=== PATIENT | male | born 1955 | race Caucasian/White ===

== ENCOUNTER → 2024-05-05 | Outpatient (CLI) | payer MEDICARE, OTHER, SELFPAY ==
[2024-05-05 17:22] LABS: Absolute Lymphocyte Count 1.82 X10^3/uL (0.83-4.51); Absolute Neutrophil Count 4.2 X10^3/uL (2.0-7.7); Basophil# 0.07 X10^3/uL; Eosinophil# 0.16 X10^3/uL; Eosinophils% 2.3 % (0-5); Hematocrit 27.3 % (40-54); Hemoglobin 7.4 g/dL (13.0-16.5); Lymphocyte # 1.82 X10^3/ul (0.83-4.51); Lymphocyte % 25.6 % (19-41); Mean Corp Hgb Conc 27.1 g/dL (32-36); Mean Corpuscular Hgb 18.3 pg (27.0-32.0); Mean Corpuscular Volume 67.4 fL (80-94); Mean Platelet Vol. 9.4 fl (6.2-12.0); Monocyte# 0.82 X10^3/uL; Monocyte% 11.5 % (0-10); NRBC Flagged by Analyzer 0 % (0-5); Neutrophil # 4.21 X10^3/uL (2.7-7.7); Neutrophil % 59.3 % (47-70); Platelet Count 251 K/mm3 (150-450); RBC Distribution Width CV 19.9 % (11.6-14.6); RBC Distribution Width SD 47.4 fl (35.1-43.9); Red Blood Count 4.05 M/mm3 (4.6-6.2); White Blood Count 7.1 K/mm3 (4.4-11.0)
[2024-05-05 17:36] LABS: ALB/GLOB Ratio 0.9 RATIO (0.9-2.4); AST(SGOT) 10 U/L (15-37); Alanine Aminotransfer ALT/SGPT 15 U/L (16-61); Albumin, Serum 3.3 g/dL (3.2-5.0); Alkaline Phosphatase 55 U/L (45-117); Anion Gap 5 (5-15); BUN 24 mg/dL (7-18); BUN/Creat Ratio 19.2 RATIO (10-20); Calcium,Total 9.1 mg/dL (8.5-10.1); Chloride 108 mmol/L (98-107); Cholesterol 97 mg/dL (200); Creatinine, Serum 1.25 mg/dL (0.70-1.30); EST Glomerular Filtration Rate 61 mL/min (>60); Est Glom Filt Rate - Afr Amer 74 mL/min (>60); Globulin 3.6 g/dL (2.2-4.2); Glucose 148 mg/dL (74-106); High Density Lipoprotein 41 mg/dL; Potassium 4.1 mmol/L (3.5-5.1); Protein, Total 6.9 g/dL (6.4-8.2); Sodium Level 138 mmol/L (136-145); Triglycerides 85 mg/dL; Very Low Density Lipoprotein 17 mg/dL (5-40)
[2024-05-05 19:45] LABS: Hemoglobin A1c 5.9 % (3.8-5.6)
== END | disposition home or self-care (01) ==
LOC: MTLAB 13:58
PROVIDERS: PCP Internal Medicine; Referring Provider Nurse Practitioner; Visit Provider Nurse Practitioner
DX: I10 Essential (primary) hypertension (principal); E78.5 Hyperlipidemia, unspecified
CPT/HCPCS: 36415; 80053; 80061; 83036; 85025

== ENCOUNTER → 2024-05-10 | Outpatient (CLI) | payer MEDICARE, OTHER, SELFPAY | END | disposition home or self-care (01) | LOC: LABSPEC 11:01 | PROVIDERS: PCP Internal Medicine; Referring Provider Nurse Practitioner; Visit Provider Nurse Practitioner | DX: D64.9 Anemia, unspecified (principal) | CPT/HCPCS: 82274 ==

== ENCOUNTER → 2024-05-13 | Outpatient (CLI) | payer MEDICARE, OTHER, SELFPAY ==
--- NOTE | 2024-05-13 09:52 | STRESSREP_ITS ---
Stress Test Report Date: 05/13/2024 Procedure: Exercise tolerance test/imaging study Indications: Dyspnea on exertion Consent: Per the patient Procedure: The patient exercised on a Fredrick protocol for 6 minutes achieving a peak heart rate of 127 bpm (83% predicted maximal heart rate) with a peak blood pressure 160/70 mmHg and a peak MET capacity of 7.0 METs. The baseline ECG demonstrated sinus rhythm. The peak exercise ECG demonstrated no diagnostic ischemic changes. Frequent isolated PVCs noted with exercise. The functional capacity was considered average. There was no complaint of chest discomfort during exercise or recovery. The examination was discontinued secondary to complaints of dyspnea. The patient was injected with 14.9 mCi of technetium 99m Cardiolite and subsequently rest SPECT Cardiolite nuclear imaging was obtained in the horizontal long, vertical long, and short axis views. Post-exercise, the patient was injected with 44.8 mCi of technetium 99m Cardiolite and subsequently stress SPECT Cardiolite nuclear imaging was obtained in the horizontal long, vertical long, and short axis views. A gated Cardiolite study at peak stress was obtained. Rest and stress SPECT Cardiolite nuclear imaging status post realignment, normalization, and attenuation correction, demonstrates the appearance of relative uniform tracer uptake and myocardial perfusion appearing within normal limits. There is end systolic thickening and brightening. The gated Cardiolite study demonstrates myocardial thickening and inward wall motion. The reported LVEF is 68%. Impression: 1. Technically adequate exercise tolerance test at 83% of predicted maximal heart rate 2. Peak exercise ECG with no diagnostic ischemic changes 3. Frequent PVCs noted with exercise 4. Rest and stress SPECT Cardiolite nuclear imaging demonstrate relative uniform tracer uptake and myocardial perfusion appearing within normal limits. 5. The gated Cardiolite study reports an LVEF of 68%. This note was generated with [employer] software. It may contain incorrect words, spelling, and punctuation that were not noted in checking the note before signing.
== END | disposition home or self-care (01) ==
LOC: CVS 06:24
PROVIDERS: PCP Internal Medicine; Referring Provider Physician Assistant; Visit Provider Physician Assistant
DX: R06.09 Other forms of dyspnea (principal)
CPT/HCPCS: 78452; 93017; A9500

== ENCOUNTER → 2024-05-19 | Outpatient (CLI) | payer MEDICARE, OTHER, SELFPAY ==
[2024-05-19 12:15] LABS: Absolute Lymphocyte Count 1.91 X10^3/uL (0.83-4.51); Absolute Neutrophil Count 4.3 X10^3/uL (2.0-7.7); Basophil# 0.07 X10^3/uL; Basophil% 0.9 % (0-1); Eosinophil# 0.19 X10^3/uL; Eosinophils% 2.5 % (0-5); Hematocrit 28.9 % (40-54); Hemoglobin 7.6 g/dL (13.0-16.5); Lymphocyte # 1.91 X10^3/ul (0.83-4.51); Lymphocyte % 25.3 % (19-41); Mean Corp Hgb Conc 26.3 g/dL (32-36); Mean Corpuscular Hgb 18.6 pg (27.0-32.0); Mean Corpuscular Volume 70.7 fL (80-94); Mean Platelet Vol. 9.2 fl (6.2-12.0); Monocyte% 14.6 % (0-10); NRBC Flagged by Analyzer 0 % (0-5); Neutrophil # 4.26 X10^3/uL (2.7-7.7); Neutrophil % 56.3 % (47-70); POSITIVE MORPHOLOGY YES; Platelet Count 311 K/mm3 (150-450); RBC Distribution Width CV 24.1 % (11.6-14.6); RBC Distribution Width SD 59.2 fl (35.1-43.9); Red Blood Count 4.09 M/mm3 (4.6-6.2); White Blood Count 7.6 K/mm3 (4.4-11.0)
[2024-05-19 12:21] LABS: Differential Indicated SCAN CRITERIA MET
[2024-05-19 12:52] LABS: Anisocytosis 1+; Differential Comment SCANNED; Hypochromasia 1+
[2024-05-19 12:53] LABS: Cholesterol 151 mg/dL (200); High Density Lipoprotein 39 mg/dL; Triglycerides 132 mg/dL; Very Low Density Lipoprotein 26 mg/dL (5-40)
[2024-05-19 19:49] LABS: ALB/GLOB Ratio 0.9 RATIO (0.9-2.4); AST(SGOT) 8 U/L (15-37); Alanine Aminotransfer ALT/SGPT 11 U/L (16-61); Albumin, Serum 3.3 g/dL (3.2-5.0); Alkaline Phosphatase 53 U/L (45-117); Anion Gap 7 (5-15); BUN 20 mg/dL (7-18); BUN/Creat Ratio 17.7 RATIO (10-20); Calcium,Total 9.1 mg/dL (8.5-10.1); Chloride 107 mmol/L (98-107); Creatinine, Serum 1.13 mg/dL (0.70-1.30); EST Glomerular Filtration Rate 69 mL/min (>60); Est Glom Filt Rate - Afr Amer 83 mL/min (>60); Globulin 3.5 g/dL (2.2-4.2); Glucose 140 mg/dL (74-106); Potassium 4.5 mmol/L (3.5-5.1); Protein, Total 6.8 g/dL (6.4-8.2); Sodium Level 137 mmol/L (136-145)
== END | disposition home or self-care (01) ==
PROVIDERS: Physician Assistant; PCP Internal Medicine; Referring Provider Nurse Practitioner; Visit Provider Nurse Practitioner
DX: Z01.818 Encounter for other preprocedural examination (principal); D64.9 Anemia, unspecified; E78.5 Hyperlipidemia, unspecified
CPT/HCPCS: 36415; 80053; 80061; 85025

== ENCOUNTER → 2024-05-21 | Outpatient (CLI) | payer MEDICARE, OTHER, SELFPAY ==
[2024-05-21 12:09] LABS: Glucose 113 mg/dL (74-106); Magnesium 2.2 mg/dL (1.6-2.6)
[2024-05-21 12:20] LABS: Hemoglobin A1c 5.3 % (3.8-5.6)
== END | disposition home or self-care (01) ==
LOC: PSN 11:17
PROVIDERS: PCP Internal Medicine; Referring Provider Nurse Practitioner Family; Visit Provider Nurse Practitioner Family
DX: I49.3 Ventricular premature depolarization (principal); R53.83 Other fatigue; Z13.1 Encounter for screening for diabetes mellitus; E78.5 Hyperlipidemia, unspecified
CPT/HCPCS: 36415; 82947; 83036; 83735; 84443; 93225; 93226

== ENCOUNTER → 2024-05-27 | Outpatient (CLI) | payer MEDICARE, OTHER, SELFPAY ==
[2024-05-27 16:03] LABS: Ferritin 10 ng/mL (26-388); Iron 18 ug/dL (65-175); Iron Binding Capacity,Total 359 ug/dL (250-450)
== END | disposition home or self-care (01) ==
PROVIDERS: PCP Internal Medicine; Referring Provider Physician Assistant; Visit Provider Physician Assistant
DX: D64.9 Anemia, unspecified (principal)
CPT/HCPCS: 36415; 82728; 83540; 83550

== ENCOUNTER → 2024-06-03 | Outpatient (CLI) | payer MEDICARE, OTHER, SELFPAY ==
--- NOTE | 2024-06-03 14:02 | ECHOD_ITS ---
Reason For Study: Arrhythmia Procedure This was a 2D Doppler, Color Flow transthoracic echocardiogram. Exam performed in department. Left Ventricle Normal LV size. Mild concentric left ventricular hypertrophy. Mid cavitary false tendon noted. The left ventricular ejection fraction is 65 %. Diastolic function is indeterminate. Right Ventricle Normal right ventricle. Atria The left and right atria are normal. Mitral Valve Trivial mitral valve insufficiency. Tricuspid Valve Trivial tricuspid valve insufficiency. Normal pulmonary artery pressure. Aortic Valve Trisinus/trileaflet aortic valve. Trivial aortic valve insufficiency. Pulmonic Valve The pulmonic valve is not well visualized. Great Vessels Mildly dilated aortic root. Pericardium/Pleural Trivial pericardial effusion. MMode/2D Measurements & Calculations LVIDd: 5.3 cm IVSd: 1.0 cm Ao root diam: 3.9 cm LVIDs: 3.1 cm LVPWd: 1.2 cm RVDd: 4.6 cm FS: 40.5 % LAV(MOD-bp): 98.3 ml LVAd ap4: 44.6 cm2 SV(MOD-sp4): 106.3 ml LAV(MOD-bp) Indexed: 41.0 ml/m2 LVLd ap4: 9.8 cm LAV(MOD-sp2): 88.5 ml EDV(MOD-sp4): 167.5 ml LAV(MOD-sp4): 91.2 ml EDV(sp4-el): 172.2 ml LVAs ap4: 24.2 cm2 LVLs ap4: 8.0 cm ESV(MOD-sp4): 61.2 ml ESV(sp4-el): 62.4 ml EF(MOD-sp4): 63.5 % EF(sp4-el): 63.8 % SV(sp4-el): 109.8 ml Ao sinus diam: 4.[address] Junction: 3.4 cm LA dimension(2D): 4.0 cm LA A4 area: 27.5 cm2 RA A4 area: 22.1 cm2 TAPSE: 2.5 cm Time Measurements MV dec time: 0.21 sec Doppler Measurements & Calculations MV E max : 63.5 cm/sec Lat Peak E' : 10.2 cm/sec Med Peak E' : 8.6 cm/sec MV A max : 82.6 cm/sec E/E' lat: 6.2 E/E' med: 7.4 MV E/A: 0.77 MV V2 max: 92.8 cm/sec MV P1/2t max : 86.7 cm/sec Ao V2 max: 129.6 cm/sec MV max P.4 mmHg MV P1/2t: 80.4 msec Ao max P.7 mmHg MV V2 mean: 48.4 cm/sec MV dec slope: 315.7 cm/sec2 Ao V2 mean: 94.7 cm/sec MV mean P.1 mmHg Ao mean P.9 mmHg MV V2 VTI: 30.2 cm MVA(P1/2t): 2.7 cm2 Ao V2 VTI: 27.5 cm AV (velocity ratio): 0.91 LV V1 max: 127.0 cm/sec PA V2 max: 111.7 cm/sec TR max : 274.3 cm/sec LV V1 max P.5 mmHg TR max P.1 mmHg LV V1 mean P.5 mmHg LV V1 mean: 88.8 cm/sec LV V1 VTI: 25.0 cm ECHO/Echo Complete Interpretation Summary Mild concentric left ventricular hypertrophy. Mid cavitary false tendon noted. The left ventricular ejection fraction is 65 %. Mildly dilated aortic root. Trivial pericardial effusion. Ordering Physician: Bandar Ley Referring Physician: Bandar Ley Performed By: Mike Breaux RCS
== END | disposition home or self-care (01) ==
LOC: CVS 14:00
PROVIDERS: PCP Internal Medicine; Referring Provider Nurse Practitioner Family; Visit Provider Nurse Practitioner Family
DX: I49.3 Ventricular premature depolarization (principal)
CPT/HCPCS: 93306

== ENCOUNTER 2024-06-29 10:53 | Day surgery (SDC) | payer MEDICARE, OTHER, SELFPAY ==
[2024-06-29] VITALS (8 sets, daily range): BP systolic 91–158; BP diastolic 69–99; PULSE 67–81; RESP 16; TEMP 36.2–36.6; O2SAT 93–97; BMI 30.7
--- NOTE | 2024-06-29 | IMM_PTH ---
PATIENT: JACEY DODD LOC: EN U#:[id number] AGE/SX: 68/M ROOM: RE06/29/[address]: Dr. Jeremy Serrano DO : 1955 BED: DIS: 06/29/2024 SPEC #: [id number] RECD: 07/01/24 10:49 STATUS: CHELITA REQ #: [id number] DEBBIE: 06/29/24 00:[address]: Jeremy Serrano DEPT: IMMUNOHISTOCHEMISTRY RECD BY: Suraj Pyle ENTERED: 07/01/24 10:49 SP TYPE: IMMUNO OTHR DR: Dr. Evelin Rogers MD Tissues: B - Esophagus, NOS Procedures: P53 (initial) KI-67 (add) [facility]YSIC[facility] INSTIT[facility] [address] [address] SPECIMEN INFORMATION: Tissue Source: B- Distal esophagus biopsy Clinical Info: Iron deficiency anemia due to chronic blood loss Specimen Number: [id number] CPT code: 18162,63899 METHODOLOGY: Deparaffinized sections of prefer/formalin-fixed tissue or PAP/DQ stained slides are incubated with monoclonal/polyclonal antibodies/oligonucleotide probes. Localization is made via biotin free immunoperoxidase method. Appropriate controls are performed and reacted as expected. Results on target cell population are indicated in the following table: RESULTS: ANTIBODY / CLONE RESULT Block B P53 (DO-7) positive, wild type Ki-67 (30-9) positive, low to moderate These tests were developed and their performance characteristics determined by [facility]. They may not have been cleared or approved by the U.S. Food and Drug Administration. The FDA has determined that such clearance or approval is not necessary. The above immunohistochemical/dualISH markers are ordered and reviewed by the Pathologist. INTERPRETATION: B. Distal esophagus, biopsy: No evidence of dysplasia. AM. 07/02/2024
--- NOTE | 2024-06-29 11:24 | PCM.PRE.AN2 ---
ASA Classification* ASA Classification ASA Classification: 2 Assessment & Plan Anesthesia* Anesthesia Assessment Anesthesia Assessment: Discussed sedation and/or anesthesia options, risks, benefits, and alternatives with patient/parents/legal guardian/POA. Questions invited. The patient/parents/legal guardian/POA seems to understand and agrees to proceed with anesthesia plan. Reviewed the physical assessment, medical history, allergy history and patient home medications list prior to surgery/procedure/anesthetic and documented any changes. Performed airway and anesthesia risk assessments. Anesthesia Type Anesthesia Type: MAC History Source History Obtained from:: Patient and Chart Anesthesia Focused Assessment* Temperature: 97.9 F Pulse Rate: 67 Blood Pressure: 158/99 Respiratory Rate: 16 Pulse Ox: 97 Oxygen Delivery Method: Room Air Airway Assessment Mouth opens: >3 cm Mallampati Score: III Teeth Condition: Caps/Crowns (Patient but has multiple crowns all tight.) Neck Range of motion (ROM): Limited ROM (Slight limited in extension) Focused Labs Anesthesia Preop lab: CBC WBC 6.8 K/mm3 (4.4-11.0) 06/24/24 08:23 RBC 4.85 M/mm3 (4.6-6.2) 06/24/24 08:23 Hgb 10.4 g/dL (13.0-16.5) L 06/24/24 08:23 Hct 37.4 % (40-54) L 06/24/24 08:23 Plt Count 268 K/mm3 (150-450) 06/24/24 08:23 CHEMISTRY Potassium 4.5 mmol/L (3.5-5.1) 05/19/24 10:31 Sodium 137 mmol/L (136-145) 05/19/24 10:31 Magnesium 2.2 mg/dL (1.6-2.6) 05/21/24 11:23 BUN 20 mg/dL (7-18) H 05/19/24 10:31 Creatinine 1.13 mg/dL (0.70-1.30) 05/19/24 10:31 Glucose 113 mg/dL (74-106) H 05/21/24 11:23 TSH 2.610 uIU/mL (0.358-3.740) 05/21/24 11:23 COAG Pre-Assessment Diagnosis/Proposed Procedure Planned Operative Procedure(s): EGD/CSCOPE Anesthesia History Anesthesia History - patient transition specialist: Anesthesia History - patient transition specialist Hx Hospitalization No 06/25/24 08:26 Any Problems With Anesthesia No 06/25/24 08:26 Cholinesterase deficiency No 06/25/24 08:26 You/Your Family Experience No 06/25/24 08:26 fever (hyperthermia) with Relationship Recent Exposure to Contagious No 06/29/24 11:11 Disease Does patient have nerve No 06/25/24 08:26 stimulator Patient instructed to have device shut off --Does patient have Pacemaker No 06/29/24 11:11 or ICD? When Was Last Pacemaker Check QUESTION #4 FULL TEXT: You/Your Family Experience fever (hyperthermia) with Anesthesia Last Oral Intake Last Oral intake: Last Oral Intake NPO since 08:00 06/29/24 11:11 Meds taken in AM with sips of water? Meds patient instructed to take am of surgery Any additional information?: Yes NPO since: 08:00 (Patient finished prep at 8 AM.) PONV PONV - patient transition specialist: PONV - patient transition specialist Female No 06/25/24 08:26 HX of Motion Sickness No 06/25/24 08:26 HX of N/V After Surgery No 06/25/24 08:26 Non-Smoker Yes 06/25/24 08:26 Duration of Surgery greater No 06/25/24 08:26 than 60 minutes Number of Risk Factors 1 06/25/24 08:26 PONV Score Low Risk 06/25/24 08:26 Height & Weight Height & Weight: Anesthesia: Height & Weight Height 6 ft 3 in 06/29/24 11:11 Weight: 111.584 kg 06/29/24 11:11 Body Mass Index (BMI) 30.7 06/29/24 11:11 Respiratory Assessment Respiratory Assessment - patient transition specialist: Respiratory Tract Infection Hx - patient transition specialist Hx Respiratory Tract Infection No 06/25/24 08:26 STOP Sleep Apnea STOP Sleep Apnea - patient transition specialist: STOP Sleep Apnea - patient transition specialist Hx Hypertension Yes: NO MED FOR 1 MONTH 06/25/24 08:26 Hx Sleep Apnea No 06/25/24 08:26 CPAP BIPAP Do you snore loudly (louder No 06/25/24 08:26 than talking or can be heard Do you often feel tired/ No 06/25/24 08:26 fatigued/ sleepy during daytime? Has anyone observed you stop No 06/25/24 08:26 breathing during sleep? STOP Results Negative 06/25/24 08:26 QUESTION #5 FULL TEXT : Do you snore loudly (louder than talking or can be heard through closed doors)? 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 Specify any problems Hx of Preganancy in last 3 N/A 06/25/24 08:26 Months Nurse Filling Out Transfusion DSCHRIBER 06/25/24 08:26 & Questions: Date: 06/25/24 06/25/24 08:26 Time: 06/25/24 08:26 Patient unable to answer at this time (ie. confused, unrespo /Reproduction History /Reproductive History - patient transition specialist: /Reproductive Hx- patient transition specialist Hx Now No 06/25/24 08:26 Gestational Age (in weeks): EDC: Hx Hx Para Hx Section SAB No 06/25/24 08:26 PFSH Medical History Low iron Heartburn Non-smoker Shortness of breath on exertion History of Holter monitoring History of echocardiogram History of stress test Iron deficiency anemia due to chronic blood loss Nocturia Prostate cancer Hypertension Home Medications ?Medication ?Instructions ?Recorded ?Last Taken ?Type sildenafil 100 mg tablet 100 mg PO DAILY PRN sexual 03/02/24 Unknown Rx activity #90 tabs ferrous sulfate 325 mg (65 mg 325 mg PO Q OTHER DAY #90 tabs 05/06/24 06/23/24 Rx iron) tablet Allergy/AdvReac Type Severity Reaction Status Date / Time No Known Allergies Allergy Verified 06/29/24 11:10 Family History (Reviewed 06/29/24 @ by Dr. Jerry Mauro MD) Father Cancer, Onset Age: 65 prostate Hypertension Surgical History (Reviewed 06/29/24 @ 11: by Dr. Jerry Mauro MD) Hx of colonoscopy Hx of prostate biopsy H/O hernia repair Social History (Reviewed 06/29/24 @ : by Dr. 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
--- NOTE | 2024-06-29 12:00 | EGD_PTH ---
PATIENT: JACEY DODD LOC: EN U#:[id number] AGE/SX: 68/M ROOM: RE06/29/[address]: Dr. Jeremy Serrano DO : 1955 BED: DIS: 06/29/2024 SPEC #: [id number] RECD: 06/29/24 17:51 STATUS: CHELITA KARINE #: [id number] DEBBIE: 06/29/24 12:[address]: Jeremy Serrano DEPT: SURGICAL PATHOLOGY RECD BY: Kaylyn Valdivia ENTERED: 06/30/24 08:05 SP TYPE: EGD BIOPSY OT DR: Dr. Evelin Rogers MD Tissues: A - Duodenum, NOS B - Esophagus, NOS C - Cecum, NOS Procedures: Special Stain Group I Surgery Specimen Level IV Alcian Blue/PAS (control) HEADER OPERATION: Colonoscopy, EGD with biopsies PRE-OP DIAGNOSIS: Iron deficiency anemia due to chronic blood loss TISSUE SUBMITTED: A- Duodenum biopsy, B- Distal esophagus biopsy, C- Cecal polyp biopsy MICROSCOPIC DIAGNOSIS A. Duodenum, biopsy: Mild non-specific chronic inflammation. B. 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 No evidence of dysplasia. See comment. C. Cecal polyp, biopsy: Hyperplastic polyp. 07/01/2024 COMMENT B. Alcian blue/PAS stain with matched control is used in the evaluation of the specimen. Immunohistochemistry ([id number]) for P53 and Ki-67 will be performed and results will be reported separately. MICROSCOPIC DESCRIPTION Slides are reviewed. GROSS DESCRIPTION A. Received in fixative is one container labeled with the patient's name and designated Duodenum biopsy. The specimen consists of two irregular fragments of light umana soft tissue that in aggregate measure 1.0 x 0.3 x 0.1 cm. The specimen is totally submitted in one cassette. B. Received in fixative is one container labeled with the patient's name and designated Distal esophagus biopsy. The specimen consists of multiple irregular fragments of light umana soft tissue that in aggregate measure 1.5 x 0.4 x 0.1 cm. The specimen is totally submitted in one cassette. C. Received in fixative is one container labeled with the patient's name and designated Cecal polyp biopsy. The specimen consists of two irregular fragments of light umana soft tissue that in aggregate measure 0.6 x 0.3 x 0.1 cm. The specimen is totally submitted in one cassette. SJ.mr 06/30/2024 TC:3 CPT:[id number]
--- NOTE | 2024-06-29 12:40 | PCM.HP.BLA ---
History and Physical Date of Admission: 06/29/24 History of Present Illness 68-year-old gentleman with progressively increasing fatigue over the past 2 to 3 months and workup revealed iron deficiency anemia. He is unaware of any external blood loss. He just started an oral iron supplement 1 tablet every other day. He was diagnosed with prostate cancer on surveillance with a follow-up elective prostate biopsy in June 2024 but unaware of any hematuria. 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 Smoking Status: Never smoker Electronic Cigarette Use: not used alcohol intake: never substance use type: does not use what type of physical activity do you participate in: walking, bicycling and other details: pickleball cassandra/religious: Mormon seatbelt use: always do you feel safe at home: Yes ROS Constitutional Constitutional: Reports fatigue Intake Vital Signs 06/03/2415:45 06/24/2409:17 06/24/2409:19 Height 6 ft 3 in 6 ft 3 in 6 ft 3 in Weight: 112.491 kg 113.171 kg BMI 30.9 31.1 BP 127/73 H 131/81 H Blood Pressure Location Lt brachial Lt brachial Position Sitting Sitting Respiration 16 18 Pulse 76 73 Pulse Source Monitor Monitor Temp 98.5 F 98.1 F Temperature Source Temporal Artery Temporal Artery Pulse Oximetry (%) 93 95 Oxygen Delivery Method room air room air Intake Is patient in pain?: No Allergies No Known Allergies Allergy (Verified 06/24/24 09:19) Medications ?Medication ?Instructions ?Recorded ?Confirmed ?Type sildenafil 100 mg tablet 100 mg PO DAILY PRN sexual 03/02/24 06/24/24 Rx activity #90 tabs ferrous sulfate 325 mg (65 mg 325 mg PO Q OTHER DAY #90 tabs 05/06/24 06/24/24 Rx iron) tablet Have you fallen in the past year?: No Central Venous Access Central Venous Access: No Laboratory Results 06/24/24 06/03/24 05/27/24 08:23 16:30 13:22 Hgb 10.4 L 8.9 L Ferritin 14 L 10 L 05/19/24 05/05/24 10:31 14:07 Hgb 7.6 L 7.4 L Ferritin Exam Physical Exam Const alert, oriented x3 and no apparent distress Coding Level of Care Code Off vis,est,level 3 Exam Problem Focused Diagnoses Iron deficiency anemia due to chronic blood loss D50.0 Assessment and Plan Assessment and Plan (1) Iron deficiency anemia due to chronic blood loss: Status: Chronic Orders: Orders CBC W/Diff, Automated 08/05/24 D50.0 - Iron deficiency anemia secondary to blood loss (chronic), D64.9 - Anemia, unspecified Retic Panel Count 08/05/24 D50.0 - Iron deficiency anemia secondary to blood loss (chronic), D50.9 - Iron deficiency anemia, unspecified Ferritin 08/05/24 D50.0 - Iron deficiency anemia secondary to blood loss (chronic), D64.9 - Anemia, unspecified Iron+Iron Binding Capacity 08/05/24 D50.0 - Iron deficiency anemia secondary to blood loss (chronic), D50.9 - Iron deficiency anemia, unspecified Plan 68-year-old gentleman with iron deficiency anemia due to chronic external blood loss most likely GI. Patient recently started on oral iron supplement 1 tablet every day. There has been some improvement in his iron deficiency anemia. Chronic comorbid conditions: Dyslipidemia, hypertension. Plan: He will undergo EGD and colonoscopy to evaluate his upper lower GI tract for signs and symptoms of GI blood loss. He was explained alternatives, risk, benefits include not withstanding bleeding, infection, sepsis, perforation, need for emergent surgery . He will have an ASA of 3. I have examined the patient and the H&P has been reviewed. There are no clinical changes since date of exam.
--- NOTE | 2024-06-29 13:21 | PCM.POST.ANE ---
Anesthesia: Postop Eval I Current Vital Signs Temperature: 97.2 F Pulse Rate: 72 Blood Pressure: 91/79 Respiratory Rate: 16 Pulse Ox: 97 Oxygen Delivery Method: Room Air Assessment Airway patent: Yes Spontaneous unlabored respirations: Yes Mental status: Awake and Calm nausea: No Vomiting: No Anesthesia Complication: No Fluid Hydration Crystalloid volume administer (ml): 50 Total IV fluid infused: 50 Progress Note Anesthesia document: Postop Eval 1 completed: Yes
--- NOTE | 2024-06-29 13:28 | OP.CCLET_ITS ---
06/29/2024 Evelin Rogers Md Re : Upper GI endoscopy procedure for Eugenio Aguilera Dear Sue This procedure was performed on Saturday, June 29, 2024. 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 Biopsied. - Large hiatal hernia. - Gastric erosions with no stigmata of recent bleeding. - Duodenitis. Biopsied. Recommendations : - Discharge patient to home. - Resume previous diet. - Continue present medications. - Await pathology results. - Repeat upper endoscopy. My findings are described in the full procedure note, which is enclosed. If I can be of further assistance, please feel free to contact me at . Sincerely, Jeremy Serrano, 06/29/2024 1:27:26 PM This report has been signed electronically.
--- NOTE | 2024-06-29 13:28 | OP.EGD_ITS ---
Patient Name: Eugenio Aguilera Procedure Date: 06/29/2024 12:14 PM Date of : 1955 Age: 68 Procedure: Upper GI endoscopy Indications: Iron deficiency anemia Providers: Jeremy Serrano DO Medicines: Monitored Anesthesia Care Patient Profile: This is a 68 year old male. Refer to note in patient chart for documentation of history and physical. Patient has symptoms. Complications: No immediate complications. Procedure: Pre-Anesthesia Assessment: - Prior to the procedure, a History and Physical was performed, and patient medications and allergies were reviewed. The patient is competent. The risks and benefits of the procedure and the sedation options and risks were discussed with the patient. All questions were answered and informed consent was obtained. Patient identification and proposed procedure were verified by the physician in the pre-procedure area. Mental Status Examination: alert and oriented. Airway Examination: normal oropharyngeal airway and neck mobility. Respiratory Examination: clear to auscultation. CV Examination: normal. Prophylactic Antibiotics: The patient does not require prophylactic antibiotics. Prior Anticoagulants: The patient has taken no anticoagulant or antiplatelet agents. ASA Grade Assessment: III - A patient with severe systemic disease. After reviewing the risks and benefits, the patient was deemed in satisfactory condition to undergo the procedure. The anesthesia plan was to use monitored anesthesia care (MAC). Immediately prior to administration of medications, the patient was re-assessed for adequacy to receive sedatives. The heart rate, respiratory rate, oxygen saturations, blood pressure, adequacy of pulmonary ventilation, and response to care were monitored throughout the procedure. The physical status of the patient was re-assessed after the procedure. After obtaining informed consent, the endoscope was passed under direct vision. Throughout the procedure, the patient's blood pressure, pulse, and oxygen saturations were monitored continuously. The Colonoscope was introduced through the mouth, and advanced to the second part of duodenum. The upper GI endoscopy was accomplished without difficulty. The patient tolerated the procedure well. Scope In: 12:49:17 PM Scope Out: 12:58:44 PM Total Procedure Duration Time 0 hours 9 minutes 27 seconds Findings: There were esophageal mucosal changes consistent with long-segment Cadena's esophagus present in the middle third of the esophagus and in the lower third of the esophagus. The maximum longitudinal extent of these mucosal changes was 10 cm in length. Mucosa was biopsied with a cold forceps for histology in a targeted manner at intervals of 1 cm in the middle third of the esophagus and in the lower third of the esophagus. A total of 10 specimen bottles were sent to pathology. A large hiatal hernia was present. Multiple localized erosions with no stigmata of recent bleeding were found in the cardia. Patchy moderate inflammation characterized by erosions, erythema, friability and granularity was found in the duodenal bulb. Biopsies were taken with a cold forceps for histology. Verification of patient identification for the specimen was done. Estimated blood loss was minimal. Impression: - Esophageal mucosal changes consistent with long-segment Cadena's esophagus. Biopsied. - Large hiatal hernia. - Gastric erosions with no stigmata of recent bleeding. - Duodenitis. Biopsied. Recommendation: - Discharge patient to home. - Resume previous diet. - Continue present medications. - Await pathology results. - Repeat upper endoscopy. Procedure Code(s): --- Professional --- 68382, Esophagogastroduodenoscopy, flexible, transoral; with biopsy, single or multiple CPT copyright 2021 [employer]. All rights reserved. The codes documented in this report are preliminary and upon hse manager review may be revised to meet current compliance requirements. Jeremy Serrano DO 06/29/2024 1:27:26 PM This report has been signed electronically. Number of Addenda: 0 Note Initiated On: 06/29/2024 12:14 PM
--- NOTE | 2024-06-29 13:31 | OP.COLON_ITS ---
Patient Name: Eugenio Aguilera Procedure Date: 06/29/2024 12:58 PM Date of : 1955 Age: 68 Procedure: Colonoscopy Indications: Iron deficiency anemia Providers: Jeremy Serrano DO Medicines: Monitored Anesthesia Care Patient Profile: This is a 68 year old male. Refer to note in patient chart for documentation of history and physical. Patient has symptoms. Last Colonoscopy: date unknown. Unable to locate last colonoscopy report. Complications: No immediate complications. Procedure: Pre-Anesthesia Assessment: - Prior to the procedure, a History and Physical was performed, and patient medications and allergies were reviewed. The patient is competent. The risks and benefits of the procedure and the sedation options and risks were discussed with the patient. All questions were answered and informed consent was obtained. Patient identification and proposed procedure were verified by the physician in the pre-procedure area. Mental Status Examination: alert and oriented. Airway Examination: normal oropharyngeal airway and neck mobility. Respiratory Examination: clear to auscultation. CV Examination: normal. Prophylactic Antibiotics: The patient does not require prophylactic antibiotics. Prior Anticoagulants: The patient has taken no anticoagulant or antiplatelet agents. ASA Grade Assessment: III - A patient with severe systemic disease. After reviewing the risks and benefits, the patient was deemed in satisfactory condition to undergo the procedure. The anesthesia plan was to use monitored anesthesia care (MAC). Immediately prior to administration of medications, the patient was re-assessed for adequacy to receive sedatives. The heart rate, respiratory rate, oxygen saturations, blood pressure, adequacy of pulmonary ventilation, and response to care were monitored throughout the procedure. The physical status of the patient was re-assessed after the procedure. After I obtained informed consent, the scope was passed under direct vision. Throughout the procedure, the patient's blood pressure, pulse, and oxygen saturations were monitored continuously. The Colonoscope was introduced through the anus and advanced to the terminal ileum. The colonoscopy was performed without difficulty. The patient tolerated the procedure well. The quality of the bowel preparation was adequate. The terminal ileum, ileocecal valve, appendiceal orifice, and rectum were photographed. Scope In: 1:00:49 PM Scope Withdrawal Time 0 hours 9 minutes 12 seconds Scope Out: 1:13:51 PM Total Procedure Duration Time 0 hours 13 minutes 2 seconds Findings: The perianal and digital rectal examinations were normal. An 8 mm polyp was found in the cecum. The polyp was sessile. The polyp was removed with a jumbo cold forceps. Resection and retrieval were complete. Verification of patient identification for the specimen was done. Estimated blood loss was minimal. Multiple small and large-mouthed diverticula were found in the recto-sigmoid colon, sigmoid colon and descending colon. Impression: - One 8 mm polyp in the cecum, removed with a jumbo cold forceps. Resected and retrieved. - Diverticulosis in the recto-sigmoid colon, in the sigmoid colon and in the descending colon. Recommendation: - Discharge patient to home. - Resume previous diet. - Continue present medications. - Await pathology results. - Repeat colonoscopy in 5 years for surveillance. Procedure Code(s): --- Professional --- 94581, Colonoscopy, flexible; with biopsy, single or multiple CPT copyright 2021 [employer]. All rights reserved. The codes documented in this report are preliminary and upon kitchen designer review may be revised to meet current compliance requirements. Jeremy Serrano DO 06/29/2024 1:30:36 PM This report has been signed electronically. Number of Addenda: 0 Note Initiated On: 06/29/2024 12:58 PM
--- NOTE | 2024-06-29 13:31 | OP.CCLET_ITS ---
06/29/2024 Evelin Rogers Md Re : Colonoscopy procedure for Eugenio Aguilera Dear Sue This procedure was performed on Saturday, June 29, 2024. My impressions and recommendations are as follows: Impressions : - One 8 mm polyp in the cecum, removed with a jumbo cold forceps. Resected and retrieved. - Diverticulosis in the recto-sigmoid colon, in the sigmoid colon and in the descending colon. Recommendations : - Discharge patient to home. - Resume previous diet. - Continue present medications. - Await pathology results. - Repeat colonoscopy in 5 years for surveillance. My findings are described in the full procedure note, which is enclosed. If I can be of further assistance, please feel free to contact me at . Sincerely, Jeremy Serrano, 06/29/2024 1:30:36 PM This report has been signed electronically.
--- NOTE | 2024-06-29 16:57 | PCM.POSTANE2 ---
Anesthesia Postop Eval I Sum Postop Eval Completion status Anesthesia document: Postop Eval 1 completed: Yes Anesthesia Postop Eval I Summary Anesthesia Postop Eval I Summary: Anesthesia Postop Eval I: Assessment Summary Airway patent Yes 06/29/24 13:22 [email or web address] Spontaneous unlabored Yes 06/29/24 13:22 [email or web address] respirations Mental status Awake,Calm 06/29/24 13:22 [email or web address] nausea No 06/29/24 13:22 [email or web address] Vomiting No 06/29/24 13:22 [email or web address] Anesthesia Postop Eval I: Fluid Summary Crystalloid volume administer 50 06/29/24 13:22 [email or web address] (ml) Colloids volume administered ( ml) Blood Product volume administered (ml) Total IV fluid infused 50 06/29/24 13:22 [email or web address] Anesthesia Postop Eval I: Summary Notes Anesthesia Complication No 06/29/24 13:22 [email or web address] Anesthesia Complication Comment: Post-operative progress note Anesthesia: Postop Eval II Evaluation Mental status: Awake and Calm Pain Level: 0 nausea: No Vomiting: No Complications Anesthesia Complication: No
== END 2024-06-29 13:55 | disposition home or self-care (01) ==
LOC: EN 10:53 → AC 10:57
PROVIDERS: PCP Internal Medicine; Referring Provider Internal Medicine; Visit Provider Internal Medicine Gastroenterology
PROC: 0DJD8ZZ Inspection of Lower Intestinal Tract, Via Natural or Artificial Opening Endoscopic (ICD-10-PCS; CPT 45378; principal; 2024-06-29 11:55)
DX: D50.0 Iron deficiency anemia secondary to blood loss (chronic) (principal); C61 Malignant neoplasm of prostate; K44.9 Diaphragmatic hernia without obstruction or gangrene; K63.5 Polyp of colon; K57.30 Diverticulosis of large intestine without perforation or abscess without bleeding; K29.80 Duodenitis without bleeding; I10 Essential (primary) hypertension; K22.70 Barrett's esophagus without dysplasia
CPT/HCPCS: 43239; 45380; 88305; 88312; 88341; 88342; A4216; J2405

== ENCOUNTER → 2024-07-29 | Outpatient (CLI) | payer MEDICARE, SELFPAY ==
[2024-07-29 15:39] LABS: Absolute Lymphocyte Count 1.78 X10^3/uL (0.83-4.51); Absolute Neutrophil Count 3.6 X10^3/uL (2.0-7.7); Basophil# 0.08 X10^3/uL; Basophil% 1.3 % (0-1); Eosinophil# 0.17 X10^3/uL; Eosinophils% 2.7 % (0-5); Hematocrit 44.4 % (40-54); Hemoglobin 13.6 g/dL (13.0-16.5); Lymphocyte # 1.78 X10^3/ul (0.83-4.51); Lymphocyte % 28.7 % (19-41); Mean Corp Hgb Conc 30.6 g/dL (32-36); Mean Corpuscular Hgb 26.1 pg (27.0-32.0); Mean Corpuscular Volume 85.2 fL (80-94); Monocyte# 0.58 X10^3/uL; Monocyte% 9.4 % (0-10); NRBC Flagged by Analyzer 0 % (0-5); Neutrophil # 3.57 X10^3/uL (2.7-7.7); Neutrophil % 57.6 % (47-70); POSITIVE MORPHOLOGY YES; Platelet Count 242 K/mm3 (150-450); RBC Distribution Width CV 22.5 % (11.6-14.6); RBC Distribution Width SD 69.7 fl (35.1-43.9); RET-HE 34.2 pg (30-35); Red Blood Count 5.21 M/mm3 (4.6-6.2); Reticulocyte Count 1.76 % (0.5-1.5); White Blood Count 6.2 K/mm3 (4.4-11.0)
[2024-07-29 15:44] LABS: Differential Indicated SCAN CRITERIA MET
[2024-07-29 15:51] LABS: Ferritin 26 ng/mL (26-388); Iron 78 ug/dL (65-175); Iron Binding Capacity,Total 367 ug/dL (250-450); PERCENT IRON SATURATION 21.3 % (15.0-55.0)
[2024-07-29 16:35] LABS: Anisocytosis 2+; Differential Comment SCANNED
[2024-07-29 21:27] LABS: Xtra Tube EP Lab EXTRA TUBE
== END | disposition home or self-care (01) ==
PROVIDERS: PCP Internal Medicine; Referring Provider Internal Medicine Hematology & Oncology; Visit Provider Internal Medicine Hematology & Oncology
DX: D50.0 Iron deficiency anemia secondary to blood loss (chronic) (principal)
CPT/HCPCS: 36415; 82728; 83540; 83550; 85025; 85045

== ENCOUNTER → 2024-08-26 | Outpatient (CLI) | payer MEDICARE, OTHER, SELFPAY ==
--- NOTE | 2024-08-26 13:45 | VDLE_ITS ---
Reason For Study: Left leg swelling RIGHT LEFT CFV is compressible, spontaneous, phasic, GSV is normal. competent and demonstrates normal Acute deep vein thrombosis is noted in the augmentation. left CFV, ProfundaV, FV prox/mid to distal, Procedure PopV, T/P Trunk, and GastrocV. It is dilated This is a venous duplex using B-mode, color and NONCOMPRESSIBLE. flow and spectral Doppler. Thrombus in ProfundaV is extending into CFV, Exam performed in department. thombus in FV prox/mid does not appear to A preliminary report was called and/or faxed connect to CFV. FV prox is compressible. to Yesica ESCAMILLA, patient released home, office PTV is compressible. will call. LT PerV is compressible. VL/Venous Duplex US, Unilateral Interpretation Summary Acute deep vein thrombosis is noted in the left common femoral vein, profunda f emoral vein, femoral vein, popliteal vein, tibioperoneal trunk vein, and gastrocnemius vein. Ordering Physician: Tra Rosas Referring Physician: Evelin Rogers Performed By: Carole Joyner RVT
== END | disposition home or self-care (01) ==
PROVIDERS: PCP Internal Medicine; Referring Provider Physician Assistant; Visit Provider Physician Assistant
DX: M79.89 Other specified soft tissue disorders (principal); R06.09 Other forms of dyspnea
CPT/HCPCS: 93971

== ENCOUNTER → 2024-08-27 | Outpatient (CLI) | payer MEDICARE, OTHER, SELFPAY ==
[2024-08-27 18:51] LABS: International Normalized Ratio 1.2; Prothrombin Time (Protime)PT. 14.8 SECONDS (11.7-14.9)
== END | disposition home or self-care (01) ==
PROVIDERS: PCP Internal Medicine; Referring Provider Internal Medicine; Visit Provider Internal Medicine
DX: I82.90 Acute embolism and thrombosis of unspecified vein (principal)
CPT/HCPCS: 36415; 85610

== ENCOUNTER 2024-09-13 10:07 | Outpatient (RCR) | payer MEDICARE, OTHER, SELFPAY ==
[2024-09-01 18:47] LABS: International Normalized Ratio 1.2; Prothrombin Time (Protime)PT. 14.7 SECONDS (11.7-14.9)
[2024-09-06 15:34] LABS: International Normalized Ratio 1.4; Prothrombin Time (Protime)PT. 17.2 SECONDS (11.7-14.9)
[2024-09-13 14:27] LABS: International Normalized Ratio 1.5; Prothrombin Time (Protime)PT. 18.2 SECONDS (11.7-14.9)
== END 2024-09-13 18:00 | disposition home or self-care (01) ==
LOC: MTLAB 10:07
PROVIDERS: PCP Internal Medicine; Referring Provider Internal Medicine; Visit Provider Internal Medicine
DX: Z79.01 Long term (current) use of anticoagulants (principal)
CPT/HCPCS: 36415; 85610

== ENCOUNTER 2024-10-05 09:50 | Outpatient (RCR) | payer MEDICARE, OTHER, SELFPAY ==
[2024-10-05 12:32] LABS: International Normalized Ratio 1.5; Prothrombin Time (Protime)PT. 18.1 SECONDS (11.7-14.9)
[2024-10-05 12:57] LABS: Ferritin 30 ng/mL (26-388); Iron 105 ug/dL (65-175); Iron Binding Capacity,Total 268 ug/dL (250-450); PERCENT IRON SATURATION 39.2 % (15.0-55.0)
== END 2024-10-05 18:00 | disposition home or self-care (01) ==
LOC: MTLAB 09:50
PROVIDERS: Internal Medicine Hematology & Oncology; PCP Internal Medicine; Referring Provider Internal Medicine; Visit Provider Internal Medicine
DX: D64.9 Anemia, unspecified (principal); Z79.01 Long term (current) use of anticoagulants

== ENCOUNTER 2024-10-22 10:44 | Outpatient (RCR) | payer MEDICARE, OTHER, SELFPAY ==
[2024-10-22 12:31] LABS: International Normalized Ratio 1.8; Prothrombin Time (Protime)PT. 21.5 SECONDS (11.7-14.9)
[2024-10-22 12:32] LABS: Absolute Lymphocyte Count 2.96 X10^3/uL (0.83-4.51); Absolute Neutrophil Count 4.3 X10^3/uL (2.0-7.7); Basophil# 0.07 X10^3/uL; Basophil% 0.8 % (0-1); Eosinophils% 2.4 % (0-5); Hematocrit 45.5 % (40-54); Hemoglobin 15.6 g/dL (13.0-16.5); Lymphocyte # 2.96 X10^3/ul (0.83-4.51); Lymphocyte % 34.8 % (19-41); Mean Corp Hgb Conc 34.3 g/dL (32-36); Mean Corpuscular Hgb 29.1 pg (27.0-32.0); Mean Corpuscular Volume 84.9 fL (80-94); Mean Platelet Vol. 9.6 fl (6.2-12.0); Monocyte# 0.99 X10^3/uL; Monocyte% 11.6 % (0-10); NRBC Flagged by Analyzer 0 % (0-5); Neutrophil # 4.26 X10^3/uL (2.7-7.7); Neutrophil % 50.2 % (47-70); Platelet Count 209 K/mm3 (150-450); RBC Distribution Width CV 14.5 % (11.6-14.6); RBC Distribution Width SD 44.6 fl (35.1-43.9); Red Blood Count 5.36 M/mm3 (4.6-6.2); White Blood Count 8.5 K/mm3 (4.4-11.0)
[2024-10-22 17:30] LABS: ALB/GLOB Ratio 0.8 RATIO (0.9-2.4); AST(SGOT) 15 U/L (15-37); Alanine Aminotransfer ALT/SGPT 26 U/L (16-61); Albumin, Serum 3.5 g/dL (3.2-5.0); Alkaline Phosphatase 57 U/L (45-117); Anion Gap 10 (5-15); BUN 27 mg/dL (7-18); BUN/Creat Ratio 21.3 RATIO (10-20); Calcium,Total 9.5 mg/dL (8.5-10.1); Chloride 101 mmol/L (98-107); Creatinine, Serum 1.27 mg/dL (0.70-1.30); EST Glomerular Filtration Rate 60 mL/min (>60); Est Glom Filt Rate - Afr Amer 72 mL/min (>60); Globulin 4.4 g/dL (2.2-4.2); Glucose 108 mg/dL (74-106); Potassium 3.6 mmol/L (3.5-5.1); Protein, Total 7.9 g/dL (6.4-8.2); Sodium Level 136 mmol/L (136-145)
== END 2024-11-12 18:00 | disposition home or self-care (01) ==
LOC: MTLAB 10:44
PROVIDERS: Physician Assistant; PCP Internal Medicine; Referring Provider Internal Medicine; Visit Provider Internal Medicine
DX: D64.9 Anemia, unspecified (principal); I10 Essential (primary) hypertension; Z79.01 Long term (current) use of anticoagulants
CPT/HCPCS: 36415; 80053; 85025; 85610

== ENCOUNTER → 2024-11-23 | Outpatient (CLI) | payer MEDICARE, OTHER, SELFPAY ==
--- NOTE | 2024-11-23 10:43 | VDLE_ITS ---
Reason For Study Reason For Study: DVT RIGHT LEFT CFV is compressible, spontaneous, phasic, competent GSV is normal. and demonstrates normal augmentation. CFV is compressible, spontaneous, phasic, competent, Procedure and demonstrates normal augmentation. This is a venous duplex using B-mode, color flow and Femoral V mid to distal is partially compressible with spectral Doppler. minimal blood flow noted. Exam performed in department. Profunda V partially compressible with minimal blood Compared to 08/26/2024. flow noted. Acute deep vein thrombosis is noted in the Pop V, T/P Trunk, and Gastroc V. It is dilated and NONCOMPRESSIBLE. PTV is compressible. LT PerV is compressible. VL/Venous Duplex US, Unilateral Interpretation Summary Acute deep vein thrombosis noted in the left popliteal vein, tibioperoneal trun k vein, gastrocnemius vein. Ordering Physician: Evelin Rogers Referring Physician: Evelin Rogers Performed By: Carole Joyner RVT and Student
== END | disposition home or self-care (01) ==
PROVIDERS: PCP Internal Medicine; Referring Provider Internal Medicine; Visit Provider Internal Medicine
DX: I74.3 Embolism and thrombosis of arteries of the lower extremities (principal); I82.432 Acute embolism and thrombosis of left popliteal vein; Z51.81 Encounter for therapeutic drug level monitoring; Z79.01 Long term (current) use of anticoagulants
CPT/HCPCS: 93971

== ENCOUNTER 2024-12-02 12:31 | Outpatient (RCR) | payer MEDICARE, OTHER, SELFPAY ==
[2024-11-15 10:35] LABS: International Normalized Ratio 1.5; Prothrombin Time (Protime)PT. 18.1 SECONDS (11.7-14.9)
[2024-11-23 12:08] LABS: International Normalized Ratio 1.7; Prothrombin Time (Protime)PT. 20.2 SECONDS (11.7-14.9)
[2024-12-02 15:47] LABS: International Normalized Ratio 2.2
== END 2024-12-02 18:00 | disposition home or self-care (01) ==
LOC: MTLAB 12:31
PROVIDERS: PCP Internal Medicine; Referring Provider Internal Medicine; Visit Provider Internal Medicine
DX: Z79.01 Long term (current) use of anticoagulants (principal)
CPT/HCPCS: 36415; 85610

== ENCOUNTER 2025-03-10 11:06 | Outpatient (RCR) | payer MEDICARE, OTHER, SELFPAY ==
[2025-03-10 11:56] LABS: Hematocrit 42.7 % (40-54); Hemoglobin 15.3 g/dL (13.0-16.5); Mean Corp Hgb Conc 35.8 g/dL (32-36); Mean Corpuscular Hgb 31.7 pg (27.0-32.0); Mean Corpuscular Volume 88.4 fL (80-94); Mean Platelet Vol. 9.6 fl (6.2-12.0); Platelet Count 203 K/mm3 (150-450); RBC Distribution Width CV 12.6 % (11.6-14.6); RBC Distribution Width SD 41.1 fl (35.1-43.9); Red Blood Count 4.83 M/mm3 (4.6-6.2)
[2025-03-10 13:18] LABS: ALB/GLOB Ratio 1.3 RATIO (0.9-2.4); AST(SGOT) 23 U/L (<=37); Alanine Aminotransfer ALT/SGPT 16 U/L (<=46); Alkaline Phosphatase 53 U/L (40-129); Anion Gap 13 (5-15); BUN 23 mg/dL (4-19); BUN/Creat Ratio 15.7 RATIO (10-20); Calcium,Total 9.5 mg/dL (7.6-11.0); Carbon Dioxide 24.5 mmol/L (21.0-32.0); Chloride 102 mmol/L (98-108); Creatinine, Serum 1.46 mg/dL (0.70-1.20); EST Glomerular Filtration Rate 52 (>60); Ferritin 125 ng/mL (37-417); Glucose 123 mg/dL (70-99); Iron 109 ug/dL (65-175); Iron Binding Capacity,Total 247 ug/dL (250-450); Iron Binding Capacity,Unsat 138 ug/dL (228-428); Potassium 3.4 mmol/L (3.3-5.1); Sodium Level 140 mmol/L (133-145); Total Bilirubin 0.67 mg/dL (0.00-1.30)
[2025-03-10 21:41] LABS: International Normalized Ratio 2.7; Prothrombin Time (Protime)PT. 28.9 SECONDS (11.7-14.9)
== END 2025-03-10 18:00 | disposition home or self-care (01) ==
LOC: MTLAB 11:06
PROVIDERS: Physician Assistant; PCP Internal Medicine; Referring Provider Internal Medicine; Visit Provider Internal Medicine
DX: Z79.01 Long term (current) use of anticoagulants (principal); I82.409 Acute embolism and thrombosis of unspecified deep veins of unspecified lower extremity; D50.9 Iron deficiency anemia, unspecified
CPT/HCPCS: 36415; 80053; 82728; 83540; 83550; 85027; 85610

== ENCOUNTER → 2025-03-17 | Outpatient (CLI) | payer MEDICARE, OTHER, SELFPAY | END | disposition home or self-care (01) | LOC: CVS 09:01 | PROVIDERS: PCP Internal Medicine; Referring Provider Physician Assistant; Visit Provider Physician Assistant | DX: I82.512 Chronic embolism and thrombosis of left femoral vein (principal); I82.552 Chronic embolism and thrombosis of left peroneal vein; I82.542 Chronic embolism and thrombosis of left tibial vein; I70.92 Chronic total occlusion of artery of the extremities | CPT/HCPCS: 93971 ==

== ENCOUNTER 2025-03-31 10:31 | Outpatient (RCR) | payer MEDICARE, OTHER, SELFPAY ==
[2025-03-31 12:28] LABS: Prothrombin Time (Protime)PT. 28.4 SECONDS (11.7-14.9)
== END 2025-04-14 18:00 | disposition home or self-care (01) ==
LOC: MTLAB 10:31
PROVIDERS: PCP Internal Medicine; Referring Provider Internal Medicine; Visit Provider Internal Medicine
DX: Z79.01 Long term (current) use of anticoagulants (principal)
CPT/HCPCS: 36415; 85610

== ENCOUNTER 2025-05-04 08:39 | Day surgery (SDC) | payer MEDICARE, OTHER, SELFPAY ==
--- NOTE | 2025-05-03 12:52 | PAT.ANESEVAL ---
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 When Was Last Pacemaker Check QUESTION #4 FULL TEXT: You/Your Family Experience fever (hyperthermia) with Anesthesia Last Oral Intake Last Oral intake: Last Oral Intake NPO since Meds taken in AM with sips of water? Meds patient instructed to take am of surgery PONV PONV - stamp machine servicer: PONV - stamp machine servicer Female No 05/03/25 12:39 HX of Motion Sickness No 05/03/25 12:39 HX of N/V After Surgery No 05/03/25 12:39 Non-Smoker Yes 05/03/25 12:39 Duration of Surgery greater No 05/03/25 12:39 than 60 minutes Number of Risk Factors 1 05/03/25 12:39 PONV Score Low Risk 05/03/25 12:39 Height & Weight Height & Weight: Anesthesia: Height & Weight Height 6 ft 3 in 03/04/25 15:19 Respiratory Assessment Respiratory Assessment - stamp machine servicer: Respiratory Tract Infection Hx - stamp machine servicer Hx Respiratory Tract Infection No 05/03/25 12:39 STOP Sleep Apnea STOP Sleep Apnea - stamp machine servicer: STOP Sleep Apnea - stamp machine servicer Hx Hypertension Yes: CONTROLLED WITH MEDS 05/03/25 12:39 Hx Sleep Apnea No 05/03/25 12:39 CPAP BIPAP Do you snore loudly (louder No 05/03/25 12:39 than talking or can be heard Do you often feel tired/ No 05/03/25 12:39 fatigued/ sleepy during daytime? Has anyone observed you stop No 05/03/25 12:39 breathing during sleep? STOP Results Negative 05/03/25 12:39 QUESTION #5 FULL TEXT : Do you snore loudly (louder than talking or can be heard through closed doors)? 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 Specify any problems Hx of Preganancy in last 3 N/A 05/03/25 12:39 Months Nurse Filling Out Transfusion [email or web address] 05/03/25 12:39 & Questions: Date: 05/03/25 05/03/25 12:39 Time: 12:41 05/03/25 12:39 Patient unable to answer at this time (ie. confused, unrespo /Reproduction History /Reproductive History - stamp machine servicer: /Reproductive Hx- stamp machine servicer Hx Now Gestational Age (in weeks): EDC: Hx Hx Para Hx Section SAB No 05/03/25 12:39 PFSH Medical History (Updated 05/03/25 @ 12:45 by Angel Adames) Gastric reflux Low iron Non-smoker Shortness of breath on exertion History of Holter monitoring History of echocardiogram History of stress test Iron deficiency anemia due to chronic blood loss Nocturia Prostate cancer Hypertension Home Medications ?Medication ?Instructions ?Recorded ?Last Taken ?Type sildenafil 100 mg tablet 100 mg PO DAILY PRN sexual 01/13/25 Unknown Rx activity #90 tabs chlorthalidone 25 mg tablet 25 mg PO QDAY #90 tabs 03/22/25 Unknown Rx ferrous sulfate 325 mg (65 mg 325 mg PO DAILY 03/22/25 Unknown History iron) tablet pantoprazole 40 mg tablet,delayed 40 mg PO DAILY #180 tabs 03/22/25 Unknown Rx release warfarin 10 mg tablet 10 mg PO QDAY #90 tabs 03/28/25 04/30/25 Rx Allergy/AdvReac Type Severity Reaction Status Date / Time No Known Allergies Allergy Verified 05/03/25 12:38 Family History Father Cancer, Onset Age: 65 prostate Hypertension Surgical History Hx of colonoscopy Hx of prostate biopsy H/O hernia repair Social History household members: spouse housing: house current occupational status: retired and 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 Stress test pertinent findings: Stress test performed 05/13/2024 Impression: 1. Technically adequate exercise tolerance test at 83% of predicted maximal heart rate 2. Peak exercise ECG with no diagnostic ischemic changes 3. Frequent PVCs noted with exercise 4. Rest and stress SPECT Cardiolite nuclear imaging demonstrate relative uniform tracer uptake and myocardial perfusion appearing within normal limits. 5. The gated Cardiolite study reports an LVEF of 68%. Echo (EF%) pertinent findings: Echocardiogram performed 06/03/2024 Mild concentric left ventricular hypertrophy. Mid cavitary false tendon noted. The left ventricular ejection fraction is 65 %. Mildly dilated aortic root. Trivial pericardial effusion. Recommendation Anesthesia Recommendation Anesthesia recommendation: OPTIMIZED for anesthesia
[2025-05-04] VITALS (11 sets, daily range): BP systolic 96–133; BP diastolic 64–83; PULSE 51–62; RESP 14–18; TEMP 36–36.1; O2SAT 91–97; BMI 31.4
[2025-05-04 08:59] LABS: INR Fingerstick 1.5
[2025-05-04] MEDS: Lactated Ringers 1,000 ML 15 ML IV (09:42)
--- NOTE | 2025-05-04 09:45 | PCM.HP.STD ---
HPI - General General Chief Complaint: Cadena's esophagus HPI Narrative JACEY DODD, is a 69 M who presents Chief Complaint: Barrets esophagus Pt underwent EGD and colonoscopy in Jul 2024 for issues with anemia. EGD 06.29.24 ; Esophageal mucosal changes consistent with long-segment Cadena's esophagus. Biopsied. - Large hiatal hernia. - Gastric erosions with no stigmata of recent bleeding. - Duodenitis. Biopsied. Colonoscopy 06.29.24 - One 8 mm polyp in the cecum, removed with a jumbo cold forceps. Resected and retrieved. - Diverticulosis in the recto-sigmoid colon, in the sigmoid colon and in the descending colon. Pt has been doing well since being on Pantoprazole 40 mg BID. He denies all GI symptoms. He is interested in decreasing/discontinuing this medication. He is no longer strugglign with anemia. [facility] Medical History Gastric reflux Low iron Non-smoker Shortness of breath on exertion History of Holter monitoring History of echocardiogram History of stress test Iron deficiency anemia due to chronic blood loss Nocturia Prostate cancer Hypertension Home Medications ?Medication ?Instructions ?Recorded ?Last Taken ?Type sildenafil 100 mg tablet 100 mg PO DAILY PRN sexual 01/13/25 05/04/25 Rx activity #90 tabs chlorthalidone 25 mg tablet 25 mg PO QDAY #90 tabs 03/22/25 05/03/25 Rx ferrous sulfate 325 mg (65 mg 325 mg PO DAILY 03/22/25 05/03/25 History iron) tablet pantoprazole 40 mg tablet,delayed 40 mg PO DAILY #180 tabs 03/22/25 05/04/25 Rx release warfarin 10 mg tablet 10 mg PO QDAY #90 tabs 03/28/25 04/30/25 Rx Allergy/AdvReac Type Severity Reaction Status Date / Time No Known Allergies Allergy Verified 05/04/25 09:27 Family History Father Cancer, Onset Age: 65 prostate Hypertension Surgical History Hx of colonoscopy Hx of prostate biopsy H/O hernia repair Social History household members: spouse housing: house current occupational status: retired and 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, 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 Smoking Status: Never smoker Electronic Cigarette Use: not used alcohol intake: never substance use type: does not use what type of physical activity do you participate in: walking, bicycling and other details: pickleball cassandra/cheondoism: Baptism seatbelt use: always do you feel safe at home: Yes ROS Constitutional Constitutional: Denies fatigue, fever(s), poor appetite, weight gain or weight loss Gastrointestinal Gastrointestinal: Denies belching, bloating, change in bowel habits, change in stool character, chewing difficulty, coffee ground emesis, constipation, cramping, diarrhea, dyspepsia, dysphagia, early satiety, excessive flatus, fecal incontinence, heartburn, hematemesis, hematochezia, hemorrhoids, loose stools, melena, nausea, odynophagia, rectal bleeding, tenesmus, vomiting or weight changes Vital Signs Vital Signs Vital Signs: 05/04/25 09:29 05/04/25 09:29 Temperature 96.8 F L Temperature Source Temporal Pulse Rate 60 Respiratory Rate 17 Respiratory Pattern Normal Blood Pressure 122/81 H Blood Pressure Mean 94 Blood Pressure Source Monitor Blood Pressure Position Semi-Fowlers Blood Pressure Location Left Arm Pulse Ox 92 Oxygen Delivery Method Room Air Weight Weight: 251 lb 5.231 oz Body Mass Index (BMI) 31.4 Physical Exam Const alert, oriented x3, no apparent distress and healthy appearing General Appearance: cooperative GI normal to inspection, nondistended, normoactive bowel sounds, soft to palpation, non-tender and non-distended Percussion: normal to percussion Rectal Exam: deferred Results Lab / Micro Data Labs: Laboratory Results - last 24 hr 05/04/25 08:56: POC PT 17.3 H, INR 1.5 Assessment & Plan Assessment/Plan (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 Qualified Code(s): 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 PLAN: Assessment and Plan Assessment and Plan (1) Cadena esophagus: Status: Acute Qualifiers: 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 Qualified Code(s): 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 Plan: Hardy is a 69 yo male pt here today for Barretts esophagus. Pt was diagnosed with Barretts after EGD and colonoscopy back in July 2024 for iron deficiency anemia. He has been on pantoprazole 40 mg twice a day since. He is not having any upper GI symptoms at this time and is interested in discontinuing the PPI. I discussed the need to continue PPI to prevent esophageal cancer. I did give him the option for RFA of the barretts esophagus which he was interested. He will be scheduled for this. In the interim, he will decrease frequency of PPI to once per day. He is agreeable to this plan. -EGD with RFA -Continue pantoprazole 40 mg daily -f/u after procedure (2) GERD (gastroesophageal reflux disease): Status: Acute Qualifiers: Esophagitis presence: with esophagitis Esophagitis bleeding: without hemorrhage Qualified Code(s): K21.00 - Gastro-esophageal reflux disease with esophagitis, without bleeding
--- NOTE | 2025-05-04 09:49 | PRE.ANES_ITS ---
ASA Classification* ASA Classification ASA Classification: 3 Assessment & Plan Anesthesia* Anesthesia Assessment Anesthesia Assessment: Discussed sedation and/or anesthesia options, risks, benefits, and alternatives with patient/parents/legal guardian/POA. Questions invited. The patient/parents/legal guardian/POA seems to understand and agrees to proceed with anesthesia plan. Reviewed the physical assessment, medical history, allergy history and patient home medications list prior to surgery/procedure/anesthetic and documented any changes. Performed airway and anesthesia risk assessments. Anesthesia Type Anesthesia Type: MAC History Source History Obtained from:: Patient and Chart Anesthesia Focused Assessment* Temperature: 96.8 F Pulse Rate: 60 Blood Pressure: 122/81 Respiratory Rate: 17 Pulse Ox: 92 Oxygen Delivery Method: Room Air Airway Assessment Mouth opens: >3 cm Mallampati Score: IV Teeth Condition: Caps/Crowns (Patient has several crowns. They are tight.) Neck Range of motion (ROM): Limited ROM (Slight Decrease) Labs Anesthesia Preop lab: CBC WBC 6.4 K/mm3 (4.4-11.0) 05/04/25 08:52 05/04/25 RBC 5.10 M/mm3 (4.6-6.2) 05/04/25 08:52 05/04/25 Hgb 16.1 g/dL (13.0-16.5) 05/04/25 08:52 05/04/25 Hct 44.8 % (40-54) 05/04/25 08:52 05/04/25 Plt Count 210 K/mm3 (150-450) 05/04/25 08:52 05/04/25 CHEMISTRY Potassium 3.4 mmol/L (3.3-5.1) 03/10/25 11:17 03/10/25 Sodium 140 mmol/L (133-145) 03/10/25 11:17 03/10/25 Magnesium 2.2 mg/dL (1.6-2.6) 05/21/24 11:23 05/21/24 BUN 23 mg/dL (4-19) H 03/10/25 11:17 03/10/25 Creatinine 1.46 mg/dL (0.70-1.20) H 03/10/25 11:17 Glucose 123 mg/dL (70-99) H 03/10/25 11:17 03/10/25 TSH 2.610 uIU/mL (0.358-3.740) 05/21/24 11:23 09/03/08 COAG PT 28.4 SECONDS (11.7-14.9) H 03/31/25 10:38 03/15 04/08 Pre-Assessment Diagnosis/Proposed Procedure Planned Operative Procedure(s): EGD Anesthesia History Anesthesia History - 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 When Was Last Pacemaker Check QUESTION #4 FULL TEXT: You/Your Family Experience fever (hyperthermia) with Anesthesia Last Oral Intake Last Oral intake: Last Oral Intake NPO since 06:15 05/04/25 09:29 Meds taken in AM with sips of Yes 05/04/25 09:29 water? Meds patient instructed to take am of surgery Any additional information?: Yes Meds taken in AM with sips of water?: Yes PONV PONV - national park tour guide: PONV - national park tour guide Female No 05/03/25 12:39 HX of Motion Sickness No 05/03/25 12:39 HX of N/V After Surgery No 05/03/25 12:39 Non-Smoker Yes 05/03/25 12:39 Duration of Surgery greater No 05/03/25 12:39 than 60 minutes Number of Risk Factors 1 05/03/25 12:39 PONV Score Low Risk 05/03/25 12:39 Height & Weight Height & Weight: Anesthesia: Height & Weight Height 6 ft 3 in 05/04/25 09:29 Weight: 114 kg 05/04/25 09:29 Body Mass Index (BMI) 31.4 05/04/25 09:29 Respiratory Assessment Respiratory Assessment - national park tour guide: Respiratory Tract Infection Hx - national park tour guide Hx Respiratory Tract Infection No 05/03/25 12:39 STOP Sleep Apnea STOP Sleep Apnea - national park tour guide: STOP Sleep Apnea - national park tour guide Hx Hypertension Yes: CONTROLLED WITH MEDS 05/03/25 12:39 Hx Sleep Apnea No 05/03/25 12:39 CPAP BIPAP Do you snore loudly (louder No 05/03/25 12:39 than talking or can be heard Do you often feel tired/ No 05/03/25 12:39 fatigued/ sleepy during daytime? Has anyone observed you stop No 05/03/25 12:39 breathing during sleep? STOP Results Negative 05/03/25 12:39 QUESTION #5 FULL TEXT : Do you snore loudly (louder than talking or can be heard through closed doors)? 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 Specify any problems Hx of Preganancy in last 3 N/A 05/03/25 12:39 Months Nurse Filling Out Transfusion [email or web address] 05/03/25 12:39 & Questions: Date: 05/03/25 05/03/25 12:39 Time: 12:41 05/03/25 12:39 Patient unable to answer at this time (ie. confused, unrespo /Reproduction History /Reproductive History - national park tour guide: /Reproductive Hx- national park tour guide Hx Now Gestational Age (in weeks): EDC: Hx Hx Para Hx Section SAB No 05/03/25 12:39 Active Medications Active Medications: Current Medications Generic Name Dose Route Start Last Admin Trade Name Freq PRN Reason Stop Dose Admin Lactated Ringer's 1,000 mls @ 15 mls/hr 05/04/25 09:15 05/04/25 09:42 IV 15 mls/hr .Q48H SONIA Administration PFSH Medical History Gastric reflux Low iron Non-smoker Shortness of breath on exertion History of Holter monitoring History of echocardiogram History of stress test Iron deficiency anemia due to chronic blood loss Nocturia Prostate cancer Hypertension Home Medications ?Medication ?Instructions ?Recorded ?Last Taken ?Type sildenafil 100 mg tablet 100 mg PO DAILY PRN sexual 0 01/13/25 05/04/25 Rx activity #90 tabs chlorthalidone 25 mg tablet 25 mg PO QDAY #90 tabs 05/0905/03/25 Rx ferrous sulfate 325 mg (65 mg 325 mg PO DAILY 03/22/25 05/03/25 History iron) tablet pantoprazole 40 mg tablet,delayed 40 mg PO DAILY #180 tabs 03/22/25 05/04/25 Rx release warfarin 10 mg tablet 10 mg PO QDAY #90 tabs 03/2804/30/25 Rx Allergy/AdvReac Type Severity Reaction Status Date / Time No Known Allergies Allergy Verified 05/04/25 09:27 Family History Father Cancer, Onset Age: 65 prostate Hypertension Surgical History Hx of colonoscopy Hx of prostate biopsy H/O hernia repair Social History household members: spouse housing: house current occupational status: retired and 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
--- NOTE | 2025-05-04 10:15 | EGD_PTH ---
PATIENT: JACEY DODD LOC: EN U#:[id number] AGE/SX: 69/M ROOM: RE05/04/[address]: Dr. Jeremy Serrano DO : 1955 BED: DIS: 05/04/2025 SPEC #: [id number] RECD: 05/04/25 12:35 STATUS: CHELITA REBib #: [id number] DEBBIE: 05/04/25 10:[address]: Jeremy Serrano DEPT: SURGICAL PATHOLOGY RECD BY: Suraj Pyle ENTERED: 05/04/25 14:15 SP TYPE: EGD BIOPSY SHANTEL DR: Dr. Evelin Rogers MD Tissues: A - Esophagus, NOS Procedures: Surgery Specimen Level IV HEADER OPERATION: EGD and radio frequency ablation and biopsy PRE-OP DIAGNOSIS: Cadena's esophagus TISSUE SUBMITTED: A- Distal esophagus biopsy MICROSCOPIC DIAGNOSIS A. Distal esophagus, biopsy: Cadena mucosa, negative for dysplasia. MICROSCOPIC DESCRIPTION Slides are reviewed. GROSS DESCRIPTION A. Received in fixative is one container labeled with the patient's name and designated Distal esophagus biopsy. The specimen consists of multiple irregular fragments of light umana soft tissue that in aggregate measure 1 x 0.5 x 0.1 cm. The specimen is totally submitted in one cassette. CO 05/04/2025 CPT:44504
--- NOTE | 2025-05-04 11:09 | PCM.POST.ANE ---
Anesthesia: Postop Eval I Current Vital Signs Temperature: 97 F Pulse Rate: 62 Blood Pressure: 96/72 Respiratory Rate: 16 Pulse Ox: 92 Oxygen Delivery Method: Nasal Cannula Oxygen Flow Rate (L/min): 2 Assessment Airway patent: Yes Spontaneous unlabored respirations: Yes Mental status: Asleep nausea: No Vomiting: No Anesthesia Complication: Yes Anesthesia Complication Comment:: O2 sat <90% d/t mouth breathing Fluid Hydration Crystalloid volume administer (ml): 400 Total IV fluid infused: 400 Progress Note Anesthesia document: Postop Eval 1 completed: Yes
[2025-05-04] MEDS: Pantoprazole Sodium 40 MG in 0.9% Normal Saline (100mL MB+) 100 ML 300 MG IV (11:13)
--- NOTE | 2025-05-04 11:34 | SUR.PHASEI ---
clear phelgm brought up by patient in pacu x 2
--- NOTE | 2025-05-04 11:40 | OP.PROVAT_ITS ---
05/04/2025 Evelin Rogers Md Re : Upper GI endoscopy procedure for Eugenio Aguilera Clemencia Rogers This procedure was performed on Sunday, May 04, 2025. My impressions and recommendations are as follows: Impressions : - Esophageal mucosal changes secondary to established long-segment Cadena's disease. Biopsied. 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 Treated with radiofrequency ablation. - Large hiatal hernia. - No gross lesions in the second portion of the duodenum. Recommendations : - Discharge patient to home. - Full liquid diet. - Continue present medications. Special Instructions for after Ablation of Cadena?s Esophagus Diet to follow after procedure Day 1 (day of procedure, after procedure) ? Clear Liquid Diet Fruit juice (no pulp) Gelatin (no red) Fruit ice (no pulp) Popsicle (no pulp) Clear hard candy Black coffee Etc., a more detailed list will be provided after procedure Day 2 and 3 ? Full Liquid Diet Milkshake Cream of wheat Coffee with cream Creamed soups Etc., a more detailed list will be provided after procedure Day 4 through 10 (7 days) ? Soft Diet No tough meats No chips No raw fruits or vegetables Etc., a more detailed list will be provided after procedure No warm fluids for 24 hours starting after procedure Medications (prescriptions) you will be given after procedure Proton Pump Inhibitor (Prilosec, Nexium, Protonix, etc.) These medication are used for acid reflux. You should already be taking one of these medications at home or your doctor may prescribe one of these drugs for you the day of the procedure. If you are already on one of these drugs your doctor may increase the dose after your procedure. Carafate This medication is used to coat your esophagus and prevent ulceration. IMPORTANT: Take this medication until gone. GI Cocktail This medication is used to coat the esophagus. It will help with any pain or discomfort that you may experience when eating after the procedure. Take this medication as needed for discomfort or pain. Zofran ODT This medication is used for nausea. Take this medication as needed for nausea. Liquid Tylenol with Codeine This medication is used for pain. Take this medication as needed for pain. My findings are described in the full procedure note, which is enclosed. If I can be of further assistance, please feel free to contact me at . Sincerely, Jeremy Serrano, DO 05/04/2025 11:40:20 AM This report has been signed electronically.
--- NOTE | 2025-05-04 11:40 | OP.EGD_ITS ---
Patient Name: Eugenio Aguilera Procedure Date: 05/04/2025 10:14 AM Date of : 1955 Age: 69 Procedure: Upper GI endoscopy Indications: Iron deficiency anemia, For therapy of Cadena's esophagus Providers: Jeremy Serrano DO Referring MD: Evelin Rogers Md Medicines: Monitored Anesthesia Care Patient Profile: This is a 69 year old male. Refer to note in patient chart for documentation of history and physical. Patient has symptoms of acute heartburn and chronic heartburn. His most recent EGD for Cadena's biopsy was within the past six months. Complications: No immediate complications. Procedure: Pre-Anesthesia Assessment: - Prior to the procedure, a History and Physical was performed, and patient medications and allergies were reviewed. The patient is competent. The risks and benefits of the procedure and the sedation options and risks were discussed with the patient. All questions were answered and informed consent was obtained. Patient identification and proposed procedure were verified by the physician in the pre-procedure area. Mental Status Examination: alert and oriented. Airway Examination: normal oropharyngeal airway and neck mobility. Respiratory Examination: clear to auscultation. CV Examination: normal. Prophylactic Antibiotics: The patient does not require prophylactic antibiotics. Prior Anticoagulants: The patient has taken no anticoagulant or antiplatelet agents. ASA Grade Assessment: II - A patient with mild systemic disease. After reviewing the risks and benefits, the patient was deemed in satisfactory condition to undergo the procedure. The anesthesia plan was to use monitored anesthesia care (MAC). Immediately prior to administration of medications, the patient was re-assessed for adequacy to receive sedatives. The heart rate, respiratory rate, oxygen saturations, blood pressure, adequacy of pulmonary ventilation, and response to care were monitored throughout the procedure. The physical status of the patient was re-assessed after the procedure. After obtaining informed consent, the endoscope was passed under direct vision. Throughout the procedure, the patient's blood pressure, pulse, and oxygen saturations were monitored continuously. The Endoscope was introduced through the mouth, and advanced to the second part of duodenum. The upper GI endoscopy was accomplished without difficulty. The patient tolerated the procedure well. Scope In: 10:31:41 AM Scope Out: 10:53:37 AM Total Procedure Duration Time 0 hours 21 minutes 56 seconds Findings: The esophagus and gastroesophageal junction were examined with white light and narrow band imaging (NBI) from a forward view and retroflexed position. There were esophageal mucosal changes secondary to established long-segment Cadena's disease. These changes involved the mucosa at the upper extent of the gastric folds (41 cm from the incisors) extending to the Z-line (34 cm from the incisors). Circumferential salmon-colored mucosa was present at 36 cm and circumferential salmon-colored mucosa was present at 41 cm. The maximum longitudinal extent of these esophageal mucosal changes was 7 cm in length. Mucosa was biopsied with a cold forceps for histology in a targeted manner at intervals of 1 cm in the lower third of the esophagus. One specimen bottle was sent to pathology. Verification of patient identification for the specimen was done. Estimated blood loss was minimal. The esophagus and gastroesophageal junction were examined with white light and narrow band imaging (NBI) from a forward view and retroflexed position. There were esophageal mucosal changes secondary to established long-segment Cadena's disease. These changes involved the mucosa at the upper extent of the gastric folds (41 cm from the incisors) extending to the Z-line (34 cm from the incisors). Bowdon-colored mucosa was present. The maximum longitudinal extent of these esophageal mucosal changes was 7 cm in length. Circumferential radiofrequency ablation of Cadena's esophagus was performed using the [employer] 360 Express catheter and balloon-based endoscopic ablation system. With the endoscope in place, the position and extent of the Cadena's mucosa and the anatomic landmarks including top of gastric folds were noted. Endoscopic visualization identified an ablation site including the entire visible Cadena's segment. The Cadena's mucosa was irrigated with water. Gastric contents were suctioned. A guidewire was passed down the biopsy channel of the endoscope. As the endoscope was withdrawn from the mouth, the guidewire was left in place. An auto-sizing radiofrequency ablation balloon catheter was passed transorally over the guidewire into the esophagus. The endoscope was introduced in a [id number] manner with the ablation catheter. Under direct endoscopic visualization, the balloon ablation catheter was positioned so that the proximal edge of the electrode was slightly above the proximal edge of the Cadena's mucosa. The balloon was automatically inflated, and energy was applied at 10 J/cm2. The balloon electrode was moved 4 cm distally, so that the proximal edge of the electrode was aligned with the distal edge of the ablation zone. The process of balloon inflation and ablation was repeated until the top of the gastric folds was reached. The ablation catheter and guidewire were removed, and the balloon was cleaned. The ablation zone was then cleaned of overlying coagulative debris using irrigation and suction via the endoscope and a cleaning cap. The guidewire was reinserted, and then the ablation catheter was reintroduced into the esophagus over the wire. The ablation catheter was positioned under direct endoscopic visualization so that the proximal edge of the electrode was at the proximal edge of the ablation zone. Reinflation and a second round of ablation were performed with the application of 10 J/cm2 to re-treat the Cadena's epithelium already treated with the first round of ablation. The ablation catheter and guidewire were then removed. The areas of the esophagus where Cadena's mucosa had been ablated were then examined with the endoscope. Areas of visible Cadena's esophagus were completely ablated. A large hiatal hernia was present. No gross lesions were noted in the second portion of the duodenum. Impression: - Esophageal mucosal changes secondary to established long-segment Cadena's disease. Biopsied. 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 Treated with radiofrequency ablation. - Large hiatal hernia. - No gross lesions in the second portion of the duodenum. Recommendation: - Discharge patient to home. - Full liquid diet. - Continue present medications. Special Instructions for after Ablation of Cadena???s Esophagus Diet to follow after procedure Day 1 (day of procedure, after procedure) ??? Clear Liquid Diet Fruit juice (no pulp) Gelatin (no red) Fruit ice (no pulp) Popsicle (no pulp) Clear hard candy Black coffee Etc., a more detailed list will be provided after procedure Day 2 and 3 ??? Full Liquid Diet Milkshake Cream of wheat Coffee with cream Creamed soups Etc., a more detailed list will be provided after procedure Day 4 through 10 (7 days) ??? Soft Diet No tough meats No chips No raw fruits or vegetables Etc., a more detailed list will be provided after procedure No warm fluids for 24 hours starting after procedure Medications (prescriptions) you will be given after procedure Proton Pump Inhibitor (Prilosec, Nexium, Protonix, etc.) These medication are used for acid reflux. You should already be taking one of these medications at home or your doctor may prescribe one of these drugs for you the day of the procedure. If you are already on one of these drugs your doctor may increase the dose after your procedure. Carafate This medication is used to coat your esophagus and prevent ulceration. IMPORTANT: Take this medication until gone. GI Cocktail This medication is used to coat the esophagus. It will help with any pain or discomfort that you may experience when eating after the procedure. Take this medication as needed for discomfort or pain. Zofran ODT This medication is used for nausea. Take this medication as needed for nausea. Liquid Tylenol with Codeine This medication is used for pain. Take this medication as needed for pain. Procedure Code(s): --- Professional --- 74800, Esophagogastroduodenoscopy, flexible, transoral; with ablation of tumor(s), polyp(s), or other lesion(s) (includes pre- and post-dilation and guide wire passage, when performed) 53139, 59,51, Esophagogastroduodenoscopy, flexible, transoral; with biopsy, single or multiple CPT copyright 2021 [employer]. All rights reserved. The codes documented in this report are preliminary and upon application project leader review may be revised to meet current compliance requirements. Jeremy Serrano DO 05/04/2025 11:40:20 AM This report has been signed electronically. Number of Addenda: 0 Note Initiated On: 05/04/2025 10:14 AM
--- NOTE | 2025-05-04 12:17 | SUR.PHASEII ---
[facility] CALLED, CARAFATE ORDER TRANSFERRED. [facility] CONTACTED TO DISCONTINUE PRESCRIPTION.
== END 2025-05-04 12:20 | disposition home or self-care (01) ==
LOC: EN 08:41 → AC 08:52
PROVIDERS: PCP Internal Medicine; Referring Provider Internal Medicine; Visit Provider Internal Medicine Gastroenterology
PROC: 0DJ08ZZ Inspection of Upper Intestinal Tract, Via Natural or Artificial Opening Endoscopic (ICD-10-PCS; CPT 43235; principal; 2025-05-04 10:10)
DX: K22.70 Barrett's esophagus without dysplasia (principal); I10 Essential (primary) hypertension; D50.0 Iron deficiency anemia secondary to blood loss (chronic); Z85.46 Personal history of malignant neoplasm of prostate; K21.00 Gastro-esophageal reflux disease with esophagitis, without bleeding
CPT/HCPCS: 43270; 43239; 36416; 85610; 88305; C1769; J2405

== ENCOUNTER → 2025-05-19 | Outpatient (CLI) | payer MEDICARE, OTHER, SELFPAY ==
[2025-05-19 12:49] LABS: Prothrombin Time (Protime)PT. 24.4 SECONDS (11.7-14.9)
== END | disposition home or self-care (01) ==
LOC: BIMLAB 09:38
PROVIDERS: PCP Internal Medicine; Referring Provider Internal Medicine; Visit Provider Internal Medicine
DX: Z79.01 Long term (current) use of anticoagulants (principal)
CPT/HCPCS: 36415; 85610

== ENCOUNTER 2025-06-16 12:39 | Outpatient (RCR) | payer MEDICARE, OTHER, SELFPAY ==
[2025-06-16 12:50] LABS: INR Fingerstick 2.5
== END 2025-06-16 18:00 | disposition home or self-care (01) ==
LOC: MTLAB 12:39
PROVIDERS: PCP Internal Medicine; Referring Provider Internal Medicine; Visit Provider Internal Medicine
DX: Z79.01 Long term (current) use of anticoagulants (principal)
CPT/HCPCS: 36416; 85610

== ENCOUNTER 2025-07-14 06:58 | Day surgery (SDC) | payer MEDICARE, OTHER, SELFPAY ==
--- NOTE | 2025-07-12 16:48 | PAT.ANE_ITS ---
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 When Was Last Pacemaker Check QUESTION #4 FULL TEXT: You/Your Family Experience fever (hyperthermia) with Anesthesia Last Oral Intake Last Oral intake: Last Oral Intake NPO since Meds taken in AM with sips of water? 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 Female No 07/12/25 12:08 HX of Motion Sickness No 07/12/25 12:08 HX of N/V After Surgery No 07/12/25 12:08 Non-Smoker Yes 07/12/25 12:08 Duration of Surgery greater No 07/12/25 12:08 than 60 minutes Number of Risk Factors 1 07/12/25 12:08 PONV Score Low Risk 07/12/25 12:08 Height & Weight Height & Weight: Anesthesia: Height & Weight Height 6 ft 3 in 05/05/25 11:03 Respiratory Assessment Respiratory Assessment - gas engine performance engineer: Respiratory Tract Infection Hx - gas engine performance engineer Hx Respiratory Tract Infection No 07/12/25 12:08 STOP Sleep Apnea STOP Sleep Apnea - gas engine performance engineer: STOP Sleep Apnea - gas engine performance engineer Hx Hypertension No 07/12/25 12:08 Hx Sleep Apnea No 07/12/25 12:08 CPAP BIPAP Do you snore loudly (louder No 07/12/25 12:08 than talking or can be heard Do you often feel tired/ No 07/12/25 12:08 fatigued/ sleepy during daytime? Has anyone observed you stop No 07/12/25 12:08 breathing during sleep? STOP Results Negative 07/12/25 12:08 QUESTION #5 FULL TEXT : Do you snore loudly (louder than talking or can be heard through closed doors)? 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 Specify any problems Hx of Preganancy in last 3 N/A 07/12/25 12:08 Months Nurse Filling Out Transfusion DSCHRIBER 07/12/25 12:08 & Questions: Date: 07/12/25 07/12/25 12:08 Time: 12:11 07/12/25 12:08 Patient unable to answer at this time (ie. 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 engine performance engineer: /Reproductive Hx- gas engine performance engineer Hx Now No 07/12/25 12:08 Gestational Age (in weeks): EDC: Hx Hx Para Hx Section SAB No 07/12/25 12:08 [facility] Medical History (Updated 07/12/25 @ 12:17 by Lisa Nguyen) DVT (deep venous thrombosis) Esophagitis History of [place] esophagus Gastric reflux Low iron Non-smoker Shortness of breath on exertion History of Holter monitoring History of echocardiogram History of stress test Iron deficiency anemia due to chronic blood loss Nocturia Prostate cancer Hypertension Home Medications ?Medication ?Instructions ?Recorded ?Last Taken ?Type sildenafil 100 mg tablet 100 mg PO DAILY PRN sexual 0 01/13/25 05/04/25 Rx activity #90 tabs ferrous sulfate 325 mg (65 mg 325 mg PO DAILY 03/22/25 05/03/25 History iron) tablet pantoprazole 40 mg tablet,delayed 40 mg PO DAILY #180 tabs 03/22/25 05/04/25 Rx release chlorthalidone 25 mg tablet 25 mg PO QDAY #90 tabs 07/09 Unknown Rx warfarin 10 mg tablet 10 mg PO QDAY #90 tabs 06/2407/11/25 Rx Allergy/AdvReac Type Severity Reaction Status Date / Time No Known Allergies Allergy Verified 07/12/25 12:07 Family History Father Cancer, Onset Age: 65 prostate Hypertension Surgical History (Updated 07/12/25 @ 12:13 by Lisa Nguyen) History of esophagogastroduodenoscopy (EGD) Hx of colonoscopy Hx of prostate biopsy H/O hernia repair Social History household members: spouse housing: house current occupational status: retired and 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 The patient exercised according to the Fredrick for 6 minutes, achieving a work level of max METS 7.0. The resting heart rate of 61 bpm jigna to a maximal heart rate of 127 bpm. This value represents 83% of the maximal, age-predicted heart rate. Echo (EF%) pertinent findings: Echo 06/03/2024 mild concentric left ventricular hypertrophy. Mild cavity false tendon noted. The left ventricle ejection fraction is 65%. Mildly dilated aortic root. Trivial pericardial effusion Recommendation Anesthesia Recommendation Anesthesia recommendation: OPTIMIZED for anesthesia
[2025-07-14] VITALS (9 sets, daily range): BP systolic 105–137; BP diastolic 75–92; PULSE 16–75; RESP 14–16; TEMP 36.3–36.6; O2SAT 89–97; BMI 30.3
--- OUTSIDE RECORDS SUMMARY | 2025-07-14 07:01 | XMS RPT_ITS | CCD ---
Author Organization [facility] Care Team Providers Care Social Media Developer Name Role Phone Jenny Atkinson MD Primary Care Provider WILLI ROQUE Referring Unavailable JENNY ATKINSON Primary Care Unavailable AURY LARRY Referring Unavailable JENNY ATKINSON Primary Care Unavailable SYSTEM, PROVIDER NOT IN Referring Unavaila JENNY River Primary Care Unavailable BLAS MADRID Attending Unavailable JENNY ATKINSON Primary Care Unavailable BLAS MADRID Attending Unavailable BLAS MADRID Referring Unavailable Jenny Atkinson MD Primary Care Provider Jenny Atkinson MD Primary Care Provider [phone] JENNY ATKINSON Primary Care Unavailable WILLI ROQUE Referring Unavailable No, Physician Primary Care Provider UnavailWILLI Coon Attending Unavailable WILLI ROQUE Admitting Unavailable Unavailable Primary Care Provider UnavailEDU Cortes Referring Unava ilEDU Ferreira Attending Unava ilable Dr. Evelin Rogers MD Primary Care Provider [phone] Dr. Evelin Rogers MD Referring Provider Willi Goldberg Attending Provider [phone] Sharda Beavers Attending Provider [phone] Dr. Evelin Rogers MD Attending Provider Willi Goldberg Referring Provider [phone] Tutu Dailey MD Attending Provider Cristina Robb MA Attending Provider Unavailable Alison KANG, Willi Other Provider Sue TANNER, Dr. Waters Primary Care Provider 1(3 30) Sue TANNER, Dr. Waters Referring Provider Willi Goldberg Attending Provider [phone] Seu TANNER, Dr. Waters Primary Care Provider 1(3 30) Sue TANNER, Dr. Waters Attending Provider Sue TANNER, Dr. Waters Referring Provider Asim TANNER, Dr. Cam Attending Provider [phone] Alison KANG, Willi Other Provider Alison KANG, Willi Attending Provider [phone] Aiyana Osman Attending Provider Sue TANNER, Dr. Waters Primary Care Provider 1(3 30) Sue TANNER, Dr. Waters Attending Provider Sue TANNER, Dr. Waters Referring Provider Willi Goldberg Referring Provider [phone] Asim TANNER, Dr. Cam Attending Provider [phone] Sue TANNER, Dr. Waters Primary Care Provider 1(3 30) Sue TANNER, Dr. Waters Referring Provider Sue TANNER, Dr. Waters Attending Provider Alison KANG, Willi Other Provider Dr. Jeremy Serrano DO Attending Provider Dr. Michelle Matthew MD Attending Provider Dr. Michelle Matthew MD Referring Provider Dr. Jeremy Serrano DO Other Provider [phone] Sue TANNER, Dr. Waters Primary Care Physician Willi Goldberg Attending Physician Aiyana Osman Attending Physician [phone] Sue TANNER, Dr. Waters Attending Physician [phone] Willi Goldberg Nurse Practitioner [phone] Asim TANNER, Dr. Cam Attending Physician Friend , Dr. Luna Attending Physician Vipul TANNER, Dr. Martinez Attending Physician Friend , Dr. Luna Nurse Practitioner Teachey, Evelin Referring Unavailable Michelle Matthew Attending Unavailable Teachey, Evelin Primary Care Unavailable Cristina Robb Attending Unavailable Sue, Evelin Primary Care Unavailable Friend, Jeremy Consulting Unavailable FriendJeremy Attending Unavailable Sue, Evelin Referring Unavailable Sue, Evelin Primary Care Unavailable Tutu Dailey Attending Unavailable Wayt, Willi Referring Unavailable Sue, Evelin Primary Care Unavailable Wayt, Willi Referring Unavailable Wayt, Willi Attending Unavailable Teachey, Evelin Primary Care Unavailable Sue, Evelin Referring Unavailable Sue, Evelin Attending Unavailable Sue, Evelin Primary Care Unavailable Teachey, Evelin Attending Unavailable Teachey, Evelin Referring Unavailable Sue, Evelin Primary Care Unavailable Wayt, Willi Consulting Unavailable Teachey, Evelin Attending Unavailable Teachey, Evelin Referring Unavailable Sue, Evelin Primary Care Unavailable Sue, Evelin Referring Unavailable Teachey, Evelin Attending Unavailable Wayt, Willi Consulting Unavailable Teachey, Evelin Primary Care Unavailable Tutu Dailey Attending Unavailable Wayt, Willi Referring Unavailable Sue, Evelin Primary Care Unavailable Aiyana Earl Attending Unavailable Sue, Evelin Referring Unavailable Sue, Evelin Primary Care Unavailable Sue, Evelin Referring Unavailable Wayt, Willi Attending Unavailable Teachey, Evelin Primary Care Unavailable Sue, Evelin Attending Unavailable Teachey, Evelin Referring Unavailable Teachey, Evelin Primary Care Unavailable Sue, Evelin Referring Unavailable Sue, Evelin Primary Care Unavailable WaytWilli Consulting Unavailable Sue, Evelin Attending Unavailable Teachey, Evelin Referring Unavailable Teachey, Evelin Attending Unavailable WaytWilli Consulting Unavailable Sue, Evelin Primary Care Unavailable Friend, Jeremy Attending Unavailable Teachey, Evelin Referring Unavailable Teachey, Evelin Primary Care Unavailable Friend, Jeremy Attending Unavailable Sue, Evelin Referring Unavailable Teachey, Evelin Primary Care Unavailable Sue, Evelin Attending Unavailable Teachey, Evelin Referring Unavailable Teachey, Evelin Primary Care Unavailable Teachey, Evelin Attending Unavailable Teachey, Evelin Referring Unavailable Sue, Evelin Primary Care Unavailable Wayt, Willi Consulting Unavailable Teachey, Evelin Attending Unavailable Teachey, Evelin Referring Unavailable Sue, Evelin Primary Care Unavailable Wayt, Willi Consulting Unavailable WaytWilli Attending Unavailable Wayt, Willi Referring Unavailable Sue, Evelin Primary Care Unavailable Teachey, Evelin Attending Unavailable Teachey, Evelin Referring Unavailable Sue, Evelin Primary Care Unavailable Isckarus, Mansour Referring Unavailable Isckarus, Mansour Attending Unavailable Teachey, Evelin Primary Care Unavailable Isckarus, Mansour Attending Unavailable Isckarus, Mansour Referring Unavailable Sue, Evelin Primary Care Unavailable Jammie FORESTRY ADVISER, Sharda Attending Unavailable Teachey, Evelin Referring Unavailable Sue, Evelin Primary Care Unavailable WaytWilli Attending Unavailable Sue, Evelin Referring Unavailable Teachey, Evelin Primary Care Unavailable Tutu Dailey Attending Unavailable Teachey, Evelin Referring Unavailable Teachey, Evelin Primary Care Unavailable Medications Current Medications Medication Drug Class(es) Dates Sig (Normalized) Sig (Original) acetaminophen 325 mg oral tablet (1 source) Start: 09-14-2019 acetaminophen (TYLENOL) 325 mg tablet Take 325 mg by mouth. 09/14/2019 Active acetaminophen 24 mg/ml / codeine phosphate 2.4 mg/ml oral solution (3 sources) Opioid Agonist Start: 05-04-2025 take 1 mL by mouth every four to six hours as needed for pain ascorbic acid 250 mg / folic acid 1 mg / iron carbonyl 100 mg / vitamin b12 0.025 mg oral tablet (1 source) Vitamin B12, Vitamin C Start: 04-15-2024 Iron-Vit C-Vit [id number] Acid (IRON 100 PLUS) [id number] jo-ht-keu-mg tab 04/15/2024 Active esomeprazole 20 mg delayed release oral capsule (2 sources) Proton Pump Inhibitor esomeprazole (NEXIUM) 20 MG capsule Indications: heartburn 1 (one) capsule (20 mg total) daily as needed Reasons: heartburn. Active ferrous sulfate 325 mg oral tablet (20 sources) Start: 03-22-2025 take 1 tablet by mouth once daily Start: 08-05-2024 End: 03-22-2025 take 1 tablet by mouth twice daily Ferrous Sulfate 325 mg (65 mg iron) tablet Discontinued 325 mg PO TWICE A DAY August 05, 2024 3:09pm March 22, 2025 8:37am Take with vitamin C drink, avoid taking with dairy Start: 05-06-2024 End: 08-05-2024 take 1 tablet by mouth every other day Ferrous Sulfate 325 mg (65 mg iron) tablet Discontinued 325 mg PO every other day 90 May 06, 2024 12:00am August 05, 2024 3:09pm Take with vitamin C drink, avoid taking with dairy ferrous sulfate (IRON ORAL) Indications: anemia Take by mouth every morning Reasons: anemia. Active ferrous sulfate (IRON ORAL) Indications: anemia Take by mouth every morning Reasons: anemia. omeprazole 40 mg delayed release oral capsule (3 sources) Proton Pump Inhibitor take 1 capsule by mouth once daily omeprazole [address] capsule Take 40 mg by mouth daily. 0 Active pantoprazole 40 mg delayed release oral tablet (20 sources) Proton Pump Inhibitor Start: take 1 tablet by mouth once daily Start: 07-07-2024 End: 03-22-2025 take 1 tablet by mouth twice daily Pantoprazole 40 mg tablet,delayed release (DR/EC) Discontinued 40 mg PO TWICE A DAY 180 July 07, 2024 7:36am March 22, 2025 9:11am Start: 07-05-2024 End: 07-07-2024 take 1 tablet by mouth once daily Pantoprazole 40 mg tablet,delayed release (DR/EC) Discontinued 40 mg PO daily 90 July 05, 2024 12:00am July 07, 2024 7:37am pantoprazole in 0.9% sod chlor 40 mg/50 mL (0.8 mg/mL) pgbk (1 source) Start: 06-15-2024 pantoprazole i n 0.9% sod chlor 40 mg/50 mL (0.8 mg/mL) pgbk 06/15/2024 Active sucralfate 1000 mg oral tablet (3 sources) Aluminum Complex Start: 05-04-2025 take 1 tablet by mouth twice daily warfarin sodium 10 mg oral tablet (20 sources) Vitamin K Antagonist Start: 11-23-2024 End: 03-28-2025 take 1 tablet by mouth once daily Start: 10-04-2024 End: 11-23-2024 take 5 tablets by mouth once daily, then take 7 mg by mouth once daily Warfarin 1 mg tablet Discontinued 2 mg PO daily 90 0 October 25, 2024 5:18pm November 23, 2024 4:09pm pt to take in addition to 5mg tablets for a total of 7mg daily Start: 09-09-2024 End: 10-04-2024 Warfarin 1 mg tablet Discont inued 2 mg PO daily 30 September 09, 2024 3:16pm October 04, 2024 1:53pm pt to take total of 7mg daily, recheck INR on Friday09/10/24 one 5mg coumadin tablet in addition to 2 of the 1mg tablets to equal a total of 7mg daily. spoke to sunil Morrison at [facility] regarding this. Start: 09-07-2024 End: 11-23-2024 Warfarin 5 mg tablet Discont inued 5 mg PO daily 90 0 November 16, 2024 5:18pm November 23, 2024 4:09pm 7mg po qd. pt to take coumadin 5mg tablet along with 2 of the coumadin 1mg tablets to equal a total of 7mg daily. recheck INR on 09/10/24 Start: 09-02-2024 End: 09-09-2024 take 1 tablet by mouth once daily Warfarin 1 mg tablet Discontinued 1 mg PO daily 30 0 September 09, 2024 10:55am September 09, 2024 3:19pm Start: 08-26-2024 End: 09-07-2024 take 1 tablet by mouth once daily Warfarin 5 mg tablet Discontinued 5 mg PO daily 30 0 August 26, 2024 4:52pm September 07, 2024 12:32pm Completed/Discontinued Medications Medication Drug Class(es) Dates Sig (Normalized) Sig (Original) acetaminophen 325 mg / HYDROcodone bitartrate 5 mg oral tablet (1 source) Opioid Agonist Start: 06-15-2024 End: 06-15-2024 take 1 tablet by mouth every twenty-four hours as needed [id number] 200 actuat albuterol 0.09 mg/actuat metered dose inhaler (10 sources) beta2-Adrenergic Agonist Start: 04-22-2024 End: 06-03-2024 Albuterol Sulfate 90 mcg/actuation HFA aerosol inhaler Discontinued 2 NMA INHALATION EVERY 4-6 HOURS as needed for shortness of breath or wheezing 6.7 0 April 22, 2024 12:00am June 03, 2024 12:34pm apixaban 5 mg oral tablet (10 sources) Factor Xa Inhibitor Start: 08-26-2024 End: 08-26-2024 take 1 tablet by mouth once Apixaban (Eliquis Dvt-Pe Treat 30d Start) 5 mg (74 tabs) tablets,dose pack Discontinued 0 PO per package directions 74 0 August 26, 2024 1:00am August 26, 2024 4:13pm PO PER PKG DIR atorvastatin 40 mg oral tablet (20 sources) HMG-CoA Reductase Inhibitor Start: 03-02-2024 End: 06-03-2024 take 1 tablet by mouth once daily Atorvastatin 40 mg tablet Discontinued 40 mg PO DAILY 90 1 March 02, 2024 2:47pm June 03, 2024 12:34pm take 1 tablet by mouth once marvin y atorvastatin 40 MG tablet Take 40 mg by mouth daily. 0 Active benzonatate 200 mg oral capsule (10 sources) Non-narcotic Antitussive Start: 05-21-2024 End: 06-03-2024 take 1 capsule by mouth three times daily as needed for cough Benzonatate 200 mg capsule Discontinued 200 mg PO THREE TIMES A DAY as needed for cough 30 0 May 21, 2024 12:00am June 03, 2024 12:34pm calcium chloride 0.0014 meq/ml / potassium chloride 0.004 meq/ml / sodium chloride 0.103 meq/ml / sodium lactate 0.028 meq/ml injectable solution (1 source) Start: 06-15-2024 End: 06-15-2024 take 25 mL intravenously every hour 25 mL/hr, Intravenous, Continuous, Starting on Fri06/15/24 at 0830, Pre-Procedure chlorthalidone 25 mg oral tablet (20 sources) Thiazide-like Diuretic Start: 08-25-2024 End: 03-22-2025 take 1 tablet by mouth once daily Chlorthalidone 25 mg tablet Discontinued 25 mg PO daily 90 0 2024 9:37am March 22, 2025 9:26am 1 ml fentaNYL 0.05 mg/ml injection (1 source) Opioid Agonist Start: 06-15-2024 End: 06-15-2024 gadoterate meglumine (CLARISCAN, DOTAREM) injection 22 mL (1 source) Start: 10-29-2023 End: 10-29-2023 gadoterate meglumine (CLARISCAN, DOTAREM) injection 22 mL gadoterate meglumine (DOTAREM) injection 25 mL (1 source) Start: 02-06-2022 End: 02-06-2022 gadoterate meglumine (DOTAREM) injection 25 mL 1 ml hydrALAZINE hydrochloride 20 mg/ml injection (1 source) Arteriolar Vasodilator Start: 06-15-2024 End: 06-15-2024 labetalol hydrochloride 5 mg/ml injectable solution (1 source) beta-Adrenergic Carlitos Start: 06-15-2024 End: 06-15-2024 lisinopril 20 mg oral tablet (10 sources) Angiotensin Converting Enzyme Inhibitor Start: 03-02-2024 End: 04-01-2024 take 1 tablet by mouth once daily Lisinopril 20 mg tablet Discontinued 20 mg PO DAILY 30 0 March 02, 2024 12:00am April 01, 2024 10:31am losartan potassium 25 mg oral tablet (10 sources) Angiotensin 2 Receptor Carlitos Start: 04-01-2024 End: 06-03-2024 Losartan 25 mg tablet Discontinued 12.5 mg PO DAILY 90 0 April 01, 2024 12:00am June 03, 2024 12:34pm Meperidine (1 source) Opioid Agonist Start: 06-15-2024 End: 06-15-2024 24 hr metoprolol succinate 50 mg extended release oral tablet (13 sources) beta-Adrenergic Carlitos Start: 03-02-2024 End: 03-02-2024 take 1 tablet by mouth once daily Metoprolol Succinate 50 mg tablet extended release 24 hr Discontinued 50 mg PO DAILY March 02, 2024 12:00am March 02, 2024 2:47pm take 1 tablet by mouth once marvin y metoprolol 50 MG tab regular release Take 50 mg by mouth daily. 0 Active 1 ml morphine sulfate 4 mg/ml cartridge (1 source) Opioid Agonist Start: 06-15-2024 End: 06-15-2024 naloxone (NARCAN) injection 0.1 mg (1 source) Start: 06-15-2024 End: 06-15-2024 naloxone (NARCAN) injection 0.1 mg 2 ml ondansetron 2 mg/ml injection (1 source) Serotonin-3 Receptor Antagonist Start: 06-15-2024 End: 06-15-2024 oxyCODONE hydrochloride 20 mg/ml oral solution (1 source) Opioid Agonist Start: 06-15-2024 End: 06-15-2024 take 5 mg under the tongue every twenty-four hours as needed predniSONE 5 mg oral tablet (10 sources) Start: 04-22-2024 End: 05-05-2024 Prednisone 5 mg tablets,dose pack Discontinued 0 PO per package directions 21 0 April 22, 2024 12:00am May 05, 2024 9:26am PO PER PKG DIR sildenafil 100 mg oral tablet (20 sources) Phosphodiesterase 5 Inhibitor Start: 03-02-2024 End: 01-13-2025 Sildenafil 100 mg tablet Discontinued 100 mg PO DAILY as needed for sexual activity 30 0 January 13, 2025 12:26pm January 13, 2025 4:19pm administer 30 minutes to 4 hours before activity take 1 tablet by diana th once daily as needed sildenafiL (VIAGRA) 25 MG tablet Indications: erectile dysfunction Take 1 (one) tablet (25 mg total) by mouth daily as needed for erectile dysfunction Reasons: the inability to have an erection. Active take 1 tablet by diana th once daily as needed sildenafil citrate 50 MG tablet Take 50 mg by mouth daily as needed. 0 Active 125 ml sodium chloride 9 mg/ml prefilled syringe (1 source) Start: 02-06-2022 End: 02-06-2022 sodium chloride 0.9 % flush 10 mL tadalafil 5 mg oral tablet (10 sources) Phosphodiesterase 5 Inhibitor Start: 03-02-2024 End: 06-03-2024 take 1 tablet by mouth once daily Tadalafil 5 mg tablet Discontinued 5 mg PO DAILY March 02, 2024 12:00am June 03, 2024 12:34pm Problems Active Problems Problem Classification Problem Date Documented Date Episodic/Chronic Abdominal hernia (2 sources) Paraesophageal hernia; Translations: [Diaphragmatic hernia without obstruction or gangrene] Onset: 08-16-2024 08-16-2024 Episodic Aortic and peripheral arterial embolism or thrombosis (1 source) Embolism and thrombosis of arteries of the lower extremities; Translations: [Embolism and thrombosis of arteries of the lower extremities] Onset: 12-03-2024 Chronic Cancer of prostate (5 sources) Malignant tumor of prostate; Translations: [Malignant neoplasm of prostate] Onset: 10-29-2023 Chronic Cardiac dysrhythmias (11 sources) Multiple premature ventricular complexes; Translations: [Ventricular premature depolarization] 05-20-2024 Chronic Deficiency and other anemia (20 sources) Iron deficiency anemia due to blood loss; Translations: [Iron deficiency anemia secondary to blood loss (chronic)] 06-03-2024 Chronic Deficiency and other anemia (2 sources) Iron deficiency anemia secondary to blood loss (chronic); Translations: [Iron deficiency anemia secondary to blood loss (chronic)] Onset: 10-16-2024 Chronic Deficiency and other anemia (10 sources) Anemia; Translations: [Anemia, unspecified] 06-03-2024 Episodic Deficiency and other anemia (2 sources) Anemia, unspecified; Translations: [Anemia, unspecified] Onset: 03-14-2025 Episodic Deficiency and other anemia (2 sources) Iron deficiency anemia, unspecified; Translations: [Iron deficiency anemia, unspecified] Onset: 03-14-2025 Episodic Disorders of lipid metabolism (10 sources) Hyperlipidemia; Translations: [Hyperlipidemia, unspecified] 04-01-2024 Chronic Esophageal disorders (20 sources) Gastroesophageal reflux disease; Translations: [Gastro-esophageal reflux disease without esophagitis] Onset: 05-27-2025 08-26-2024 Chronic Essential hypertension (14 sources) Hypertensive disorder; Translations: [Essential (primary) hypertension] Onset: 11-13-2024 08-05-2024 Chronic Malaise and fatigue (10 sources) Fatigue; Translations: [Other fatigue] 05-05-2024 Episodic Other aftercare (2 sources) 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; Translations: [FDC (current) use of anticoagulants] Onset: 09-06-2024 Episodic Other connective tissue disease (11 sources) Swelling of lower limb; Translations: [Other specified soft tissue disorders] 08-05-2024 Episodic Other connective tissue disease (9 sources) Foot pain; Translations: [Pain in right foot] 04-01-2024 Episodic Other connective tissue disease (1 source) Pain in right foot; Translations: [Pain in right foot] 04-01-2024 Episodic Other lower respiratory disease (10 sources) Dyspnea on exertion; Translations: [Other forms of dyspnea] 05-05-2024 Episodic Other lower respiratory disease (10 sources) Dry cough; Translations: [Persistent dry cough] 08-26-2024 Episodic Other male genital disorders (12 sources) Male erectile dysfunction, unspecified; Translations: [Erectile dysfunction] 03-02-2024 Chronic Other screening for suspected conditions (not mental disorders or infectious disease) (11 sources) Raised prostate specific antigen; Translations: [Elevated prostate specific antigen [PSA]] Episodic Peripheral and visceral atherosclerosis (1 source) Chronic total occlusion of artery of the extremities; Translations: [Chronic total occlusion of artery of the extremities] Onset: 03-04-2025 Chronic Past or Other Problems Problem Classification Problem Date Documented Da te Episodic/Chronic Other aftercare (1 source) Encounter for therapeutic drug level monitoring; Translations: [Encounter for therapeutic drug level monitoring] Onset: 11-13-2024 Episodic Other connective tissue disease (1 source) Other specified soft tissue disorders; Translations: [Other specified soft tissue disorders] Onset: 09-29-2024 Episodic Other lower respiratory disease (1 source) Other forms of dyspnea; Translations: [Other forms of dyspnea] Onset: 08-05-2024 Episodic Phlebitis; thrombophlebitis and thromboembolism (19 sources) Deep venous thrombosis; Translations: [Acute embolism and thrombosis of unspecified deep veins of unspecified lower extremity] Onset: 09-30-2024 03-04-2025 Episodic Comment on above: Right lower extremit y remote following a flight to [place]. Left lower extremity 2023 unprovoked Unclassified (1 source) R97.20 Onset: 06-15-2024 Unclassified (10 sources) Influenza vaccination requested 08-26-2024 Results Test Name Value Interpretation Reference Range Facility MR/PATDavid 07-12-2025 MR/SARAHI [facility] Medical Records Department [address] [place] [address] PAT - Anesthesia 07/12/25 1648 MR#: [id number] Acct: [id number] Name: JACEY AGUILERA Rep #: [id number] : 1955 69 From: Simeon Beauchamp MD PCP: Dr. Evelin Rogers MD Status:PRE SDC Y Race: C Location: EN Pre-Assessment Diagnosis/Proposed Procedure Planned Operative Procedure(s): EGD RFA Anesthesia History Anesthesia History - vocational counselor: Anesthesia History - vocational counselor Hx Hospitalization No 07/12/25 12:08 Any Problems With Anesthesia No 07/12/25 12:08 Cholinesterase deficiency No 07/12/25 12:08 You/Your Family Experience No 07/12/25 12:08 fever (hyperthermia) with Relationship Recent Exposure to Contagious No 05/04/25 09:29 Disease Does patient have nerve No 07/12/25 12:08 stimulator Patient instructed to have device shut off --Does patient have Pacemaker or ICD? When Was Last Pacemaker Check QUESTION #4 FULL TEXT: You/Your Family Experience fever (hyperthermia) with Anesthesia Last Oral Intake Last Oral intake: Last Oral Intake NPO since Meds taken in AM with sips of water? Meds patient instructed to take am of surgery PONV PONV - vocational counselor: PONV - vocational counselor Female No 07/12/25 12:08 HX of Motion Sickness No 07/12/25 12:08 HX of N/V After Surgery No 07/12/25 12:08 Non-Smoker Yes 07/12/25 12:08 Duration of Surgery greater No 07/12/25 12:08 than 60 minutes Number of Risk Factors 1 07/12/25 12:08 PONV Score Low Risk 07/12/25 12:08 Height Weight Height Weight: Anesthesia: Height Weight Height 6 ft 3 in 05/05/25 11:03 Respiratory Assessment Respiratory Assessment - vocational counselor: Respiratory Tract Infection Hx - vocational counselor Hx Respiratory Tract Infection No 07/12/25 12:08 STOP Sleep Apnea STOP Sleep Apnea - vocational counselor: STOP Sleep Apnea - vocational counselor Hx Hypertension No 07/12/25 12:08 Hx Sleep Apnea No 07/12/25 12:08 CPAP BIPAP Do you snore loudly (louder No 07/12/25 12:08 than talking or can be heard Do you often feel tired/ No 07/12/25 12:08 fatigued/ sleepy during daytime? Has anyone observed you stop No 07/12/25 12:08 breathing during sleep? STOP Results Negative 07/12/25 12:08 QUESTION #5 FULL TEXT : Do you snore loudly (louder than talking or can be heard through closed doors)? 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 Specify any problems Hx of Preganancy in last 3 N/A 07/12/25 12:08 Months Nurse Filling Out Transfusion DSCHRIBER 07/12/25 12:08 Questions: Date: 07/12/25 07/12/25 12:08 Time: 12:11 07/12/25 12:08 Patient unable to answer at this time (ie. confused, unrespo /Reproduct ion History /Reproduct tristan History - vocational counselor: /Reproduct tristan Hx- vocational counselor Hx Now No 07/12/25 12:08 Gestational Age (in weeks): EDC: Hx Hx Para Hx Section SAB No 07/12/25 12:08 [facility] History (Updated 07/12/25 @ 12:17 by Lisa Nguyen) DVT (deep venous thrombosis) Esophagitis History of Cadena esophagus Gastric reflux Low iron Non-smoker Shortness of breath on exertion History of Holter monitoring History of echocardiogram History of stress test Iron deficiency anemia due to chronic blood loss Nocturia Prostate cancer Hypertension Home Medications ???Medication ???Instructions ???Recorded ???Last Taken ???Type sildenafil 100 mg tablet 100 mg PO DAILY PRN sexual 5 05/04/25 Rx activity #90 tabs ferrous sulfate 325 mg (65 mg 325 mg PO DAILY 03/22/25 05/03/25 History iron) tablet pantoprazole 40 mg tablet,delayed 40 mg PO DAILY #180 tabs 03/22/25 05/04/25 Rx release chlorthalidone 25 mg tablet 25 mg PO QDAY #90 tabs 06/24/25 Un known Rx warfarin 10 mg tablet 10 mg PO QDAY #90 tabs 06/24/25 Rx Allergy/AdvReac Type Severity Reaction Status Date / Time No Known Aller (more content not included)... Normal [facility] Prothrombin Time w/INRon INR Normal [facility] Comment on above: Result Comment: PT R EFUSED TO LET ME DO A DRAW, ONLY WOULD LET ME DO A FINGER STICK I EXPLAINED WE NEED AN ORDER THAT SAYS A FIMGERSTICK IS OKAY. PT GOT UPSET SAYING HE HAS HAD IT DONE DEFORE. I PREFORMED A FINGERSTICVK TO AVOID ANY FURTHER ESCALATION. Performed By: #### L 300.3900, L503.6030, L503.6550, L500.4050, L100.0500 #### [facility] [address] [place], [place], [id number] PROTIME Normal 11.7-14.9 [facility] Comment on above: Result Comment: PT R EFUSED TO LET ME DO A DRAW, ONLY WOULD LET ME DO A FINGER STICK I EXPLAINED WE NEED AN ORDER THAT SAYS A FIMGERSTICK IS OKAY. PT GOT UPSET SAYING HE HAS HAD IT DONE DEFORE. I PREFORMED A FINGERSTICVK TO AVOID ANY FURTHER ESCALATION. Performed By: #### L 300.3900, L503.6030, L503.6550, L500.4050, L100.0500 #### [facility] [address] [place], [address] Protime w/INR Fingerstickon 06-16-2025 INR Coag (PPP) [Relative time] 2.5 {INR} Normal [facility] Comment on above: Result Comment: Crit ical Value > 4.0 Performed By: #### L 300.3900, L503.6030, L503.6550, L500.4050, L100.0500 #### [facility] [address] [place], [address] Protime Coagsen 26.8 SEC High 11.7-14.9 [facility] Comment on above: Performed By: #### L 300.3900, L503.6030, L503.6550, L500.4050, L100.0500 #### [facility] [address] [place], [place], [phone] ([phone] International normalized rat io (INR) calculationOrdered By: Evelin Rogers on 05-19-2025 INR Coag (Bld) [Relative time] 2.1 {INR} [facility] Prothrombin Time w/INRon INR Coag (PPP) [Relative time] 2.1 {INR} Normal [facility] Comment on above: Performed By: #### L 300.3900, L503.6030, L503.6550, L500.4050, L100.0500 #### [facility] [address] [place], [address] PT Coag (PPP) [Time] 24.4 s High 11.7-14.9 [facility] Comment on above: Performed By: #### L 300.3900, L503.6030, L503.6550, L500.4050, L100.0500 #### [facility] [address] [place], [address] Prothrombin timeOrdered By: Evelin Rogers on 05-19-2025 PT Coag (PPP) [Time] 24.4 s High 11.7-14.9 [facility] Oncology Visit Reporton 08-2 Oncology Visit Report [facility] [place] [address] OFFICE VISIT Date of Service: 05/05/25 1058 MR#: [id number] Acct: [id number] Name: JACEY AGUILERA Rep #: [id number] : 1955 From: Michelle Matthew MD Age/Sex: 69/M [place] [facility] [place]: Signed HPI Subjective Date of Service 05/05/25 Chief Complaint Anemia History of Present Illness 69-year-old gentleman with progressively increasing fatigue April 2024 and workup revealed iron deficiency anemia. He just started an oral iron supplement. He was diagnosed with prostate cancer on surveillance with a follow-up elective prostate biopsy in June 2024, per patient self report Eugene 6 on active surveillance. Follows with [facility] in [place]. June 29, 2024 OPERATION: Colonoscopy, EGD with biopsies Spec# :[id number] PRE-OP DIAGNOSIS: Iron deficiency anemia due to chronic blood loss TISSUE SUBMITTED: A- Duodenum biopsy, B- Distal esophagus biopsy, C- Cecal polyp biopsy MICROSCOPIC DIAGNOSIS A. Duodenum, biopsy: Mild non-specific chronic inflammation. B. 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 No evidence of dysplasia. See comment. C. 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 Biopsied. 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 Treated with radiofrequency ablation. - Large hiatal hernia. - No gross lesions in the second portion of the duodenum. 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 Smoking Status: Never smoker Electronic Cigarette Use: not used alcohol intake: never substance use type: does not use what type of physical activity do you participate in: walking, bicycling and other details: pickleball cassandra/episcopal: Pentecostal seatbelt use: always do you feel safe at home: Yes ROS Constitutional Constitutional: Denies fatigue ENT HEENT: Denies bleeding gums or epistaxis Gastrointestinal Gastrointestinal: Denies heartburn, hematochezia or melena Genitourinary Genitourinary: Denies hematuria Intake Vital Signs 03/04/25 15:19 05/04/25 09:29 05/05/25 11:00 05/05/25 11:03 Height 6 ft 3 in 6 ft 3 in 6 ft 3 in 6 ft 3 in Weight: 113.852 kg BMI 31.4 BP 113/68 Blood Pressure Location Lt brachial Position Sitting Respiration 18 Pulse 62 Pulse Source Monitor Temp 98.6 F Temperature Source Temporal Artery Pulse Oximetry (%) 93 Oxygen Delivery Method room air Intake Is patient in pain?: No Allergies No Known Allergies Allergy (Verified 05/05/25 11:01) Medications ???Medication ???Instructions ???Recorded ???Confirmed ???Type sildenafil 100 mg tablet 100 mg PO DAILY PRN sexual 5 05/05/25 Rx activity #90 tabs chlorthalidone 25 mg tablet 25 mg PO QDAY #90 tabs 03/22/25 Rx ferrous sulfate 325 mg (65 mg 325 mg PO DAILY 03/22/25 05/05/25 History iron) tablet pantoprazole 40 mg tablet,delayed 40 mg PO DAILY #180 tabs 03/22/25 05/05/25 Rx release warfarin 10 mg tablet 10 mg PO QDAY #90 tabs 03/28/25 Rx acetaminophen 300 mg-codeine 30 15 ml PO Q4-6H PRN pain #500 mL 05/05/25 Rx mg/12.5 mL (12.5 mL) oral solution sucralfate 1 gram tablet (Carafate) 1 g PO BID #60 tabs 05/04/25 Rx Have you fallen in the past year?: No Central Venous Access Central Venous Access: No Laboratory Tests 05/05/24 05/19/24 05/27/24 14:07 10:31 13:22 Hgb 7.4 L 7.6 L Iron Saturation Ferritin 10 L 06/03/24 06/24/24 07/29/24 16:30 08:23 13:26 Hgb 8.9 L 10.4 L 13.6 Iron Saturation 6.4 L 21.3 Ferritin 14 L 26 10/05/24 10/22/24 03/10/25 09:57 11:03 11:17 Hgb 15.6 15.3 Iron Saturation 39.2 44.0 Ferritin 30 125 05/04/25 08:52 Hgb 16.1 Iron Saturation 68.0 H Ferritin 181 Exam Physica (more content not included)... Normal [facility] Absolute lymphocyte countOrd ered By: Sharda Agudelo on 05-04-2025 Lymphocytes Auto (Unsp spec) [#/Vol] 2.24 10*3/uL 0.83-4.51 [facility] Absolute neutrophil countOrd ered By: Sharda Agudelo on 05-04-2025 Neutrophils (Bld) [#/Vol] 3.2 10*3/uL 2.0-7.7 [facility] Automated lymphocyte count a s percentage of total leukocytesOrdered By: Sharda Agudelo on 05-04-2025 Lymphocytes/100 WBC Auto (Unsp spec) 34.8 % 19-41 [facility] Basophil percentageOrdered B y: Sharda Agudelo on 05-04-2025 Basophils/100 WBC (Bld) 0.8 % 0-1 [facility] CBC W/Diff, Automatedon 04-16 Absolute Lymph 2.24 X10 3/uL Normal 0.83-4.51 [facility] Comment on above: Performed By: #### L 300.3900, L503.6030, L503.6550, L500.4050, L100.0500 #### [facility] [place], [address] Absolute Neut 3.2 X10 3/uL Normal 2.0-7.7 [facility] Comment on above: Performed By: #### L 300.3900, L503.6030, L503.6550, L500.4050, L100.0500 #### [facility] [address] [place], [address] Basophils/100 WBC (Bld) 0.8 % Normal 0-1 [facility] Comment on above: Performed By: #### L 300.3900, L503.6030, L503.6550, L500.4050, L100.0500 #### [facility] [address] [place], [address] Eosinophils/100 WBC (Bld) 1.9 % Normal 0-5 [facility] Comment on above: Performed By: #### L 300.3900, L503.6030, L503.6550, L500.4050, L100.0500 #### [facility] [address] [place], [address] Erythrocyte distribution width (RBC) [Ratio] 12.9 % Normal 11.6-14.6 [facility] Comment on above: Performed By: #### L 300.3900, L503.6030, L503.6550, L500.4050, L100.0500 #### [facility] [address] [place], [address] Hematocrit (Bld) [Volume fraction] 44.8 % Normal 40-54 [facility] Comment on above: Performed By: #### L 300.3900, L503.6030, L503.6550, L500.4050, L100.0500 #### [facility] [address] [place], [address] Hemoglobin (Bld) [Mass/Vol] 16.1 g/dL Normal 13.0-16.5 [facility] Comment on above: Performed By: #### L 300.3900, L503.6030, L503.6550, L500.4050, L100.0500 #### [facility] [address] [place], [address] IG% 0.300 Normal 0.0-0.9 [facility] Comment on above: Result Comment: IG% - Immature Granulocytes (promyelocytes, myelocytes and metamyelocytes) > 1% indicates that a LEFT SHIFT is Present. Performed By: #### L 300.3900, L503.6030, L503.6550, L500.4050, L100.0500 #### [facility] [address] [place], [address] Lymphocytes/100 WBC (Bld) 34.8 % Normal 19-41 [facility] Comment on above: Performed By: #### L 300.3900, L503.6030, L503.6550, L500.4050, L100.0500 #### [facility] [address] [place], [address] MCH (RBC) [Entitic mass] 31.6 pg Normal 27.0-32.0 [facility] Comment on above: Performed By: #### L 300.3900, L503.6030, L503.6550, L500.4050, L100.0500 #### [facility] [address] [place], [address] MCHC (RBC) [Mass/Vol] 35.9 g/dL Normal 32-36 [facility] Comment on above: Performed By: #### L 300.3900, L503.6030, L503.6550, L500.4050, L100.0500 #### [facility] [address] [place], [address] MCV (RBC) [Entitic vol] 87.8 fL Normal 80-94 [facility] Comment on above: Performed By: #### L 300.3900, L503.6030, L503.6550, L500.4050, L100.0500 #### [facility] [address] [place], [address] Monocytes/100 WBC (Bld) 12.1 % High 0-10 [facility] Comment on above: Performed By: #### L 300.3900, L503.6030, L503.6550, L500.4050, L100.0500 #### [facility] [address] [place], [address] Neutrophils/100 WBC (Bld) 50.1 % Normal 47-70 [facility] Comment on above: Performed By: #### L 300.3900, L503.6030, L503.6550, L500.4050, L100.0500 #### [facility] [address] [place], [address] Nucleated RBC (Bld) [#/Vol] 0 10*3/uL Normal 0-5 [facility] Comment on above: Performed By: #### L 300.3900, L503.6030, L503.6550, L500.4050, L100.0500 #### [facility] [address] [place], [address] Platelet mean volume (Bld) [Entitic vol] 9.9 fL Normal 6.2-12.0 [facility] Comment on above: Performed By: #### L 300.3900, L503.6030, L503.6550, L500.4050, L100.0500 #### [facility] [address] [place], [address] Platelets (Bld) [#/Vol] 210 10*3/uL Normal 150-450 [facility] Comment on above: Performed By: #### L 300.3900, L503.6030, L503.6550, L500.4050, L100.0500 #### [facility] [address] [place], [address] RBC (Bld) [#/Vol] 5.10 10*6/uL Normal 4.6-6.2 [facility] Comment on above: Performed By: #### L 300.3900, L503.6030, L503.6550, L500.4050, L100.0500 #### [facility] [address] [place], [address] RDW SD 41.5 fl Normal 35.1-43.9 [facility] Comment on above: Performed By: #### L 300.3900, L503.6030, L503.6550, L500.4050, L100.0500 #### [facility] [address] [place], [address] WBC (Bld) [#/Vol] 6.4 10*3/uL Normal 4.4-11.0 [facility] Comment on above: Performed By: #### L 300.3900, L503.6030, L503.6550, L500.4050, L100.0500 #### [facility] [address] [place], [address] EGD Reporton 05-04-2025 EGD Report [facility] Medical Records Department [address] [place] [address] EGD Report MR#: [id number] Acct: [id number] Name: JACEY AGUILERA Rep #: [id number] : 1955 69 From: Jeremy Serrano DO PCP: Dr. Evelin Rogers MD Status:[facility] Patient Name: Jacey Aguilera Procedure Date: 05/04/2025 10:14 AM Date of : 1955 Age: 69 Procedure: Upper GI endoscopy Indications: Iron deficiency anemia, For therapy of Cadena's esophagus Providers: Jeremy Serrano DO Referring MD: Evelin Rogers Md Medicines: Monitored Anesthesia Care Patient Profile: This is a 69 year old male. Refer to note in patient chart for documentation of history and physical. Patient has symptoms of acute heartburn and chronic heartburn. His most recent EGD for Cadena's biopsy was within the past six months. Complications: No immediate complications. Procedure: Pre-Anesthesia Assessment: - Prior to the procedure, a History and Physical was performed, and patient medications and allergies were reviewed. The patient is competent. The risks and benefits of the procedure and the sedation options and risks were discussed with the patient. All questions were answered and informed consent was obtained. Patient identification and proposed procedure were verified by the physician in the pre-procedure area. Mental Status Examination: alert and oriented. Airway Examination: normal oropharyngeal airway and neck mobility. Respiratory Examination: clear to auscultation. CV Examination: normal. Prophylactic Antibiotics: The patient does not require prophylactic antibiotics. Prior Anticoagulants: The patient has taken no anticoagulant or antiplatelet agents. ASA Grade Assessment: II - A patient with mild systemic disease. After reviewing the risks and benefits, the patient was deemed in satisfactory condition to undergo the procedure. The anesthesia plan was to use monitored anesthesia care (MAC). Immediately prior to administration of medications, the patient was re-assessed for adequacy to receive sedatives. The heart rate, respiratory rate, oxygen saturations, blood pressure, adequacy of pulmonary ventilation, and response to care were monitored throughout the procedure. The physical status of the patient was re-assessed after the procedure. After obtaining informed consent, the endoscope was passed under direct vision. Throughout the procedure, the patient's blood pressure, pulse, and oxygen saturations were monitored continuously. The Endoscope was introduced through the mouth, and advanced to the second part of duodenum. The upper GI endoscopy was accomplished without difficulty. The patient tolerated the procedure well. Scope In: 10:31:41 AM Scope Out: 10:53:37 AM Total Procedure Duration Time 0 hours 21 minutes 56 seconds Findings: The esophagus and gastroesophageal junction were examined with white light and narrow band imaging (NBI) from a forward view and retroflexed position. There were esophageal mucosal changes secondary to established long-segment Cadena's disease. These changes involved the mucosa at the upper extent of the gastric folds (41 cm from the incisors) extending to the Z-line (34 cm from the incisors). Circumferential salmon-colored mucosa was present at 36 cm and circumferential salmon-colored mucosa was present at 41 cm. The maximum longitudinal extent of these esophageal mucosal changes was 7 cm in length. Mucosa was biopsied with a cold forceps for histology in a targeted manner at intervals of 1 cm in the lower third of the esophagus. One specimen bottle was sent to pathology. Verification of patient identification for the specimen was done. Estimated blood loss was minimal. The esophagus and gastroesophageal junction were examined with white light and narrow band imaging (NBI) from a forward view and retroflexed position. There were esophageal mucosal changes secondary to established long-segment Cadena's disease. These changes involved the mucosa at the upper extent of the gastric folds (41 cm from the incisors) extending to the Z-line (34 cm from the incisors). Bradford-colored mucosa was present. The maximum longitudinal extent of these esophageal mucosal changes was 7 cm in length. Circumferential radiofrequency ablation of Cadena's esophagus was performed using the ExtraOrthox 360 Express catheter and balloon-based endoscopic ablation system. With the endoscope in place, the position and extent of the Cadena's mucosa and the anatomic landmarks including top of gastric folds were noted. Endoscopic visualization identified an ablation site including the entire visible Cadena's segment. The Cadena's mucosa was irrigated with water. Gastric contents were suctioned. A guidewire was passed down the biopsy channel of the endoscope. As the endosc (more content not included)... Normal [facility] Eosinophil percentageOrdered By: Sharda Agudelo on 05-04-2025 Eosinophils/100 WBC (Bld) 1.9 % 0-5 [facility] Erythrocyte distribution wid th ratioOrdered By: Sharda Agudelo on 05-04-2025 Erythrocyte distribution width (RBC) [Ratio] 12.9 % 11.6-14.6 [facility] Erythrocyte distribution wid th standard deviationOrdered By: Sharda Agudelo on 05-04-2025 Erythrocyte distribution width (RBC) [Ratio] 41.5 fl 35.1-43.9 [facility] Ferritinon 05-04-2025 Ferritin [Mass/Vol] 181 ng/mL Normal 37-417 [facility] Comment on above: Performed By: #### L 300.3900, L503.6030, L503.6550, L500.4050, L100.0500 #### [facility] [address] [place], [address] Hematocrit Auto (Bld) [Volum e fraction]Ordered By: Sharda Agudelo on 05-04-2025 Hematocrit (Bld) [Volume fraction] 44.8 % 40-54 [facility] Hemoglobin measurementOrdere d By: Sharda Agudelo on 05-04-2025 Hemoglobin (Bld) [Mass/Vol] 16.1 g/dL 13.0-16.5 [facility] Immature granulocytes/100 WB C Auto (Bld)Ordered By: Sharda Agudelo on 05-04-2025 Immature granulocytes/100 WBC (Bld) 0.300 % 0.0-0.9 [facility] Comment on above: IG% - Immature Granu locytes (promyelocytes, myelocytes and metamyelocytes) > 1% indicates that a LEFT SHIFT is Present. International normalized rat io (INR) measurement by fingerstickOrdered By: Jeremy Serrano on 05-04-2025 INR Coag (BldC) [Relative time] 1.5 [facility] Comment on above: Critical Value > 4.0 Iron measurement (mass/mass) Ordered By: Sharda Agudelo on 05-04-2025 Iron (Unsp spec) [Mass/Mass] 175 ug/dL 65-175 [facility] Iron+Iron Binding Capacityon 05-04-2025 Iron [Mass/Vol] 175 ug/dL Normal 65-175 [facility] Comment on above: Performed By: #### L 300.3900, L503.6030, L503.6550, L500.4050, L100.0500 #### [facility] [address] [place], [address] IRON SATURATION 68.0 High 9-55 [facility] Comment on above: Performed By: #### L 300.3900, L503.6030, L503.6550, L500.4050, L100.0500 #### [facility] [address] [place], [address] TIBC 256 ug/dL Normal 250-450 [facility] Comment on above: Performed By: #### L 300.3900, L503.6030, L503.6550, L500.4050, L100.0500 #### [facility] [address] [place], [address] UIBC 81 ug/dL Low 228-428 [facility] Comment on above: Performed By: #### L 300.3900, L503.6030, L503.6550, L500.4050, L100.0500 #### [facility] [address] [place], [address] MCV (mean corpuscular volume ) determinationOrdered By: Sharda Agudelo on 05-04-2025 MCV (RBC) [Entitic vol] 87.8 fL 80-94 [facility] MR/OP.PROVATon 05-04-2025 [facility] Medical Records Department [address] [place] [address] Provation Physician Letter MR#: [id number] Acct: [id number] Name: JACEY AGUILERA Rep #: [id number] : 1955 69 From: Jeremy Serrano DO PCP: Dr. Evelin Rogers MD Status:REG [facility] [place] [place] 05/04/2025 Evelin Rogers Md Re : Upper GI endoscopy procedure for Jacey Aguilera Clemencia Rogers This procedure was performed on Sunday, May 04, 2025. My impressions and recommendations are as follows: Impressions : - Esophageal mucosal changes secondary to established long-segment Cadena's disease. Biopsied. 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 Treated with radiofrequency ablation. - Large hiatal hernia. - No gross lesions in the second portion of the duodenum. Recommendations : - Discharge patient to home. - Full liquid diet. - Continue present medications. Special Instructions for after Ablation of Cadena?s Esophagus Diet to follow after procedure Day 1 (day of procedure, after procedure) ? Clear Liquid Diet Fruit juice (no pulp) Gelatin (no red) Fruit ice (no pulp) Popsicle (no pulp) Clear hard candy Black coffee Etc., a more detailed list will be provided after procedure Day 2 and 3 ? Full Liquid Diet Milkshake Cream of wheat Coffee with cream Creamed soups Etc., a more detailed list will be provided after procedure Day 4 through 10 (7 days) ? Soft Diet No tough meats No chips No raw fruits or vegetables Etc., a more detailed list will be provided after procedure No warm fluids for 24 hours starting after procedure Medications (prescriptions) you will be given after procedure Proton Pump Inhibitor (Prilosec, Nexium, Protonix, etc.) These medication are used for acid reflux. You should already be taking one of these medications at home or your doctor may prescribe one of these drugs for you the day of the procedure. If you are already on one of these drugs your doctor may increase the dose after your procedure. Carafate This medication is used to coat your esophagus and prevent ulceration. IMPORTANT: Take this medication until gone. GI Cocktail This medication is used to coat the esophagus. It will help with any pain or discomfort that you may experience when eating after the procedure. Take this medication as needed for discomfort or pain. Zofran ODT This medication is used for nausea. Take this medication as needed for nausea. Liquid Tylenol with Codeine This medication is used for pain. Take this medication as needed for pain. My findings are described in the full procedure note, which is enclosed. If I can be of further assistance, please feel free to contact me at . Sincerely, Jreemy Serrano DO 05/04/2025 11:40:20 AM This report has been signed electronically. 05/04/25 1140 Date Jeremy Alberto Signature: Date (if indicated) CC: Dr. Evelin Rogers MD; Jeremy Serrano DO Date Dictated: 05/04/25 1014 Date Transcribed: See Wheeler: NAOMIE Signed Normal [facility] MR/POSTOP.ANEon 05-04-2025 MR/POSTOP.[facility] Medical Records Department [address] [place] [address] Anesthesia Postop Eval I 05/04/25 1109 MR#: [id number] Acct: [id number] Name: JACEY AGUILERA Rep #: [id number] : 1955 69 From: Matthew Sy PCP: Dr. Evelin Rogers MD Status:REG [facility] Y Race: C Location: [place] [address] Anesthesia: Postop Eval I Current Vital Signs Temperature: 97 F Pulse Rate: 62 Blood Pressure: 96/72 Respiratory Rate: 16 Pulse Ox: 92 Oxygen Delivery Method: Nasal Cannula Oxygen Flow Rate (L/min): 2 Assessment Airway patent: Yes Spontaneous unlabored respirations: Yes Mental status: Asleep nausea: No Vomiting: No Anesthesia Complication: Yes Anesthesia Complication Comment:: O2 sat <90% d/t mouth breathing Fluid Hydration Crystalloid volume administer (ml): 400 Total IV fluid infused: 400 Progress Note Anesthesia document: Postop Eval 1 completed: Yes 05/04/25 1111 Date Matthew Diaz Signature: Date CC: Signed Normal [facility] Mean corpuscular hemoglobin (MCH) determinationOrdered By: Sharda Agudelo on 05-04-2025 MCH (RBC) [Entitic mass] 31.6 pg 27.0-32.0 [facility] Mean corpuscular hemoglobin concentration (MCHC) determinationOrdered By: Sharda Agudelo on 05-04-2025 MCHC (RBC) [Mass/Vol] 35.9 g/dL 32-36 [facility] Mean platelet volume determi nationOrdered By: Sharda Agudelo on 05-04-2025 Platelet mean volume (Bld) [Entitic vol] 9.9 fL 6.2-12.0 [facility] Monocyte percentageOrdered B y: Shardamargarita MorochoJammie on 05-04-2025 Monocytes/100 WBC (Bld) 12.1 % High 0-10 [facility] Neutrophil percentageOrdered By: Sharda Jammie on 05-04-2025 Neutrophils/100 WBC (Bld) 50.1 % 47-70 [facility] No Panel InformationOrdered By: Sharda Jammie on 05-04-2025 Unsaturated Iron Binding Capacity 81 ug/dL Low 228-428 [facility] Nucleated red blood cell per centageOrdered By: Sharda Jammie on 05-04-2025 Nucleated RBC/100 WBC (Bld) [Ratio] 0 % 0-5 [facility] Platelet countOrdered By: Ty ra Jammie on 05-04-2025 Platelets (Bld) [#/Vol] 210 10*3/uL 150-450 [facility] Protime w/INR Fingerstickon 05-04-2025 INR Coag (PPP) [Relative time] 1.5 {INR} Normal [facility] Comment on above: Result Comment: Crit ical Value > 4.0 Performed By: #### L 300.3900, L503.6030, L503.6550, L500.4050, L100.0500 #### [facility] [address] [place], [address] Protime Coagsen 17.3 SEC High 11.7-14.9 [facility] Comment on above: Performed By: #### L 300.3900, L503.6030, L503.6550, L500.4050, L100.0500 #### [facility] [address] [place], [address] RBC Auto (Bld) [#/Vol]Ordere d By: Sharda MorochoJammie on 05-04-2025 RBC (Bld) [#/Vol] 5.10 10*6/uL 4.6-6.2 [facility] Retic Panelon 08-20-2025 IM RET FRACTION 8.00 Normal 3.00-15.90 [facility] Comment on above: Performed By: #### L 300.3900, L503.6030, L503.6550, L500.4050, L100.0500 #### [facility] [address] [place], [address] RET-HE 35.2 pg High 30-35 [facility] Comment on above: Performed By: #### L 300.3900, L503.6030, L503.6550, L500.4050, L100.0500 #### [facility] [address] [place], [place], [phone] Retic Count 1.46 Normal 0.5-1.5 [facility] Comment on above: Performed By: #### L 300.3900, L503.6030, L503.6550, L500.4050, L100.0500 #### [facility] [address] [place], [place], [address] [phone] Reticulocyte hemoglobin equi valent (RET-He) measurementOrdered By: Sharda Agudelo on 05-04-2025 Hemoglobin (Reticulocytes) [Entitic mass] 35.2 pg High 30-35 [facility] Reticulocytes Auto (Bld) [#/ Vol]Ordered By: Sharda Agudelo on 05-04-2025 Reticulocytes/100 RBC (Bld) 1.46 % 0.5-1.5 [facility] Serum or plasma ferritin candice surement (mass/volume)Ordered By: Sharda Agudelo on 05-04-2025 Ferritin [Mass/Vol] 181 ng/mL 37-417 [facility] Serum or plasma iron saturat ion measurement (mass fraction)Ordered By: Sharda Agudelo on 05-04-2025 Iron saturation [Mass fraction] 68.0 % High 9-55 [facility] Surgery Specimen Level Chana 05-04-2025 Surgery Specimen Level IV Patient Age/Sex Location Account Attending Physician JACEY AGUILERA 69/M EN [id number] Jeremy Serrano DO Specimen: [id number] Received: 05/04/25 Status: CHELITA Zarco Num: [id number] Spec Type: EGD BIOPSY Subm Dr: Jeremy Serrano DO HEADER OPERATION: EGD and radio frequency ablation and biopsy PRE-OP DIAGNOSIS: Cadena's esophagus TISSUE SUBMITTED: A- Distal esophagus biopsy MICROSCOPIC DIAGNOSIS A. Distal esophagus, biopsy: Cadena mucosa, negative for dysplasia. MICROSCOPIC DESCRIPTION Slides are reviewed. GROSS DESCRIPTION A. Received in fixative is one container labeled with the patient's name and designated Distal esophagus biopsy. The specimen consists of multiple irregular fragments of light umana soft tissue that in aggregate measure 1 x 0.5 x 0.1 cm. The specimen is totally submitted in one cassette. [place] 05/04/2025 CPT:33377 Patient Age/Sex Location Account Attending Physician JACEY AGUILERA 69/M EN [id number] Jeremy Serrano, DO Signed (signatur e on file) Dr. Lakeisha Singh MD 05/23/25 1608 [facility] Comment on above: Performed By: #### L 300.3900, L503.6030, L503.6550, L500.4050, L100.0500 #### [facility] [address] [place], [address] White blood cell (WBC) count Ordered By: Sharda Agudelo on 05-04-2025 WBC (Bld) [#/Vol] 6.4 10*3/uL 4.4-11.0 [facility] Whole blood prothrombin time Ordered By: Jeremy Serrano on 05-04-2025 PT Coag (Bld) [Time] 17.3 s High 11.7-14.9 [facility] MR/PAT.ANEon 05-03-2025 MR/PAT.[facility] Medical Records Department [address] [place] [address] PAT - Anesthesia 05/03/25 1252 MR#: [id number] Acct: [id number] Name: JACEY AGUILERA Rep #: [id number] : 1955 69 From: Diego Baker MD PCP: Dr. Evelin Rogers MD Status:PRE SD Y Race: C Location: EN Pre-Assessment Diagnosis/Proposed Procedure Planned Operative Procedure(s): EGD Anesthesia History Anesthesia History - vocational counselor: Anesthesia History - vocational counselor Hx Hospitalization No 05/03/25 12:39 Any Problems With Anesthesia No 05/03/25 12:39 Cholinesterase deficiency No 05/03/25 12:39 You/Your Family Experience No 05/03/25 12:39 fever (hyperthermia) with Relationship Recent Exposure to Contagious No 06/29/24 11:11 Disease Does patient have nerve No 05/03/25 12:39 stimulator Patient instructed to have device shut off --Does patient have Pacemaker or ICD? When Was Last Pacemaker Check QUESTION #4 FULL TEXT: You/Your Family Experience fever (hyperthermia) with Anesthesia Last Oral Intake Last Oral intake: Last Oral Intake NPO since Meds taken in AM with sips of water? Meds patient instructed to take am of surgery PONV PONV - vocational counselor: PONV - vocational counselor Female No 05/03/25 12:39 HX of Motion Sickness No 05/03/25 12:39 HX of N/V After Surgery No 05/03/25 12:39 Non-Smoker Yes 05/03/25 12:39 Duration of Surgery greater No 05/03/25 12:39 than 60 minutes Number of Risk Factors 1 05/03/25 12:39 PONV Score Low Risk 05/03/25 12:39 Height Weight Height Weight: Anesthesia: Height Weight Height 6 ft 3 in 03/04/25 15:19 Respiratory Assessment Respiratory Assessment - vocational counselor: Respiratory Tract Infection Hx - vocational counselor Hx Respiratory Tract Infection No 05/03/25 12:39 STOP Sleep Apnea STOP Sleep Apnea - vocational counselor: STOP Sleep Apnea - vocational counselor Hx Hypertension Yes: CONTROLLED WITH MEDS 05/03/25 12:39 Hx Sleep Apnea No 05/03/25 12:39 CPAP BIPAP Do you snore loudly (louder No 05/03/25 12:39 than talking or can be heard Do you often feel tired/ No 05/03/25 12:39 fatigued/ sleepy during daytime? Has anyone observed you stop No 05/03/25 12:39 breathing during sleep? STOP Results Negative 05/03/25 12:39 QUESTION #5 FULL TEXT : Do you snore loudly (louder than talking or can be heard through closed doors)? 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 Specify any problems Hx of Preganancy in last 3 N/A 05/03/25 12:39 Months Nurse Filling Out Transfusion [email or web address] 05/03/25 12:39 Questions: Date: 05/03/25 05/03/25 12:39 Time: 12:41 05/03/25 12:39 Patient unable to answer at this time (ie. confused, unrespo /Reproduct ion History /Reproduct tristan History - vocational counselor: /Reproduct tristan Hx- vocational counselor Hx Now Gestational Age (in weeks): EDC: Hx Hx Para Hx Section SAB No 05/03/25 12:39 [facility] Medical History (Updated 05/03/25 @ 12:45 by Angel Adames) Gastric reflux Low iron Non-smoker Shortness of breath on exertion History of Holter monitoring History of echocardiogram History of stress test Iron deficiency anemia due to chronic blood loss Nocturia Prostate cancer Hypertension Home Medications ???Medication ???Instructions ???Recorded ???Last Taken ???Type sildenafil 100 mg tablet 100 mg PO DAILY PRN sexual 5 Unknown Rx activity #90 tabs chlorthalidone 25 mg tablet 25 mg PO QDAY #90 tabs 03/22/25 Un known Rx ferrous sulfate 325 mg (65 mg 325 mg PO DAILY 03/22/25 Unknown H istory iron) tablet pantoprazole 40 mg tablet,delayed 40 mg PO DAILY #180 tabs 03/22/25 Unknown Rx release warfarin 10 mg tablet 10 mg PO QDAY #90 tabs 03/28/25 Rx Allergy/AdvReac Type Severity Reaction Status Date / Time No Known Allergies Allergy Verified 05/03/25 12:38 Family History (Reviewed 03/04/25 @ (more content not included)... Normal [facility] normalized rat io (INR) calculationOrdered By: Evelin Rogers on 03-31-2025 INR Coag (Bld) [Relative time] 2.6 {INR} [facility] Prothrombin Time w/INRon INR Coag (PPP) [Relative time] 2.6 {INR} Normal [facility] Comment on above: Performed By: #### L 300.3900, L503.6030, L503.6550, L500.4050, L100.0500 #### [facility] [address] [place], [address] PT Coag (PPP) [Time] 28.4 s High 11.7-14.9 [facility] Comment on above: Performed By: #### L 300.3900, L503.6030, L503.6550, L500.4050, L100.0500 #### [facility] [address] [place], [address] Prothrombin timeOrdered By: Evelin Rogers on 03-31-2025 PT Coag (PPP) [Time] 28.4 s High 11.7-14.9 [facility] Venous Duplex US, Unilateral on 03-17-2025 Venous Duplex US, Unilateral [facility] [address] [place] [address] Venous Duplex US, Unilateral 03/17/25 0909 MR#: [id number] Acct: [id number] Name: JACEY AGUILERA Rep #: [id number] : 1955 69 From: Tutu Dailey MD Attending Dr: JORGE LUIS Haque Status: REG CLI Ordering Dr: Willi Rosas PA Date: 03/17/25 Location: CVS Sex: M C Admitted: Reason For Study Reason For Study: HX LLE DVT RIGHT LEFT CFV is compressible, spontaneous, phasic, competent GSV is normal. and demonstrates normal augmentation. CFV is compressible, spontaneous, phasic, competent, Procedure and demonstrates normal augmentation. This is a venous duplex using B-mode, color flow and FV is spontaneous, phasic and displays normal spectral Doppler. augmentation. FV is PARTIALLY COMPRESSIBLE at mid and Exam performed in department. dist with intraluminal echoes noted. The exam was diagnostic. POP V is compressible, spontaneous, phasic, competent Compare to study 11/23/2024. and demonstrates normal augmentation. T/P Trunk is PARTIALLY COMPRESSIBLE with intraluminal echoes noted. PTV is compressible. LT PerV is compressible. VL/Venous Duplex US, Unilateral Interpretation Summary Chronic deep vein thrombosis noted in the left femoral vein, tibioperoneal trunk vein __ Ordering Physician: Willi Rosas Referring Physician: Evelin Rogers Performed By: Patel Wadsworth, RVT 03/17/251514 Date Tutu Dailey MD CC: Dr. Evelin Rogers MD; JORGE LUIS Haque Date Dictated: 03/17/25908 Date Transcribed: 03/17/251514 See Wheeler: Signed Normal [facility] Venous duplex ultrasound rep ortOrdered By: Tutu Dailey on 03-17-2025 US Vein [facility] [address] [place] [address] Venous Duplex US, Unilateral 03/17/25908 MR#: [id number] Acct: [id number] Name: JACEY AGUILERA Rep #:[id number] : 1955 69 From: Tutu Galeas Attending Dr: JORGE LUIS Haque Stat us: REG CLI Ordering Dr: Willi Rosas Date: 03/17/25 Location: CVS Sex: M C Admitted: Reason For Study Reason For Study: HX LLE DVT RIGHT LEFT CFV is compressible, spontaneous, phasic, competent GSV is normal. and demonstrates normal augmentation. CFV is compressible, spontaneous, phasic, competent, Procedure and demonstrates normal augmentation. This is a venous duplex using B-mode, color flow and FV is spontaneous, phasic and displays normal spectral Doppler. augmentation. FV is PARTIALLY COMPRESSIBLE at mid and Exam performed in department. dist with intraluminal echoes noted. The exam was diagnostic. POP V is compressible, spontaneous, phasic, competent Compare to study 11/23/2024. and demonstrates normal augmentation. T/P Trunk is PARTIALLY COMPRESSIBLE with intraluminal echoes noted. PTV is compressible. LT PerV is compressible. VL/Venous Duplex US, Unilateral Interpretation Summary Chronic deep vein thrombosis noted in the left femoral vein, tibioperoneal trunkvein __ Ordering Physician: Willi Rosas Referring Physician: Evelin Rogers Performed By: Patel Wadsworth T 03/17/25 1515 Date _ Tutu Dailey MD CC: Dr. Evelin Rogers MD; JORGE LUIS Haque ~ Date Dictated: 03/17/25908 Date Transcribed: 03/17/251514 See Wheeler: Signed [facility] Work Phone: Anion gap in Serum or Plasma Ordered By: Willi Rosas on 03-10-2025 Anion gap [Moles/Vol] 13 mmol/L 5-15 [facility] BUN/creatinine ratioOrdered By: Willi Rosas on 03-10-2025 Urea nitrogen/Creatinine [Mass ratio] 15.7 mg/mg 10-20 [facility] Bilirubin, totalOrdered By: Willi Rosas on 03-10-2025 Bilirubin [Mass/Vol] 0.67 mg/dL 0.00-1.30 [facility] CBC-Complete Blood Cnt No Di ffon 03-10-2025 Erythrocyte distribution width (RBC) [Ratio] 12.6 % Normal 11.6-14.6 [facility] Comment on above: Order Comment: JUVENAL DIAZ ALSO ORDERED A PT INR Performed By: #### L 300.3900, L503.6030, L503.6550, L500.4050, L100.0500 #### [facility] [address] [place], [address] Hematocrit (Bld) [Volume fraction] 42.7 % Normal 40-54 [facility] Comment on above: Order Comment: JUVENAL DIAZ ALSO ORDERED A PT INR Performed By: #### L 300.3900, L503.6030, L503.6550, L500.4050, L100.0500 #### [facility] [address] [place], [address] Hemoglobin (Bld) [Mass/Vol] 15.3 g/dL Normal 13.0-16.5 [facility] Comment on above: Order Comment: JUVENAL DIAZ ALSO ORDERED A PT INR Performed By: #### L 300.3900, L503.6030, L503.6550, L500.4050, L100.0500 #### [facility] [address] [place], [address] MCH (RBC) [Entitic mass] 31.7 pg Normal 27.0-32.0 [facility] Comment on above: Order Comment: JUVENAL DIAZ ALSO ORDERED A PT INR Performed By: #### L 300.3900, L503.6030, L503.6550, L500.4050, L100.0500 #### [facility] [address] [place], [address] MCHC (RBC) [Mass/Vol] 35.8 g/dL Normal 32-36 [facility] Comment on above: Order Comment: JUVENAL DIAZ ALSO ORDERED A PT INR Performed By: #### L 300.3900, L503.6030, L503.6550, L500.4050, L100.0500 #### [facility] [address] [place], [address] MCV (RBC) [Entitic vol] 88.4 fL Normal 80-94 [facility] Comment on above: Order Comment: JUVENAL DIAZ ALSO ORDERED A PT INR Performed By: #### L 300.3900, L503.6030, L503.6550, L500.4050, L100.0500 #### [facility] [address] [place], [address] Platelet mean volume (Bld) [Entitic vol] 9.6 fL Normal 6.2-12.0 [facility] Comment on above: Order Comment: JUVENAL DIAZ ALSO ORDERED A PT INR Performed By: #### L 300.3900, L503.6030, L503.6550, L500.4050, L100.0500 #### [facility] [address] [place], [address] Platelets (Bld) [#/Vol] 203 10*3/uL Normal 150-450 [facility] Comment on above: Order Comment: JUVENAL DIAZ ALSO ORDERED A PT INR Performed By: #### L 300.3900, L503.6030, L503.6550, L500.4050, L100.0500 #### [facility] [address] [place], [address] RBC (Bld) [#/Vol] 4.83 10*6/uL Normal 4.6-6.2 [facility] Comment on above: Order Comment: JUVENAL DIAZ ALSO ORDERED A PT INR Performed By: #### L 300.3900, L503.6030, L503.6550, L500.4050, L100.0500 #### [facility] [address] [place], [address] RDW SD 41.1 fl Normal 35.1-43.9 [facility] Comment on above: Order Comment: JUVENAL DIAZ ALSO ORDERED A PT INR Performed By: #### L 300.3900, L503.6030, L503.6550, L500.4050, L100.0500 #### [facility] [address] [place], [address] WBC (Bld) [#/Vol] 7.0 10*3/uL Normal 4.4-11.0 [facility] Comment on above: Order Comment: JUVENAL DIAZ ALSO ORDERED A PT INR Performed By: #### L 300.3900, L503.6030, L503.6550, L500.4050, L100.0500 #### [facility] [address] [place], [address] Carbon dioxide, total [Moles /volume] in Central venous bloodOrdered By: Willi Rosas on 03-10-2025 CO2 [Moles/Vol] 24.5 mmol/L 21.0-32.0 [facility] Chloride assayOrdered By: Dolly Rosas on 03-10-2025 Chloride [Moles/Vol] 102 mmol/L 98-108 [facility] Comprehensive Metabolic Prof ilon 03-10-2025 Albumin [Mass/Vol] 4.0 g/dL Normal 3.4-4.8 [facility] Comment on above: Order Comment: JUVENAL JOE ALSO ORDERED A PT INR Performed By: #### L 300.3900, L503.6030, L503.6550, L500.4050, L100.0500 #### [facility] [address] [place], [address] Albumin/Globulin [Mass ratio] 1.3 {ratio} Normal 0.9-2.4 [facility] Comment on above: Order Comment: JUVENAL DIAZ ALSO ORDERED A PT INR Performed By: #### L 300.3900, L503.6030, L503.6550, L500.4050, L100.0500 #### [facility] [address] [place], [address] ALK PHOS 53 U/L Normal 40-129 [facility] Comment on above: Order Comment: JUVENAL DIAZ ALSO ORDERED A PT INR Performed By: #### L 300.3900, L503.6030, L503.6550, L500.4050, L100.0500 #### [facility] [address] [place], [address] ALT [Catalytic activity/Vol] 16 U/L Normal <=46 [facility] Comment on above: Order Comment: JUVENAL DIAZ ALSO ORDERED A PT INR Performed By: #### L 300.3900, L503.6030, L503.6550, L500.4050, L100.0500 #### [facility] [address] [place], [address] AST [Catalytic activity/Vol] 23 U/L Normal <=37 [facility] Comment on above: Order Comment: JUVENAL DIAZ ALSO ORDERED A PT INR Performed By: #### L 300.3900, L503.6030, L503.6550, L500.4050, L100.0500 #### [facility] [address] [place], [address] Bilirubin [Mass/Vol] 0.67 mg/dL Normal 0.00-1.30 [facility] Comment on above: Order Comment: JUVENAL DIAZ ALSO ORDERED A PT INR Performed By: #### L 300.3900, L503.6030, L503.6550, L500.4050, L100.0500 #### [facility] [address] [place], [address] BUN/CRE 15.7 RATIO Normal 10-20 [facility] Comment on above: Order Comment: JUVENAL DIAZ ALSO ORDERED A PT INR Performed By: #### L 300.3900, L503.6030, L503.6550, L500.4050, L100.0500 #### [facility] [address] [place], [address] Calcium [Mass/Vol] 9.5 mg/dL Normal 7.6-11.0 [facility] Comment on above: Order Comment: JUVENAL DIAZ ALSO ORDERED A PT INR Performed By: #### L 300.3900, L503.6030, L503.6550, L500.4050, L100.0500 #### [facility] [address] [place], [address] Chloride [Moles/Vol] 102 mmol/L Normal 98-108 [facility] Comment on above: Order Comment: JUVENAL DIAZ ALSO ORDERED A PT INR Performed By: #### L 300.3900, L503.6030, L503.6550, L500.4050, L100.0500 #### [facility] [address] [place], [address] CO2 [Moles/Vol] 24.5 mmol/L Normal 21.0-32.0 [facility] Comment on above: Order Comment: JUVENAL DIAZ ALSO ORDERED A PT INR Performed By: #### L 300.3900, L503.6030, L503.6550, L500.4050, L100.0500 #### [facility] [address] [place], [address] Creatinine [Mass/Vol] 1.46 mg/dL High 0.70-1.20 [facility] Comment on above: Order Comment: JUVENAL DIAZ ALSO ORDERED A PT INR Performed By: #### L 300.3900, L503.6030, L503.6550, L500.4050, L100.0500 #### [facility] [address] [place], [address] GAP 13 Normal 5-15 [facility] Comment on above: Order Comment: JUVENAL DIAZ ALSO ORDERED A PT INR Performed By: #### L 300.3900, L503.6030, L503.6550, L500.4050, L100.0500 #### [facility] [address] [place], [address] GFR/1.73 sq M.predicted among non-blacks MDRD (S/P/Bld) [Vol rate/Area] 52 mL/min/{1.73_m2} Low >60 [facility] Comment on above: Order Comment: JUVENAL DIAZ ALSO ORDERED A PT INR Result Comment: mL/m in/1.73m2 CKD-EPI Creatinine Equation (2020) Performed By: #### L 300.3900, L503.6030, L503.6550, L500.4050, L100.0500 #### [facility] [address] [place], [address] Globulin (S) [Mass/Vol] 3.0 g/dL Normal 2.2-4.2 [facility] Comment on above: Order Comment: JUVENAL DIAZ ALSO ORDERED A PT INR Performed By: #### L 300.3900, L503.6030, L503.6550, L500.4050, L100.0500 #### [facility] [address] [place], [address] Glucose [Mass/Vol] 123 mg/dL High 70-99 [facility] Comment on above: Order Comment: JUVENAL DIAZ ALSO ORDERED A PT INR Performed By: #### L 300.3900, L503.6030, L503.6550, L500.4050, L100.0500 #### [facility] [address] [place], [address] Potassium [Moles/Vol] 3.4 mmol/L Normal 3.3-5.1 [facility] Comment on above: Order Comment: JUVENAL DIAZ ALSO ORDERED A PT INR Performed By: #### L 300.3900, L503.6030, L503.6550, L500.4050, L100.0500 #### [facility] [address] [place], [address] Sodium [Moles/Vol] 140 mmol/L Normal 133-145 [facility] Comment on above: Order Comment: JUVENAL DIAZ ALSO ORDERED A PT INR Performed By: #### L 300.3900, L503.6030, L503.6550, L500.4050, L100.0500 #### [facility] [address] [place], [address] T PROT 7.0 g/dL Normal 5.9-8.4 [facility] Comment on above: Order Comment: JUVENAL DIAZ ALSO ORDERED A PT INR Performed By: #### L 300.3900, L503.6030, L503.6550, L500.4050, L100.0500 #### [facility] [address] [place], [address] Urea nitrogen [Mass/Vol] 23 mg/dL High 4-19 [facility] Comment on above: Order Comment: JUVENAL DIAZ ALSO ORDERED A PT INR Performed By: #### L 300.3900, L503.6030, L503.6550, L500.4050, L100.0500 #### [facility] [address] [place], [address] Erythrocyte distribution wid th ratioOrdered By: Willi Rosas on 03-10-2025 Erythrocyte distribution width (RBC) [Ratio] 12.6 % 11.6-14.6 [facility] Erythrocyte distribution wid th standard deviationOrdered By: Willi Wayt on 03-10-2025 Erythrocyte distribution width (RBC) [Ratio] 41.1 fl 35.1-43.9 [facility] Ferritinon 03-10-2025 Ferritin [Mass/Vol] 125 ng/mL Normal 37-417 [facility] Comment on above: Order Comment: JUVENAL DIAZ ALSO ORDERED A PT INR Performed By: #### L 300.3900, L503.6030, L503.6550, L500.4050, L100.0500 #### [facility] [address] [place], [address] Gastroenterology Visit Repor ton 03-10-2025 Gastroenterology Visit Report [facility]enterology [address] [place] [address] OFFICE VISIT Date of Service: 03/10/25 MR#: [id number] Acct: [id number] Name: JACEY AGUILERA Rep #: [id number] : 1955 Provider: JORGE LUIS Horvath Age/Sex: 69/M [place] [facility] [place] Status: Signed Intake Vital Signs 03/04/25 15:19 Height 6 ft 3 in Weight: 255 lb 6 oz BMI 31.9 BP 132/82 H Blood Pressure Location Lt brachial Position Sitting Respiration 16 Pulse 66 Pulse Source Monitor Temp 98.3 F Temp Source Temporal Pulse Oximetry (%) 95 Oxygen Delivery Method room air Intake Visit Reasons: Follow Up Meds Chief Complaint: Barrets esophagus Allergies No Known Allergies Allergy (Verified 03/04/25 15:18) Have you fallen in the past year?: No Nurse's Note: OV / Pt here to f/u. Pt reports having excess phlegm in the morning and evening. He continues pantoprazole daily but would like to discontinue. 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 Pt underwent EGD and colonoscopy in Jul 2024 for issues with anemia. EGD 06.29.24 ; Esophageal mucosal changes consistent with long-segment Cadena's esophagus. Biopsied. - Large hiatal hernia. - Gastric erosions with no stigmata of recent bleeding. - Duodenitis. Biopsied. Colonoscopy 06.29.24 - One 8 mm polyp in the cecum, removed with a jumbo cold forceps. Resected and retrieved. - Diverticulosis in the recto-sigmoid colon, in the sigmoid colon and in the descending colon. Pt has been doing well since being on Pantoprazole 40 mg BID. He denies all GI symptoms. He is interested in decreasing/disconti nuing this medication. He is no longer strugglign with anemia. ROS Const Constitutional: No anorexia, fatigue, fever(s), weight change or sleep problems Eyes Eyes: No change in vision ENT ENT: No abnormal hearing, difficulty swallowing, mouth lesions, tongue swelling or throat swelling Resp Respiratory: No cough or shortness of breath Cardio Cardiology: No chest pain at rest, chest pain with exertion, shortness of breath or dyspnea on exertion Gastro GI: No difficulty swallowing Genitourinary Male: No difficulty urinating or burning urination Musc Musculoskeletal: No joint pain, joint swelling, muscle weakness or decreased muscle mass Skin Skin: No hair loss in leg, yellowing of the eye, itchy eyes, rash, skin ulcer or skin swelling Neuro Neurology: No abnormal hearing, abnormal movements, confusion, unsteady gait/balance or memory loss Psych Psychiatric: No anxiety, No confusion and No memory loss Endo Endocrine: No fatigue or weight change Aller/Imm Allergy/Immunologic : No itchy eyes, throat swelling or tongue swelling Manjit/Lymp Hematologic/Lymphat ic: No easy bleeding, easy bruising or enlarged lymph nodes Exam Const General: cooperative, healthy appearing and comfortable Orientation: alert [facility] Head: normal to inspection Eyes General: appearance normal, both eyes and all related structures Neck Neck: normal visual inspection Chest Chest palpation inspection: normal inspection of the chest Resp Effort Inspection: normal respiratory effort Cardio Rate: regular rate Rhythm: regular rhythm GI Inspection: normal to inspection Auscultation: normal bowel sounds Palpation: soft and nontender Assessment and Plan Assessment and Plan (1) Cadena esophagus: Status: Acute Qualifiers: 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 Qualified Code(s): 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 Plan: Guerline is a 69 yo male pt here today for (more content not included)... Normal [facility] Glomerular filtration rate ( GFR) estimation/1.73 sq m using serum, plasma, or whole bOrdered By: Willi Rosas on 03-10-2025 GFR/1.73 sq M.predicted among non-blacks MDRD (S/P/Bld) [Vol rate/Area] 52 mL/min/{1.73_m2} Low >60 [facility] Comment on above: mL/min/1.73m2 CKD-EP I Creatinine Equation (2021) Hematocrit Auto (Bld) [Volum e fraction]Ordered By: Willi Rosas on 03-10-2025 Hematocrit (Bld) [Volume fraction] 42.7 % 40-54 [facility] Hemoglobin measurementOrdere d By: Willi Rosas on 03-10-2025 Hemoglobin (Bld) [Mass/Vol] 15.3 g/dL 13.0-16.5 [facility] International normalized rat io (INR) calculationOrdered By: Willi Rosas on 03-10-2025 INR Coag (Bld) [Relative time] 2.7 {INR} [facility] Iron measurement (mass/mass) Ordered By: Willi Rosas on 03-10-2025 Iron (Unsp spec) [Mass/Mass] 109 ug/dL 65-175 [facility] Iron+Iron Binding Capacityon 03-10-2025 Iron [Mass/Vol] 109 ug/dL Normal 65-175 [facility] Comment on above: Order Comment: JUVENAL DIAZ ALSO ORDERED A PT INR Performed By: #### L 300.3900, L503.6030, L503.6550, L500.4050, L100.0500 #### [facility] [address] [place], [address] IRON SATURATION 44.0 Normal 9-55 [facility] Comment on above: Order Comment: JUVENAL DIAZ ALSO ORDERED A PT INR Performed By: #### L 300.3900, L503.6030, L503.6550, L500.4050, L100.0500 #### [facility] [address] [place], [address] TIBC 247 ug/dL Low 250-450 [facility] Comment on above: Order Comment: JUVENAL DIAZ ALSO ORDERED A PT INR Performed By: #### L 300.3900, L503.6030, L503.6550, L500.4050, L100.0500 #### [facility] [address] [place], [address] UIBC 138 ug/dL Low 228-428 [facility] Comment on above: Order Comment: JUVENAL DIAZ ALSO ORDERED A PT INR Performed By: #### L 300.3900, L503.6030, L503.6550, L500.4050, L100.0500 #### [facility] [address] [place], [address] Laboratory - Chemistry and C hemistry - challengeOrdered By: Willi Rosas on 03-10-2025 AST [Catalytic activity/Vol] 23 U/L <38 [facility] MCV (mean corpuscular volume ) determinationOrdered By: Willi Rosas on 03-10-2025 MCV (RBC) [Entitic vol] 88.4 fL 80-94 [facility] Mean corpuscular hemoglobin (MCH) determinationOrdered By: Willi Rosas on 03-10-2025 MCH (RBC) [Entitic mass] 31.7 pg 27.0-32.0 [facility] Mean corpuscular hemoglobin concentration (MCHC) determinationOrdered By: Willi Rosas on 03-10-2025 MCHC (RBC) [Mass/Vol] 35.8 g/dL 32-36 [facility] Mean platelet volume determi nationOrdered By: Willi Rosas on 03-10-2025 Platelet mean volume (Bld) [Entitic vol] 9.6 fL 6.2-12.0 [facility] No Panel InformationOrdered By: Willi Rosas on 03-10-2025 Unsaturated Iron Binding Capacity 138 ug/dL Low 228-428 [facility] Platelet countOrdered By: Dolly ttjoesph Rosas on 03-10-2025 Platelets (Bld) [#/Vol] 203 10*3/uL 150-450 [facility] Potassium measurement (mass/ volume)Ordered By: Willi Rosas on 03-10-2025 Potassium (Unsp spec) [Mass/Vol] 3.4 mmol/L 3.3-5.1 [facility] Prothrombin Time w/INRon INR Coag (PPP) [Relative time] 2.7 {INR} Normal [facility] Comment on above: Order Comment: JUVENAL DIAZ ALSO ORDERED A PT INR Performed By: #### L 300.3900, L503.6030, L503.6550, L500.4050, L100.0500 #### [facility] [address] [place], [address] PT Coag (PPP) [Time] 28.9 s High 11.7-14.9 [facility] Comment on above: Order Comment: JUVENAL DIAZ ALSO ORDERED A PT INR Performed By: #### L 300.3900, L503.6030, L503.6550, L500.4050, L100.0500 #### [facility] [address] [place], [address] INR Normal [facility] Comment on above: Order Comment: Comme nts: FINGER STICK INR Result Comment: DOUP ORDER Performed By: #### L 300.3900 #### [facility] [address] [place], [address] PROTIME Normal 11.7-14.9 [facility] Comment on above: Order Comment: Comme nts: FINGER STICK INR Result Comment: DOUP ORDER Performed By: #### L 300.3900 #### [facility] [address] [place], [address] Prothrombin timeOrdered By: Willi Rosas on 03-10-2025 PT Coag (PPP) [Time] 28.9 s High 11.7-14.9 [facility] RBC Auto (Bld) [#/Vol]Ordere d By: Willi Rosas on 03-10-2025 RBC (Bld) [#/Vol] 4.83 10*6/uL 4.6-6.2 [facility] Serum creatinine measurement (mass/volume)Ordered By: Willi Rosas on 03-10-2025 Creatinine [Mass/Vol] 1.46 mg/dL High 0.70-1.20 [facility] Serum globulin measurementOr dered By: Willi Rosas on 03-10-2025 Globulin (S) [Mass/Vol] 3.0 g/dL 2.2-4.2 [facility] Serum glucose measurement (m ass/volume)Ordered By: Willi Rosas on 03-10-2025 Glucose [Mass/Vol] 123 mg/dL High 70-99 [facility] Serum or plasma alanine kaba otransferase (ALT) measurementOrdered By: Willi Rosas on 03-10-2025 ALT [Catalytic activity/Vol] 16 U/L <47 [facility] Serum or plasma albumin branden urement (mass/volume)Ordered By: Willi Rosas on 03-10-2025 Albumin [Mass/Vol] 4.0 g/dL 3.4-4.8 [facility] Serum or plasma albumin/glob ulin mass ratioOrdered By: Willi Rosas on 03-10-2025 Albumin/Globulin [Mass ratio] 1.3 {ratio} 0.9-2.4 [facility] Serum or plasma alkaline peggy sphatase measurementOrdered By: Willi Rosas on 03-10-2025 ALP [Catalytic activity/Vol] 53 U/L 40-129 [facility] Serum or plasma calcium branden urement (mass/volume)Ordered By: Willi Rosas on 03-10-2025 Calcium [Mass/Vol] 9.5 mg/dL 7.6-11.0 [facility] Serum or plasma ferritin candice surement (mass/volume)Ordered By: Willi Rosas on 03-10-2025 Ferritin [Mass/Vol] 125 ng/mL 37-417 [facility] Serum or plasma iron saturat ion measurement (mass fraction)Ordered By: Willi Rosas on 03-10-2025 Iron saturation [Mass fraction] 44.0 % 9-55 [facility] Serum or plasma urea nitroge n measurement (mass/volume)Ordered By: Willi Rosas on 03-10-2025 Urea nitrogen [Mass/Vol] 23 mg/dL High 4-19 [facility] Sodium levelOrdered By: Sylvain Rosas on 03-10-2025 Sodium [Moles/Vol] 140 mmol/L 133-145 [facility] Total proteinOrdered By: Theodore Rosas on 03-10-2025 Protein [Mass/Vol] 7.0 g/dL 5.9-8.4 [facility] White blood cell (WBC) count Ordered By: Willi Rosas on 03-10-2025 WBC (Bld) [#/Vol] 7.0 10*3/uL 4.4-11.0 [facility] Internal Medicine Office Vis iton 03-04-2025 Internal Medicine Office Visit [facility] [address] [place] [address] OFFICE VISIT Date of Service: 03/04/25 MR#: [id number] Acct: [id number] Name: JACEY AGUILERA Rep #: [id number] : 1955 Provider: JORGE LUIS Haque Age/Sex: 69/M [place] [facility] [place] Status: Signed Intake Vital Signs 08/26/24 10:02 03/04/25 15:19 Height 6 ft 3 in 6 ft 3 in Weight: 255 lb 6 oz BMI 31.9 BP 132/82 H Blood Pressure Location Lt brachial Position Sitting Respiration 16 Pulse 66 Pulse Source Monitor Temp 98.3 F Temp Source Temporal Pulse Oximetry (%) 95 Oxygen Delivery Method room air Intake Visit Reasons: DISCUSS MEDICATIONS Chief Complaint: bp check Director Operations Broadcast Required: No Accompanied by: Self Is patient in pain?: No Allergies No Known Allergies Allergy (Verified 03/04/25 15:18) Medications ???Medication ???Instructions ???Recorded ???Confirmed ???Type pantoprazole 40 mg tablet,delayed 40 mg PO BID #180 tabs 07/07/24 0 03/04/25 Rx release ferrous sulfate 325 mg (65 mg 325 mg PO BID 08/05/24 03/04/25 Hi story iron) tablet warfarin 10 mg tablet 10 mg PO QDAY #90 tabs 11/23/24 Rx chlorthalidone 25 mg tablet 25 mg PO QDAY #90 tabs 12/29/24 Rx sildenafil 100 mg tablet 100 mg PO DAILY PRN sexual 5 03/04/25 Rx activity #90 tabs Have you fallen in the past year?: No Nurse's Note: medications and bp comparison [facility] Medical History Low iron Heartburn Non-smoker Shortness of breath on exertion History of Holter monitoring History of echocardiogram History of stress test Iron deficiency anemia due to chronic blood loss Nocturia Prostate cancer Hypertension Surgical History Hx of colonoscopy Hx of prostate biopsy H/O hernia repair Family History Father Cancer, Onset Age: 65 prostate Hypertension Social History household members: spouse housing: house current occupational status: retired and 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, 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 Smoking Status: Never smoker Electronic Cigarette Use: not used alcohol intake: never substance use type: does not use what type of physical activity do you participate in: walking, bicycling and other details: pickleball cassandra/episcopal: Pentecostal seatbelt use: always do you feel safe at home: Yes HPI HPI Chief Complaint: bp check Details: JACEY AGUILERA, is a 69 M who presents to the office today to discuss his blood pressure and his medications He states that last year he was in the hospital and dealing with several things that he feels have resolved and he would like to discuss getting off of some of the medications. Patient wants to discuss getting off of the warfarin. He states that he has been on this for DVT since August of last year after this was found Patient also would like to discuss the PPI that was started by the GI doctor. 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 They placed him on the pantoprazole and he has been taking this twice daily as directed. He states that this medication has completely eliminated his reflux (belching, burping, heartburn). ROS Const Constitutional: No body ache, excessive sweating, fatigue, fever(s), frequent falls, headache(s), snoring, weakness, weight change, sleep problems or change in appetite Eyes Eyes: No blurry vision, change in vision, eye pain or Light sensitivity ENT ENT: No abnormal hearing, ear or mastoid pain, tinnitus, nasal congestion, headache(s), neck pain or sore throat Resp Respiratory: No cough, shortness of breath, snoring or wheezing Cardio Cardiology: No chest pain at rest, chest pain with exertion, excessive sweating, shortness of breath, dyspnea on exertion, lightheadedness, orthopnea or palpitations Gastro GI: No abdominal pain, change in bowel habits, constipation, cramping, diarrhea, nausea/dyspepsia or vomiting Genitourinary Male: No burning urination, painful urination, urinary incontinence, urinary frequency or blood in urine Musc Musculoskeletal: No abnormal gait, joint pain, back pain, limited range of motion, neck pain, numbness, stiffness, tingling or Arthritis Skin Skin: No dry skin, redness, lesions, itchy eyes, rash or wounds Neuro Neurology: No abnormal gait, abnormal hearing, abnormal speech, dizziness, weakness, frequent falls, headache(s), memory loss, numbness or tingling Psych Psychiatric: No anxiety, No change in appetite, No depressi (more content not included)... Normal [facility] normalized rat io (INR) calculationOrdered By: Evelin Rogers on 12-02-2024 INR Coag (Bld) [Relative time] 2.2 {INR} [facility] Prothrombin Time w/INRon INR Coag (PPP) [Relative time] 2.2 {INR} Normal [facility] Comment on above: Performed By: #### L 300.3900, L503.6030, L503.6550, L500.4050, L100.0500 #### [facility] [address] [place], [address] PT Coag (PPP) [Time] 25.0 s High 11.7-14.9 [facility] Comment on above: Performed By: #### L 300.3900, L503.6030, L503.6550, L500.4050, L100.0500 #### [facility] [address] [place], [place], [id number] [phone] Prothrombin timeOrdered By: Evelin Rogers on 12-02-2024 PT Coag (PPP) [Time] 25.0 s High 11.7-14.9 [facility] Venous duplex ultrasound rep ortOrdered By: Tutu Dailey on 11-24-2024 US Vein [facility] [address] [place] [address] Venous Duplex US, Unilateral 11/23/24 1047 MR#: [id number] Acct: [id number] Name: JACEY AGUILERA Rep #:[id number] : 1955 68 From: Tutu Galeas Attending Dr: Dr. Evelin Rogers MD Status: REG CLI Ordering Dr: Evelin Rogers MD Date: 11/23/24 Location: [facility] Sex: M C Admitted: Reason For Study Reason For Study: DVT RIGHT LEFT CFV is compressible, spontaneous, phasic, competent GSV is normal. and demonstrates normal augmentation. CFV is compressible, spontaneous, phasic, competent, Procedure and demonstrates normal augmentation. This is a venous duplex using B-mode, color flow and Femoral V mid to distal is partially compressible with spectral Doppler. minimal blood flow noted. Exam performed in department. Profunda V partially compressible with minimal blood Compared to 08/26/2024. flow noted. Acute deep vein thrombosis is noted in the Pop V, T/P Trunk, and Gastroc V. It is dilated and NONCOMPRESSIBLE. PTV is compressible. LT PerV is compressible. VL/Venous Duplex US, Unilateral Interpretation Summary Acute deep vein thrombosis noted in the left popliteal vein, tibioperoneal trunkvein, gastrocnemius vein. __ Ordering Physician: Evelin Rogers Referring Physician: Evelin Rogers Performed By: Carole Joyner RVT and Student 11/24/24 0708 Date _ Tutu Dailey MD CC: Dr. Evelin Rogers MD ~ Date Dictated: 11/23/24 1047 Date Transcribed: 11/24/24 0708 See Wheeler: Signed [facility] Work Phone: Prothrombin Time w/INRon INR Coag (PPP) [Relative time] 1.7 {INR} Normal [facility] Comment on above: Performed By: #### L 300.3900, L503.6030, L503.6550, L500.4050, L100.0500 #### [facility] [address] [place], [address] PT Coag (PPP) [Time] 20.2 s High 11.7-14.9 [facility] Comment on above: Performed By: #### L 300.3900, L503.6030, L503.6550, L500.4050, L100.0500 #### [facility] [address] [place], [address] Venous Duplex US, Unilateral on 11-23-2024 Venous Duplex US, Unilateral [facility] [address] [place] [address] Venous Duplex US, Unilateral 11/23/241046 MR#: [id number] Acct: [id number] Name: JACEY AGUILERA Rep #: [id number] : 1955 68 From: Tutu Dailey MD Attending Dr: Dr. Evelin Rogers MD Status: RE G CLI Ordering Dr: Evelin Rogers MD Date: 11/23/24 Location: [facility] Sex: M C Admitted: Reason For Study Reason For Study: DVT RIGHT LEFT CFV is compressible, spontaneous, phasic, competent GSV is normal. and demonstrates normal augmentation. CFV is compressible, spontaneous, phasic, competent, Procedure and demonstrates normal augmentation. This is a venous duplex using B-mode, color flow and Femoral V mid to distal is partially compressible with spectral Doppler. minimal blood flow noted. Exam performed in department. Profunda V partially compressible with minimal blood Compared to 08/26/2024. flow noted. Acute deep vein thrombosis is noted in the Pop V, T/P Trunk, and Gastroc V. It is dilated and NONCOMPRESSIBLE. PTV is compressible. LT PerV is compressible. VL/Venous Duplex US, Unilateral Interpretation Summary Acute deep vein thrombosis noted in the left popliteal vein, tibioperoneal trunk vein, gastrocnemius vein. __ Ordering Physician: Evelin Rogers Referring Physician: Evelin Rogers Performed By: Carole Joyner RVT and Student 11/24/24 0708 Date Tutu Dailey MD CC: Dr. Evelin Rogers MD Date Dictated: 11/23/241046 Date Transcribed: 11/24/24707 See Wheeler: Signed Normal [facility] Prothrombin Time w/INRon INR Coag (PPP) [Relative time] 1.5 {INR} Normal [facility] Comment on above: Performed By: #### L 300.3900, L503.6030, L503.6550, L500.4050, L100.0500 #### [facility] [address] [place], [address] PT Coag (PPP) [Time] 18.1 s High 11.7-14.9 [facility] Comment on above: Performed By: #### L 300.3900, L503.6030, L503.6550, L500.4050, L100.0500 #### [facility] [address] [place], [address] Absolute neutrophil countOrd ered By: Wilil Cashgudelia on 10-22-2024 Neutrophils (Bld) [#/Vol] 4.3 10*3/uL 2.0-7.7 [facility] Albumin to globulin ratioOrd ered By: Willi Cashgudelia on 10-22-2024 Albumin/Globulin [Mass ratio] 0.8 {ratio} Low 0.9-2.4 [facility] Basophil percentageOrdered B y: Willi Rosas on 10-22-2024 Basophils/100 WBC (Bld) 0.8 % 0-1 [facility] Bilirubin, totalOrdered By: Willi Rosas on 10-22-2024 Bilirubin [Mass/Vol] 0.50 mg/dL 0.20-1.00 [facility] Comment on above: For patients on eltr ombopag therapy, use of Dimension [place] TBIL is not recommended. Blood urea nitrogen (BUN)/cr eatinine ratioOrdered By: Willi Rosas on 10-22-2024 Urea nitrogen/Creatinine [Mass ratio] 21.3 mg/mg High 10-20 [facility] CBC W/Diff, Automatedon 02- Absolute Lymph 2.96 X10 3/uL Normal 0.83-4.51 [facility] Comment on above: Performed By: #### L 300.3900, L503.6030, L503.6550, L500.4050, L100.0500 #### [facility] [address] [place], [address] Absolute Neut 4.3 X10 3/uL Normal 2.0-7.7 [facility] Comment on above: Performed By: #### L 300.3900, L503.6030, L503.6550, L500.4050, L100.0500 #### [facility] [address] [place], [address] Basophils/100 WBC (Bld) 0.8 % Normal 0-1 [facility] Comment on above: Performed By: #### L 300.3900, L503.6030, L503.6550, L500.4050, L100.0500 #### [facility] [address] [place], [address] Eosinophils/100 WBC (Bld) 2.4 % Normal 0-5 [facility] Comment on above: Performed By: #### L 300.3900, L503.6030, L503.6550, L500.4050, L100.0500 #### [facility] [address] [place], [address] Erythrocyte distribution width (RBC) [Ratio] 14.5 % Normal 11.6-14.6 [facility] Comment on above: Performed By: #### L 300.3900, L503.6030, L503.6550, L500.4050, L100.0500 #### [facility] [address] [place], [address] Hematocrit (Bld) [Volume fraction] 45.5 % Normal 40-54 [facility] Comment on above: Performed By: #### L 300.3900, L503.6030, L503.6550, L500.4050, L100.0500 #### [facility] [address] [place], [address] Hemoglobin (Bld) [Mass/Vol] 15.6 g/dL Normal 13.0-16.5 [facility] Comment on above: Performed By: #### L 300.3900, L503.6030, L503.6550, L500.4050, L100.0500 #### [facility] [address] [place], [address] IG% 0.200 Normal 0.0-0.9 [facility] Comment on above: Result Comment: IG% - Immature Granulocytes (promyelocytes, myelocytes and metamyelocytes) > 1% indicates that a LEFT SHIFT is Present. Performed By: #### L 300.3900, L503.6030, L503.6550, L500.4050, L100.0500 #### [facility] [address] [place], [address] Lymphocytes/100 WBC (Bld) 34.8 % Normal 19-41 [facility] Comment on above: Performed By: #### L 300.3900, L503.6030, L503.6550, L500.4050, L100.0500 #### [facility] [address] [place], [address] MCH (RBC) [Entitic mass] 29.1 pg Normal 27.0-32.0 [facility] Comment on above: Performed By: #### L 300.3900, L503.6030, L503.6550, L500.4050, L100.0500 #### [facility] [address] [place], [address] MCHC (RBC) [Mass/Vol] 34.3 g/dL Normal 32-36 [facility] Comment on above: Performed By: #### L 300.3900, L503.6030, L503.6550, L500.4050, L100.0500 #### [facility] [address] [place], [address] MCV (RBC) [Entitic vol] 84.9 fL Normal 80-94 [facility] Comment on above: Performed By: #### L 300.3900, L503.6030, L503.6550, L500.4050, L100.0500 #### [facility] [address] [place], [address] Monocytes/100 WBC (Bld) 11.6 % High 0-10 [facility] Comment on above: Performed By: #### L 300.3900, L503.6030, L503.6550, L500.4050, L100.0500 #### [facility] [address] [place], [address] Neutrophils/100 WBC (Bld) 50.2 % Normal 47-70 [facility] Comment on above: Performed By: #### L 300.3900, L503.6030, L503.6550, L500.4050, L100.0500 #### [facility] [address] [place], [address] Nucleated RBC (Bld) [#/Vol] 0 10*3/uL Normal 0-5 [facility] Comment on above: Performed By: #### L 300.3900, L503.6030, L503.6550, L500.4050, L100.0500 #### [facility] [address] [place], [address] Platelet mean volume (Bld) [Entitic vol] 9.6 fL Normal 6.2-12.0 [facility] Comment on above: Performed By: #### L 300.3900, L503.6030, L503.6550, L500.4050, L100.0500 #### [facility] [address] [place], [address] Platelets (Bld) [#/Vol] 209 10*3/uL Normal 150-450 [facility] Comment on above: Performed By: #### L 300.3900, L503.6030, L503.6550, L500.4050, L100.0500 #### [facility] [address] [place], [address] RBC (Bld) [#/Vol] 5.36 10*6/uL Normal 4.6-6.2 [facility] Comment on above: Performed By: #### L 300.3900, L503.6030, L503.6550, L500.4050, L100.0500 #### [facility] [address] [place], [address] RDW SD 44.6 fl High 35.1-43.9 [facility] Comment on above: Performed By: #### L 300.3900, L503.6030, L503.6550, L500.4050, L100.0500 #### [facility] [address] [place], [address] WBC (Bld) [#/Vol] 8.5 10*3/uL Normal 4.4-11.0 [facility] Comment on above: Performed By: #### L 300.3900, L503.6030, L503.6550, L500.4050, L100.0500 #### [facility] [address] [place], [address] Carbon dioxide measurementOr dered By: Willi Rosas on 10-22-2024 CO2 [Moles/Vol] 25.0 mmol/L 21.0-32.0 [facility] Chloride measurementOrdered By: Willi Rosas on 10-22-2024 Chloride [Moles/Vol] 101 mmol/L 98-107 [facility] Comprehensive Metabolic Prof ilon 10-22-2024 Albumin [Mass/Vol] 3.5 g/dL Normal 3.2-5.0 [facility] Comment on above: Performed By: #### L 300.3900, L503.6030, L503.6550, L500.4050, L100.0500 #### [facility] [address] [place], [address] Albumin/Globulin [Mass ratio] 0.8 {ratio} Low 0.9-2.4 [facility] Comment on above: Performed By: #### L 300.3900, L503.6030, L503.6550, L500.4050, L100.0500 #### [facility] [address] [place], [address] ALK P 57 U/L Normal 45-117 [facility] Comment on above: Performed By: #### L 300.3900, L503.6030, L503.6550, L500.4050, L100.0500 #### [facility] [address] [place], [address] ALT [Catalytic activity/Vol] 26 U/L Normal 16-61 [facility] Comment on above: Performed By: #### L 300.3900, L503.6030, L503.6550, L500.4050, L100.0500 #### [facility] [address] [place], [address] AST [Catalytic activity/Vol] 15 U/L Normal 15-37 [facility] Comment on above: Performed By: #### L 300.3900, L503.6030, L503.6550, L500.4050, L100.0500 #### [facility] [address] [place], [address] Bilirubin [Mass/Vol] 0.50 mg/dL Normal 0.20-1.00 [facility] Comment on above: Result Comment: For patients on eltrombopag therapy, use of Dimension [place] TBIL is not recommended. Performed By: #### L 300.3900, L503.6030, L503.6550, L500.4050, L100.0500 #### [facility] [address] [place], [address] BUN/CRE 21.3 RATIO High 10-20 [facility] Comment on above: Performed By: #### L 300.3900, L503.6030, L503.6550, L500.4050, L100.0500 #### [facility] [address] [place], [address] CA,Total 9.5 mg/dL Normal 8.5-10.1 [facility] Comment on above: Performed By: #### L 300.3900, L503.6030, L503.6550, L500.4050, L100.0500 #### [facility] [address] [place], [address] Chloride [Moles/Vol] 101 mmol/L Normal 98-107 [facility] Comment on above: Performed By: #### L 300.3900, L503.6030, L503.6550, L500.4050, L100.0500 #### [facility] [address] [place], [address] CO2 [Moles/Vol] 25.0 mmol/L Normal 21.0-32.0 [facility] Comment on above: Performed By: #### L 300.3900, L503.6030, L503.6550, L500.4050, L100.0500 #### [facility] [address] [place], [address] Creatinine [Mass/Vol] 1.27 mg/dL Normal 0.70-1.30 [facility] Comment on above: Result Comment: The validity of the calculated GFR GFRAA in patients over 70 years has not been determined. Clinical correlation is essential. Performed By: #### L 300.3900, L503.6030, L503.6550, L500.4050, L100.0500 #### [facility] [address] [place], [address] EST GFR - AA 72 mL/min Normal >60 [facility] Comment on above: Result Comment: Afri can [place] GFR Calc Performed By: #### L 300.3900, L503.6030, L503.6550, L500.4050, L100.0500 #### [facility] [address] [place], [address] GAP 10 Normal 5-15 [facility] Comment on above: Performed By: #### L 300.3900, L503.6030, L503.6550, L500.4050, L100.0500 #### [facility] [address] [place], [address] GFR/1.73 sq M.predicted among non-blacks MDRD (S/P/Bld) [Vol rate/Area] 60 mL/min/{1.73_m2} Normal >60 [facility] Comment on above: Result Comment: Non- GFR Calc Performed By: #### L 300.3900, L503.6030, L503.6550, L500.4050, L100.0500 #### [facility] [address] [place], [address] Globulin (S) [Mass/Vol] 4.4 g/dL High 2.2-4.2 [facility] Comment on above: Performed By: #### L 300.3900, L503.6030, L503.6550, L500.4050, L100.0500 #### [facility] [address] [place], [address] Glucose [Mass/Vol] 108 mg/dL High 74-106 [facility] Comment on above: Result Comment: Fast ing Glucose result from 100 to 125 mg/dL suggests IMPAIRED HOMEOSTASIS per A.D.A. criteria. Performed By: #### L 300.3900, L503.6030, L503.6550, L500.4050, L100.0500 #### [facility] [address] [place], [address] Potassium [Moles/Vol] 3.6 mmol/L Normal 3.5-5.1 [facility] Comment on above: Performed By: #### L 300.3900, L503.6030, L503.6550, L500.4050, L100.0500 #### [facility] [address] [place], [address] Sodium [Moles/Vol] 136 mmol/L Normal 136-145 [facility] Comment on above: Performed By: #### L 300.3900, L503.6030, L503.6550, L500.4050, L100.0500 #### [facility] [address] [place], [address] T PROT 7.9 g/dL Normal 6.4-8.2 [facility] Comment on above: Performed By: #### L 300.3900, L503.6030, L503.6550, L500.4050, L100.0500 #### [facility] [address] [place], [address] Urea nitrogen [Mass/Vol] 27 mg/dL High 7-18 [facility] Comment on above: Performed By: #### L 300.3900, L503.6030, L503.6550, L500.4050, L100.0500 #### [facility] [address] [place], [address] Eosinophil percentageOrdered By: Willi Rosas on 10-22-2024 Eosinophils/100 WBC (Bld) 2.4 % 0-5 [facility] Erythrocyte distribution wid th ratioOrdered By: Willi Rosas on 10-22-2024 Erythrocyte distribution width (RBC) [Ratio] 14.5 % 11.6-14.6 [facility] Erythrocyte distribution wid th standard deviationOrdered By: Willi Rosas on 10-22-2024 Erythrocyte distribution width (RBC) [Entitic vol] 44.6 fL High 35.1-43.9 [facility] Estimated glomerular filtrat ion rate (GFR) AmericanOrdered By: Willi Rosas on 10-22-2024 Estimated GFR (MDRD) Amer 72 mL/min >60 [facility] Comment on above: GFR Calc Glomerular filtration rate ( GFR) estimationOrdered By: Willi Rosas on 10-22-2024 Estimated GFR (MDRD) Non-Af Amer 60 mL/min >60 [facility] Comment on above: Non- GFR Calc Glucose measurementOrdered B y: Willi Rosas on 10-22-2024 Glucose [Mass/Vol] 108 mg/dL High 74-106 [facility] Comment on above: Fasting Glucose resu lt from 100 to 125 mg/dL suggests IMPAIRED HOMEOSTASIS per A.D.A. criteria. Hematocrit Auto (Bld) [Volum e fraction]Ordered By: Willi Rosas on 10-22-2024 Hematocrit (Bld) [Volume fraction] 45.5 % 40-54 [facility] Hemoglobin measurementOrdere d By: Willi Rosas on 10-22-2024 Hemoglobin (Bld) [Mass/Vol] 15.6 g/dL 13.0-16.5 [facility] Immature granulocytes/100 WB C Auto (Bld)Ordered By: Willi Rosas on 10-22-2024 Immature granulocytes/100 WBC (Bld) 0.200 % 0.0-0.9 [facility] Comment on above: IG% - Immature Granu locytes (promyelocytes, myelocytes and metamyelocytes) > 1% indicates that a LEFT SHIFT is Present. International normalized rat io (INR) calculationOrdered By: Evelin Rogers on 10-22-2024 INR Coag (Bld) [Relative time] 1.8 {INR} [facility] - Chemistry and C hemistry - challengeOrdered By: Willi Rosas on 10-22-2024 AST [Catalytic activity/Vol] 15 U/L 15-37 [facility] Lymphocytes Auto (Unsp spec) [#/Vol]Ordered By: Willi Rosas on 10-22-2024 Lymphocytes (Bld) [#/Vol] 2.96 10*3/uL 0.83-4.51 [facility] Lymphocytes/100 WBC Auto (Un sp spec)Ordered By: Willi Rosas on 10-22-2024 Lymphocytes/100 WBC (Bld) 34.8 % 19-41 [facility] MCV (mean corpuscular volume ) determinationOrdered By: Willi Rosas on 10-22-2024 MCV (RBC) [Entitic vol] 84.9 fL 80-94 [facility] Mean corpuscular hemoglobin (MCH) determinationOrdered By: Willi Rosas on 10-22-2024 MCH (RBC) [Entitic mass] 29.1 pg 27.0-32.0 [facility] Mean corpuscular hemoglobin concentration (MCHC) determinationOrdered By: Willi Rosas on 10-22-2024 MCHC (RBC) [Mass/Vol] 34.3 g/dL 32-36 [facility] Mean platelet volume determi nationOrdered By: Willi Rosas on 10-22-2024 Platelet mean volume (Bld) [Entitic vol] 9.6 fL 6.2-12.0 [facility] Monocyte percentageOrdered B y: Willi Rosas on 10-22-2024 Monocytes/100 WBC (Bld) 11.6 % High 0-10 [facility] Neutrophil percentageOrdered By: Willi Rosas on 10-22-2024 Neutrophils/100 WBC (Bld) 50.2 % 47-70 [facility] Nucleated red blood cell per centageOrdered By: Willi Rosas on 10-22-2024 Nucleated RBC/100 WBC (Bld) [Ratio] 0 % 0-5 [facility] Platelet countOrdered By: Dolly ttjoesph Rosas on 10-22-2024 Platelets (Bld) [#/Vol] 209 10*3/uL 150-450 [facility] Potassium measurementOrdered By: Willi Rosas on 10-22-2024 Potassium [Moles/Vol] 3.6 mmol/L 3.5-5.1 [facility] Prothrombin Time w/INRon INR Coag (PPP) [Relative time] 1.8 {INR} Normal [facility] Comment on above: Order Comment: JUVENAL DIAZ ALSO ORDERED A PT INR Performed By: #### L 300.3900, L503.6030, L503.6550, L500.4050, L100.0500 #### [facility] [address] [place], [address] PT Coag (PPP) [Time] 21.5 s High 11.7-14.9 [facility] Comment on above: Order Comment: JUVENAL DIAZ ALSO ORDERED A PT INR Performed By: #### L 300.3900, L503.6030, L503.6550, L500.4050, L100.0500 #### [facility] [address] [place], [address] Prothrombin timeOrdered By: Evelin Rogers on 10-22-2024 PT Coag (PPP) [Time] 21.5 s High 11.7-14.9 [facility] RBC Auto (Bld) [#/Vol]Ordere d By: Willi Rosas on 10-22-2024 RBC (Bld) [#/Vol] 5.36 10*6/uL 4.6-6.2 [facility] Serum anion gap measurementO rdered By: Willi Rosas on 10-22-2024 Anion gap [Moles/Vol] 10 mmol/L 5-15 [facility] Serum globulin measurementOr dered By: Willi Rosas on 10-22-2024 Globulin (S) [Mass/Vol] 4.4 g/dL High 2.2-4.2 [facility] Serum or plasma alanine kaba otransferase (ALT) measurementOrdered By: Willi Rosas on 10-22-2024 ALT [Catalytic activity/Vol] 26 U/L 16-61 [facility] Serum or plasma albumin branden urement (mass/volume)Ordered By: Willi Rosas on 10-22-2024 Albumin [Mass/Vol] 3.5 g/dL 3.2-5.0 [facility] Serum or plasma alkaline peggy sphatase measurementOrdered By: Willi Rosas on 10-22-2024 ALP [Catalytic activity/Vol] 57 U/L 45-117 [facility] Serum or plasma calcium branden urement (mass/volume)Ordered By: Willi Rosas on 10-22-2024 Calcium [Mass/Vol] 9.5 mg/dL 8.5-10.1 [facility] Serum or plasma creatinine m easurement (mass/volume)Ordered By: Willi Rosas on 10-22-2024 Creatinine [Mass/Vol] 1.27 mg/dL 0.70-1.30 [facility] Comment on above: The validity of the calculated GFR & GFRAA in patients over 70 years has not been determined. Clinical correlation is essential. Serum or plasma urea nitroge n measurement (mass/volume)Ordered By: Willi Rosas on 10-22-2024 Urea nitrogen [Mass/Vol] 27 mg/dL High 7-18 [facility] Sodium levelOrdered By: Sylvain Rosas on 10-22-2024 Sodium [Moles/Vol] 136 mmol/L 136-145 [facility] Total proteinOrdered By: Theodore Rosas on 10-22-2024 Protein [Mass/Vol] 7.9 g/dL 6.4-8.2 [facility] White blood cell (WBC) count Ordered By: Willi Alison on 10-22-2024 WBC (Bld) [#/Vol] 8.5 10*3/uL 4.4-11.0 [facility] Ferritinon 10-05-2024 Ferritin [Mass/Vol] 30 ng/mL Normal 26-388 [facility] Comment on above: Order Comment: PER P T-ONLY TO DO ISCKARUS INR ORDER Performed By: #### L 503.6550, L522.5196 #### [facility] [address] [place], [address] Ferritin measurementOrdered By: Michelle Matthew on 10-05-2024 Ferritin [Mass/Vol] 30 ng/mL 26-388 [facility] International normalized rat io (INR) calculationOrdered By: Evelin Rogers on 10-05-2024 INR Coag (Bld) [Relative time] 1.5 {INR} [facility] Iron (Unsp spec) [Mass/Mass] Ordered By: Michelle Matthew on 10-05-2024 Iron [Mass/Vol] 105 ug/dL 65-175 [facility] Iron saturation [Mass fracti on]Ordered By: Michelle Matthew on 10-05-2024 Iron Saturation 39.2 % 15.0-55.0 [facility] Iron+Iron Binding Capacityon 10-05-2024 Iron [Mass/Vol] 105 ug/dL Normal 65-175 [facility] Comment on above: Order Comment: PER P T-ONLY TO DO ISCKARUS INR ORDER Performed By: #### L 503.6550, L574.2908 #### [facility] [address] [place], [address] IRON SATURATION 39.2 Normal 15.0-55.0 [facility] Comment on above: Order Comment: PER P T-ONLY TO DO ISCKARUS INR ORDER Performed By: #### L 503.6550, L503.6030 #### [facility] [address] [place], [address] TIBC 268 ug/dL Normal 250-450 [facility] Comment on above: Order Comment: PER P T-ONLY TO DO ISCKARUS INR ORDER Performed By: #### L 503.6550, L503.6030 #### [facility] [address] [place], [address] Prothrombin Time w/INRon INR Coag (PPP) [Relative time] 1.5 {INR} Normal [facility] Comment on above: Order Comment: JUVENAL DIAZ ALSO ORDERED A PT INR Performed By: #### L 300.3900, L503.6030, L503.6550, L500.4050, L100.0500 #### [facility] [address] [place], [address] PT Coag (PPP) [Time] 18.1 s High 11.7-14.9 [facility] Comment on above: Order Comment: JUVENAL DIAZ ALSO ORDERED A PT INR Performed By: #### L 300.3900, L503.6030, L503.6550, L500.4050, L100.0500 #### [facility] [address] [place], [address] Prothrombin timeOrdered By: Evelin Rogers on 10-05-2024 PT Coag (PPP) [Time] 18.1 s High 11.7-14.9 [facility] TIBCOrdered By: Michelle velazquez on 10-05-2024 Total Iron Binding Capacity 268 ug/dL 250-450 [facility] International normalized rat io (INR) calculationOrdered By: Evelin Rogers on 09-13-2024 INR Coag (Bld) [Relative time] 1.5 {INR} [facility] Prothrombin Time w/INRon INR Coag (PPP) [Relative time] 1.5 {INR} Normal [facility] Comment on above: Performed By: #### L 300.3900, L503.6030, L503.6550, L500.4050, L100.0500 #### [facility] [address] [place], [address] PT Coag (PPP) [Time] 18.2 s High 11.7-14.9 [facility] Comment on above: Performed By: #### L 300.3900, L503.6030, L503.6550, L500.4050, L100.0500 #### [facility] [address] [place], [address] Prothrombin timeOrdered By: Evelin Rogers on 09-13-2024 PT Coag (PPP) [Time] 18.2 s High 11.7-14.9 [facility] Prothrombin Time w/INRon INR Coag (PPP) [Relative time] 1.4 {INR} Normal [facility] Comment on above: Order Comment: Comme nts: Standing order. Performed By: #### L 300.3900 #### [facility] [address] [place], [address] PT Coag (PPP) [Time] 17.2 s High 11.7-14.9 [facility] Comment on above: Order Comment: Comme nts: Standing order. Performed By: #### L 300.3900 #### [facility] [address] [place], [address] Prothrombin Time w/INRon INR Coag (PPP) [Relative time] 1.2 {INR} Normal [facility] Comment on above: Order Comment: JUVENAL DIAZ ALSO ORDERED A PT INR Performed By: #### L 300.3900, L503.6030, L503.6550, L500.4050, L100.0500 #### [facility] [address] [place], [address] PT Coag (PPP) [Time] 14.7 s Normal 11.7-14.9 [facility] Comment on above: Order Comment: JUVENAL DIAZ ALSO ORDERED A PT INR Performed By: #### L 300.3900, L503.6030, L503.6550, L500.4050, L100.0500 #### [facility] [address] [place], [address] International normalized rat io (INR) calculationOrdered By: Evelin Rogers on 08-27-2024 INR Coag (Bld) [Relative time] 1.2 {INR} [facility] Prothrombin Time w/INRon INR Coag (PPP) [Relative time] 1.2 {INR} Normal [facility] Comment on above: Performed By: #### L 300.3900, L503.6030, L503.6550, L500.4050, L100.0500 #### [facility] [address] [place], [address] PT Coag (PPP) [Time] 14.8 s Normal 11.7-14.9 [facility] Comment on above: Performed By: #### L 300.3900, L503.6030, L503.6550, L500.4050, L100.0500 #### [facility] [address] [place], [address] Prothrombin timeOrdered By: Evelin Rogers on 08-27-2024 PT Coag (PPP) [Time] 14.8 s 11.7-14.9 [facility] Venous Duplex US, Unilateral on 08-26-2024 Venous Duplex US, Unilateral [facility] [address] [place] [address] Venous Duplex US, Unilateral 08/26/24 1402 MR#: [id number] Acct: [id number] Name: JACEY AGUILERA Rep #: [id number] : 1955 68 From: Tutu Dailey MD Attending Dr: JORGE LUIS Haque Status: REG CLI Ordering Dr: Willi Rosas Date: 08/26/24 Location: [facility] Sex: M C Admitted: Reason For Study: Left leg swelling RIGHT LEFT CFV is compressible, spontaneous, phasic, GSV is normal. competent and demonstrates normal Acute deep vein thrombosis is noted in the augmentation. left CFV, ProfundaV, FV prox/mid to distal, Procedure PopV, T/P Trunk, and GastrocV. It is dilated This is a venous duplex using B-mode, color and NONCOMPRESSIBLE. flow and spectral Doppler. Thrombus in ProfundaV is extending into CFV, Exam performed in department. thombus in FV prox/mid does not appear to A preliminary report was called and/or faxed connect to CFV. FV prox is compressible. to Yesica ESCAMILLA, patient released home, office PTV is compressible. will call. LT PerV is compressible. VL/Venous Duplex US, Unilateral Interpretation Summary Acute deep vein thrombosis is noted in the left common femoral vein, profunda femoral vein, femoral vein, popliteal vein, tibioperoneal trunk vein, and gastrocnemius vein. __ Ordering Physician: Willi Rosas Referring Physician: Evelin Rogers Performed By: Carole Joyner RVT 08/26/24 180 Date Tutu Dailey MD CC: Dr. Evelin Rogers MD; JORGE LUIS Haque Date Dictated: 08/26/24 1402 Date Transcribed: 08/26/241801 See Wheeler: Signed Ann [facility] Internal Medicine Office Vis tiffani 08-25-2024 Internal Medicine Office Visit [facility] [address] [place] [address] [place] [address] OFFICE VISIT Date of Service: 08/26/24 MR#: [id number] Acct: [id number] Name: JACEY AGUILERA Rep #: [id number] : 1955 Provider: Dr. Evelin rollins MD Age/Sex: 68/M Location: [facility] Status: Signed Intake Vital Signs 06/29/24 11:11 08/05/24 15:28 08/26/24 10:02 Height 6 ft 3 in 6 ft 3 in 6 ft 3 in Weight: 249 lb BMI 31.1 BP 140/76 H Blood Pressure Location Lt brachial Position Sitting Respiration 16 Pulse 51 L Pulse Source Monitor Temp 97.4 F L Temp Source Temporal Pulse Oximetry (%) 96 Oxygen Delivery Method room air Intake Visit Reasons: MEDICARE WELLNESS Chief Complaint: wellness Director Operations Broadcast Required: No Accompanied by: Self Is patient in pain?: No Allergies No Known Allergies Allergy (Verified 08/26/24 09:59) Medications ???Medication ???Instructions ???Recorded ???Confirmed ???Type sildenafil 100 mg tablet 100 mg PO DAILY PRN sexual 03/02/24 08/26/24 Rx activity #90 tabs pantoprazole 40 mg tablet,delayed 40 mg PO BID #180 tabs 07/07/24 08/26/24 Rx release ferrous sulfate 325 mg (65 mg 325 mg PO BID 08/05/24 08/26/24 History iron) tablet chlorthalidone 25 mg tablet 25 mg PO QDAY #30 tabs 08/25/24 08/26/24 Rx Have you fallen in the past year?: No PFSH Medical History Low iron Heartburn Non-smoker Shortness of breath on exertion History of Holter monitoring History of echocardiogram History of stress test Iron deficiency anemia due to chronic blood loss Nocturia Prostate cancer Hypertension Surgical History Hx of colonoscopy Hx of prostate biopsy H/O hernia repair Family History Father Cancer, Onset Age: 65 prostate Hypertension Social History household members: spouse housing: house current occupational status: retired and 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 He is up to date on his blood work and screening. He isn't due for any immunizations. He doesn't smoke and does not need refills. The patient reports he was diagnosed with prostate cancer around 6 years ago. He hasn't done any treatment for it and reports he is just doing active surveillance currently. He follows with [facility] and follows with them annually. He had a biopsy in June and no further management was recommended. He does still get nocturia and gets up 3-4 times per night. The patient also has a history of ED which is also managed by his urologist. He is no longer on the daily cialis and just takes sildenafil daily. He reports trouble with both getting and keeping an erection. The medication does seem to help. At the patient's office visit earlier this year, he was placed on lisinopril due to hypertension. He developed a cough and was changed to losartan, and then subsequently stopped it altogether. His blood pressure has been increasing steadily over the last 3 months and he was just started on chlorthalidone yesterday. He hasn't picked it up yet. He reports his readings are averaging in the 150/100 range. He only drinks coffee once per day. He reports he doesn't add salt but doesn't monitor the salt content in what he eats. The patient has been following with hematology for iron deficiency. He had an EGD which showed gastric erosions and has been taking iron supplements and protonix. He reports that he is still taking his iron and reports he hasn't had any reflux symptoms. He will see hematology again in October. He has been feeling much better. Medications reviewed: Yes Jacey likes to exercises by walking. They watch their diet for sodium, low fat, and low cholesterol some of the time. List of current specialists seen: Hematology, urology, gastroenterology End of life planning discussed including patient's advanced directive wishes: Discussed. Patient does have one in place. I am willing to follow Jacey's advanced directives PHQ-2/Depression screen They in the past two weeks denies having felt down, depressed, hopeless or with little interest or pleasure in doing things. Functional Ability/Safety Screen 1. (more content not included)... [facility] Office Visit ([place]) ---- GUERLINE AGUILERA ([id number]) 1955 M Date Time Provider Department 08/16/24 10:30 AM EDU MEDELLIN During your visit today, we recorded the following information about you: Temperature Pulse Blood pressure Weight 98 degrees 72/minute 157/96 113.4 kg Height 1.905 m Deedee Gillespie MA 08/16/2024 10:36 AM Signed What is the reason for your visit today? Consult Who is your referring physician? Dr. Medlelin Are you having poor oral intake? NO Have you had unintentional weight loss of 15 lbs/7 Kg in the last 3-6 months? NO Bowels: regular Wound: clean AND dry Temperature: No Drains: No Edu Medellin MD 08/16/2024 11:58 AM Signed Consultation requested by Dr. Willi Roque for an opinion regarding hiatal hernia. My final recommendations will be communicated back to the requesting physician by way of shared medical record or letter via US mail. Guerline Aguilera is a 68 year old male who presents with a hiatal hernia and iron deficiency anemia. He had a work up for fatigue, which showed anemia with a hgb down to 7.6. He had a colonoscopy without masses, but one sessile polyp. He also had an UGI which showed a large hiatal hernia and some gastric erosions without active bleeding and no masses. He otherwise has no GERD, dysphagia, regurgitation, early satiety, chest pain, etc. His blood counts have normalized and he no longer has any issues with bleeding after starting PPI therapy and iron. I do think its reasonable to proceed with hiatal hernia repair given the erosions but he has showed significant improvement in symptoms with medical therapy so I also could see that he doesn't want to do anything. He wants to think about it prior to proceeding. I dont think he would need fundoplication, but he does have Barretts which requires surveillance. If he wants to proceed, will need CT as well but will not order until wanting to have surgery. I have seen and evaluated the patient and discussed the case with the resident physician. I agree with the assessment and plan as documented in the resident?s note including a ROS that was reviewed and negative other than what was indicated in our notes. Patient consented for study? Not applicable Flynn Baxter 08/16/2024 11:58 AM Signed [facility] - HISTORY AND PHYSICAL SUBJECTIVE: Chief Complaint: Hiatal hernia HPI: Guerline Aguilera is a 68 year old male who with history of prostate cancer, DVT, iron deficiency anemia presents with recent diagnosis of hiatal hernia with possible Clifton ulcers. Workup for recently diagnosed iron deficiency anemia was positive for hiatal hernia. 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 He states he has very minor symptoms of GERD that were well-controlled on Tums. He was placed on a PPI a month ago at the time of diagnosis of Cadena's. His colonoscopy was positive for diverticulosis and a polyp of the cecum but no evident sources of bleeding. He has been on p.o. iron therapy since the diagnosis of the anemia. Denies any chest pain, pneumonias or other atypical symptoms of GERD. Denies dysphagia, odynophagia, early satiety, vomiting or upper GI bleed. Relevant previous abdominal operations include: Inguinal hernia repair as a child. 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 HENT: Negative. Eyes: Negative. Respiratory: Positive for shortness of breath. Cardiovascular: Negative. Gastrointestinal: Negative. Endocrine: Negative. Genitourinary: Negative. Musculoskeletal: Negative. Allergic/Immunologi c: Negative. Neurological: Negative. Hematological: Negative. Psychiatric/Behavio ral: Negative. PAST MEDICAL HISTORY Diagnosis Date Cadena esophagus Iron deficiency anemia Paraesophageal hernia Prostate cancer (HCC) PAST SURGICAL HISTORY Procedure Laterality Date INGUINAL HERNIA REPAIR HX History reviewed. No pertinent family history. Social History Tobacco Use Smoking status: Never Smokeless tobacco: Never Prior to Admission medications as of 08/16/24 1035 Medication Sig Last Dose Taking acetaminophen (TYLENOL) 325 mg tablet Take 325 mg by mouth. Yes Iron-Vit C-Vit G47-Zkbih Acid (IRON 100 PLUS) 112-001-82-1 wp-dj-muf-mg tab Yes pantoprazole in 0.9% sod chlor 40 mg/50 mL (0.8 mg/mL) pgbk Yes ALLERGIES Not on File PHYSICAL EXAM: BP 157/96 Pulse 72 Temp (Src) 98 (Temporal) Ht 6' 3 (1.91m) Wt 250 lb (113.4kg) BMI 31.25 kg/(m2). (more content not included)... Normal [facility] Raquel 08-11-2024 GARY Telephone ([place]) ---- GUERLINE AGUILERA ([id number]) 1955 M Date Time Provider Department 08/11/24 CYNDIE DOMINGUEZ During your visit today, we recorded the following information about you: Cyndie Dominguez LPN 08/11/2024 4:27 PM Signed Contacted patient, verified name and . Per patient advised of having Upper GI performed and bringing paperwork with him. Advised will contact [facility] to check status. Thanked patient for his time. Contacted [facility] and per HIM, no recent Imaging performed and will fax UGI paperwork to this editorial writer. DONI Bobo Claudine, LPN 08/13/2024 7:36 AM Signed Paperwork from [facility] HIM Dept received and scanned into patient. Cyndie Dominguez LPN Allergies As of Date: 08/11/2024 (Not on File) Date Reviewed: Never Reviewed Reason for Visit: Appointment [[id number]] Cmt: Recent Imaging and Records Problem List As Of Date: 08/11/2024 (None) Encounter Status:Closed by CYNDIE DOMINGUEZ on 08/11/24 Normal [facility] Internal Medicine Office Vis itokraig 08-05-2024 Internal Medicine Office Visit [facility] [place] [address] [place] [address] OFFICE VISIT Date of Service: 08/05/24 MR#: [id number] Acct: [id number] Name: JACEY AGUILERA Rep #: [id number] : 1955 Provider: JORGE LUIS Haque Age/Sex: 68/M Location[place] [facility] Status: Signed Intake Vital Signs 06/29/24 11:11 08/05/24 14:09 08/05/24 14:11 Height 6 ft 3 in 6 ft 3 in Weight: 252 lb 8 oz BMI 31.5 BP 152/86 H 147/97 H Blood Pressure Location Lt brachial Lt brachial Position Sitting Sitting Respiration 16 Pulse 79 78 Pulse Source Monitor Temp 98.0 F Temp Source Temporal Pulse Oximetry (%) 97 Oxygen Delivery Method room air Comment pt bp cuff. Intake Visit Reasons: FU ON TESTING Chief Complaint: f/u on testing Director Operations Broadcast Required: No Accompanied by: Self Is patient in pain?: No Allergies No Known Allergies Allergy (Verified 08/05/24 15:27) Medications ???Medication ???Instructions ???Recorded ???Confirmed ???Type sildenafil 100 mg tablet 100 mg PO DAILY PRN sexual 03/02/24 08/05/24 Rx activity #90 tabs pantoprazole 40 mg tablet,delayed 40 mg PO BID #180 tabs 07/07/24 08/05/24 Rx release ferrous sulfate 325 mg (65 mg 325 mg PO BID 08/05/24 08/05/24 History iron) tablet Have you fallen in the past year?: No PFSH Medical History Low iron Heartburn Non-smoker Shortness of breath on exertion History of Holter monitoring History of echocardiogram History of stress test Iron deficiency anemia due to chronic blood loss Nocturia Prostate cancer Hypertension Surgical History Hx of colonoscopy Hx of prostate biopsy H/O hernia repair Family History Father Cancer, Onset Age: 65 prostate Hypertension Social History household members: spouse housing: house current occupational status: retired and 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 He actually has already seen the GI vilma to go over his results and he has an appt with the assembler caterpillar spider tomorrow to go over his labs that he just had. He also has an appointment with a surgeon to discuss procedure for his hiatal hernia Patient states that over though he has been feeling a lot better. He is definitely has noticed improvement in his stamina and overall energy. Patient also has noticed improvement in reflux. He states that he really did not have much reflux to begin with but since starting the pantoprazole has seen an improvement in what symptoms he did have. Patient has noticed that he has some swelling in the left lower extremity the past month. He states that he hasn't noticed much in the foot but rather in the lower leg / ankle area. He denies having any pains in the leg / calf. He hasn't checked to se if this is present upon waking in the morning ROS Const Constitutional: No body ache, chills, excessive sweating, fatigue, fever(s), frequent falls, headache(s), snoring, weakness or change in appetite Eyes Eyes: No blurry vision, change in vision, eye pain or Light sensitivity ENT ENT: No abnormal hearing, ear or mastoid pain, tinnitus, nasal congestion, headache(s), neck pain or sore throat Resp Respiratory: No cough, shortness of breath, snoring or wheezing Cardio Cardiology: No chest pain at rest, chest pain with exertion, excessive sweating, dyspnea on exertion, lightheadedness, orthopnea or palpitations Gastro GI: No abdominal pain, change in bowel habits, constipation, cramping, diarrhea, nausea/dyspepsia or vomiting Genitourinary Male: No burning urination, painful urination, urinary incontinence or urinary frequency Musc Musculoskeletal: No abnormal gait, joint pain, back pain, limited range of motion, muscle weakness, neck pain or numbness Skin Skin: No dry skin, redness, lesions, itchy eyes, rash or wounds Neuro Neurology: No abnormal gait, abnormal hearing, weakness, frequent falls, headache(s), memory loss or numbness Psych Psychiatric: No anxiety, No change in appetite, No depression, No memory loss and No Thoughts of harming yourself/Others Endo Endocrine: No cold intolerance, excessive sweating, fatigue, flushing, (more content not included)... Normal [facility] Oncology Visit Reporton 07-17 Oncology Visit Report [facility] [address] [address] OFFICE VISIT Date of Service: 08/05/24 1524 MR#: [id number] Acct: [id number] Name: JACEY AGUILERA Rep #: [id number] : 1955 From: Sharda Agudelo NP FORESTRY ADVISER -C Age/Sex: 68/M Location[place] [facility] Status: Signed HPI Subjective Date of Service 08/05/24 Chief Complaint Anemia History of Present Illness 68-year-old gentleman with progressively increasing fatigue April 2024 and workup revealed iron deficiency anemia. He just started an oral iron supplement. He was diagnosed with prostate cancer on surveillance with a follow-up elective prostate biopsy in June 2024, per patient self report Eugene 6 on active surveillance. Follows with [facility] in [place]. June 29, 2024 OPERATION: Colonoscopy, EGD with biopsies Spec# :[id number] PRE-OP DIAGNOSIS: Iron deficiency anemia due to chronic blood loss TISSUE SUBMITTED: A- Duodenum biopsy, B- Distal esophagus biopsy, C- Cecal polyp biopsy MICROSCOPIC DIAGNOSIS A. Duodenum, biopsy: Mild non-specific chronic inflammation. B. 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 No evidence of dysplasia. See comment. C. Cecal polyp, biopsy: Hyperplastic polyp Interval History The patient is presenting to clinic for a planned 6 week follow up. Confirms good adherence and tolerance to p.o. iron twice daily. Underwent EGD and colonoscopy on 06/29/2024, EGD revealed large hiatal hernia, gastric erosions without evidence of recent bleeding and duodenitis. 1 polyp obtained in the cecum and diverticulosis within the rectosigmoid colon was identified during colonoscopy. Specifically denies acid reflux, dyspepsia, melena, hematochezia. 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, 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 Smoking Status: Never smoker Electronic Cigarette Use: not used alcohol intake: never substance use type: does not use what type of physical activity do you participate in: walking, bicycling and other details: pickleball cassandra/episcopal: Pentecostal seatbelt use: always do you feel safe at home: Yes ROS ROS Narrative Negative except as documented in the interval HPI Intake Vital Signs 06/24/24 09:19 08/05/24 14:09 08/05/24 15:25 08/05/24 15:28 Height 6 ft 3 in 6 ft 3 in 6 ft 3 in 6 ft 3 in Weight: 255 lb 3 oz BMI 31.8 BP 138/82 H Blood Pressure Location Lt brachial Position Sitting Respiration 16 Pulse 72 Pulse Source Monitor Temp 97.6 F L Temperature Source Temporal Artery Pulse Oximetry (%) 95 Oxygen Delivery Method room air Intake Is patient in pain?: No Allergies No Known Allergies Allergy (Verified 08/05/24 15:27) Medications ???Medication ???Instructions ???Recorded ???Confirmed ???Type sildenafil 100 mg tablet 100 mg PO DAILY PRN sexual 03/02/24 08/05/24 Rx activity #90 tabs pantoprazole 40 mg tablet,delayed 40 mg PO BID #180 tabs 07/07/24 08/05/24 Rx release ferrous sulfate 325 mg (65 mg 325 mg PO BID 08/05/24 08/05/24 History iron) tablet Have you fallen in the past year?: No Central Venous Access Central Venous Access: No Laboratory Results 07/29/24 13:26 WBC 6.2 Hgb 13.6 Hct 44.4 Plt Count 242 Absolute Neuts (auto) 3.6 Iron 78 TIBC 367 Iron Saturation 21.3 Ferritin 26 Exam Physical Exam Narrative ECOG 1 Const alert, oriented x3 and no apparent distress HEENT normocephalic Mouth: oral and palatal mucosa normal Eyes General Eye: normal appearance of both eyes Neck no lymphadenopathy Resp clear to auscultation bilaterally Cardio regular rate and regular rhythm GI soft to palpation, non-tender and non-distended Psych mental status grossly normal Coding Level of Care Code Off vis,est,level 4 Exam Problem Focused Diagnoses Iron deficiency anemia due to chronic blood loss D50.0 Assessment and Plan Assessment and Plan (1) Iron deficiency anemia due to (more content not included)... Normal [facility] CBC W/Diff, Automatedon 07-16 Anisocytosis Ql (Bld) 2+ Normal [facility] Comment on above: Performed By: #### L 300.3900, L503.6030, L503.6550, L500.4050, L100.0500 #### [facility] [address] [place], [address] SMEAR COMMENT SCANNED Normal [facility] Comment on above: Performed By: #### L 300.3900, L503.6030, L503.6550, L500.4050, L100.0500 #### [facility] [address] [place], [address] Ferritinon 07-29-2024 Ferritin [Mass/Vol] 26 ng/mL Normal 26-388 [facility] Comment on above: Performed By: #### L 300.3900, L503.6030, L503.6550, L500.4050, L100.0500 #### [facility] [address] [place], [address] Iron+Iron Binding Capacityon 07-29-2024 Iron [Mass/Vol] 78 ug/dL Normal 65-175 [facility] Comment on above: Performed By: #### L 300.3900, L503.6030, L503.6550, L500.4050, L100.0500 #### [facility] [address] [place], [address] IRON SATURATION 21.3 Normal 15.0-55.0 [facility] Comment on above: Performed By: #### L 300.3900, L503.6030, L503.6550, L500.4050, L100.0500 #### [facility] [address] [place], [address] TIBC 367 ug/dL Normal 250-450 [facility] Comment on above: Performed By: #### L 300.3900, L503.6030, L503.6550, L500.4050, L100.0500 #### [facility] [address] [place], [address] Retic Panelon 07-29-2024 IM RET FRACTION 16.70 High 3.00-15.90 [facility] Comment on above: Performed By: #### L 300.3900, L503.6030, L503.6550, L500.4050, L100.0500 #### [facility] [address] [place], [address] RET-HE 34.2 pg Normal 30-35 [facility] Comment on above: Performed By: #### L 300.3900, L503.6030, L503.6550, L500.4050, L100.0500 #### [facility] [address] [place], [address] Retic Count 1.76 High 0.5-1.5 [facility] Comment on above: Performed By: #### L 300.3900, L503.6030, L503.6550, L500.4050, L100.0500 #### [facility] [address] [place], [address] Hypochromatic red blood cell detectionOrdered By: Michelle Matthew on 06-24-2024 Hypochromia Ql (Bld) 1+ [facility] - Hematology and Cell countsOrdered By: Michelle [facility] on 06-24-2024 Anisocytosis Ql (Bld) 1+ [facility] H AND Loki 06-15-2024 H AND P CONSULT NOTE Patient Name: Guerline Aguilera Admit Date: [id number] MR #: [id number] : 1955 Physicians: No, Physician (Family); No ref. provider found (Referring) Assessment and Plan: Elevated psa / known low grade ow volume prostate cancer Plan for transperineal biopsy of the prostate Chief Complaint/Reason for Visit: No chief complaint on file. History of Present Illness: Guerline Aguilera is a 68 y.o. y/o male presenting from home with c/o elevated psa Review of Systems: The following system(s) were reviewed and are negative unless otherwise noted in the HPI: Physical Examination: Vital Signs: BP (!) 149/93 Ht 6' 4 Wt 112.4 kg (247 lb 12.8 oz) SpO2 93% BMI 30.16 kg/m General: Alert, cooperative, no distress, appears stated age Head: Normocephalic, without obvious abnormality, atraumatic Eyes: PERRL, conjunctiva/corneas clear, EOM's intact, fundi benign both eyes Throat: Lips, mucosa, and tongue normal; teeth and gums normal Neck: Supple, symmetrical, trachea midline, no adenopathy; thyroid: no enlargement/tendern ess/nodules; no carotid bruit or JVD Back: Symmetric, no curvature, ROM normal, no CVA tenderness Lungs: Clear to auscultation bilaterally, respirations unlabored,normal respiratory effort Chest Wall: No tenderness or deformity Cardiovascular: Regular rate and rhythm, S1 and S2 normal, no murmur, rub or gallop; Pulses 2+ and symmetric all extremities Abdomen: Soft, non-tender, bowel sounds active all four quadrants,no masses, no organomegaly Extremities: Normal, atraumatic, no cyanosis or edema Skin: Skin color, texture, turgor normal, no rashes or lesions Musculoskeletal: Full range of motion of all extremities; no joint edema Neurologic: CNII-XII intact; normal strength, sensation and reflexes throughout Psych: Mood and affect appropriate History: Past Medical History: Diagnosis Date Anemia Past Surgical History: Procedure Laterality Date APPENDECTOMY HERNIA REPAIR umbilical as an infant Family History Problem Relation Age of Onset No Known Problems Mother No Known Problems Father No Known Problems Brother Social History Socioeconomic History Marital status: Tobacco Use Smoking status: Never Smokeless tobacco: Never Vaping Use Vaping status: Never Used Substance and Sexual Activity Alcohol use: Never Allergy Information: I have reviewed the patient's allergies. Patient has no known allergies. Home Medications: Outpatient Medications as of 06/15/2024 Medication Sig esomeprazole (NEXIUM) 20 MG capsule 1 (one) capsule (20 mg total) daily as needed Reasons: heartburn. ferrous sulfate (IRON ORAL) Take by mouth every morning Reasons: anemia. sildenafiL (VIAGRA) 25 MG tablet Take 1 (one) tablet (25 mg total) by mouth daily as needed for erectile dysfunction Reasons: the inability to have an erection. Laboratory and Additional Data Reviewed: Invalid input(s): CO2 Invalid input(s): NEUTOPHILPCT No results found. AUTHENTICATED BY WILLI ROQUE, ON 06/15/2024 08:07:35 Normal [facility] OP NOTEon 06-15-2024 OP NOTE Date of Service: 06/15/2024 Clinician: Willi Roque MD OR Staff: Flight Deck Officer: Niya Conway RN Scrub Person: Susan Hinojosa ST Anesthesia Staff: Anesthesiologist: Silviano Fernandez MD NOVELTY PRINTING MACHINE OPERATOR: Dorota Navarro CRNA Surgeon(s):Surgeons and Role: * Willi Roque MD - Primary Patient Name: Guerline Aguilera MR #: [id number] OPERATIVE REPORT SURGEON WILLI ROQUE MD PREOPERATIVE DIAGNOSIS Elevated prostate-specific antigen. POSTOPERATIVE DIAGNOSIS Elevated prostate-specific antigen. PROCEDURE Transrectal ultrasound , transperineal needle biopsy of the prostate SUMMARY OF PROCEDURE After induction of monitored anesthesia, the patient was placed in the dorsal lithotomy position. The genitals were taped to the abdomen using Tegaderm. The perineum was prepped and draped in usual sterile fashion. The transrectal ultrasound probe was inserted into the rectum. The skin on the perineum was anesthetized with Marcaine with epinephrine. Under ultrasound guidance, lidocaine was passed to the periprostatic area and infiltrated bilaterally for a prostate block. [place] were passed through the perineum into the prostate in a systematic fashion. biopsies were taken and placed in labeled formalin containers in a systematic fashion. The patient was returned to the supine position and transferred to Recovery. I was present and performed for the entire case. AUTHENTICATED BY WILLI ROQUE, ON 06/15/2024 09:04:29 Normal [facility] SCAN OTHER ORDERSon 06-15-20 Ordered by an unspecified provider. [facility] TISSUE EXAMon 06-15-2024 TISSUE EXAM Surgical Pathology Report Case: [id number] Authorizing Provider: Willi Roque MD Collected: 06/15/2024 08:01 AM Ordering Location: [facility] Received: 06/15/2024 10:56 AM Periop Pathologist: Juanis Bobby MD Specimens: A) - Prostate, right anterior lateral B) - Prostate, right anterior medial C) - Prostate, right mid lateral D) - Prostate, right mid medial E) - Prostate, right posterior lateral F) - Prostate, right posterior medial G) - Prostate, left anterior medial H) - Prostate, left anterior lateral I) - Prostate, left mid medial J) - Prostate, left mid lateral K) - Prostate, left posterior medial L) - Prostate, left posterior lateral A. Prostate, right anterior lateral, biopsy: Benign prostate tissue. B. Prostate, right anterior medial, biopsy: Benign prostate tissue. C. Prostate, right mid lateral, biopsy: Benign prostate tissue. D. Prostate, right mid medial, biopsy: Benign prostate tissue. E. Prostate, right posterior lateral, biopsy: Benign prostate tissue. F. Prostate, right posterior medial, biopsy: Prostate adenocarcinoma, Eugene Score 3+3=6, WHO Grade Group 1, involving one of one core (10%). G. Prostate, left anterior medial, biopsy: Benign prostate tissue. H. Prostate, left anterior lateral, biopsy: Benign prostate tissue. I. Prostate, left mid medial, biopsy: Benign prostate tissue. J. Prostate, left mid lateral, biopsy: Benign prostate tissue. K. Prostate, left posterior medial, biopsy: Benign prostate tissue. L. Prostate, left posterior lateral, biopsy: Benign prostate tissue. LSB/ddh R97.20. Specimen A. Received in formalin labeled Ale, Guerline R and designated prostate is one core, 1.2 cm. All 09/15. Specimen B. Received in formalin labeled Ale, Guerline R and designated prostate are two cores, 2.2 and 0.2 cm. All 10/16. Specimen C. Received in formalin labeled [place], Guerline R and designated prostate is one core, 1.5 cm. All 09/15. Specimen D. Received in formalin labeled [place], Guerline R and designated prostate is one core, 1.6 cm. All 09/15. Specimen E. Received in formalin labeled [place], Guerline R and designated prostate is one core, 1.2 cm. All 09/15. Specimen F. Received in formalin labeled [place], Guerline R and designated prostate is one core, 1.5 cm. All 09/15. Specimen G. Received in formalin labeled Ale, Guerline R and designated prostate is one core, 1.1 cm. All 1/1. Specimen H. Received in formalin labeled [place], Guerline R and designated prostate is one core, 1.2 cm. All 09/15. Specimen I. Received in formalin labeled [place], Guerline R and designated prostate is one core, 2.0 cm. All 09/15. Specimen J. Received in formalin labeled [place], Guerline R and designated prostate is one core, 2.1 cm. All 09/15. Specimen K. Received in formalin labeled [place], Guerline R and designated prostate are two cores, 1.0 and 0.2 cm. All 10/16. Specimen L. Received in formalin labeled [place], Guerline R and designated prostate is one core, 1.5 cm. Cassette Summary: L1-main core from the container L2-additional possible fragment of tissue All 10/17 OS/JEK/mjg Gross examination performed at: [facility] - [address] [place] [id number] Microscopic examination is performed. Normal [facility] Comment on above: Performed By: #### [id number] #### [facility] [address] [place] [address] Alison Connor M.D. [id number] [facility] [address] [place] [address] Rod Canada M.D. [id number] Blood manual differential co mment interpretation (narrative result)Ordered By: Michelle Matthew on 06-03-2024 Manual differential comment Umair (Bld) [Interp] SCANNED [facility] Blood polychromasia detectio n by light microscopyOrdered By: Michelle Matthew on 06-03-2024 Polychromasia LM Ql (Bld) RARE [facility] Creatinine (Bld) [Moles/Vol] on 10-29-2023 Creatinine [Mass/Vol] 1.4 mg/dL High 0.6-1.3 Diana nt [facility] Comment on above: Performed By: #### 5 9826-8 #### [facility] [address] [place] [address] GFR/1.73 sq M.predicted among non-blacks MDRD (S/P/Bld) [Vol rate/Area] 52 mL/min/{1.73_m2} Normal [facility] Comment on above: Performed By: #### 5 9826-8 #### [facility] [address] [place] [address] Creatinine [Mass/Vol] 1.4 mg/dL High 0.6 - 1.3 mg/dL [facility] GFR/1.73 sq M.predicted among non-blacks MDRD (S/P/Bld) [Vol rate/Area] 52 mL/min/{1.73_m2} mL/min/1.73m 2 [facility] Interpretation and review of laboratory results Abnormal [facility] MR PROSTATE W AND WO CONTRAS Ton 10-29-2023 MR PROSTATE W AND WO CONTRAST EXAMINATION TYPE: MR PROSTATE W AND WO CONTRAST multi parametric MRI of the prostate gland. 3-D reconstructions were obtained and reviewed on an independent workstation. DATE OF EXAM ORDERED: 10/29/2023 12:32 PM HISTORY: C61, prostate cancer COMPARISON: Prostate MRI from January 2022 Technique: Multiparametric MRI of the prostate was performed. T1-weighted, T2-weighted, diffusion-weighted, and postcontrast dynamic imaging through the prostate gland were performed in different planes using a surface coil on a 3 Neema magnet. Dotarem was administered without documented adverse reaction. FINDINGS: Prostate gland volume:137 grams PERIPHERAL ZONE: The background peripheral zone is mildly heterogeneous with ill-defined areas of linear and wedge-shaped T2 hypointensity, likely representing chronic prostatitis. No focal suspicious lesions are identified. TRANSITION ZONE / CENTRAL ZONE: The transition zone is hypertrophied and replaced by closely opposed T2 hyperintense and T2 hypointense benign prostatic hypertrophy nodules. The anterior fibromuscular stroma is unremarkable. No suspicious lesions are identified. EXTRAPROSTATIC FINDINGS: The seminal vesicles are unremarkable. The neurovascular bundles and recto- prostatic angles are preserved. There are no enlarged or morphologically abnormal lymph nodes. The urinary bladder is unremarkable. No suspicious osseous abnormalities are identified. IMPRESSION: No suspicious prostate lesion. PIRADS 2 PROSTATE IMAGING REPORTING AND DATA SYSTEM (PI-RADS): PIRADS 1 = Very low (clinically significant cancer is highly unlikely to be present) PIRADS 2 = Low (clinically significant cancer is unlikely to be present) PIRADS 3 = Indeterminant (the presence of clinically significant cancer is equivocal) PIRADS 4 = High (clinically significant cancer is likely to be present). PIRADS 5 = Very high (clinically significant cancer is highly likely to be present) -------- FINAL REPORT -------- Dictated By: Roger Huynh Dictated Date: 10/29/2023 13:41 Assigned Physician: Roger Huynh Reviewed and Electronically Signed By: Roger Huynh Signed Date: 10/29/2023 13:46 Workstation ID: [id number] Transcribed By: Self Edit Transcribed Date: 10/29/2023 13:41 Normal [facility] MR Prostate w and wo Contras ton 10-29-2023 No suspicious prostate lesion. PIRADS 2 PROSTATE IMAGING REPORTING AND DATA SYSTEM (PI-RADS): PIRADS 1 = Very low (clinically significant cancer is highly unlikely to be present) PIRADS 2 = Low (clinically significant cancer is unlikely to be present) PIRADS 3 = Indeterminant (the presence of clinically significant cancer is equivocal) PIRADS 4 = High (clinically significant cancer is likely to be present). PIRADS 5 = Very high (clinically significant cancer is highly likely to be present) -------- FINAL REPORT -------- Dictated By: Roger Huynh Dictated Date: 10/29/2023 13:41 Assigned Physician: Roger Huynh Reviewed and Electronically Signed By: Roger Huynh Signed Date: 10/29/2023 13:46 Workstation ID: [id number] Transcribed By: Self Edit Transcribed Date: 10/29/2023 13:41 [facility] EXAMINATION TYPE: MR PROSTATE W AND WO CONTRAST multi parametric MRI of the prostate gland. 3-D reconstructions were obtained and reviewed on an independent workstation. DATE OF EXAM ORDERED: 10/29/2023 12:32 PM HISTORY: C61, prostate cancer COMPARISON: Prostate MRI from January 2022 Technique: Multiparametric MRI of the prostate was performed. T1-weighted, T2-weighted, diffusion-weighted, and postcontrast dynamic imaging through the prostate gland were performed in different planes using a surface coil on a 3 Neema magnet. Dotarem was administered without documented adverse reaction. FINDINGS: Prostate gland volume:137 grams PERIPHERAL ZONE: The background peripheral zone is mildly heterogeneous with ill-defined areas of linear and wedge-shaped T2 hypointensity, likely representing chronic prostatitis. No focal suspicious lesions are identified. TRANSITION ZONE / CENTRAL ZONE: The transition zone is hypertrophied and replaced by closely opposed T2 hyperintense and T2 hypointense benign prostatic hypertrophy nodules. The anterior fibromuscular stroma is unremarkable. No suspicious lesions are identified. EXTRAPROSTATIC FINDINGS: The seminal vesicles are unremarkable. The neurovascular bundles and recto- prostatic angles are preserved. There are no enlarged or morphologically abnormal lymph nodes. The urinary bladder is unremarkable. No suspicious osseous abnormalities are identified. Roger Waller MD - 10/29/2023 EXAMINATION TYPE: MR PROSTATE W AND WO CONTRAST multi parametric MRI of the prostate gland. 3-D reconstructions were obtained and reviewed on an independent workstation. DATE OF EXAM ORDERED: 10/29/2023 12:32 PM HISTORY: C61, prostate cancer COMPARISON: Prostate MRI from January 2022 Technique: Multiparametric MRI of the prostate was performed. T1-weighted, T2-weighted, diffusion-weighted, and postcontrast dynamic imaging through the prostate gland were performed in different planes using a surface coil on a 3 Neema magnet. Dotarem was administered without documented adverse reaction. FINDINGS: Prostate gland volume:137 grams PERIPHERAL ZONE: The background peripheral zone is mildly heterogeneous with ill-defined areas of linear and wedge-shaped T2 hypointensity, likely representing chronic prostatitis. No focal suspicious lesions are identified. TRANSITION ZONE / CENTRAL ZONE: The transition zone is hypertrophied and replaced by closely opposed T2 hyperintense and T2 hypointense benign prostatic hypertrophy nodules. The anterior fibromuscular stroma is unremarkable. No suspicious lesions are identified. EXTRAPROSTATIC FINDINGS: The seminal vesicles are unremarkable. The neurovascular bundles and recto- prostatic angles are preserved. There are no enlarged or morphologically abnormal lymph nodes. The urinary bladder is unremarkable. No suspicious osseous abnormalities are identified. IMPRESSION: No suspicious prostate lesion. PIRADS 2 PROSTATE IMAGING REPORTING AND DATA SYSTEM (PI-RADS): PIRADS 1 = Very low (clinically significant cancer is highly unlikely to be present) PIRADS 2 = Low (clinically significant cancer is unlikely to be present) PIRADS 3 = Indeterminant (the presence of clinically significant cancer is equivocal) PIRADS 4 = High (clinically significant cancer is likely to be present). PIRADS 5 = Very high (clinically significant cancer is highly likely to be present) -------- FINAL REPORT -------- Dictated By: Roger Huyhn Dictated Date: 10/29/2023 13:41 Assigned Physician: Roger Huynh Reviewed and Electronically Signed By: Roger Huynh Signed Date: 10/29/2023 13:46 Workstation ID: [id number] Transcribed By: Self Edit Transcribed Date: 10/29/2023 13:41 [facility] Radiology Study observation (narrative) [facility] MR Prostate w and wo Contras tOrdered By: Roger Huynh on 10-29-2023 [facility] Work Phone: Creatinine (Bld) [Moles/Vol] on 02-06-2022 Creatinine [Mass/Vol] 1.2 mg/dL Normal 0.6-1.3 [facility] Comment on above: Performed By: #### 5 9826-8 #### [facility] [address] [place] [address] EGFR If POCT 73 mL/min/1.73m*2 Normal [facility] Comment on above: Performed By: #### 5 9826-8 #### [facility] [address] [place] [address] EGFR If Non POCT 61 mL/min/1.73m*2 Normal [facility] Comment on above: Performed By: #### 5 9826-8 #### [facility] [address] [place] [address] Creatinine [Mass/Vol] 1.2 mg/dL 0.6 - 1.3 mg/dL [facility] GFR/1.73 sq M.predicted MDRD (S/P/Bld) [Vol rate/Area] 61 mL/min/{1.73_m2} mL/min/1.73m *2 [facility] GFR/1.73 sq M.predicted MDRD (S/P/Bld) [Vol rate/Area] 73 mL/min/{1.73_m2} mL/min/1.73m *2 [facility] MR PROSTATE W AND WO YANI Ton 02-06-2022 MR PROSTATE W AND WO CONTRAST EXAMINATION TYPE: MR PROSTATE W AND WO CONTRAST multi parametric MRI of the prostate gland. 3-D reconstructions obtained and reviewed on an independent workstation DATE OF EXAM ORDERED: 02/06/2022 10:59 AM HISTORY: R97.2 elevated prostate-specific antigen. COMPARISON: NONE Technique: Multiparametric MRI of the prostate was performed. T1-weighted, T2-weighted, diffusion-weighted, and postcontrast dynamic imaging through the prostate gland were performed in different planes using a surface coil on a 3 Neema magnet. Dotarem was administered without documented adverse reaction. FINDINGS: PERIPHERAL ZONE: The background peripheral zone is mildly heterogeneous with ill-defined areas of linear and wedge-shaped T2 hypointensity, likely representing chronic prostatitis. T2 hypointense nodule noted in the right apex posterior peripheral zone is mildly hypointense on ADC measures 0.7 x 1.4 cm image 16 series 16, PIRADS 3. T2 hypointensity noted in the left apex lateral peripheral zone measures 0.5 x 1.0 cm image 17 series 16 is mildly hypointense on ADC, PIRADS 3. TRANSITION ZONE / CENTRAL ZONE: The transition zone is hypertrophied and replaced by closely opposed T2 hyperintense and T2 hypointense benign prostatic hypertrophy nodules. The anterior fibromuscular stroma is unremarkable. No suspicious lesions are identified. EXTRAPROSTATIC FINDINGS: The seminal vesicles are unremarkable. The neurovascular bundles and recto- prostatic angles are preserved. There are no enlarged or morphologically abnormal lymph nodes. The urinary bladder is unremarkable. No suspicious osseous abnormalities are identified. IMPRESSION: 2 PIRADS 3 lesions in the right and left apex peripheral zone. PROSTATE IMAGING REPORTING AND DATA SYSTEM (PI-RADS): PIRADS 1 = Very low (clinically significant cancer is highly unlikely to be present) PIRADS 2 = Low (clinically significant cancer is unlikely to be present) PIRADS 3 = Indeterminant (the presence of clinically significant cancer is equivocal) PIRADS 4 = High (clinically significant cancer is likely to be present). PIRADS 5 = Very high (clinically significant cancer is highly likely to be present) -------- FINAL REPORT -------- Dictated By: Durga Cortez Dictated Date: 02/08/2022 11:19 Assigned Physician: Durga Cortez Reviewed and Electronically Signed By: Durga Cortez Signed Date: 02/08/2022 11:34 Workstation ID: [id number] Transcribed By: Self Edit Transcribed Date: 02/08/2022 11:32 Normal [facility] RECTAL SCREENING FOR CIPRO R ESISTANCEon 12-05-2021 Amikacin [Susceptibility] <=2 Invalid Interpretation Code [facility] Comment on above: Performed By: #### C IPSC #### [facility] (DEFAULT) [address] [address] Ampicillin [Susceptibility] >=[address] [facility] Comment on above: Performed By: #### C IPSC #### [facility] (DEFAULT) [address] [address] Ampicillin+Sulbactam [Susceptibility] >=[address] [facility] Comment on above: Performed By: #### C IPSC #### [facility] (DEFAULT) [address] [address] Cefepime [Susceptibility] <=1 Invalid Interpretation Code [facility] Comment on above: Performed By: #### C IPSC #### [facility] (DEFAULT) [address] [address] Ceftriaxone [Susceptibility] <=1 Invalid Interpretation Code [facility] Comment on above: Performed By: #### C IPSC #### [facility] (DEFAULT) [address] [address] Ciprofloxacin [Susceptibility] >=[address] [facility] Comment on above: Performed By: #### C IPSC #### [facility] (DEFAULT) [address] [address] Ertapenem [Susceptibility] <=0.5 Invalid Interpretation Code [facility] Comment on above: Performed By: #### C IPSC #### [facility] (DEFAULT) [address] [address] Gentamicin [Susceptibility] <=1 Invalid Interpretation Code [facility] Comment on above: Performed By: #### C IPSC #### [facility] (DEFAULT) [address] [address] Piperacillin+Tazobactam [Susceptibility] >=[address] [facility] Comment on above: Performed By: #### C IPSC #### [facility] (DEFAULT) [address] [address] Tobramycin [Susceptibility] <=1 Invalid Interpretation Code [facility] Comment on above: Performed By: #### C IPSC #### [facility] (DEFAULT) [address] [address] Trimethoprim+Sulfametho xazole [Susceptibility] <=20 Invalid Interpretation Code [facility] Comment on above: Performed By: #### C IPSC #### [facility] (DEFAULT) [address] [place] [address] URINALYSIS (POC DEVICE)on Blood Urine,Poc Device Negative Negative [facility] Glucose Urine,Poc Device Negative Negative mg/dL [facility] Interpretation and review of laboratory results Normal [facility] Ketones Urine,Poc Device Negative Negative [facility] Leukocyte Esterase, Poc Device Negative Negative [facility] Nitrite Test strip (U) [Mass/Vol] Negative Negative [facility] pH (U) 5.5 [pH] 5.0 - 7.0 [facility] Protein (U) [Mass/Vol] Negative Negat tristan mg/dL [facility] Specific gravity (U) [Rel density] 1.020 [facility] Urobilinogen Urine,Poc Device 0.2 E.U./dL 0.2-1.0 EU/dL [facility] Test performed at address of the patient encounter. [facility] Vital Signs Date Time Vital Sign Value Performing Clinician Facility 05-05-2025 11:03-0400 Body height 190.[address] Evelin Rogers MD Work Phone: [facility] 05-05-2025 11:03-0400 Body mass index (BMI) [Ratio] 31.4 kg/m2 Dr. Evelin Rogers MD Work Phone: [facility] 05-05-2025 11:03-0400 Body temperature 98.6 [degF] Dr. Evelin Rogers MD Work Phone: [facility] 05-05-2025 11:03-0400 Body weight 113.[address] Evelin Rogers MD Work Phone: [facility] 05-05-2025 11:03-0400 Diastolic blood pressure 68 mm[Hg] Dr. Evelin Rogers MD Work Phone: [facility] 05-05-2025 11:03-0400 Heart rate 62 /min Dr. Evelin Rogers MD Work Phone: [facility] 05-05-2025 11:03-0400 Respiratory rate 18 /min Dr. Evelin Rogers MD Work Phone: [facility] 05-05-2025 11:03-0400 SaO2% (BldA) [Mass fraction] 93 % Dr. Evelin Rogers MD Work Phone: [facility] 05-05-2025 11:03-0400 Systolic blood pressure 113 mm[Hg] Dr. Evelin Rogers MD Work Phone: [facility] 05-04-2025 11:40-0400 Body temperature 96.9 [degF] Dr. Evelin Rogers MD Work Phone: [facility] 05-04-2025 11:40-0400 Diastolic blood pressure 80 mm[Hg] Dr. Evelin Rogers MD Work Phone: [facility] 05-04-2025 11:40-0400 Heart rate 51 /min Dr. Evelin Rogers MD Work Phone: [facility] 05-04-2025 11:40-0400 Respiratory rate 18 /min Dr. Evelin Rogers MD Work Phone: [facility] 05-04-2025 11:40-0400 SaO2% (BldA) [Mass fraction] 97 % Dr. Evelin Rogers MD Work Phone: [facility] 05-04-2025 11:40-0400 Systolic blood pressure 133 mm[Hg] Dr. Evelin Rogers MD Work Phone: [facility] 05-04-2025 11:15-0400 Inhaled oxygen flow rate 2 L/min Dr. Evelin Rogers MD Work Phone: [facility] 05-04-2025 09:29-0400 Body height 190.[address] Evelin Rogers MD Work Phone: [facility] 05-04-2025 09:29-0400 Body mass index (BMI) [Ratio] 31.4 kg/m2 Dr. Evelin Rogers MD Work Phone: [facility] 05-04-2025 09:29-0400 Body weight [address] Evelin Rogers MD Work Phone: [facility] 03-04-2025 15:19-0400 Body height 190.[address] Evelin Rogers MD Work Phone: [facility] 03-04-2025 15:19-0400 Body mass index (BMI) [Ratio] 31.9 kg/m2 Dr. Evelin Rogers MD Work Phone: [facility] 03-04-2025 15:19-0400 Body temperature 98.3 [degF] Dr. Evelin Rogers MD Work Phone: [facility] 03-04-2025 15:19-0400 Body weight 115.[address] Evelin Rogers MD Work Phone: [facility] 03-04-2025 15:19-0400 Diastolic blood pressure 82 mm[Hg] Dr. Evelin Rogers MD Work Phone: [facility] 03-04-2025 15:19-0400 Heart rate 66 /min Dr. Evelin Rogers MD Work Phone: [facility] 03-04-2025 15:19-0400 Respiratory rate 16 /min Dr. Evelin Rogers MD Work Phone: [facility] 03-04-2025 15:19-0400 SaO2% (BldA) [Mass fraction] 95 % Dr. Evelin Rogers MD Work Phone: [facility] 03-04-2025 15:19-0400 Systolic blood pressure 132 mm[Hg] Dr. Evelin Rogers MD Work Phone: [facility] 08-26-2024 10:02-0500 Body height 190.[address] Evelin Rogers MD Work Phone: [facility] 08-26-2024 10:02-0500 Body mass index (BMI) [Ratio] 31.1 kg/m2 Dr. Evelin Rogers MD Work Phone: [facility] 08-26-2024 10:02-0500 Body temperature 97.4 [degF] Dr. Evelin Rogers MD Work Phone: [facility] 08-26-2024 10:02-0500 Body weight 112.[address] Evelin Rogers MD Work Phone: [facility] 08-26-2024 10:02-0500 Diastolic blood pressure 76 mm[Hg] Dr. Evelin Rogers MD Work Phone: [facility] 08-26-2024 10:02-0500 Heart rate 51 /min Dr. Evelin Rogers MD Work Phone: [facility] 08-26-2024 10:02-0500 Respiratory rate 16 /min Dr. Evelin Rogers MD Work Phone: [facility] 08-26-2024 10:02-0500 SaO2% (BldA) [Mass fraction] 96 % Dr. Evelin Rogers MD Work Phone: [facility] 08-26-2024 10:02-0500 Systolic blood pressure 140 mm[Hg] Dr. Evelin Rogers MD Work Phone: [facility] 08-16-2024 10:33-0500 Body height 190.5 cm Edu Medellin MD Work Phone: [facility] 08-16-2024 10:33-0500 Body mass index (BMI) [Ratio] 31.25 kg/m2 Edu Medellin MD Work Phone: [facility] 08-16-2024 10:33-0500 Body temperature 98.01 [degF] Edu Medellin MD Work Phone: [facility] 08-16-2024 10:33-0500 Body weight 113.4 kg Edu Medellin MD Work Phone: [facility] 08-16-2024 10:33-0500 Diastolic blood pressure 96 mm[Hg] Edu Medellin MD Work Phone: [facility] 08-16-2024 10:33-0500 Heart rate 72 /min Edu Medellin MD Work Phone: [facility] 08-16-2024 10:33-0500 Systolic blood pressure 157 mm[Hg] Edu Medellin MD Work Phone: [facility] 08-05-2024 15:28-0500 Body mass index (BMI) [Ratio] 31.8 kg/m2 Dr. Evelin Rogers MD Work Phone: [facility] 08-05-2024 15:28-0500 Body temperature 97.6 [degF] Dr. Evelin Rogers MD Work Phone: [facility] 08-05-2024 15:28-0500 Body weight 115.[address] Evelin Rogers MD Work Phone: [facility] 08-05-2024 15:28-0500 Diastolic blood pressure 82 mm[Hg] Dr. Evelin Rogers MD Work Phone: [facility] 08-05-2024 15:28-0500 Heart rate 72 /min Dr. Evelin Rogers MD Work Phone: [facility] 08-05-2024 15:28-0500 Respiratory rate 16 /min Dr. Evelin Rogers MD Work Phone: [facility] 08-05-2024 15:28-0500 SaO2% (BldA) [Mass fraction] 95 % Dr. Evelin Rogers MD Work Phone: [facility] 08-05-2024 15:28-0500 Systolic blood pressure 138 mm[Hg] Dr. Evelin Rogers MD Work Phone: [facility] 08-05-2024 14:11-0500 Diastolic blood pressure 97 mm[Hg] Dr. Evelin Rogers MD Work Phone: [facility] 08-05-2024 14:11-0500 Heart rate 78 /min Dr. Evelin Rogers MD Work Phone: [facility] 08-05-2024 14:11-0500 Systolic blood pressure 147 mm[Hg] Dr. Evelin Rogers MD Work Phone: [facility] 08-05-2024 14:09-0500 Body mass index (BMI) [Ratio] 31.5 kg/m2 Dr. Evelin Rogers MD Work Phone: [facility] 08-05-2024 14:09-0500 Body temperature 98 [degF] Dr. Evelin Rogers MD Work Phone: [facility] 08-05-2024 14:09-0500 Body weight 114.[address] Evelin Rogers MD Work Phone: [facility] 08-05-2024 14:09-0500 Respiratory rate 16 /min Dr. Evelin Rogers MD Work Phone: [facility] 08-05-2024 14:09-0500 SaO2% (BldA) [Mass fraction] 97 % Dr. Evelin Rogers MD Work Phone: [facility] 06-15-2024 09:30-0400 Diastolic blood pressure 91 mm[Hg] Willi Roque MD Work Phone: [facility] 06-15-2024 09:30-0400 Heart rate 56 /min Willi Roque MD Work Phone: [facility] 06-15-2024 09:30-0400 Respiratory rate 13 /min Willi Roque MD Work Phone: [facility] 06-15-2024 09:30-0400 SaO2% (BldA) [Mass fraction] 97 % Willi Roque MD Work Phone: [facility] 06-15-2024 09:30-0400 Systolic blood pressure 146 mm[Hg] Willi Roque MD Work Phone: [facility] 06-15-2024 09:05-0400 Body temperature 97.81 [degF] Willi Roque MD Work Phone: [facility] 06-15-2024 07:46-0400 Body height 193 cm Willi Roque MD Work Phone: [facility] 06-15-2024 07:46-0400 Body mass index (BMI) [Ratio] 30.16 kg/m2 Willi Roque MD Work Phone: [facility] 06-15-2024 07:46-0400 Body weight 112.4 kg Willi Roque MD Work Phone: [facility] Encounters Encounter Date Encounter Type Care Provider Facility Start: 07-14-2025 ambulatory Jeremy Friend Facility :[facility] Start: 06-16-2025 ambulatory Evelin Hellerlay Facility :[facility] Start: 05-19-2025 End: 05-19-[address] Evelin Rogers MD Work Phone: [facility] Start: 05-19-2025 End: 05-19-[address] Evelin Rogers MD -[facility] Start: 05-19-2025 End: 05-19-2025 ambulatory Evelin Rogers Facility:[facility] Start: 05-05-2025 End: 05-05-[address] Michelle Matthew MD -[facility] Work Phone: Start: 05-05-2025 End: 05-05-[address] Evelin Rogers MD Work Phone: -[facility] Start: 05-04-2025 ambulatory [facility] Facility :[facility] Start: 05-04-2025 Non-patient / Non-visit [facility] DO -[facility] Start: 05-04-[address] Carlos Matthew MD -[facility] Start: 05-04-2025 End: 05-04-2025 Admission to same day surgery center [facility] DO -Endoscopy Work Phone: Start: 05-04-2025 End: 05-04-[address] Evelin Rogers MD Work Phone: -Endoscopy Start: 03-31-2025 End: 04-14-[address] Evelin Rogers MD -[facility] [place] Work Phone: Start: 03-31-2025 End: 04-14-[address] Evelin Rogers MD Work Phone: -[facility] [place] Start: 03-17-2025 Non-patient / Non-visit Dr. Tutu woods MD -[facility] Start: 03-17-2025 End: 03-17-[address] Evelin Rogers MD Work Phone: -Cardiovascular Services Start: 03-17-2025 End: 03-17-2025 Patient encounter procedure Willi KANG -Cardiovascular Services Work Phone: Start: 03-17-2025 End: 03-17-2025 ambulatory Willi Rosas Facility:[facility] Start: 03-10-2025 End: 03-10-[address] Evelin Rogers MD -[facility] [place] Work Phone: Start: 03-10-2025 End: 03-10-2025 Patient encounter procedure Aiyana KANG -[facility] Work Phone: Start: 03-10-2025 End: 03-10-[address] Evelin Rogers MD Work Phone: [facility] Work Phone: Start: 03-04-2025 End: 03-04-2025 Patient encounter procedure Willi KANG -[facility] Work Phone: Start: 03-04-2025 End: 03-04-[address] Evelin Rogers MD Work Phone: [facility] Work Phone: Start: 12-02-2024 End: 12-02-[address] Evelin Rogers MD Work Phone: [facility] Work Phone: Start: 12-02-2024 End: 12-02-[address] Evelin Rogers MD -Laboratory, [place] Work Phone: Start: 12-02-[address] Shayy Rogers MD -Laboratory, [place] Work Phone: Start: 11-23-2024 Non-patient / Non-visit Dr. Tutu woods MD -[facility] Start: 11-23-2024 End: 11-23-[address] Evelin Rogers MD Work Phone: [facility] Work Phone: Start: 11-23-2024 End: 11-23-[address] Evelin Rogers MD -Cardiovascular Services Work Phone: Start: 11-23-2024 End: 11-23-2024 ambulatory Evelin Hellerlay Facility:[facility] Start: 10-22-2024 End: 11-12-[address] Evelin Rogers MD -Laboratory, [place] Work Phone: Start: 10-22-2024 End: 11-12-2024 ambulatory Evelin Hellerlay Facility:[facility] Start: 10-05-2024 End: 10-05-[address] Evelin Rogers MD -Laboratory, [place] Work Phone: Start: 10-05-2024 End: 10-05-2024 ambulatory Evelin Hellerlay Facility:[facility] Start: 09-13-2024 End: 09-13-[address] Evelin Rogers MD -Laboratory, [place] Work Phone: Start: 09-13-2024 End: 09-13-2024 ambulatory Evelin Rogers Facility:[facility] Start: 09-07-2024 Non-patient / Non-visit Cristina galeas [place] -[facility] Work Phone: Start: 09-07-2024 ambulatory Cristina Robb Facility: [facility] Start: 08-27-2024 End: 08-27-[address] Evelin Rogers MD -Laboratory, [place] Work Phone: Start: 08-26-2024 Non-patient / Non-visit Dr. Tutu woods MD -[facility] Start: 08-26-2024 End: 08-26-2024 Patient encounter procedure Willi KANG -Cardiovascular Services Work Phone: Start: 08-26-2024 End: 08-26-[address] Evelin Rogers MD -[facility] Work Phone: Start: 08-26-2024 End: 08-27-2024 ambulatory Evelin Rogers Facility:[facility] Start: 08-26-2024 End: 08-26-2024 ambulatory Willi oRsas Facility:[facility] Start: 08-16-2024 End: 08-16-2024 Patient encounter procedure Edu Medellin MD Work Phone: General Surgery Comment on above: Paraesophageal herni a (Primary Dx) Start: 08-16-2024 ambulatory EDU MEDELLIN Facility:[facility] Start: 08-11-2024 End: 08-11-2024 Telephone encounter Cyndie Dominguez DONI Work Phone: General Surgery Comment on above: Appointment (Recent Imaging and Records) Start: 08-05-2024 End: 08-05-2024 Patient encounter procedure Sharda Agudelo FORESTRY ADVISER- -[facility] Work Phone: Start: 08-05-2024 End: 08-05-2024 ambulatory Sharda Agudelo NP Facility:[facility] Start: 08-05-2024 End: 08-05-2024 Patient encounter procedure Willi KANG -[facility] Work Phone: Start: 08-05-2024 End: 08-05-2024 ambulatory Willi Rosas Facility:[facility] Start: 07-29-2024 End: 07-29-2024 ambulatory Michelle aMtthew Facility:[facility] Start: 06-15-2024 End: 06-15-2024 ambulatory WILLI ROQUE [facility] Start: 06-15-2024 End: 06-15-2024 Subsequent hospital visit by physician Willi Roque MD Work Phone: [facility] Start: 05-19-[address] Evelin Rogers MD Work Phone: [facility] Start: 05-19-[address] Evelin Roegrs MD Work Phone: [facility] Start: 10-29-2023 ambulatory JENNY ATKINSON Raman galeas [facility] Start: 10-29-2023 End: 10-29-2023 Evaluation and management of inpatient [facility] Start: 10-29-2023 End: 10-29-2023 Subsequent hospital visit by physician [address] Comment on above: Malignant neoplasm o f prostate (CMS/HCC) Start: 02-14-2022 ambulatory AURY Galeas TITAJennifer Nic ty:SUSAN Start: 02-14-2022 End: 02-14-2022 Patient encounter [facility] M[facility] So Outside Imaging Second Opinion Start: 02-06-2022 End: 02-07-2022 ambulatory WILLI ROQUE [facility] [place] Start: 02-06-2022 End: 02-06-2022 Evaluation and management of [facility] Start: 02-06-2022 End: 02-06-2022 Subsequent hospital visit by physician [address] Comment on above: Elevated prostate sp ecific antigen (PSA) Start: 12-26-2021 End: 12-26-2021 Subsequent hospital visit by physician Blas Madrid MD Work Phone: Imaging [facility] Comment on above: Canceled (Preferred Different Location/Provider) Start: 12-26-2021 ambulatory JENNY Lucero ty:SUSAN Start: 12-05-2021 ambulatory PROVIDER NOT I N SYSTEM Facility:SUSAN Start: 12-05-2021 End: 12-05-2021 Office outpatient new 45 minutes Blas Madrid MD Work Phone: Division [facility] Comment on above: Prostate cancer (Gypsy za Dx) Procedures Date Procedure Procedure Detail Performing Clinician Start: 05-04-[address] Evelin brewer MD Work Phone: Start: 05-04-[address] Shayy Rogers MD Work Phone: Start: 05-04-2025 Total iron binding capacity measurement Dr. Evelin Rogers MD Work Phone: Start: 03-10-2025 Total iron binding capacity measurement Dr. Evelin Rogers MD Work Phone: Start: 06-15-2024 SCAN OTHER ORDERS Provider Not In System Start: 06-15-2024 End: 06-15-2024 Prostate needle biopsy any approach Sylvain w Edenilson Roque MD Work Phone: Start: 10-29-2023 Mri pelvis w/o & w/contrast material Willi Roque MD Work Phone: Start: 10-29-2023 POCT CREATININE BLOOD Generic Provider Poct Work Phone: Start: 02-06-2022 POCT CREATININE BLOOD Generic Provider Poct Work Phone: Start: 12-05-2021 Urnls dip stick/tablet rgnt auto w/o microscopy Blas Madrid MD Work Phone: Start: 01-02-2019 Lipid 1996 panel - Serum or Plasma Flako ta Dominguez LPN Work Phone: Plan of Treatment Date Care Activity Detail Author Start: 03-12-2033 DTaP,Tdap,and Td Vaccines (5 - Td or Tdap) DTaP,Tdap,and Td Vaccines (5 - Td or Tdap) [facility] Start: 03-12-2033 Urine microalbumin profile DTaP,Tdap,Td Vaccine (4 - Td or Tdap) [facility] Start: 12-28-2030 RSV Vaccine (1 - 1-d ose 75+ series) RSV Vaccine (1 - 1-dose 75+ series) [facility] Start: 05-10-2029 DTaP,Tdap,and Td Vaccines (3 - Td or Tdap) DTaP,Tdap,and Td Vaccines (3 - Td or Tdap) [facility] Start: 05-10-2029 Tetanus vaccination TETANUS [facility] Start: 05-10-2029 Urine microalbumin profile DTaP,Tdap,Td Vaccine (3 - Td or Tdap) [facility] Start: 05-04-2025 Egd ablate tumor polyp/lesion w/dilation& wire EGD LESION ABLATION [facility] Start: 05-04-2025 Egd transoral biopsy single/multiple EGD BIOPSY SINGLE/MULTIPLE [facility] Start: 05-04-2025 Patient discharge [facility] Start: 10-29-2024 Hypertension/CHF/CAD Annual BMP Blood Test Hypertension/CHF/CAD Annual BMP Blood Test [facility] Start: 08-16-2024 End: 08-16-2024 Patient encounter procedure 08/16/2024 10:30 AM EST Office Visit General Surgery [address] [id number] Edu Medellin MD [address] [place] [address] Hiatal hernia General Surgery Comment on above: Hiatal hernia Start: 05-16-2024 Covid-19 Vaccine ( season) Covid-19 Vaccine ( season) [facility] Start: 05-16-2024 Influenza vaccination Influenza Vacc ine (#1) [facility] Start: 01-03-2024 Lipid panel Lipid Screening [facility] Start: 09-15-2023 Advance Directive Discussion Advance Directive Discussion [facility] Start: 05-16-2023 Influenza vaccination INFLUENZ A VACCINE (Season Ended) [facility] Start: 10-22-2022 Pneumococcal vaccination PNEUM OCOCCAL VACCINE SERIES (2 - PCV) [facility] Start: 10-22-2022 Pneumococcal Vaccine : 65+ Years (2 - PCV) Pneumococcal Vaccine: 65+ Years (2 - PCV) [facility] Start: 03-11-2022 End: 03-11-2022 Telemedicine consultation with patient 03/11/2022 Telemedicine Urology Blas Madrid MD [address] [place] [id number] Division [facility] at [facility] Start: 02-06-2022 Hypertension/CHF/CAD Annual BMP Blood Test Hypertension/CHF/CAD Annual BMP Blood Test [facility] Start: 01-16-2022 End: 01-16-2022 Telemedicine consultation with patient 01/16/2022 Telemedicine Urology Blas Madrid MD [address] [place] [address] Division of Urological Surgery at [facility] Start: 01-16-2022 Abdominal aortic aneurysm screening Abdominal Aortic Aneurysm (AAA) Screen [facility] Start: 01-16-2022 Adolescent depressio n screening assessment Depression Screening [facility] Start: 01-16-2022 Falls Risk Assessment Falls Risk Ass essment [facility] Start: 01-16-2022 Hepatitis C screening Hepatitis C Sc reening [facility] Start: 01-16-2022 Lipid panel Cholesterol Sc reening (Lipid Panel) [facility] Start: 01-16-2022 Medicare Annual Well ness Visit Medicare Annual Wellness Visit [facility] Start: 01-16-2022 Screening for malign ant neoplasm of colon Colorectal Cancer Screening: Colonoscopy [facility] Start: 01-16-2022 Social Influencers o f Health Screening Social Influencers of Health Screening [facility] Start: 01-02-2022 End: 01-02-2022 Patient encounter procedure 01/02/2022 Office Visit Urology Blas Madrid MD [address] [place] [id number] Division of Urological Surgery at [facility] Start: 12-26-2021 End: 12-26-2021 Patient encounter procedure 12/26/2021 Appointment Magnetic Resonance Imaging Blas Madrid MD [address] [place] [address] [facility] Start: 12-05-2021 End: 12-05-2022 MR Prostate WO and W contrast IV MRI PROSTATE WITH AND WITHOUT CONTRAST Imaging Routine Prostate cancer Expected: 12/05/2021, Expires: 12/05/2022 [facility] Comment on above: Expected: 12/05/2021 , Expires: 12/05/2022 Start: 12-05-2021 End: 12-05-2022 RECTAL SCREENING FOR CIPRO RESISTANCE [facility] Comment on above: Expected: 12/05/2021 , Expires: 12/05/2022 Start: 09-13-2021 COVID-19 Vaccine (4 - Booster for Pfizer series) COVID-19 Vaccine (4 - Booster for Pfizer series) [facility] Start: 08-18-2021 Diabetes Screening Diabetes Screenin g [facility] Start: 08-09-2021 COVID-19 VACCINE (4 - Pfizer series) COVID-19 VACCINE (4 - Pfizer series) [facility] Start: 12-28-2020 Abdominal aortic aneurysm screening ABDOMINAL AORTIC ANEURYSM HIGH RISK SCREEN [facility] Start: 12-28-2020 Pneumococcal vaccination [facility] Start: 12-28-2020 Pneumococcal Vaccine : 65+ (1 of 1 - PCV) Pneumococcal Vaccine: 65+ (1 of 1 - PCV) [facility] Start: 2015 RSV Immunization Patients 60+ Years Old (1 - 1-dose 60+ series) RSV Immunization Patients 60+ Years Old (1 - 1-dose 60+ series) [facility] Start: 12-28-2010 Prostate specific antigen measurement Prostate Cancer Screening Discussion [facility] Start: 12-28-2005 Prostate specific antigen measurement PROSTATE CANCER SCREENING DISCUSSION [facility] Start: 12-28-2005 Shingrix Vaccine (1 of 2) Shingrix Vaccine (1 of 2) [facility] Start: 12-28-2005 Zoster vaccine hzv l tristan for subcutaneous use ZOSTER (SHINGLES) VACCINE (1 of 2) [facility] Start: 12-28-2000 Colonoscopy COLORECTAL CAN CER SCREENING DISCUSSION [facility] Start: 12-28-2000 Screening for malign ant neoplasm of colon [facility] Start: 1995 Fasting lipid profile LIPID SCREENIN G [facility] Start: 1995 Lipid panel LIPID SCREENING [facility] Start: 12-28-1974 Third diphtheria, tetanus and acellular pertussis (DTaP) vaccination TDAP (ADULT) [facility] Start: 12-28-1973 Anxiety Screening Anxiety Screening [facility] Start: 12-28-1973 Depression Screening Depression Scre ening [facility] Start: 12-28-1973 Hepatitis C screening Hepatitis C Sc margot [facility] Start: 12-28-1973 Tetanus vaccination TETANUS [facility] Start: 1955 Hepatitis C antibody , confirmatory test HEPATITIS C VIRUS SCREENING [facility] Start: 1955 Hepatitis C screening HEPATITI S C VIRUS SCREENING [facility] End: 06-15-2024 12 lead ECG ECG 12 Lead ECG Routine Once for 1 Occurrences starting 06/15/2024 until 06/15/2024 [facility] Work Phone: Comment on above: Once for 1 Occurrenc es starting 06/15/2024 until 06/15/2024 Complete blood count [facility] Comprehensive metabo lic 2000 panel - Serum or Plasma [facility] Ferritin [Mass/volum e] in Serum or Plasma [facility] Iron and Iron bindin g capacity panel - Serum or Plasma [facility] End: 02-06-2022 MR Prostate w and [facility] Work Phone: Comment on above: Once for 1 Occurrenc es starting 02/06/2022 until 02/06/2022 Procedure on tissue specimen [facility] Comment on above: Release Upon Orderin g for 1 Occurrences starting 06/15/2024 Prothrombin time [facility] US.doppler Lower extremity vein [facility] Immunizations Immunization Date Immunization Notes Care Provider [facility] 06-03-2024 Seasonal trivalent influenza vaccine, adjuvanted, preservative free Dr. Evelin Rogers MD Work Phone: [facility] 06-06-2023 Pfizer Covid-19 (Comirnaty) Dr. Evelin Rogers MD Work Phone: [facility] 06-02-2023 Influenza High-Dose Quadrivalent Dr. Evelin Rogers MD Work Phone: [facility] 03-12-2023 Pneumococcal Vaccine PCV20 (Prevnar 20) Dr. Evelin Rogers MD Work Phone: [facility] 03-12-2023 tetanus toxoid, redu manuel diphtheria toxoid, and acellular pertussis vaccine, adsorbed Dr. Evelin Rogers MD Work Phone: [facility] 06-10-2022 Covid Pfizer Bivalen t Booster Dr. Evelin Rogers MD Work Phone: [facility] 06-03-2022 Influenza High-Dose Quadrivalent Dr. Evelin Rogers MD Work Phone: [facility] 10-22-2021 pneumococcal polysaccharide vaccine, [address] Evelin Rogers MD Work Phone: [facility] 06-14-2021 Covid (Pfizer) Dr. Evelin brewer MD Work Phone: [facility] 06-14-2021 Influenza High-Dose Quadrivalent Dr. Evelin Rogers MD Work Phone: [facility] 06-14-2021 influenza virus vacc ine, unspecified formulation [facility] Outside Imaging Mri So [facility] 12-14-2020 Covid (Pfizer) Dr. Evelin brewer MD Work Phone: [facility] 11-22-2020 Covid (Pfizer) Dr. Evelin brewer MD Work Phone: [facility] 07-13-2020 influenza, injectabl e, quadrivalent, preservative free Dr. Evelin Rogers MD Work Phone: [facility] 11-15-2019 hepatitis A vaccine, adult dosage Dr. Evelin Rogers MD Work Phone: [facility] 09-01-[address] Evelin Rogers MD Work Phone: [facility] 07-01-[address] Evelin Rogers MD Work Phone: [facility] 06-04-2019 influenza, injectabl e, quadrivalent, preservative free Dr. Evelin Rogers MD Work Phone: [facility] 05-10-2019 hepatitis A vaccine, adult dosage Dr. Evelin Rogers MD Work Phone: [facility] 05-10-2019 tetanus toxoid, redu manuel diphtheria toxoid, and acellular pertussis vaccine, adsorbed Dr. Evelin Rogers MD Work Phone: [facility] 05-10-[address] Evelin Rogers MD Work Phone: [facility] 05-22-2018 influenza, seasonal, injectable, preservative free Dr. Evelin Rogers MD Work Phone: [facility] 05-22-2018 Seasonal, quadrivale nt, recombinant, injectable influenza vaccine, preservative free Dr. Evelin Rogers MD Work Phone: [facility] 05-22-2018 influenza virus vacc ine, unspecified formulation Cyndie Dominguez [employer] Work Phone: [facility] 05-28-2015 influenza, seasonal, injectable, preservative free Dr. Evlein Rogers MD Work Phone: [facility] 05-28-2015 Seasonal, quadrivale nt, recombinant, injectable influenza vaccine, preservative free Dr. Evelin Rogers MD Work Phone: [facility] 05-18-2014 influenza, injectabl e, quadrivalent, preservative free Dr. Evelin Rogers MD Work Phone: [facility] 06-10-2013 influenza, injectabl e, quadrivalent, preservative free Dr. Evelin Rogers MD Work Phone: [facility] Payers Date Payer Category Payer Unknown [id number] 2024 Unknown [id number] 2024 Self-pay 2024 Unknown [id number] 2021 Medicare MEDICARE MEDICAR E PART A & B [id number] 2021-Present [address] [place] [address] Medicare [id number] 2021 Unknown [id number] 2021 Unknown [employer] [id number] 2021-Present [address] [place] [address] [id number] 2021 Unknown [id number] 2021 Unknown [id number] 2020 Medicare [id number] 2020 Medicare [id number] 1955 Unknown [id number] 1955 Unknown [id number] 1955 Unknown [id number] 2.840.1.374985.3.579.2.594 1955 Unknown [id number] [id number]4 1955 Unknown [id number] 1955 Unknown [id number] [id number]2 Unknown [id number] 2.16.840.1.909949.3.579.2.462 Unknown [id number] 2.16.840.1.508882.3.579.2.462 Unknown [id number] 2.16.840.1.587257.3.579.2.462 Unknown [id number] 2.16.840.1.172778.3.579.2.462 Unknown [id number] 2.16.840.1.472967.3.579.2.462 Unknown [id number] 2.16.840.1.542074.3.579.2.462 Unknown [id number] 2.840.1.360749.3.579.2.462 Unknown [id number] 2.840.1.057048.3.579.2.462 Unknown [id number] 2.840.1.673664.3.579.2.462 Unknown [id number] [id number] Unknown [id number] 2.840.1.758957.3.579.2.462 Unknown [id number] Unknown [id number] [id number] Unknown [id number] 2.840.1.406845.3.579.2.462 Unknown [id number] 2.840.1.080992.3.579.2.462 Unknown [id number] 2.16840.1.774154.3.579.2.462 Unknown [id number] 2.16.840.1.398078.3.579.2.462 Unknown [id number] 2.16840.1.990804.3.579.2.462 Unknown [id number] 2.840.1.414484.3.579.2.462 Unknown [id number] 2.16.840.1.549364.3.579.2.462 Unknown [id number] 2.16.840.1.981566.3.579.2.462 Unknown [id number] 2.16.840.1.063958.3.579.2.462 Unknown [id number] 2.16.840.1.230828.3.579.2.462 Unknown [id number] 2.16.840.1.870258.3.579.2.462 Unknown [id number] 2.16.840.1.782627.3.579.2.462 Unknown [id number] 2.16.840.1.258905.3.579.2.462 Unknown [id number] 2..840.1.767114.3.579.2.462 Social History Date Type Detail Facility Start: 12-05-2021 End: 05-03-2025 Tobacco smoking status NHIS Never smoked tobacco [facility] Start: 12-05-2021 End: 08-16-2024 Tobacco use and exposure Smokeless tobacco non-user [facility] Start: 12-05-2021 End: 06-15-2024 Alcohol intake Lifetime non-drinker (finding) [facility] Start: 1955 Sex Assigned At Not on file [facility] Start: 11-25-2021 End: 02-06-2022 Exposure to SARS-CoV-2 (event) Not sure [facility] Tobacco smoking stat us NMIS Tobacco smoking consumption unknown [facility] Work Phone: Start: 12-05-2021 End: 08-16-2024 History of Social function [facility] Start: 12-05-2021 End: 08-16-2024 Tobacco use panel [facility] Start: 1955 Sex assigned at Male [facility] Start: 08-10-2024 Gender identity Identifies as male gender (finding) [facility] Start: 12-13-2021 Sexual orientation Heterosexual (fin dayanna) [facility] National Score (1-10 0), lower number is lower risk 47 [facility] Start: 12-03-2024 End: 12-13-2024 Sex Male (finding) [facility] Goals Date Patient Goal Desired Activity /State Mental Status Date Assessment Result Facility 05-04-2025 Cognitive function Voice/Name [facility] Work Phone: Clinical Notes 12-05-2021 to 05-04-2025 Note Date & Type Note Facility 05-04-2025 History and physi rosa note Note Date/Time May 04, 2025 10:10am [facility] Medical Records Department [address] [place] [address] History & Physical Exam 05/04/2545 MR#: [id number] Acct: [id number] Name: JACEY AGUILERA Rep #:[id number] : 1955 69 From: Jeremy Serrano DO PCP: Dr. Evelin Rogers MD Status:[facility] Location: [place] [address] HPI - General General Chief Complaint: Cadena's esophagus HPI Narrative JACEY AGUILERA, is a 69 M who presents Chief Complaint: Barrets esophagus Pt underwent EGD and colonoscopy in Jul 2024 for issues with anemia. EGD 06.29.24 ; Esophageal mucosal changes consistent with long-segment Cadena's esophagus. Biopsied. - Large hiatal hernia. - Gastric erosions with no stigmata of recent bleeding. - Duodenitis. Biopsied. Colonoscopy 06.29.24 - One 8 mm polyp in the cecum, removed with a jumbo cold forceps. Resected and retrieved. - Diverticulosis in the recto-sigmoid colon, in the sigmoid colon and in the descending colon. Pt has been doing well since being on Pantoprazole 40 mg BID. He denies all GI symptoms. He is interested in decreasing/discontinuing this medication. He is nolonger strugglign with anemia. [facility] Medical History Gastric reflux Low iron Non-smoker Shortness of breath on exertion History of Holter monitoring History of echocardiogram History of stress test Iron deficiency anemia due to chronic blood loss Nocturia Prostate cancer Hypertension Home Medications ?Medication ?Instructions ?Recorded ?Last Taken ?Type sildenafil 100 mg tablet 100 mg PO DAILY PRN sexual 0 01/13/25 05/04/25 Rx activity #90 tabs chlorthalidone 25 mg tablet 25 mg PO QDAY #90 tabs 05/0905/03/25 Rx ferrous sulfate 325 mg (65 mg 325 mg PO DAILY 03/22/25 05/03/25 History iron) tablet pantoprazole 40 mg tablet,delayed 40 mg PO DAILY #180 tabs 03/22/25 05/04/25 Rx release warfarin 10 mg tablet 10 mg PO QDAY #90 tabs 03/2804/30/25 Rx Allergy/AdvReac Type Severity Reaction Status Date / Time No Known Allergies Allergy Verified 05/04/25 09:27 Family History Father Cancer, Onset Age: 65 prostate Hypertension Surgical History Hx of colonoscopy Hx of prostate biopsy H/O hernia repair Social History household members: spouse housing: house current occupational status: retired and 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, 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 Smoking Status: Never smoker Electronic Cigarette Use: not used alcohol intake: never substance use type: does not use what type of physical activity do you participate in: walking, bicycling and other details: pickleball cassandra/episcopal: Pentecostal seatbelt use: always do you feel safe at home: Yes ROS Constitutional Constitutional: Denies fatigue, fever(s), poor appetite, weight gain or weight loss Gastrointestinal Gastrointestinal: Denies belching, bloating, change in bowel habits, change in stool character, chewing difficulty, coffee ground emesis, constipation, cramping, diarrhea, dyspepsia, dysphagia, early satiety, excessive flatus, fecalincontinence, heartburn, hematemesis, hematochezia, hemorrhoids, loose stools, melena, nausea, odynophagia, rectal bleeding, tenesmus, vomiting or weight changes Vital Signs Vital Signs Vital Signs: 05/04/25 09:29 05/04/25 09:29 Temperature 96.8 F L Temperature Source Temporal Pulse Rate 60 Respiratory Rate 17 Respiratory Pattern Normal Blood Pressure 122/81 H Blood Pressure Mean 94 Blood Pressure Source Monitor Blood Pressure Position Semi-Fowlers Blood Pressure Location Left Arm Pulse Ox 92 Oxygen Delivery Method Room Air Weight Weight: 251 lb 5.231 oz Body Mass Index (BMI) 31.4 Physical Exam Const alert, oriented x3, no apparent distress and healthy appearing General Appearance: cooperative GI normal to inspection, nondistended, normoactive bowel sounds, soft to palpation,non-tender and non-distended Percussion: normal to percussion Rectal Exam: deferred Results Lab / Micro Data Labs: Laboratory Results - last 24 hr 05/04/25 08:56: POC PT 17.3 H, INR 1.5 Assessment & Plan Assessment/Plan (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 QualifiedCode(s): 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 PLAN: Assessment and Plan Assessment and Plan (1) Cadena esophagus: Status: Acute Qualifiers: 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 Qualified Code(s): K22.70 -Cadena's esophagus without dysplasia Plan: Guerline is a 69 yo male pt here today for Barretts esophagus. Pt was diagnosed with Barretts after EGD and colonoscopy back in July 2024 for iron deficiency anemia. He has been on pantoprazole 40 mg twice a day since. He is not having any upper GI symptoms at this time and is interested in discontinuingthe PPI. I discussed the need to continue PPI to prevent esophageal cancer. I did give him the option for RFA of the barretts esophagus which he was interested. He will be scheduled for this. In the interim, he will decrease frequency of PPI to once per day. He is agreeable to this plan. -EGD with RFA -Continue pantoprazole 40 mg daily -f/u after procedure (2) GERD (gastroesophageal reflux disease): Status: Acute Qualifiers: Esophagitis presence: with esophagitis Esophagitis bleeding: without hemorrhage Qualified Code(s): K21.00 - Gastro-esophageal reflux disease with esophagitis, without bleeding 05/04/25 1010 <Electronically signed by Jeremy Serrano DO> Cosigner Signature (if applicable): CC: Dr. Evelin Rogers MD; Jeremy Serrano DO~ Signed [facility] Work Phone: 1(959) 908-728608-20-2025 Consult note Author Jerry Mauro [facility] Note Date/Time May 04, 2025 9: 56am [facility] Medical Records Department [address] [place] [address] Pre-Anesthesia Evaluation 05/04/25 0949 MR#: [id number] Acct: [id number] Name: JACEY AGUILERA Rep #:[id number] : 1955 69 From: Jerry Mauro MD PCP: Dr. Evelin Rogers MD Status:REG SDC Y Race: C Location: [place] [address] ASA Classification* ASA Classification ASA Classification: 3 Assessment & Plan Anesthesia* Anesthesia Assessment Anesthesia Assessment: Discussed sedation and/or anesthesia options, risks, benefits, and alternatives with patient/parents/legal guardian/POA. Questions invited. The patient/parents/legal guardian/POA seems to understand and agrees to proceedwith anesthesia plan. Reviewed the physical assessment, medical history, allergy history and patient home medications list prior to surgery/procedure/anesthetic and documented any changes. Performed airway and anesthesia risk assessments. Anesthesia Type Anesthesia Type: MAC History Source History Obtained from:: Patient and Chart Anesthesia Focused Assessment* Temperature: 96.8 F Pulse Rate: 60 Blood Pressure: 122/81 Respiratory Rate: 17 Pulse Ox: 92 Oxygen Delivery Method: Room Air Airway Assessment Mouth opens: >3 cm Mallampati Score: IV Teeth Condition: Caps/Crowns (Patient has several crowns. They are tight.) Neck Range of motion (ROM): Limited ROM (Slight Decrease) Labs Anesthesia Preop lab: CBC WBC 6.4 K/mm3 (4.4-11.0) 05/04/25 08:52 05/04/25 RBC 5.10 M/mm3 (4.6-6.2) 05/04/25 08:52 05/04/25 Hgb 16.1 g/dL (13.0-16.5) 05/04/25 08:52 05/04/25 Hct 44.8 % (40-54) 05/04/25 08:52 05/04/25 Plt Count 210 K/mm3 (150-450) 05/04/25 08:52 05/04/25 CHEMISTRY Potassium 3.4 mmol/L (3.3-5.1) 03/10/25 11:17 03/10/25 Sodium 140 mmol/L (133-145) 03/10/25 11:17 03/10/25 Magnesium 2.2 mg/dL (1.6-2.6) 05/21/24 11:23 05/21/24 BUN 23 mg/dL (4-19) H 03/10/25 11:17 03/10/25 Creatinine 1.46 mg/dL (0.70-1.20) H 03/10/25 11:17 Glucose 123 mg/dL (70-99) H 03/10/25 11:17 03/10/25 TSH 2.610 uIU/mL (0.358-3.740) 05/21/24 11:23 03/08 COAG PT 28.4 SECONDS (11.7-14.9) H 03/31/25 10:38 03/15 04/08 Pre-Assessment Diagnosis/Proposed Procedure Planned Operative Procedure(s): EGD Anesthesia History Anesthesia History - vocational counselor: Anesthesia History - vocational counselor Hx Hospitalization No 05/03/25 12:39 Any Problems With Anesthesia No 05/03/25 12:39 Cholinesterase deficiency No 05/03/25 12:39 You/Your Family Experience No 05/03/25 12:39 fever (hyperthermia) with Relationship Recent Exposure to Contagious No 05/04/25 09:29 Disease Does patient have nerve No 05/03/25 12:39 stimulator Patient instructed to have device shut off --Does patient have Pacemaker No 05/04/25 09:29 or ICD? When Was Last Pacemaker Check QUESTION #4 FULL TEXT: You/Your Family Experience fever (hyperthermia) with Anesthesia Last Oral Intake Last Oral intake: Last Oral Intake NPO since 06:15 05/04/25 09:29 Meds taken in AM with sips of Yes 05/04/25 09:29 water? Meds patient instructed to take am of surgery Any additional information?: Yes Meds taken in AM with sips of water?: Yes PONV PONV - vocational counselor: PONV - vocational counselor Female No 05/03/25 12:39 HX of Motion Sickness No 05/03/25 12:39 HX of N/V After Surgery No 05/03/25 12:39 Non-Smoker Yes 05/03/25 12:39 Duration of Surgery greater No 05/03/25 12:39 than 60 minutes Number of Risk Factors 1 05/03/25 12:39 PONV Score Low Risk 05/03/25 12:39 Height & Weight Height & Weight: Anesthesia: Height & Weight Height 6 ft 3 in 05/04/25 09:29 Weight: 114 kg 05/04/25 09:29 Body Mass Index (BMI) 31.4 05/04/25 09:29 Respiratory Assessment Respiratory Assessment - vocational counselor: Respiratory Tract Infection Hx - vocational counselor Hx Respiratory Tract Infection No 05/03/25 12:39 STOP Sleep Apnea STOP Sleep Apnea - vocational counselor: STOP Sleep Apnea - vocational counselor Hx Hypertension Yes: CONTROLLED WITH MEDS 05/03/25 12:39 Hx Sleep Apnea No 05/03/25 12:39 CPAP BIPAP Do you snore loudly (louder No 05/03/25 12:39 than talking or can be heard Do you often feel tired/ No 05/03/25 12:39 fatigued/ sleepy during daytime? Has anyone observed you stop No 05/03/25 12:39 breathing during sleep? STOP Results Negative 05/03/25 12:39 QUESTION #5 FULL TEXT : Do you snore loudly (louder than talking or can be heard through closed doors)? 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 Specify any problems Hx of Preganancy in last 3 N/A 05/03/25 12:39 Months Nurse Filling Out Transfusion [id number] 05/03/25 12:39 & Questions: Date: 05/03/25 05/03/25 12:39 Time: 12:41 05/03/25 12:39 Patient unable to answer at this time (ie. confused, unrespo /Reproduction History /Reproductive History - vocational counselor: /Reproductive Hx- vocational counselor Hx Now Gestational Age (in weeks): EDC: Hx Hx Para Hx Section SAB No 05/03/25 12:39 Active Medications Active Medications: Current Medications Generic Name Dose Route Start Last Admin Trade Name Freq PRN Reason Stop Dose Admin Lactated Ringer's 1,000 mls @ 15 mls/hr 05/04/25 09:15 05/04/25 09:42 IV 15 mls/hr .Q48H SONIA Administration PFSH Medical History Gastric reflux Low iron Non-smoker Shortness of breath on exertion History of Holter monitoring History of echocardiogram History of stress test Iron deficiency anemia due to chronic blood loss Nocturia Prostate cancer Hypertension Home Medications ?Medication ?Instructions ?Recorded ?Last Taken ?Type sildenafil 100 mg tablet 100 mg PO DAILY PRN sexual 0 01/13/25 05/04/25 Rx activity #90 tabs chlorthalidone 25 mg tablet 25 mg PO QDAY #90 tabs 05/0905/03/25 Rx ferrous sulfate 325 mg (65 mg 325 mg PO DAILY 03/22/25 05/03/25 History iron) tablet pantoprazole 40 mg tablet,delayed 40 mg PO DAILY #180 tabs 03/22/25 05/04/25 Rx release warfarin 10 mg tablet 10 mg PO QDAY #90 tabs 03/2804/30/25 Rx Allergy/AdvReac Type Severity Reaction Status Date / Time No Known Allergies Allergy Verified 05/04/25 09:27 Family History Father Cancer, Onset Age: 65 prostate Hypertension Surgical History Hx of colonoscopy Hx of prostate biopsy H/O hernia repair Social History household members: spouse housing: house current occupational status: retired and 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 05/04/25 0956 <Electronically signed by Jerry medina MD> Date _ Jerry Mauro MD Cosigner Signature: Date CC: ~ Signed [facility] Work Phone: 1(225) 728-720508-20-2025 Procedure note [facility] Medical Records Department [address] [place] [address] EGD Report MR#: [id number] Acct: [id number] Name: JACEY AGUILERA Rep #:[id number] : 1955 69 From: Jeremy Serarno DO PCP: Dr. Evelin Rogers MD Status:[facility] Patient Name: Jacey Aguilera Procedure Date: 05/04/2025 10:14 AM Date of : 1955 Age: 69 Procedure: Upper GI endoscopy Indications: Iron deficiency anemia, For therapy of Cadena's esophagus Providers: Jeremy Serrano DO Referring MD: Evelin Rogers Md Medicines: Monitored Anesthesia Care Patient Profile: This is a 69 year old male. Refer to note in patient chart for documentation of history and physical. Patient has symptoms of acute heartburn and chronic heartburn. His most recent EGD for Cadena's biopsy was within the past six months. Complications: No immediate complications. Procedure: Pre-Anesthesia Assessment: - Prior to the procedure, a History and Physical was performed, and patient medications and allergies were reviewed. The patient is competent. The risks and benefits of the procedure and the sedation options and risks were discussed with the patient. All questions were answered and informed consent was obtained. Patient identification and proposed procedure were verified by the physician in the pre-procedure area. Mental Status Examination: alert and oriented. Airway Examination: normal oropharyngeal airway and neck mobility. Respiratory Examination: clear to auscultation. CV Examination: normal. Prophylactic Antibiotics: The patient does not require prophylactic antibiotics. Prior Anticoagulants: The patient has taken no anticoagulant or antiplatelet agents. ASA Grade Assessment: II - A patient with mild systemic disease. After reviewing the risks and benefits, the patient was deemed in satisfactory condition to undergo the procedure. The anesthesia plan was to use monitored anesthesia care (MAC). Immediately prior to administration of medications, the patient was re-assessed for adequacy to receive sedatives. The heart rate, respiratory rate, oxygen saturations, blood pressure, adequacy of pulmonary ventilation, and response to care were monitored throughout the procedure. The physical status of the patient was re-assessed after the procedure. After obtaining informed consent, the endoscope was passed under direct vision. Throughout the procedure, the patient's blood pressure, pulse, and oxygen saturations were monitored continuously. The Endoscope was introduced through the mouth, and advanced to the second part of duodenum. The upper GI endoscopy was accomplished without difficulty. The patient tolerated the procedure well. Scope In: 10:31:41 AM Scope Out: 10:53:37 AM Total Procedure Duration Time 0 hours 21 minutes 56 seconds Findings: The esophagus and gastroesophageal junction were examined with white light and narrow band imaging (NBI) from a forward view and retroflexed position. There were esophageal mucosal changes secondary to established long-segment Cadena's disease. These changes involved the mucosa at the upper extent of the gastric folds (41 cm from the incisors) extending to the Z-line (34 cm from the incisors). Circumferential salmon-colored mucosa was present at 36 cm and circumferential salmon-colored mucosa was present at 41 cm. The maximum longitudinal extent of these esophageal mucosal changes was 7 cm in length. Mucosa was biopsied with a cold forceps for histology in a targeted manner at intervals of 1 cm in the lower third of the esophagus. One specimen bottle was sent to pathology. Verification of patient identification for the specimen was done. Estimated blood loss was minimal. The esophagus and gastroesophageal junction were examined with white light and narrow band imaging (NBI) from a forward view and retroflexed position. There were esophageal mucosal changes secondary to established long-segment Cadena's disease. These changes involved the mucosa at the upper extent of the gastric folds (41 cm from the incisors) extending to the Z-line (34 cm from the incisors). Bradford-colored mucosa was present. The maximum longitudinal extent of these esophageal mucosal changes was 7 cm in length. Circumferential radiofrequency ablation of Cadena's esophagus was performed using the ExtraOrthox 360 Express catheter and balloon-based endoscopic ablation system. With the endoscope in place, the position and extent of the Cadena's mucosa and the anatomic landmarks including top of gastric folds were noted. Endoscopic visualization identified an ablation site including the entire visible Cadena's segment. The Cadena's mucosa was irrigated with water. Gastric contents were suctioned. A guidewire was passed down the biopsy channel of the endoscope. As the endoscope was withdrawn from the mouth, the guidewire was left in place. An auto-sizing radiofrequency ablation balloon catheter was passed transorally over the guidewire into the esophagus. The endoscope was introduced in a [id number] manner with the ablation catheter. Under direct endoscopic visualization, the balloon ablation catheter was positioned so that the proximal edge of the electrode was slightly above the proximal edge of the Cadena's mucosa. The balloon was automatically inflated, and energy was applied at 10 J/cm2. The balloon electrode was moved 4 cm distally, so that the proximal edge of the electrode was aligned with the distal edge of the ablation zone. The process of balloon inflation and ablation was repeated until the top of the gastric folds was reached. The ablation catheter and guidewire were removed, and the balloon was cleaned. The ablation zone was then cleaned of overlying coagulative debris using irrigation and suction via the endoscope and a cleaning cap. The guidewire was reinserted, and then the ablation catheter was reintroduced into the esophagus over the wire. The ablation catheter was positioned under direct endoscopic visualization so that the proximal edge of the electrode was at the proximal edge of the ablation zone. Reinflation and a second round of ablation were performed with the application of 10 J/cm2 to re-treat the Cadena's epithelium already treated with the first round of ablation. The ablation catheter and guidewire were then removed. The areas of the esophagus where Cadena's mucosa had been ablated were then examined with the endoscope. Areas of visible Cadena's esophagus were completely ablated. A large hiatal hernia was present. No gross lesions were noted in the second portion of the duodenum. Impression: - Esophageal mucosal changes secondary to established long-segment Cadena's disease. Biopsied. 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 Treated with radiofrequency ablation. - Large hiatal hernia. - No gross lesions in the second portion of the duodenum. Recommendation: - Discharge patient to home. - Full liquid diet. - Continue present medications. Special Instructions for after Ablation of Cadena???s Esophagus Diet to follow after procedure Day 1 (day of procedure, after procedure) ??? Clear Liquid Diet Fruit juice (no pulp) Gelatin (no red) Fruit ice (no pulp) Popsicle (no pulp) Clear hard candy Black coffee Etc., a more detailed list will be provided after procedure Day 2 and 3 ??? Full Liquid Diet Milkshake Cream of wheat Coffee with cream Creamed soups Etc., a more detailed list will be provided after procedure Day 4 through 10 (7 days) ??? Soft Diet No tough meats No chips No raw fruits or vegetables Etc., a more detailed list will be provided after procedure No warm fluids for 24 hours starting after procedure Medications (prescriptions) you will be given after procedure Proton Pump Inhibitor (Prilosec, Nexium, Protonix, etc.) These medication are used for acid reflux. You should already be taking one of these medications at home or your doctor may prescribe one of these drugs for you the day of the procedure. If you are already on one of these drugs your doctor may increase the dose after your procedure. Carafate This medication is used to coat your esophagus and prevent ulceration. IMPORTANT: Take this medication until gone. GI Cocktail This medication is used to coat the esophagus. It will help with any pain or discomfort that you may experience when eating after the procedure. Take this medication as needed for discomfort or pain. Zofran ODT This medication is used for nausea. Take this medication as needed for nausea. Liquid Tylenol with Codeine This medication is used for pain. Take this medication as needed for pain. Procedure Code(s): --- Professional --- 51199, Esophagogastroduodenoscopy, flexible, transoral; with ablation of tumor(s), polyp(s), or other lesion(s) (includes pre- and post-dilation and guide wire passage, when performed) 31966, 59,51, Esophagogastroduodenoscopy, flexible, transoral; with biopsy, single or multiple CPT copyright 2021 [employer]. All rights reserved. The codes documented in this report are preliminary and upon cancer center director review may be revised to meet current compliance requirements. Jeremy Serrano DO 05/04/2025 11:40:20 AM This report has been signed electronically. Number of Addenda: 0 Note Initiated On: 05/04/2025 10:14 AM 05/04/25 1140 Date _ Jeremy Serrano DO Cosigner Signature: Date (if indicated) CC: Dr. Evelin Rogers MD; Jeremy Serrano DO ~ Date Dictated: 05/04/25 1014 Date Transcribed: See Wheeler: RF Signed [facility]08-20-2025 Procedure note [facility] Medical Records Department [address] [place] [address] Provation Physician Letter MR#: [id number] Acct: [id number] Name: JACEY AGUILERA Rep #:[id number] : 1955 69 From: Jeremy Serrano DO PCP: Dr. Evelin Rogers MD Status:[facility] [place], [place] 05/04/2025 Evelin Rogers Md Re : Upper GI endoscopy procedure for Jacey Ale Rogers This procedure was performed on Sunday, May 04, 2025. My impressions and recommendations are as follows: Impressions : - Esophageal mucosal changes secondary to established long-segment Cadena's disease. Biopsied. 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 Treated with radiofrequency ablation. - Large hiatal hernia. - No gross lesions in the second portion of the duodenum. Recommendations : - Discharge patient to home. - Full liquid diet. - Continue present medications. Special Instructions for after Ablation of Cadena?s Esophagus Diet to follow after procedure Day 1 (day of procedure, after procedure) ? Clear Liquid Diet Fruit juice (no pulp) Gelatin (no red) Fruit ice (no pulp) Popsicle (no pulp) Clear hard candy Black coffee Etc., a more detailed list will be provided after procedure Day 2 and 3 ? Full Liquid Diet Milkshake Cream of wheat Coffee with cream Creamed soups Etc., a more detailed list will be provided after procedure Day 4 through 10 (7 days) ? Soft Diet No tough meats No chips No raw fruits or vegetables Etc., a more detailed list will be provided after procedure No warm fluids for 24 hours starting after procedure Medications (prescriptions) you will be given after procedure Proton Pump Inhibitor (Prilosec, Nexium, Protonix, etc.) These medication are used for acid reflux. You should already be taking one of these medications at home or your doctor may prescribe one of these drugs for you the day of the procedure. If you are already on one of these drugs your doctor may increase the dose after your procedure. Carafate This medication is used to coat your esophagus and prevent ulceration. IMPORTANT: Take this medication until gone. GI Cocktail This medication is used to coat the esophagus. It will help with any pain or discomfort that you may experience when eating after the procedure. Take this medication as needed for discomfort or pain. Zofran ODT This medication is used for nausea. Take this medication as needed for nausea. Liquid Tylenol with Codeine This medication is used for pain. Take this medication as needed for pain. My findings are described in the full procedure note, which is enclosed. If I can be of further assistance, please feel free to contact me at . Sincerely, Jeremy Serrano, 05/04/2025 11:40:20 AM This report has been signed electronically. 05/04/25 1140 Date _ Jeremy Alberto Signature: Date (if indicated) CC: Dr. Evelin Rogers MD; DO Zeeshan Schuler Date Dictated: 05/04/25 1014 Date Transcribed: See Wheeler: RF Signed [facility]08-20-2025 Consult note [facility] Medical Records Department [address] [place] [address] Anesthesia Postop Eval I 05/04/25 1109 MR#: [id number] Acct: [id number] Name: JACEY AGUILERA Rep #:[id number] : 1955 69 From: Matthew Sy PCP: Dr. Evelin Rogers MD Status:[facility] [place] [place] Y Race: C Location: [place] [address] Anesthesia: Postop Eval I Current Vital Signs Temperature: 97 F Pulse Rate: 62 Blood Pressure: 96/72 Respiratory Rate: 16 Pulse Ox: 92 Oxygen Delivery Method: Nasal Cannula Oxygen Flow Rate (L/min): 2 Assessment Airway patent: Yes Spontaneous unlabored respirations: Yes Mental status: Asleep nausea: No Vomiting: No Anesthesia Complication: Yes Anesthesia Complication Comment:: O2 sat <90% d/t mouth breathing Fluid Hydration Crystalloid volume administer (ml): 400 Total IV fluid infused: 400 Progress Note Anesthesia document: Postop Eval 1 completed: Yes 05/04/25 1111 > Date _ Matthew Diaz Signature: Date CC: ~ Signed [facility]08-20-2025 History and physical note [facility] Medical Records Department [address] [place] [address] History & Physical Exam 05/04/25 0945 MR#: [id number] Acct: [id number] Name: ALEJACEY GUERLINE Rep #:[id number] : 1955 69 From: Jeremy Serrano DO PCP: Dr. Evelin Rogers MD Status:[facility] Location: [place] [address] HPI - General General Chief Complaint: Cadena's esophagus HPI Narrative JACEY AGUILERA, is a 69 M who presents Chief Complaint: Barrets esophagus Pt underwent EGD and colonoscopy in Jul 2024 for issues with anemia. EGD 06.29.24 ; Esophageal mucosal changes consistent with long-segment Cadena's esophagus. Biopsied. - Large hiatal hernia. - Gastric erosions with no stigmata of recent bleeding. - Duodenitis. Biopsied. Colonoscopy 06.29.24 - One 8 mm polyp in the cecum, removed with a jumbo cold forceps. Resected and retrieved. - Diverticulosis in the recto-sigmoid colon, in the sigmoid colon and in the descending colon. Pt has been doing well since being on Pantoprazole 40 mg BID. He denies all GI symptoms. He is interested in decreasing/discontinuing this medication. He is nolonger strugglign with anemia. [facility] Medical History Gastric reflux Low iron Non-smoker Shortness of breath on exertion History of Holter monitoring History of echocardiogram History of stress test Iron deficiency anemia due to chronic blood loss Nocturia Prostate cancer Hypertension Home Medications ?Medication ?Instructions ?Recorded ?Last Taken ?Type sildenafil 100 mg tablet 100 mg PO DAILY PRN sexual 0 01/13/25 05/04/25 Rx activity #90 tabs chlorthalidone 25 mg tablet 25 mg PO QDAY #90 tabs 05/0905/03/25 Rx ferrous sulfate 325 mg (65 mg 325 mg PO DAILY 03/22/25 05/03/25 History iron) tablet pantoprazole 40 mg tablet,delayed 40 mg PO DAILY #180 tabs 03/22/25 05/04/25 Rx release warfarin 10 mg tablet 10 mg PO QDAY #90 tabs 03/2804/30/25 Rx Allergy/AdvReac Type Severity Reaction Status Date / Time No Known Allergies Allergy Verified 05/04/25 09:27 Family History Father Cancer, Onset Age: 65 prostate Hypertension Surgical History Hx of colonoscopy Hx of prostate biopsy H/O hernia repair Social History household members: spouse housing: house current occupational status: retired and 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[employer], 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 Smoking Status: Never smoker Electronic Cigarette Use: not used alcohol intake: never substance use type: does not use what type of physical activity do you participate in: walking, bicycling and other details: pickleball cassandra/episcopal: Pentecostal seatbelt use: always do you feel safe at home: Yes ROS Constitutional Constitutional: Denies fatigue, fever(s), poor appetite, weight gain or weight loss Gastrointestinal Gastrointestinal: Denies belching, bloating, change in bowel habits, change in stool character, chewing difficulty, coffee ground emesis, constipation, cramping, diarrhea, dyspepsia, dysphagia, earlysatiety, excessive flatus, fecalincontinence, heartburn, hematemesis, hematochezia, hemorrhoids, loose stools, melena, nausea, odynophagia, rectal bleeding, tenesmus, vomiting or weight changes Vital Signs Vital Signs Vital Signs: 05/04/25 09:29 05/04/25 09:29 Temperature 96.8 F L Temperature Source Temporal Pulse Rate 60 Respiratory Rate 17 Respiratory Pattern Normal Blood Pressure 122/81 H Blood Pressure Mean 94 Blood Pressure Source Monitor Blood Pressure Position Semi-Fowlers Blood Pressure Location Left Arm Pulse Ox 92 Oxygen Delivery Method Room Air Weight Weight: 251 lb 5.231 oz Body Mass Index (BMI) 31.4 Physical Exam Const alert, oriented x3, no apparent distress and healthy appearing General Appearance: cooperative GI normal to inspection, nondistended, normoactive bowel sounds, soft to palpation,non-tender and non-distended Percussion: normal to percussion Rectal Exam: deferred Results Lab / Micro Data Labs: Laboratory Results - last 24 hr 05/04/25 08:56: POC PT 17.3 H, INR 1.5 Assessment & Plan Assessment/Plan (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 QualifiedCode(s): 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 PLAN: Assessment and Plan Assessment and Plan (1) Cadena esophagus: Status: Acute Qualifiers: 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 Qualified Code(s): K22.70 -Cadena's esophagus without dysplasia Plan: Guerline is a 69 yo male pt here today for Barretts esophagus. Pt was diagnosed with Barretts after EGDand colonoscopy back in July 2024 for iron deficiency anemia. He has been on pantoprazole 40 mgtwice a day since. He is not having any upper GI symptoms at this time and is interested in discontinuingthe PPI. I discussed the need to continue PPI to prevent esophageal cancer. I did give him theoption for RFA of the barretts esophagus which he was interested. He will be scheduled for this. Inthe interim, he will decrease frequency of PPI to once per day. He is agreeable to this plan. -EGD with RFA -Continue pantoprazole 40 mg daily -f/u after procedure (2) GERD (gastroesophageal reflux disease): Status: Acute Qualifiers: Esophagitis presence: with esophagitis Esophagitis bleeding: without hemorrhage Qualified Code(s): K21.00 - Gastro-esophageal reflux disease with esophagitis, without bleeding 05/04/25 1010 Cosigner Signature (if applicable): CC: Dr. Evelin Rogers MD; Jeremy Friend, DO~ Signed [facility]08-20-2025 Consult note [facility] Medical Records Department [address] [place] [address] Pre-Anesthesia Evaluation 05/04/25 0949 MR#: [id number] Acct: [id number] Name: JACEY AGUILERA Rep #:[id number] : 1955 69 From: Jerry Mauro MD PCP: Dr. Evelin Rogers MD Status:[facility] Y Race: C Location: [place] [address] ASA Classification* ASA Classification ASA Classification: 3 Assessment & Plan Anesthesia* Anesthesia Assessment Anesthesia Assessment: Discussed sedation and/or anesthesia options, risks, benefits, and alternatives with patient/parents/legal guardian/POA. Questions invited. The patient/parents/legal guardian/POA seems to understand and agrees to proceedwith anesthesia plan. Reviewed the physical assessment, medical history, allergy history and patient home medications list prior to surgery/procedure/anesthetic and documented any changes. Performed airway and anesthesia risk assessments. Anesthesia Type Anesthesia Type: MAC History Source History Obtained from:: Patient and Chart Anesthesia Focused Assessment* Temperature: 96.8 F Pulse Rate: 60 Blood Pressure: 122/81 Respiratory Rate: 17 Pulse Ox: 92 Oxygen Delivery Method: Room Air Airway Assessment Mouth opens: >3 cm Mallampati Score: IV Teeth Condition: Caps/Crowns (Patient has several crowns. They are tight.) Neck Range of motion (ROM): Limited ROM (Slight Decrease) Labs Anesthesia Preop lab: CBC WBC 6.4 K/mm3 (4.4-11.0) 05/04/25 08:52 05/04/25 RBC 5.10 M/mm3 (4.6-6.2) 05/04/25 08:52 05/04/25 Hgb 16.1 g/dL (13.0-16.5) 05/04/25 08:52 05/04/25 Hct 44.8 % (40-54) 05/04/25 08:52 05/04/25 Plt Count 210 K/mm3 (150-450) 05/04/25 08:52 05/04/25 CHEMISTRY Potassium 3.4 mmol/L (3.3-5.1) 03/10/25 11:17 03/10/25 Sodium 140 mmol/L (133-145) 03/10/25 11:17 03/10/25 Magnesium 2.2 mg/dL (1.6-2.6) 05/21/24 11:23 05/21/24 BUN 23 mg/dL (4-19) H 03/10/25 11:17 03/10/25 Creatinine 1.46 mg/dL (0.70-1.20) H 03/10/25 11:17 Glucose 123 mg/dL (70-99) H 03/10/25 11:17 03/10/25 TSH 2.610 uIU/mL (0.358-3.740) 05/21/24 11:23 03/08 COAG PT 28.4 SECONDS (11.7-14.9) H 03/31/25 10:38 03/15 04/08 Pre-Assessment Diagnosis/Proposed Procedure Planned Operative Procedure(s): EGD Anesthesia History Anesthesia History - vocational counselor: Anesthesia History - vocational counselor Hx Hospitalization No 05/03/25 12:39 Any Problems With Anesthesia No 05/03/25 12:39 Cholinesterase deficiency No 05/03/25 12:39 You/Your Family Experience No 05/03/25 12:39 fever (hyperthermia) with Relationship Recent Exposure to Contagious No 05/04/25 09:29 Disease Does patient have nerve No 05/03/25 12:39 stimulator Patient instructed to have device shut off --Does patient have Pacemaker No 05/04/25 09:29 or ICD? When Was Last Pacemaker Check QUESTION #4 FULL TEXT: You/Your Family Experience fever (hyperthermia) with Anesthesia Last Oral Intake Last Oral intake: Last Oral Intake NPO since 06:15 05/04/25 09:29 Meds taken in AM with sips of Yes 05/04/25 09:29 water? Meds patient instructed to take am of surgery Any additional information?: Yes Meds taken in AM with sips of water?: Yes PONV PONV - vocational counselor: PONV - vocational counselor Female No 05/03/25 12:39 HX of Motion Sickness No 05/03/25 12:39 HX of N/V After Surgery No 05/03/25 12:39 Non-Smoker Yes 05/03/25 12:39 Duration of Surgery greater No 05/03/25 12:39 than 60 minutes Number of Risk Factors 1 05/03/25 12:39 PONV Score Low Risk 05/03/25 12:39 Height & Weight Height & Weight: Anesthesia: Height & Weight Height 6 ft 3 in 05/04/25 09:29 Weight: 114 kg 05/04/25 09:29 Body Mass Index (BMI) 31.4 05/04/25 09:29 Respiratory Assessment Respiratory Assessment - vocational counselor: Respiratory Tract Infection Hx - vocational counselor Hx Respiratory Tract Infection No 05/03/25 12:39 STOP Sleep Apnea STOP Sleep Apnea - vocational counselor: STOP Sleep Apnea - vocational counselor Hx Hypertension Yes: CONTROLLED WITH MEDS 05/03/25 12:39 Hx Sleep Apnea No 05/03/25 12:39 CPAP BIPAP Do you snore loudly (louder No 05/03/25 12:39 than talking or can be heard Do you often feel tired/ No 05/03/25 12:39 fatigued/ sleepy during daytime? Has anyone observed you stop No 05/03/25 12:39 breathing during sleep? STOP Results Negative 05/03/25 12:39 QUESTION #5 FULL TEXT : Do you snore loudly (louder than talking or can be heard through closeddoors)? 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 Specify any problems Hx of Preganancy in last 3 N/A 05/03/25 12:39 Months Nurse Filling Out Transfusion [email or web address] 05/03/25 12:39 & Questions: Date: 05/03/25 05/03/25 12:39 Time: 12:41 05/03/25 12:39 Patient unable to answer at this time (ie. confused, unrespo /Reproduction History /Reproductive History - vocational counselor: /Reproductive Hx- vocational counselor Hx Now Gestational Age (in weeks): EDC: Hx Hx Para Hx Section SAB No 05/03/25 12:39 Active Medications Active Medications: Current Medications Generic Name Dose Route Start Last Admin Trade Name Freq PRN Reason Stop Dose Admin Lactated Ringer's 1,000 mls @ 15 mls/hr 05/04/25 09:15 05/04/25 09:42 IV 15 mls/hr .Q48H SONIA Administration PFSH Medical History Gastric reflux Low iron Non-smoker Shortness of breath on exertion History of Holter monitoring History of echocardiogram History of stress test Iron deficiency anemia due to chronic blood loss Nocturia Prostate cancer Hypertension Home Medications ?Medication ?Instructions ?Recorded ?Last Taken ?Type sildenafil 100 mg tablet 100 mg PO DAILY PRN sexual 0 5/01/25 08/20/25 Rx activity #90 tabs chlorthalidone 25 mg tablet 25 mg PO QDAY #90 tabs 05/0905/03/25 Rx ferrous sulfate 325 mg (65 mg 325 mg PO DAILY 03/22/25 05/03/25 History iron) tablet pantoprazole 40 mg tablet,delayed 40 mg PO DAILY #180 tabs 03/22/25 05/04/25 Rx release warfarin 10 mg tablet 10 mg PO QDAY #90 tabs 03/2804/30/25 Rx Allergy/AdvReac Type Severity Reaction Status Date / Time No Known Allergies Allergy Verified 05/04/25 09:27 Family History Father Cancer, Onset Age: 65 prostate Hypertension Surgical History Hx of colonoscopy Hx of prostate biopsy H/O hernia repair Social History household members: spouse housing: house current occupational status: 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 05/04/25 0956 carol TANNER> Date _ Jerry Mauro MD Cosign Signature: Date CC: ~ Signed [facility]08-20-2025 [facility] Medical Records Department [address] [place] [address] History Physical Exam 05/04/25 0945 MR#: [id number] Acct: [id number] Name: JACEY AGUILERA Rep #: [id number] : 1955 69 From: Jeremy Serrano DO PCP: Dr. Evelin Rogers MD Status:[facility] Location: [place] [address] HPI - General General Chief Complaint: Cadena's esophagus HPI Narrative JACEY AGUILERA, is a 69 M who presents Chief Complaint: Barrets esophagus Pt underwent EGD and colonoscopy in Jul 2024 for issues with anemia. EGD 06.29.24 ; Esophageal mucosal changes consistent with long-segment Cadena's esophagus. Biopsied. - Large hiatal hernia. - Gastric erosions with no stigmata of recent bleeding. - Duodenitis. Biopsied. Colonoscopy 06.29.24 - One 8 mm polyp in the cecum, removed with a jumbo cold forceps. Resected and retrieved. - Diverticulosis in the recto-sigmoid colon, in the sigmoid colon and in the descending colon. Pt has been doing well since being on Pantoprazole 40 mg BID. He denies all GI symptoms. He is interested in decreasing/discontinuing this medication. He is no longer strugglign with anemia. [facility] Medical History Gastric reflux Low iron Non-smoker Shortness of breath on exertion History of Holter monitoring History of echocardiogram History of stress test Iron deficiency anemia due to chronic blood loss Nocturia Prostate cancer Hypertension Home Medications ???Medication ???Instructions ???Recorded ???Last Taken ???Type sildenafil 100 mg tablet 100 mg PO DAILY PRN sexual 5 05/04/25 Rx activity #90 tabs chlorthalidone 25 mg tablet 25 mg PO QDAY #90 tabs 03/22/25 Rx ferrous sulfate 325 mg (65 mg 325 mg PO DAILY 03/22/25 05/03/25 History iron) tablet pantoprazole 40 mg tablet,delayed 40 mg PO DAILY #180 tabs 03/22/25 05/04/25 Rx release warfarin 10 mg tablet 10 mg PO QDAY #90 tabs 03/28/25 Rx Allergy/AdvReac Type Severity Reaction Status Date / Time No Known Allergies Allergy Verified 05/04/25 09:27 Family History Father Cancer, Onset Age: 65 prostate Hypertension Surgical History Hx of colonoscopy Hx of prostate biopsy H/O hernia repair Social History household members: spouse housing: house current occupational status: retired and 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[employer], 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 Smoking Status: Never smoker Electronic Cigarette Use: not used alcohol intake: never substance use type: does not use what type of physical activity do you participate in: walking, bicycling and other details: pickleball cassandra/episcopal: Pentecostal seatbelt use: always do you feel safe at home: Yes ROS Constitutional Constitutional: Denies fatigue, fever(s), poor appetite, weight gain or weight loss Gastrointestinal Gastrointestinal: Denies belching, bloating, change in bowel habits, change in stool character, chewing difficulty, coffee ground emesis, constipation, cramping, diarrhea, dyspepsia, dysphagia, early satiety, excessive flatus, fecal incontinence, heartburn, hematemesis, hematochezia, hemorrhoids, loose stools, melena, nausea, odynophagia, rectal bleeding, tenesmus, vomiting or weight changes Vital Signs Vital Signs Vital Signs: 05/04/25 09:29 05/04/25 09:29 Temperature 96.8 F L Temperature Source Temporal Pulse Rate 60 Respiratory Rate 17 Respiratory Pattern Normal Blood Pressure 122/81 H Blood Pressure Mean 94 Blood Pressure Source Monitor Blood Pressure Position Semi-Fowlers Blood Pressure Location Left Arm Pulse Ox 92 Oxygen Delivery Method Room Air Weight Weight: 251 lb 5.231 oz Body Mass Index (BMI) 31.4 Physical Exam Const alert, oriented x3, no apparent distress and healthy appearing General Appearance: cooperative GI normal to inspection, nondistended, normoactive bowel sounds, soft to palpation, non-tender and non- distended Percussion: normal to percussion Rectal Exam: deferred Results Lab / Micro Data Labs: Laboratory Results - last 24 hr 05/04/25 08:56: POC PT 17.3 H, INR 1.5 Assessment Plan Assessment/Plan (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 Qualified Code(s): 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 PLAN: Assessment and Plan Assessment and Plan (1) Cadena esophagus: Status: Acute Qualifiers: 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 Qualified Code(s): 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 Plan: Guerline is a 69 yo male pt here (more content not included)...[facility]06-20-2025 Evaluation note* Diagnosis Onset Date Resolution Status Admit Date Cadena esophagus acute March 042024 3:08pm Deep vein thrombosis (DVT) acute March 04, 2025 3:08pm Iron deficiency anemia due t o chronic blood loss chronic March 04 3:08pm [facility] Work Phone: 1(182) 817-803006-20-2025 Evaluation note* Diagnosis Onset Date Resolution Status Admit Date Cadena esophagus acute March 042024 3:08pm Deep vein thrombosis (DVT) acute March 04, 2025 3:08pm Iron deficiency anemia due t o chronic blood loss chronic March 04 3:08pm Cadena esophagus acute March 102024 10:34am GERD (gastroesophageal reflu x disease) acute March 10, 2025 10:34am [facility] Work Phone: 1(479) 273-854706-20-2025 Evaluation note* Diagnosis Onset Date Resolution Status Admit Date Cadena esophagus acute March 042024 3:08pm Deep vein thrombosis (DVT) acute March 04, 2025 3:08pm Iron deficiency anemia due t o chronic blood loss chronic March 04 3:08pm Cadena esophagus acute March 102024 10:34am GERD (gastroesophageal reflu x disease) acute March 10, 2025 10:34am Cadena esophagus acute May 04, 2025 8:39am [facility] Work Phone: 1(110) 512-622806-20-2025 Evaluation note* Diagnosis Onset Date Resolution Status Admit Date Cadena esophagus acute March 042024 3:08pm Deep vein thrombosis (DVT) acute March 04, 2025 3:08pm Iron deficiency anemia due t o chronic blood loss chronic March 04 3:08pm Cadena esophagus acute March 102024 10:34am GERD (gastroesophageal reflu x disease) acute March 10, 2025 10:34am Cadena esophagus acute May 04, 2025 8:39am Iron deficiency anemia due t o chronic blood loss chronic May 05, 2025 10:56am [facility] Work Phone: 1(664) 495-139906-20-2025 Evaluation note* Diagnosis Onset Date Resolution Status Admit Date Cadena esophagus acute March 042024 3:08pm Deep vein thrombosis (DVT) chronic March 04, 2025 3:08pm Iron deficiency anemia due t o chronic blood loss chronic March 04 3:08pm Cadena esophagus acute March 102024 10:34am GERD (gastroesophageal reflu x disease) acute March 10, 2025 10:34am Cadena esophagus acute May 04, 2025 8:39am Deep vein thrombosis (DVT) chronic May 05, 2025 10:56am Iron deficiency anemia due t o chronic blood loss chronic May 05, 2025 10:56am [facility] Work Phone: 1(202) 739-367612-12-2024 Evaluation note* Diagnosis Onset Date Resolution Status Admit Date Erectile dysfunction acute Dece mber 2023 9:59am GERD (gastroesophageal reflux disease) acute August 26 9:59am Iron deficiency anemia due to chronic blood loss chronic August 152023 9:59am Medicare annual wellness visit, subsequent noneactive August 26, 2024 9:59am Prostate cancer noneactive August 26, 2024 9:59am Essential hypertension noneactive 2023 9:59am [facility] Work Phone: 1(129) 178-159612-02-2024 History of Present illness Narrative* Flynn Baxter - 08/16/2024 11:20 AM EST [facility] - HISTORY AND PHYSICAL SUBJECTIVE: Chief Complaint: Hiatal hernia HPI: Guerline Aguilera is a 68 year old male who with history of prostate cancer, DVT, iron deficiency anemia presents with recent diagnosis of hiatal hernia with possible Clif[place] ulcers. Workup for recently diagnosed iron deficiency anemia was positive for hiatal hernia. 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 He states he has very minor symptoms of GERD that were well-controlled on Tums. He was placed on a PPI a month ago at the time of diagnosis of Cadena's. His colonoscopy was positive for diverticulosis and a polyp of the cecum but no evident sources of bleeding. He has been on p.o. iron therapy since the diagnosis of the anemia. Denies any chest pain, pneumonias or other atypical symptoms of GERD. Denies dysphagia, odynophagia, early satiety, vomiting or upper GI bleed. Relevant previous abdominal operations include: Inguinal hernia repair as a child. 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 HENT: Negative. Eyes: Negative. Respiratory: Positive for shortness of breath. Cardiovascular: Negative. Gastrointestinal: Negative. Endocrine: Negative. Genitourinary: Negative. Musculoskeletal: Negative. Allergic/Immunologic: Negative. Neurological: Negative. Hematological: Negative. Psychiatric/Behavioral: Negative. PAST MEDICAL HISTORY Diagnosis Date Cadena esophagus Iron deficiency anemia Paraesophageal hernia Prostate cancer (HCC) PAST SURGICAL HISTORY Procedure Laterality Date INGUINAL HERNIA REPAIR HX History reviewed. No pertinent family history. Social History Tobacco Use Smoking status: Never Smokeless tobacco: Never Prior to Admission medications as of 08/16/24 1035 Medication Sig Last Dose Taking acetaminophen (TYLENOL) 325 mg tablet Take 325 mg by mouth. Yes Iron-Vit C-Vit A21-Vfbzz Acid (IRON 100 PLUS) 898-156-03-1 ki-xh-kup-mg tab Yes pantoprazole in 0.9% sod chlor 40 mg/50 mL (0.8 mg/mL) pgbk Yes ALLERGIES Not on File PHYSICAL EXAM: BP 157/96 Pulse 72 Temp (Src) 98 (Temporal) Ht 6' 3 (1.91m) Wt 250 lb (113.4kg) BMI 31.25 kg/(m^2). Physical Exam Vitals reviewed. HENT: Head: Normocephalic. Mouth/Throat: Mouth: Mucous membranes are moist. Cardiovascular: Rate and Rhythm: Normal rate and regular rhythm. Pulmonary: Effort: Pulmonary effort is normal. No respiratory distress. Abdominal: General: There is no distension. Palpations: Abdomen is soft. Tenderness: There is no abdominal tenderness. There is no guarding. Skin: General: Skin is warm. Capillary Refill: Capillary refill takes less than 2 seconds. Neurological: General: No focal deficit present. Mental Status: He is alert. Psychiatric: Mood and Affect: Mood normal. Relevant Hernia Findings - None LABS: Reviewed IMAGING: EGD report reviewed. Hiatal hernia. Long segment Cadena's (no dysplasia on biopsy). Erosive esophagitis. No gastric or duodenal ulcers Colonoscopy report reviewed: cecal polyp removed. Diverticulosis. ASSESSMENT/PLAN: Guerline Aguilera is a 68 year old male with history of prostate cancer who presents with newly diagnosedhiatal hernia that was discovered during workup for iron deficiency anemia. He was also found to have long segment Cadena's with no dysplasia. Despite having the hiatal hernia and Cadena's he has mild to none symptoms of GERD. We discussed the pros and cons of laparoscopic/robotic hiatal hernia repair and expected outcomes. He would like to think about it and will get back to us. He is aware of the need for continued surveillance of his Cadena's with repeat endoscopies over time. He has been on a PPI that was placed at the time of the diagnosis of Cadena's. We discussed that in case he decides to pursue surgery we can order a CT scan to determine the size of the hernia and for operative planning. Flynn Baxter MD General Surgery S * Edu Medellin MD - 08/16/2024 11:19 AM EST Consultation requested by Dr. Willi Roque for an opinion regarding hiatal hernia. My final recommendations will be communicated back to the requesting physician by way of shared medical record or letter via [place] mail. Guerline Aguilera is a 68 year old male who presents with a hiatal hernia and iron deficiency anemia. He had a work up for fatigue, which showed anemia with a hgb down to 7.6. He had a colonoscopy without masses, but one sessile polyp. He also had an UGI which showed a large hiatal hernia and some gastric erosions without active bleeding and no masses. He otherwise has no GERD, dysphagia, regurgitation, early satiety, chest pain, etc. His blood counts have normalized and he no longer has any issues with bleeding after starting PPI therapy and iron. I do think its reasonable to proceed with hiatal hernia repair given the erosions but he has showed significant improvement in symptoms with medical th erapy so I also could see that he doesn't want to do anything. He wants to think about it prior to proceeding. I dont think he would need fundoplication, but he does have Barretts which requires surveillance. If he wants to proceed, will need CT as well but will not order until wanting to have surgery. I have seen and evaluated the patient and discussed the case with the resident physician. I agree with the assessment and plan as documented in the resident s note including a ROS that was reviewed and negative other than what was indicated in our notes. Patient consented for study? Not applicable documented in this encounterMadison Health12-02-2024 NoteHNO ID: [id number] Author: FLYNN BAXTER, ? Service: ? Author Type: Physician Type: Progress Notes Filed: 08/16/2024 11:58 Note Text: [facility] - HISTORY AND PHYSICAL SUBJECTIVE: Chief Complaint: Hiatal hernia HPI: Guerline Aguilera is a 68 year old male who with history of prostate cancer, DVT, iron deficiency anemia presents with recent diagnosis of hiatal hernia with possible [place] ulcers. Workup for recently diagnosed iron deficiency anemia was positive for hiatal hernia. 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 He states he has very minor symptoms of GERD that were well-controlled on Tums. He was placed on a PPI a month ago at the time of diagnosis of Cadena's. His colonoscopy was positive for diverticulosis and a polyp of the cecum but no evident sources of bleeding. He has been on p.o. iron therapy since the diagnosis of the anemia. Denies any chest pain, pneumonias or other atypical symptoms of GERD. Denies dysphagia, odynophagia, early satiety, vomiting or upper GI bleed. Relevant previous abdominal operations include: Inguinal hernia repair as a child. 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 HENT: Negative. Eyes: Negative. Respiratory: Positive for shortness of breath. Cardiovascular: Negative. Gastrointestinal: Negative. Endocrine: Negative. Genitourinary: Negative. Musculoskeletal: Negative. Allergic/Immunologic: Negative. Neurological: Negative. Hematological: Negative. Psychiatric/Behavioral: Negative. PAST MEDICAL HISTORY Diagnosis Date Cadena esophagus Iron deficiency anemia Paraesophageal hernia Prostate cancer (HCC) PAST SURGICAL HISTORY Procedure Laterality Date INGUINAL HERNIA REPAIR HX History reviewed. No pertinent family history. Social History Tobacco Use Smoking status: Never Smokeless tobacco: Never Prior to Admission medications as of 08/16/24 1035 Medication Sig Last Dose Taking acetaminophen (TYLENOL) 325 mg tablet Take 325 mg by mouth. Yes Iron-Vit C-Vit X27-Yfxsn Acid (IRON 100 PLUS) 249-814-22-1 ki-ya-yuh-mg tab Yes pantoprazole in 0.9% sod chlor 40 mg/50 mL (0.8 mg/mL) pgbk Yes ALLERGIES Not on File PHYSICAL EXAM: BP 157/96 Pulse 72 Temp (Src) 98 (Temporal) Ht 6' 3 (1.91m) Wt 250 lb (113.4kg) BMI 31.25 kg/(m2). Physical Exam Vitals reviewed. HENT: Head: Normocephalic. Mouth/Throat: Mouth: Mucous membranes are moist. Cardiovascular: Rate and Rhythm: Normal rate and regular rhythm. Pulmonary: Effort: Pulmonary effort is normal. No respiratory distress. Abdominal: General: There is no distension. Palpations: Abdomen is soft. Tenderness: There is no abdominal tenderness. There is no guarding. Skin: General: Skin is warm. Capillary Refill: Capillary refill takes less than 2 seconds. Neurological: General: No focal deficit present. Mental Status: He is alert. Psychiatric: Mood and Affect: Mood normal. Relevant Hernia Findings - None LABS: Reviewed IMAGING: EGD report reviewed. Hiatal hernia. Long segment Cadena's (no dysplasia on biopsy). Erosive esophagitis. No gastric or duodenal ulcers Colonoscopy report reviewed: cecal polyp removed. Diverticulosis. ASSESSMENT/PLAN: Guerline Aguilera is a 68 year old male with history of prostate cancer who presents with newly diagnosed hiatal hernia that was discovered during workup for iron deficiency anemia. He was also found to have long segment Cadena's with no dysplasia. Despite having the hiatal hernia and Cadena's he has mild to none symptoms of GERD. We discussed the pros and cons of laparoscopic/robotic hiatal hernia repair and expected outcomes. He would like to think about it and will get back to us. He is aware of the need for continued surveillance of his Cadena's with repeat endoscopies over time. He has been on a PPI that was placed at the time of the diagnosis of Cadena's. We discussed that in case he decides to pursue surgery we can order a CT scan to determine the size of the hernia and for operative planning. Flynn Baxter MD General SurgeryUniversity [facility]als [facility]12-02-2024 NoteHNO ID: [id number] Author: EDU MEDELLIN MD Service: ? Author Type: Physician Type: Progress Notes Filed: 08/16/2024 11:58 Note Text: Consultation requested by Dr. Willi Roque for an opinion regarding hiatal hernia. My final recommendations will be communicated back to the requesting physician by way of shared medical record or letter via [place] mail. Guerline Aguilera is a 68 year old male who presents with a hiatal hernia and iron deficiency anemia. He had a work up for fatigue, which showed anemia with a hgb down to 7.6. He had a colonoscopy without masses, but one sessile polyp. He also had an UGI which showed a large hiatal hernia and some gastric erosions without active bleeding and no masses. He otherwise has no GERD, dysphagia, regurgitation, early satiety, chest pain, etc. His blood counts have normalized and he no longer has any issues with bleeding after starting PPI therapy and iron. I do think its reasonable to proceed with hiatal hernia repair given the erosions but he has showed significant improvement in symptoms with medical therapy so I also could see that he doesn't want to do anything. He wants to think about it prior to proceeding. I dont think he would need fundoplication, but he does have Barretts which requires surveillance. If he wants to proceed, will need CT as well but will not order until wanting to have surgery. I have seen and evaluated the patient and discussed the case with the resident physician. I agree with the assessment and plan as documented in the resident?s note including a ROS that was reviewed and negative other than what was indicated in our notes. Patient consented for study? Not applicableUniversity [facility]als [facility]12-02-2024 Nurse Note* Deedee Gillespie MA - 08/16/2024 10:31 AM EST What is the reason for your visit today? Consult Who is your referring physician? Dr. Medellin Are you having poor oral intake? NO Have you had unintentional weight loss of 15 lbs/7 Kg in the last 3-6 months? NO Bowels: regular Wound: clean & dry Temperature: No Drains: No [facility]12-02-2024 Nurse Note* Deedee Gillespie MA - 08/16/2024 10:31 AM EST What is the reason for your visit today? Consult Who is your referring physician? Dr. Medellin Are you having poor oral intake? NO Have you had unintentional weight loss of 15 lbs/7 Kg in the last 3-6 months? NO Bowels: regular Wound: clean & dry Temperature: No Drains: No documented in this encounterMadison Health11-27-2024 Telephone encounter Note * Telephone Encounter - Cyndie Dominguez LPN - 08/11/2024 4:21 PM EST Contacted patient, verified name and . Per patient advised of having Upper GI performed and bringing paperwork with him. Advised will contact [facility] to check status. Thanked patient for his time. Contacted [facility] and per HIM, no recent Imaging performed and will fax UGI paperwork to this editorial writer. Cyndie Dominguez LPN [facility]11-27-2024 Miscellaneous Notes* Telephone Encounter - Cyndie Dominguez LPN - 08/11/2024 4:21 PM EST Contacted patient, verified name and . Per patient advised of having Upper GI performed and bringing paperwork with him. Advised will contact [facility] to check status. Thanked patient for his time. Contacted [facility] and per HIM, no recent Imaging performed and will fax UGI paperwork to this editorial writer. Cyndie Dominguez LPN documented in this encounterMadison Health11-21-2024 Evaluation note* Diagnosis Onset Date Resolution Status Admit Date Frequent PVCs acute August 052023 2:05pm GERD (gastroesophageal reflux disease) acute August 05, 024 2:05pm Swelling of lower extremity acute August 05, 2024 2:05pm Hypertension chronic July 2:05pm Iron deficiency anemia due to chronic blood loss chronic July 172023 2:05pm Iron deficiency anemia due to chronic blood loss chronic July 172023 3:15pm Erectile dysfunction acute Dece mber 2023 9:59am GERD (gastroesophageal reflux disease) acute August 26, 024 9:59am Iron deficiency anemia due to chronic blood loss chronic August 152023 9:59am Medicare annual wellness visit, subsequent noneactive August 26, 2024 9:59am Prostate cancer noneactive August 26, 2024 9:59am Essential hypertension noneactive De cember 2023 9:59am [facility] Work Phone: 1(560) 830-757210-01-2024 Note* Quick Note - Mackenzie Jansen RN - 06/15/2024 9:36 AM EDT Discharge instructions reviewed with patient and spouse. All questions and concerns addressed at this time. [id number] Miscellaneous Notes* Quick Note - Mackenzie Jansen RN - 06/15/2024 9:36 AM EDT Discharge instructions reviewed with patient and spouse. All questions and concerns addressed at this time. * Brief Op Note - Willi Roque MD - 06/15/2024 9:03 AM EDT Brief Post Operative Note Patient Name: Guerline Aguilera : 1955 (68 y.o.) Date of Service: 06/15/2024 CSN: [id number] Procedure(s): TRANSPERINEAL MAGNETIC RESONANCE IMAGING FUSION PROSTATE BIOPSY WITH MAC SEDATION Pre-Operative Diagnoses: * elevated psa , prostate cancer Post-Operative Diagnoses: * Elevated PSA [R97.20] * Prostate cancer (HCC) [C61] Surgeons and Role: * Willi Roque MD - Primary Anesthesiologist: Silviano Fernandez MD NOVELTY PRINTING MACHINE OPERATOR: Dorota Navarro CRNA Flight Deck Officer: Niya Conway RN Scrub Person: Susan Hinojosa ST Operative findings: , prostate cancer , elevated psa Intra and immediate post-operative complications: none Type of anesthesia used: Monitor Anesthesia Care Estimated blood loss: 5 mL Estimated urine output: Refer to surgical log Specimen(s): ID Type Source Tests Collected by Time Destination A : right anterior lateral Tissue Prostate TISSUE EXAM Willi Roque MD 06/15/2024 8:01 AM B : right anterior medial Tissue Prostate TISSUE EXAM Willi Roque MD 06/15/2024 8:50 AM C : right mid lateral Tissue Prostate TISSUE EXAM Willi Roque MD 06/15/2024 8:50 AM D : right mid medial Tissue Prostate TISSUE EXAM Willi Roque MD 06/15/2024 8:51 AM E : right posterior lateral Tissue Prostate TISSUE EXAM Willi Roque MD 06/15/2024 8:51 AM F : right posterior medial Tissue Prostate TISSUE EXAM Willi Roque MD 06/15/2024 8:51 AM G : left anterior medial Tissue Prostate TISSUE EXAM Willi Roque MD 06/15/2024 8:52 AM H : left anterior lateral Tissue Prostate TISSUE EXAM Willi Roque MD 06/15/2024 8:53 AM I : left mid medial Tissue Prostate TISSUE EXAM Willi Roque MD 06/15/2024 8:53 AM J : left mid lateral Tissue Prostate TISSUE EXAM Willi Roque MD 06/15/2024 8:54 AM K : left posterior medial Tissue Prostate TISSUE EXAM Willi Roque MD 06/15/2024 8:54 AM L : left posterior lateral Tissue Prostate TISSUE EXAM Willi Roque MD 06/15/2024 8:55 AM Implant(s): * No implants in log * Drain(s): * No LDAs found * Wound(s): Wound 06/15/24 1 Acute Surgical Wound Perineum (Active) Willi Roque MD 06/15/2024 9:03 AM * Op Note - Willi Roque MD - 06/15/2024 8:46 AM EDT Date of Service: 06/15/2024 Clinician: Willi Roque MD OR Staff: Flight Deck Officer: Niya Conway RN Scrub Person: Susan Hinojosa ST Anesthesia Staff: Anesthesiologist: Silviano Fernandez MD NOVELTY PRINTING MACHINE OPERATOR: Dorota Navarro CRNA Surgeon(s):Surgeons and Role: * Willi Roque MD - Primary Patient Name: Guerline Aguilera MR #: [id number] OPERATIVE REPORT SURGEON WILLI ROQUE MD PREOPERATIVE DIAGNOSIS Elevated prostate-specific antigen. POSTOPERATIVE DIAGNOSIS Elevated prostate-specific antigen. PROCEDURE Transrectal ultrasound , transperineal needle biopsy of the prostate SUMMARY OF PROCEDURE After induction of monitored anesthesia, the patient was placed in the dorsal lithotomy position. The genitals were taped to the abdomen using Tegaderm. The perineum was prepped and draped in usual sterile fashion. The transrectal ultrasound probe was inserted into the rectum. The skin on the perineum was anesthetized with Marcaine with epinephrine. Under ultrasound guidance, lidocaine was passed to the periprostatic area and infiltrated bilaterally for a prostate block. [place] were passed through the perineum into the prostate in a systematic fashion. biopsies were taken and placed in labeled formalin containers in a systematic fashion. The patient was returned to the supine position and transferred to Recovery. I was present and performed for the entire case. * Quick Note - Kari Brock, RN - 06/10/2024 8:25 AM EDT Requested H&P and orders for 06/[address] Roque's office. documented in this [id number] NoteDISCHARGE SUMMARY Patient: Guerline Aguilera Date of : 1955 Site: [facility] Family Provider: Joanne Physician Admit Date: 06/15/2024 Discharge Date/Time: 06/15/24 Morning Disposition: Home Clinical Summary Hospital Course: Guerline Aguilera is a 68 y.o. male patient of Joanne, Physician with a history of prostate cancer , elevated psa Discharge Diagnoses: prostate cancer , elevated psa Suspected sleep apnea Recommend referral to sleep medicine Surgeries: 06/15/24 TRANSPERINEAL MAGNETIC RESONANCE IMAGING FUSION PROSTATE BIOPSY WITH MAC SEDATION Consults: No orders of the defined types were placed in this encounter. Allergies: Patient has no known allergies. Discharge Diet: Resume home diet Condition: Good Discharge Medications: Discharge Medications Medications To Continue Details esomeprazole 20 MG capsule Commonly known as: NEXIUM 1 (one) capsule (20 mg total) daily as needed Reasons: heartburn. IRON ORAL Take by mouth every morning Reasons: anemia. sildenafiL 25 MG tablet Commonly known as: VIAGRA Take 1 (one) tablet (25 mg total) by mouth daily as needed for erectile dysfunction Reasons: the inability to have an erection. Physician(s) Family Provider: Joanne Physician, Phone: None Address: [facility] Follow Up: No follow-up provider specified. Additional Information: Patient instructions, including activity, were given to the patient/family at discharge. Please see the After Visit Summary in the electronic medical record for details. Time spent on discharge: Completed by: Willi Roque MD on 06/15/24, 9:05 AM AUTHENTICATED BY WILLI ROQUE, ON 06/15/2024 09:05:39[facility]10-01-2024 Hospital course Narrative* Willi Roque MD - 06/15/2024 9:05 AM EDT DISCHARGE SUMMARY Patient: Guerline Aguilera Date of : 1955 Site: [facility] Family Provider: Joanne Physician Admit Date: 06/15/2024 Discharge Date/Time: 06/15/24 Morning Disposition: Home Clinical Summary Hospital Course: Guerline Aguilera is a 68 y.o. male patient of Joanne Physician with a history of prostate cancer , elevatedpsa Discharge Diagnoses: prostate cancer , elevated psa Suspected sleep apnea Recommend referral to sleep medicine Surgeries: 06/15/24 TRANSPERINEAL MAGNETIC RESONANCE IMAGING FUSION PROSTATE BIOPSY WITH MAC SEDATION Consults: No orders of the defined types were placed in this encounter. Allergies: Patient has no known allergies. Discharge Diet: Resume home diet Condition: Good Discharge Medications: Discharge Medications Medications To Continue Details esomeprazole 20 MG capsule Commonly known as: NEXIUM 1 (one) capsule (20 mg total) daily as needed Reasons: heartburn. IRON ORAL Take by mouth every morning Reasons: anemia. sildenafiL 25 MG tablet Commonly known as: VIAGRA Take 1 (one) tablet (25 mg total) by mouth daily as needed for erectile dysfunction Reasons: the inability to have an erection. Physician(s) Family Provider: No, Physician, Phone: None Address: [facility] Follow Up: No follow-up provider specified. Additional Information: Patient instructions, including activity, were given to the patient/family at discharge. Please seethe After Visit Summary in the electronic medical record for details. Time spent on discharge: Completed by: Willi Roque MD on 06/15/24, 9:05 AM documented in this [id number] Note* Brief Op Note - Willi Roque MD - 06/15/2024 9:03 AM EDT Brief Post Operative Note Patient Name: Guerline Aguilera : 1955 (68 y.o.) Date of Service: 06/15/2024 [facility]: [id number] Procedure(s): TRANSPERINEAL MAGNETIC RESONANCE IMAGING FUSION PROSTATE BIOPSY WITH MAC SEDATION Pre-Operative Diagnoses: * elevated psa , prostate cancer Post-Operative Diagnoses: * Elevated PSA [R97.20] * Prostate cancer (HCC) [C61] Surgeons and Role: * Willi Roque MD - Primary Anesthesiologist: Silviano Fernandez MD NOVELTY PRINTING MACHINE OPERATOR: Dorota Navarro CRNA Flight Deck Officer: Niya Conway RN Scrub Person: Susan Hinojosa ST Operative findings: , prostate cancer , elevated psa Intra and immediate post-operative complications: none Type of anesthesia used: Monitor Anesthesia Care Estimated blood loss: 5 mL Estimated urine output: Refer to surgical log Specimen(s): ID Type Source Tests Collected by Time Destination A : right anterior lateral Tissue Prostate TISSUE EXAM Willi Roque MD 06/15/2024 8:01 AM B : right anterior medial Tissue Prostate TISSUE EXAM Willi Roque MD 06/15/2024 8:50 AM C : right mid lateral Tissue Prostate TISSUE EXAM Willi Roque MD 06/15/2024 8:50 AM D : right mid medial Tissue Prostate TISSUE EXAM Willi Roque MD 06/15/2024 8:51 AM E : right posterior lateral Tissue Prostate TISSUE EXAM Willi Roque MD 06/15/2024 8:51 AM F : right posterior medial Tissue Prostate TISSUE EXAM Willi Roque MD 06/15/2024 8:51 AM G : left anterior medial Tissue Prostate TISSUE EXAM Willi Roque MD 06/15/2024 8:52 AM H : left anterior lateral Tissue Prostate TISSUE EXAM Willi Roque MD 06/15/2024 8:53 AM I : left mid medial Tissue Prostate TISSUE EXAM Willi Roque MD 06/15/2024 8:53 AM J : left mid lateral Tissue Prostate TISSUE EXAM Willi Roque MD 06/15/2024 8:54 AM K : left posterior medial Tissue Prostate TISSUE EXAM Willi Roque MD 06/15/2024 8:54 AM L : left posterior lateral Tissue Prostate TISSUE EXAM Willi Roque MD 06/15/2024 8:55 AM Implant(s): * No implants in log * Drain(s): * No LDAs found * Wound(s): Wound 06/15/24 1 Acute Surgical Wound Perineum (Active) Willi Roque MD 06/15/2024 9:03 AM [id number] Note* Op Note - Willi Roque MD - 06/15/2024 8:46 AM EDT Date of Service: 06/15/2024 Clinician: Willi Roque MD OR Staff: Flight Deck Officer: Niya Conway RN Scrub Person: Susan Hinojosa ST Anesthesia Staff: Anesthesiologist: Silviano Fernandez MD NOVELTY PRINTING MACHINE OPERATOR: Page, Dorota Sapna, NOVELTY PRINTING MACHINE OPERATOR Surgeon(s):Surgeons and Role: * Willi Roque MD - Primary Patient Name: Guerline Aguilera MR #: [id number] OPERATIVE REPORT SURGEON WILLI ROQUE MD PREOPERATIVE DIAGNOSIS Elevated prostate-specific antigen. POSTOPERATIVE DIAGNOSIS Elevated prostate-specific antigen. PROCEDURE Transrectal ultrasound , transperineal needle biopsy of the prostate SUMMARY OF PROCEDURE After induction of monitored anesthesia, the patient was placed in the dorsal lithotomy position. The genitals were taped to the abdomen using Tegaderm. The perineum was prepped and draped in usual sterile fashion. The transrectal ultrasound probe was inserted into the rectum. The skin on the perineum was anesthetized with Marcaine with epinephrine. Under ultrasound guidance, lidocaine was passed to the periprostatic area and infiltrated bilaterally for a prostate block. [place] were passed through the perineum into the prostate in a systematic fashion. biopsies were taken and placed in labeled formalin containers in a systematic fashion. The patient was returned to the supine position and transferred to Recovery. I was present and performed for the entire case. [id number] History and physical note* Willi Roque MD - 06/15/2024 8:06 AM EDT CONSULT NOTE Patient Name: Guerline Aguilera Admit Date: [id number] MR #: [id number] : 1955 Physicians: No, Physician (Family); No ref. provider found (Referring) Assessment and Plan: Elevated psa / known low grade ow volume prostate cancer Plan for transperineal biopsy of the prostate Chief Complaint/Reason for Visit: No chief complaint on file. History of Present Illness: Guerline Aguilera is a 68 y.o. y/o male presenting from home with c/o elevated psa Review of Systems: The following system(s) were reviewed and are negative unless otherwise noted in the HPI: Physical Examination: Vital Signs: BP (!) 149/93 Ht 6' 4 Wt 112.4 kg (247 lb 12.8 oz) SpO2 93% BMI 30.16 kg/m General: Alert, cooperative, no distress, appears stated age Head: Normocephalic, without obvious abnormality, atraumatic Eyes: PERRL, conjunctiva/corneas clear, EOM's intact, fundi benign both eyes Throat: Lips, mucosa, and tongue normal; teeth and gums normal Neck: Supple, symmetrical, trachea midline, no adenopathy; thyroid: no enlargement/tenderness/nodules; no carotid bruit or JVD Back: Symmetric, no curvature, ROM normal, no CVA tenderness Lungs: Clear to auscultation bilaterally, respirations unlabored,normal respiratory effort Chest Wall: No tenderness or deformity Cardiovascular: Regular rate and rhythm, S1 and S2 normal, no murmur, rub or gallop; Pulses 2+ and symmetric all extremities Abdomen: Soft, non-tender, bowel sounds active all four quadrants,no masses, no organomegaly Extremities: Normal, atraumatic, no cyanosis or edema Skin: Skin color, texture, turgor normal, no rashes or lesions Musculoskeletal: Full range of motion of all extremities; no joint edema Neurologic: CNII-XII intact; normal strength, sensation and reflexes throughout Psych: Mood and affect appropriate History: Past Medical History: Diagnosis Date Anemia Past Surgical History: Procedure Laterality Date APPENDECTOMY HERNIA REPAIR umbilical as an Family History Problem Relation Age of Onset No Known Problems Mother No Known Problems Father No Known Problems Brother Social History Socioeconomic History Marital status: Tobacco Use Smoking status: Never Smokeless tobacco: Never Vaping Use Vaping status: Never Used Substance and Sexual Activity Alcohol use: Never Allergy Information: I have reviewed the patient's allergies. Patient has no known allergies. Home Medications: Outpatient Medications as of 06/15/2024 Medication Sig esomeprazole (NEXIUM) 20 MG capsule 1 (one) capsule (20 mg total) daily as needed Reasons: heartburn. ferrous sulfate (IRON ORAL) Take by mouth every morning Reasons: anemia. sildenafiL (VIAGRA) 25 MG tablet Take 1 (one) tablet (25 mg total) by mouth daily as needed for erectile dysfunction Reasons: the inability to have an erection. Laboratory and Additional Data Reviewed: Invalid input(s): CO2 Invalid input(s): NEUTOPHILPCT No results found. [id number] History and physical note* Willi Roque MD - 06/15/2024 8:06 AM EDT CONSULT NOTE Patient Name: Guerline Aguilera Admit Date: [id number] [id number] 1955 Physicians: No, Physician (Family); No ref. provider found (Referring) Assessment and Plan: Elevated psa / known low grade ow volume prostate cancer Plan for transperineal biopsy of the prostate Chief Complaint/Reason for Visit: No chief complaint on file. History of Present Illness: Guerline Aguilera is a 68 y.o. y/o male presenting from home with c/o elevated psa Review of Systems: The following system(s) were reviewed and are negative unless otherwise noted in the HPI: Physical Examination: Vital Signs: BP (!) 149/93 Ht 6' 4 Wt 112.4 kg (247 lb 12.8 oz) SpO2 93% BMI 30.16 kg/m General: Alert, cooperative, no distress, appears stated age Head: Normocephalic, without obvious abnormality, atraumatic Eyes: PERRL, conjunctiva/corneas clear, EOM's intact, fundi benign both eyes Throat: Lips, mucosa, and tongue normal; teeth and gums normal Neck: Supple, symmetrical, trachea midline, no adenopathy; thyroid: no enlargement/tenderness/nodules; no carotid bruit or JVD Back: Symmetric, no curvature, ROM normal, no CVA tenderness Lungs: Clear to auscultation bilaterally, respirations unlabored,normal respiratory effort Chest Wall: No tenderness or deformity Cardiovascular: Regular rate and rhythm, S1 and S2 normal, no murmur, rub or gallop; Pulses 2+ and symmetric all extremities Abdomen: Soft, non-tender, bowel sounds active all four quadrants,no masses, no organomegaly Extremities: Normal, atraumatic, no cyanosis or edema Skin: Skin color, texture, turgor normal, no rashes or lesions Musculoskeletal: Full range of motion of all extremities; no joint edema Neurologic: CNII-XII intact; normal strength, sensation and reflexes throughout Psych: Mood and affect appropriate History: Past Medical History: Diagnosis Date Anemia Past Surgical History: Procedure Laterality Date APPENDECTOMY HERNIA REPAIR umbilical as an Family History Problem Relation Age of Onset No Known Problems Mother No Known Problems Father No Known Problems Brother Social History Socioeconomic History Marital status: Tobacco Use Smoking status: Never Smokeless tobacco: Never Vaping Use Vaping status: Never Used Substance and Sexual Activity Alcohol use: Never Allergy Information: I have reviewed the patient's allergies. Patient has no known allergies. Home Medications: Outpatient Medications as of 06/15/2024 Medication Sig esomeprazole (NEXIUM) 20 MG capsule 1 (one) capsule (20 mg total) daily as needed Reasons: heartburn. ferrous sulfate (IRON ORAL) Take by mouth every morning Reasons: anemia. sildenafiL (VIAGRA) 25 MG tablet Take 1 (one) tablet (25 mg total) by mouth daily as needed for erectile dysfunction Reasons: the inability to have an erection. Laboratory and Additional Data Reviewed: Invalid input(s): CO2 Invalid input(s): NEUTOPHILPCT No results found. documented in this [id number] Note* Quick Note - Kari Brock RN - 06/10/2024 8:25 AM EDT Requested H&P and orders for 06/[address] Roque's office. [id number] Nurse Surgical operation note* Marci Smith RN - 06/01/2024 2:52 PM EDT Patient Instructions for [facility] The Day Before Surgery If you develop any abnormal symptoms (for example a cold, fever, or sore throat) within a week of your surgery date, call your surgeon's office. It may be necessary to postpone your surgery. If you did not receive instructions from your physician or surgeon prior to your surgery or procedure, please follow the general instructions below for guidance on eating and drinking: Drink plenty of fluids the day prior to your surgery to maintain hydration. Do not eat or drink anything by mouth after midnight except for sips of water with medications. Do not drink any alcoholic beverages, smoke, or chew tobacco or use marijuana 24 hours prior to your surgery or procedure. Gum, cough drops, hard candy or mints should not be consumed after midnight the night before your surgery. If your care team advised you differently, follow their instructions. If you are not sure what medications to take on the day of your surgery or procedure, call your doctor. Please shower or bathe the night before surgery. Avoid using deodorant, lotions, perfumes or powders. All nail argentine must be removed from your fingernails and toenails. Remove artificial fingernails. Failure to do so may cause your surgery or procedure to be cancelled. Shaving Do not shave the area of your body where your surgery will be performed for 72 hours prior to your surgery. If needed, the staff will clip the area before your surgery. Morning of surgery Take only the morning pills that you have been instructed to take with sips of water, unless otherwise directed by your doctor. If you have any questions about how to take your medication on the day of surgery, contact your surgeon. If you are a diabetic, do not take your morning dose of insulin or oral hypoglycemic (sugar pill), unless otherwise instructed by your physician. We will check your blood glucose level prior to surgery and again after surgery. You may brush your teeth on the morning of your surgery or procedure but avoid swallowing water. You may take a sip with any recommended medications the morning of surgery. Wear loose-fitting clothing that will not interfere with your incision or dressing. Wear comfortable shoes that are easy to get on and off (tennis shoes, non-skid shoes, slippers, etc.) Do not wear high heels. Please do not use deodorant, perfume, lotion/skin creams, or powder. Do not wear makeup, except a moisturizer for your lips. All piercings must be removed. Do not wear any jewelry, including earrings, necklaces and rings. If you cannot remove your rings, we may be required to cut them off if necessary. Do not bring any valuables that can't be given to your support person before your surgery or procedure. What to Bring to Hospital Bring your health insurance information and a photo ID. You may be asked for payment of your eel-yz-dzfoxo-estimate. Bring a copy of your advanced directives (Living Will and Durable Power of Dra[employer] Patent for Healthcare)if they are available to you. Bring a complete list of medications you are taking. The list should include ejle-yzp-pxpaejm medicine, prescription medication, and herbal supplements. List the names and doses of your medications, how many times per day you take them, and the last time you took them. If you use an inhaler for breathing, continue to do so and bring it with you. If you are on oxygen, please bring a spare tank. If you have a BIPAP (bilevel positive airway pressure) or CPAP (continuous positive airway pressure) machine at home, bring them with you and ask a staff member to label them with your name. If you use a mobility device such as a walker, cane, wheelchair or crutches, please bring the device with you. The staff will label it with your name. Eyeglasses, hearing aids or dentures may be worn to the hospital. Bring your storage container for these items because you will be asked to remove them before your procedure. Do not wear any contact lenses. If you have an implanted device such as defibrillator or pacemaker, please bring the device information with you. If you have a spinal cord stimulator or similar implanted device, please bringyour remote. Arriving at the Hospital Parking at [facility] is free. Please park in the lot in front of the main lobby. Enter the Main Entrance by the blue spheres, where a Tongue And Quarter Stitcher Liaison at the information desk will greet you and accompany you to the surgery waiting area on the second floor. Your arrival time will depend on the location of your surgery. You will receive a call the day before your surgery with your exact arrival time. For planning purposes, arrival time is generally two hours prior to your scheduled surgery or procedure time. However, you will receive a call the day before with the exact time you should arrive. If you are having an outpatient surgery or procedure and will be going home the same day, a responsible licensed adult, age of 18 or older, must be available for transportation. They're expected to remain at the hospital during your surgery or procedure. You are NOT permitted to drive yourself homeafter a surgical procedure. When you arrive for surgery, check in at the location designated by your physician's office. You will be asked to complete registration forms and sign admission paperwork. You will be escortedfrom the waiting area to the pre-op (preoperative) area, where you will be asked to change into a patient gown. Your clothing will be placed in a convenient patient care bag and provided to your family or placed in limited locker space and returned to you after surgery. Leave cell phones and electronic devices with the responsible person who is with you. To preserve your privacy, the nurse in the pre-op area will bring your designated support person tojoin you when appropriate. Please limit the number of family members accompanying you to the hospital. Each care site has limits on the number of visitors permitted in the pre-op and post-op (postoperative) areas or the post anesthesia care unit (PACU), and children under the age of 18 are NOT permitted in these areas. They are welcome to wait with a responsible adult in the surgery waiting area. Women who still have a menstrual cycle will be asked to give a urine sample. Notify the front desk monitor or your nurse prior to using the restroom. You may be asked in the pre-operative area to use special wipes to prepare your skin prior to surgery. Notify the nurse if you have any implanted devices, such as a defibrillator or pacemaker. In the pre-op area, the anesthesiologist, your surgeon and your nurse will answer any questions while preparing you for surgery. You will then be escorted to the operating room, and your family will be escorted to the waiting area. *Please check with your surgeon's office if you will need a walker or other ambulatory aids after surgery. Your surgeon's office can give you a prescription for these aids, so you can get them prior to your surgery date. *Pre-Op Instructions verbally given to the patient. Patient verbalized understanding and questions answered. [id number] Nurse Note* Marci Smith RN - 06/01/2024 2:52 PM EDT Patient Instructions for [facility] The Day Before Surgery If you develop any abnormal symptoms (for example a cold, fever, or sore throat) within a week of your surgery date, call your surgeon's office. It may be necessary to postpone your surgery. If you did not receive instructions from your physician or surgeon prior to your surgery or procedure, please follow the general instructions below for guidance on eating and drinking: Drink plenty of fluids the day prior to your surgery to maintain hydration. Do not eat or drink anything by mouth after midnight except for sips of water with medications. Do not drink any alcoholic beverages, smoke, or chew tobacco or use marijuana 24 hours prior to your surgery or procedure. Gum, cough drops, hard candy or mints should not be consumed after midnight the night before your surgery. If your care team advised you differently, follow their instructions. If you are not sure what medications to take on the day of your surgery or procedure, call your doctor. Please shower or bathe the night before surgery. Avoid using deodorant, lotions, perfumes or powders. All nail argent[place] must be removed from your fingernails and toenails. Remove artificial fingernails. Failure to do so may cause your surgery or procedure to be cancelled. Shaving Do not shave the area of your body where your surgery will be performed for 72 hours prior to your surgery. If needed, the staff will clip the area before your surgery. Morning of surgery Take only the morning pills that you have been instructed to take with sips of water, unless otherwise directed by your doctor. If you have any questions about how to take your medication on the day of surgery, contact your surgeon. If you are a diabetic, do not take your morning dose of insulin or oral hypoglycemic (sugar pill), unless otherwise instructed by your physician. We will check your blood glucose level prior to surgery and again after surgery. You may brush your teeth on the morning of your surgery or procedure but avoid swallowing water. You may take a sip with any recommended medications the morning of surgery. Wear loose-fitting clothing that will not interfere with your incision or dressing. Wear comfortable shoes that are easy to get on and off (tennis shoes, non-skid shoes, slippers, etc.) Do not wear high heels. Please do not use deodorant, perfume, lotion/skin creams, or powder. Do not wear makeup, except a moisturizer for your lips. All piercings must be removed. Do not wear any jewelry, including earrings, necklaces and rings. If you cannot remove your rings, we may be required to cut them off if necessary. Do not bring any valuables that can't be given to your support person before your surgery or procedure. What to Bring to Hospital Bring your health insurance information and a photo ID. You may be asked for payment of your lei-oh-gbxplq-estimate. Bring a copy of your advanced directives (Living Will and Durable Power of [employer] Patent for Healthcare)if they are available to you. Bring a complete list of medications you are taking. The list should include vgsk-wby-qlqbtni medicine, prescription medication, and herbal supplements. List the names and doses of your medications, how many times per day you take them, and the last time you took them. If you use an inhaler for breathing, continue to do so and bring it with you. If you are on oxygen, please bring a spare tank. If you have a BIPAP (bilevel positive airway pressure) or CPAP (continuous positive airway pressure) machine at home, bring them with you and ask a staff member to label them with your name. If you use a mobility device such as a walker, cane, wheelchair or crutches, please bring the device with you. The staff will label it with your name. Eyeglasses, hearing aids or dentures may be worn to the hospital. Bring your storage container for these items because you will be asked to remove them before your procedure. Do not wear any contact lenses. If you have an implanted device such as defibrillator or pacemaker, please bring the device information with you. If you have a spinal cord stimulator or similar implanted device, please bringyour remote. Arriving at the Hospital Parking at [facility] is free. Please park in the lot in front of the main lobby. Enter the Main Entrance by the blue spheres, where a Tongue And Quarter Stitcher Liaison at the information desk will greet you and accompany you to the surgery waiting area on the second floor. Your arrival time will depend on the location of your surgery. You will receive a call the day before your surgery with your exact arrival time. For planning purposes, arrival time is generally two hours prior to your scheduled surgery or procedure time. However, you will receive a call the day before with the exact time you should arrive. If you are having an outpatient surgery or procedure and will be going home the same day, a responsible licensed adult, age of 18 or older, must be available for transportation. They're expected to remain at the hospital during your surgery or procedure. You are NOT permitted to drive yourself homeafter a surgical procedure. When you arrive for surgery, check in at the location designated by your physician's office. You will be asked to complete registration forms and sign admission paperwork. You will be escortedfrom the waiting area to the pre-op (preoperative) area, where you will be asked to change into a patient gown. Your clothing will be placed in a convenient patient care bag and provided to your family or placed in limited locker space and returned to you after surgery. Leave cell phones and electronic devices with the responsible person who is with you. To preserve your privacy, the nurse in the pre-op area will bring your designated support person tojoin you when appropriate. Please limit the number of family members accompanying you to the hospital. Each care site has limits on the number of visitors permitted in the pre-op and post-op (postoperative) areas or the post anesthesia care unit (PACU), and children under the age of 18 are NOT permitted in these areas. They are welcome to wait with a responsible adult in the surgery waiting area. Women who still have a menstrual cycle will be asked to give a urine sample. Notify the front desk monitor or your nurse prior to using the restroom. You may be asked in the pre-operative area to use special wipes to prepare your skin prior to surgery. Notify the nurse if you have any implanted devices, such as a defibrillator or pacemaker. In the pre-op area, the anesthesiologist, your surgeon and your nurse will answer any questions while preparing you for surgery. You will then be escorted to the operating room, and your family will be escorted to the waiting area. *Please check with your surgeon's office if you will need a walker or other ambulatory aids after surgery. Your surgeon's office can give you a prescription for these aids, so you can get them prior to your surgery date. *Pre-Op Instructions verbally given to the patient. Patient verbalized understanding and questions answered. documented in this [id number] Instructions* Patient Instructions* Irma Allen RN - 12/05/2021 3:58 PM EDT Images from the original note were not included. Prostate Ultrasound and Biopsy ([facility]) The prostate is a small walnut-shaped gland that sits in front of the rectum and below the bladder.The prostate also wraps around the urethra, the tube that carries urine out of the body. A prostate ultrasound is a test that uses sound waves to take a picture of your prostate. Your doctor may also do a prostate biopsy. This is when small samples of prostate tissue is removed using a needle. Important Medicine Information Talk to your doctor about any medicines you take to thin your blood or prevent clots. You may need to change these medicines or adjust the amount you take before surgery. These medicines include: Aspirin Clopidogrel, brand name Plavix Prasugrel, brand name Effient Ticagrelor, brand name Brilinta Apixaban, brand name Eliquis Ticlopidine, brand name Ticlid Warfarin, brand name Coumadin Enoxaparin, brand name Lovenox Dabigatran, brand name Pradaxa Fondaparinux, brand name Arixtra Rivaroxaban, brand name Xarelto Cilostazol, brand name Pletal Edoxaban, brand name Savaysa If you have a stent, do not stop taking your medicines to prevent clots without first talking to the doctor who put in the stent. For more information, ask a member of your health care team for the patient education handout on protecting your stent. Before Your Ultrasound and Biopsy The morning of your biopsy, it is best to eat a small meal or snack. You may need to take an antibiotic 1 day before the test and up to 2 days after the test. Your health care team will give you a prescription for the antibiotic, if needed. You may need to use a Fleets enema before the test. Your health care team will give you instructions, if this is needed. It is important to tell the nurse if you have seen blood in your urine in the past week. Most prostate biopsies are done in the clinic with numbing medicine that is injected into the biopsy area. You may want to have someone drive you home. If you are told you need general anesthesia for your biopsy, you will need a responsible adult to drive you home after the procedure. Prostate Ultrasound You will lie on your side with your knees bent for this test. The doctor will gently insert a lubricated tube-like probe into your rectum. The probe sends out sound waves, which makes a picture of your prostate on a video screen. The doctor will look at the picture to see the size and shape of yourprostate. Prostate Biopsy Small pieces of tissue are taken from your prostate during a biopsy. You will be given a numbing medicine into the rectum before the procedure starts. Your doctor will put a needle into a small hole through the probe. You will feel some discomfort when the needle goes into your prostate to remove the tissue. The prostate tissue will be sent to a lab for testing. Your doctor will call you or have you come in for an appointment to talk about your biopsy results about two weeks after the procedure. After Your Ultrasound and Biopsy Side effects after the biopsy may include: Bleeding from your penis and or rectum (this may last a few days after the procedure) Burning when you pass urine or the need to go to the bathroom more often and more urgently Discomfort in your scrotum (sac) for a few days Bloody or brown color in your semen when you ejaculate (this may last for 30 to 90 days) Some things you can do to help ease the side effects: Drink plenty of fluids, at least 8 cups each day, to help flush out your bladder. Soak in a warm bath for 20 minutes twice a day to ease scrotal discomfort. Limit your exercise and sexual activities for at least 72 hours after your biopsy. If antibiotics were prescribed for your biopsy, it is important to take all the pills as directed. When to Get Medical Help Go to the nearest Emergency Department if you: Have fever above 101 degrees or chills Bleeding from your penis or rectum with clots You cannot urinate (pass urine) October 18, 2021. The [facility] and [employer] [place]. This handout is for informational purposes only. Talk with your doctor or health care team if you have any questions about your care. * Attachments The following attachments cannot be sent through Care Everywhere. * [facility] of the Prostate ([facility]) (Kyrgyz[facility] History of Present illness Narrative* Aury Larry, LUIS-THERAPEUTIC RIDING INSTRUCTOR - 12/05/2021 2:30 PM EDT HPI 65 y.o. presents for a second opinion of his recently diagnosed prostate cancer. He initially presented with an elevated PSA to 11.17 on 05/22/2018. MRI prostate 06/03/2018 showed a PIRADS 3 lesion in the left mid gland to apex transition zone. Prostate volume 93cc. He underwent prostate biopsy with Dr. Stevenson () on 07/16/2018. Pathology revealed Eugene 3+3=6 prostate cancer in 1 of 14 cores. He's been on and following his PSA's with his PCP. Recent PSA 08/21/21 was 11.6. Reports intermittency, frequency, urgency and occasional weak stream. Nocturia x 3. Denies GH, UTI,dysuria. Erections: currently taking sildenafil. 85% fullness with erections. No issues or concerns at this time. Past history is negative for UTI, stones or other renal diseases. Family history of prostate cancer: yes, father (prostatectomy) and brother (radation therapy) - both did very well. is a breast cancer patient at [facility]. -Prior Abdominal Surgery: Appendectomy -Anticoagulation: no -History of Bleeding with Prior Surgery: no -History of Glaucoma: no IPSS: International Prostate Symptom Score (I-PSS) Incomplete emptying: Less than 1 time in 5 Frequency: About half the time Intermittency: About half the time Urgency: More than half the time Weak stream: Less than half the time Straining: Not at all Nocturia: 3 times Total AUA score: 16 Quality of life due to urinary symptoms Rate current urinary condition: Equally satisfied and dissatisfied, HERON: HERON Survey Confidence to get and keep an erection?: Moderate Sexual stimulation - how often erections hard enough for penetration?: Almost always or always How often maintain erection after penetration?: Almost always or always Difficulty to maintain erection to intercourse completion?: Slightly difficult [place] satisfactory for you?: Most times (much more than half the time) Total HERON score: 21 Past Medical History: He has a past medical history of Erectile dysfunction, Essential hypertension, benign, GERD (gastroesophageal reflux disease), Hyperlipidemia, and Prostate cancer. Past Surgical History: He has a past surgical history that includes appendectomy (1959) and vasectomy (1990). Medications: He has a current medication list which includes the following prescription(s): atorvastatin, metoprolol, omeprazole, and sildenafil citrate. Allergies: He has No Known Allergies. Social History He reports that he has never smoked. He has never used smokeless tobacco. He reports that he does not drink alcohol and does not use drugs. Family History: He family history includes No known problems in his daughter, son, and son; Prostate Cancer in his brother and father. Review of Systems Constitutional: Negative for fever, chills, weight loss, weight gain and malaise/fatigue. Cardiovascular: Negative for chest pain. Respiratory: Negative for shortness of breath. Gastrointestinal: Negative for nausea, abdominal pain, diarrhea, constipation. Genitourinary: see HPI Musculoskeletal: Negative for back pain and joint pain. Neurological: Negative for dizziness and headaches. Psychiatric- no depression or anxiety. Physical Exam Smoking Status Never Smoker There is no height or weight on file to calculate BMI. Constitutional: NAD, WDWN. HEENT: NCAT. Conjunctivae normal. MMM. Cardiovascular: Regular rate. Pulmonary/Chest: Respirations are even and non-labored bilaterally. Abdominal: Soft. No distension, tenderness, masses or guarding. No CVA tenderness. Prostate: 70 grams. Symmetric, non-tender, anodular and no induration. Neurological: A + O x 3. Cranial Nerves II-XII grossly intact. Normal gait. Extremities: YENNI x 4, Warm. No clubbing. No cyanosis. Skin: Leith, warm and dry. No rashes noted. Diagnostic Tests Lab Results Component Value Date LEUKOCESTUR Negative 12/05/2021 NITRITE Negative 12/05/2021 PROTEIN Negative 12/05/2021 UPH 5.5 12/05/2021 BLOOD Negative 12/05/2021 SPECIFICGRAV 1.020 12/05/2021 KETONES Negative 12/05/2021 GLUCOSE Negative 12/05/2021 PVR: 24 No results found for: CREATSERUM] No results found for: PSA PSA History 11.6 08/20/2021 12.2 08/03/2020 11.17 05/22/2018 14.12 04/15/2018 6.59 05/04/2013 3.1 08/15/2008 4.9 07/19/2008 2.5 03/12/2007 Radiographic Studies: MRI Prostate (06/03/18): Prostate volume = 93 cc. PSA density = 0.15 ng/mL/cc (@ PSA 14.12). -Moderate BPH changes. Partially circumscribed nodules in the anterior left mid gland to apex transition zone are nonspecific as evolving stromal BPH may have a similar appearance. -Nonspecific multifocal low T2 signal foci in the peripheral zone bilaterally with no focal peripheral zone mass identified. Prostate Biopsy Pathology: 07/16/2018 (PSA 11.17): Minor 3+3=6 in 1 of 14 cores . (A) Prostate, left lateral base, biopsy: - Benign prostatic tissue. (B) Prostate, left lateral mid, biopsy: - Benign prostatic tissue. (C) Prostate, left lateral apex, biopsy: - Small focus of atypical glands, suspicious for carcinoma. See comment. (D) Prostate, left medial base, biopsy: - Benign prostatic tissue. (E) Prostate, left medial mid, biopsy: - Benign prostatic tissue. (F) Prostate, left medial apex, biopsy: - Benign prostatic tissue. (G) Prostate, right medial base, biopsy: - Benign prostatic tissue. (H) Prostate, right medial mid, biopsy: - Benign prostatic tissue. (I) Prostate, right medial apex, biopsy: - Benign prostatic tissue. (J) Prostate, right lateral base, biopsy: - Benign prostatic tissue. (K) Prostate, right lateral mid, biopsy: - Benign prostatic tissue. (L) Prostate, right lateral apex, biopsy: - Prostatic adenocarcinoma, conventional/acinar type, involving one (1) of one (1) core. See comment. - Minor score: 3 + 3 = 6 (Grade Group 1) involving approximately 1 mm. (M) Prostate, MR left mid TZ PIRAD3, biopsy: - Benign prostatic tissue. (N) Prostate, MR left apex TZ PIRAD3, biopsy: - Benign prostatic tissue. Assessment 65 y.o. presents for a second opinion of his recently diagnosed prostate cancer. He initially presented with an elevated PSA to 11.17 on 05/22/2018. MRI prostate 06/03/2018 showed a PIRADS 3 lesion in the left mid gland to apex transition zone. Prostate volume 93cc. He underwent prostate biopsy with Dr. Stevenson () on 07/16/2018. Pathology revealed Minor 3+3=6 prostate cancer in 1 of 14 cores. He's been on and following his PSA's with his PCP. Recent PSA 08/21/21 was 11.6. He has low risk clinically localized stage prostate cancer that has been managed with active surveillance. I discussed the risks, benefits, and alternatives to prostate biopsy, including hematuria, hematochezia, and hematospermia. I also discussed the risk of diagnosing a clinically-insignificant prostatecancer. I discussed the risks of sepsis, which can be minimized by prophylactic antibiotics. The patient decided he would like to proceed with a prostate biopsy. He is due for a confirmatory biopsy. Plan -Prostate MRI -F/u for Prostate Biopsy wtih MR-Fusion -Rectal swab sent. We will call in an antibiotic based on the rectal swab results. The patient was given a handout detailing the procedure. * Blas Madrid MD - 12/05/2021 2:30 PM EDT The patient was jointly seen and evaluated by KELTON Gonzalez and myself in the [facility] today. The encounter began by procurement of new records, laboratory testing results, and other diagnostic testing results by the FORESTRY ADVISER and staff which we reviewed. I reviewed the entire past electronic [facility] record as well, particularly my notes and those of hicks consultants, while the FORESTRY ADVISER began with the interval history and RoS, which guided me during my interview and examination of the patient. We both have contributed to the physical exam findings that are documented above. I then proceed with a discussion of the assessment and plan, the natural history, and the options for therapy, with the FORESTRY ADVISER and RN providing additional education, and I answered any and all remaining questions. During this visit the note was initiated by the FORESTRY ADVISER and I edited it later in its entirety to reflect my interview, exam, and medical decision making. documented [facility] Miscellaneous Notes* Addendum Note - Irma Allen RN - 12/05/2021 2:30 PM EDTAddended by: IRMA ALLEN on: 12/05/2021 04:02 PM Modules accepted: [id number]* Addendum Note - Irma Allen RN - 12/05/2021 2:30 PM EDTAddended by: IRMA ALLEN on: 12/05/2021 04:02 PM Modules accepted: [facility] Matthew Sy [facility] Note Date/Time May 04, 2025 11 :11am [facility] Medical Records Department [address] [place] [address] Anesthesia Postop Eval I 05/04/25 1109 MR#: [id number] Acct: [id number] Name: JACEY AGUILERA Rep #:[id number] : 1955 69 From: Matthew Sy PCP: Dr. Evelin Rogers MD Status:REG SDC Y Race: C Location: [place] [address] Anesthesia: Postop Eval I Current Vital Signs Temperature: 97 F Pulse Rate: 62 Blood Pressure: 96/72 Respiratory Rate: 16 Pulse Ox: 92 Oxygen Delivery Method: Nasal Cannula Oxygen Flow Rate (L/min): 2 Assessment Airway patent: Yes Spontaneous unlabored respirations: Yes Mental status: Asleep nausea: No Vomiting: No Anesthesia Complication: Yes Anesthesia Complication Comment:: O2 sat <90% d/t mouth breathing Fluid Hydration Crystalloid volume administer (ml): 400 Total IV fluid infused: 400 Progress Note Anesthesia document: Postop Eval 1 completed: Yes 05/04/25 1111 <Electronically signed by Matthew Sy > Date _ Matthew Diaz Signature: Date CC: ~ Signed [facility] Work Phone: Evaluation note* Diagnosis Prostate cancer- Primary Malignant neoplasm of prostate [facility] Diagnosis Elevated prostate specific antigen (PSA) [facility] Diagnosis Malignant neoplasm of prostate (CMS/HCC) Malignant neoplasm of prostate [facility]* Diagnosis Paraesophageal hernia- Primary Diaphragmatic hernia without mention of obstruction or gangrene [facility] noteNo assessment information availableBlVentura County Medical Center Work Phone: Hospital Discharge instructions* Attachments The following attachments cannot be sent through Care Everywhere. * Prostate Biopsy (Kyrgyz) documented in this encounterOhioHealthReason for referral (narrative)No reason for referral information availableWCherrington Hospital Work Phone: Reason for Referral Specialty Diagnoses / Procedures Referred By Pari t Referred To Contact Diagnoses Prostate cancer Procedures MRI PROSTATE WITH AND WITHOUT CONTRAST CT MRI, PELVIS, Blas Carbajal MD [address] [place] [address] Referral ID Status Reason Start Date Expiration Date V isits Requested Visits Authorized [id number] New Request 12/05/2021 12/30/2022 1 1 Specialty Diagnoses / Procedures Referred By Ruyac t Referred To Contact Radiology Diagnoses Elevated prostate specific antigen (PSA) Procedures MR Prostate w and wo Contrast Willi Roque MD [address] [place] [address] [facility] Referral ID Status Reason Start Date Expiration Date V isits Requested Visits Authorized [id number] Authorized 01/16/2022 07/15/2022 1 1 Specialty Diagnoses / Procedures Referred By Contac t Referred To Contact Radiology Diagnoses Malignant neoplasm of prostate (CMS/HCC) Procedures MR Prostate w and wo Contrast Willi Roque MD [address] [place] [address] [facility] Referral ID Status Reason Start Date Expiration Date V isits Requested Visits Authorized [id number] Authorized 10/15/2023 10/14/2024 1 1 Advance Directives No Advanced Directives Records FoundDocuments on File Type Date Recorded Patient Chain Maker Loom Control Expl anation Power of Drafter Patent Advance Directive Response Recorded Date/ Time Do you have a Healthcare Power of Drafter Patent? Yes May 03, 2025 12:39pm Name of Medical Power of Drafter Patent CLEM May 03, 2025 12:39pm Summary Purpose Family History No Family History Records Found Relationship Condition Age at Onset Recorded Date/T mykel father Malignant neoplasm 65 Hypertension Unknown Chief Complaint and Reason for Visit Chief Complaint Admit Date FU ON TESTING August 05, 2024 2:05pm 1 MO - LABS(DONE) August 05, 2024 3:15pm MEDICARE WELLNESS August 26, 2024 9:59am LT LEG SWELLING August 26, 2024 1:40pm EORDER August 27, 2024 4:41pm Amb Documentation September 07, 2024 11:29am INR September 13, 2024 10:07am INR October 05, 2024 9 :50am INR- AND EORDERS FOR WAYT October 22, 2024 10:44am DVT November 23, 2024 10: 40am INR- AND EORDERS FOR WAYT December 02 12:31pm Reason for Visit Admit Date Frequent PVCs August 05, 2024 2:05pm GERD (gastroesophageal reflux disease) N ovember 2023 2:05pm Swelling of lower extremity July 2:05pm Hypertension August 05, 2024 2:05pm Iron deficiency anemia due to chronic bl ood loss August 05, 2024 2:05pm Iron deficiency anemia due to chronic bl ood loss August 05, 2024 3:15pm Erectile dysfunction August 26, 2024 9:59am GERD (gastroesophageal reflux disease) D ecember 2023 9:59am Iron deficiency anemia due to chronic bl ood loss August 26, 2024 9:59am Medicare annual wellness visit, subseque nt August 26, 2024 9:59am Prostate cancer August 26, 2024 9:59am Essential hypertension August 26 9:59am Chief Complaint Admit Date MEDICARE WELLNESS August 26, 2024 9:59am LT LEG SWELLING August 26, 2024 1:40pm EORDER August 27, 2024 4:41pm Amb Documentation September 07, 2024 11:29am INR September 13, 2024 10:07am INR October 05, 2024 9 :50am INR- AND EORDERS FOR WAYT October 22, 2024 10:44am DVT November 23, 2024 10: 40am INR- AND EORDERS FOR WAYT December 02 12:31pm Reason for Visit Admit Date Erectile dysfunction August 26, 2024 9:59am GERD (gastroesophageal reflux disease) D ecember 2023 9:59am Iron deficiency anemia due to chronic bl ood loss August 26, 2024 9:59am Medicare annual wellness visit, subseque nt August 26, 2024 9:59am Prostate cancer August 26, 2024 9:59am Essential hypertension August 26 9:59am Chief Complaint Admit Date DVT November 23, 2024 10: 40am INR- AND EORDERS FOR WAYT December 02 12:31pm DISCUSS MEDICATIONS March 04, 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 Chief Complaint Admit Date DVT November 23, 2024 10: 40am INR- AND EORDERS FOR WAYT December 02 12:31pm DISCUSS MEDICATIONS March 04, 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 Follow Up Meds March 10, 2025 10:3 4am Reason for Visit Admit Date 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, 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 Deep vein thrombosis (DVT) March 04 3:08pm Iron deficiency anemia due to chronic bl ood loss March 04, 2025 3:08pm Chief Complaint Admit Date DVT November 23, 2024 10: 40am INR- AND EORDERS FOR WAYT December 02 12:31pm DISCUSS MEDICATIONS March 04, 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 Follow Up Meds March 10, 2025 10:3 4am INR- AND EORDERS FOR WAYT March 10 11:06am Reason for Visit Admit Date 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, 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 Deep vein thrombosis (DVT) March 04 3:08pm Iron deficiency anemia due to chronic bl ood loss March 04, 2025 3:08pm Cadena esophagus March 10, 2025 10:3 4am GERD (gastroesophageal reflux disease) J une 2024 10:34am Chief Complaint Admit Date INR- AND EORDERS FOR WAYT December 02 12:31pm DISCUSS MEDICATIONS March 04, 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 Follow Up Meds March 10, 2025 10:3 4am INR- AND EORDERS FOR WAYT March 10 11:06am 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 March 17, 2025 8:59am Chief Complaint Admit Date DISCUSS MEDICATIONS March 04, 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 Follow Up Meds March 10, 2025 10:3 4am INR- AND EORDERS FOR WAYT March 10 11:06am 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 March 17, 2025 8:59am INR- AND EORDERS FOR WAYT March 31 10:31am Chief Complaint Admit Date DISCUSS MEDICATIONS March 04, 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 Follow Up Meds March 10, 2025 10:3 4am INR- AND EORDERS FOR WAYT March 10 11:06am 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 March 17, 2025 8:59am INR- AND EORDERS FOR WAYT March 31 10:31am 1 MO - LABS May 04, 2025 8: 50am Reason for Visit Admit Date 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, 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 Deep vein thrombosis (DVT) March 04 3:08pm Iron deficiency anemia due to chronic bl ood loss March 04, 2025 3:08pm Cadena esophagus March 10, 2025 10:3 4am GERD (gastroesophageal reflux disease) J [facility] 2024 10:34am Cadena esophagus May 04, 2025 8: 39am Chief Complaint Admit Date DISCUSS MEDICATIONS March 04, 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 Follow Up Meds March 10, 2025 10:3 4am INR- AND EORDERS FOR WAYT March 10 11:06am 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 March 17, 2025 8:59am INR- AND EORDERS FOR WAYT March 31 10:31am 1 MO - LABS May 04, 2025 8: 50am LOST TO F/U, LABS DAY PRIOR May 05, 2025 10:56am Reason for Visit Admit Date 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, 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 Deep vein thrombosis (DVT) March 04 3:08pm Iron deficiency anemia due to chronic bl ood loss March 04, 2025 3:08pm Cadena esophagus March 10, 2025 10:3 4am GERD (gastroesophageal reflux disease) J une 2024 10:34am Cadena esophagus May 04, 2025 8: 39am Iron deficiency anemia due to chronic bl ood loss May 05, 2025 10:56am Reason for Visit Admit Date 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, 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 Deep vein thrombosis (DVT) March 04 3:08pm Iron deficiency anemia due to chronic bl ood loss March 04, 2025 3:08pm Cadena esophagus March 10, 2025 10:3 4am GERD (gastroesophageal reflux disease) J une 2024 10:34am Cadena esophagus May 04, 2025 8: 39am Deep vein thrombosis (DVT) May 05, 2025 10:56am Iron deficiency anemia due to chronic bl ood loss May 05, 2025 10:56am Additional Source Comments Reason for Visit (unrecogniz ed section and content) Reason Comments Prostate Cancer Specialty Diagnoses / Procedures Referred By Contac t Referred To Contact Urology Diagnoses Elevated PSA Jenny Atkinson MD [address] [place] [address] Referral ID Status Reason Start Date Expiration Date V isits Requested Visits Authorized [id number] Pending Review 09/03/2021 09/28/2022 1 1 Specialty Diagnoses / Procedures Referred By Contac t Referred To Contact Diagnoses Prostate cancer Procedures MRI PROSTATE WITH AND WITHOUT CONTRAST CT MRI, PELVIS, COMBO Blas Madrid MD [address] [place] [address] Referral ID Status Reason Start Date Expiration Date V isits Requested Visits Authorized [id number] New Request 12/05/2021 12/30/2022 1 1 Specialty Diagnoses / Procedures Referred By Contac t Referred To Contact Radiology Diagnoses Elevated prostate specific antigen (PSA) Procedures MR Prostate w and wo Contrast Willi Roque MD [address] [place] [address] [facility] Referral ID Status Reason Start Date Expiration Date V isits Requested Visits Authorized [id number] Authorized 01/16/2022 07/15/2022 1 1 Specialty Diagnoses / Procedures Referred By Contac t Referred To Contact Radiology Diagnoses Malignant neoplasm of prostate (CMS/HCC) Procedures MR Prostate w and wo Willi Ortega MD [address] [place] [address] [facility] [place] Referral ID Status Reason Start Date Expiration Date V isits Requested Visits Authorized [id number] Authorized 10/15/2023 10/14/2024 1 1 Reason Comments Appointment Recent Imaging and R ecords Reason Comments Consult Care Teams (unrecognized sec tion and content) Social Media Developer Relationship Specialty Start Date End Date Jenny Atkinson MD [address] [place] [address] PCP - General Family Medicine 12/05/21 Social Media Developer Relationship Specialty Start Date End Date Jenny Atkinson MD [address] [place] [address] PCP - General Family Medicine 12/05/21 Social Media Developer Relationship Specialty Start Date End Date Jenny Atkinson MD [address] [place] [address] PCP - General Family Medicine 01/16/22 Social Media Developer Relationship Specialty Start Date End Date Jenny Atkinson MD [address] [place] [address] PCP - General Family Medicine 12/05/21 Social Media Developer Relationship Specialty Start Date End Date Jenny Atkinson MD [address] [place] [address] PCP - General Family Medicine 01/16/22 Social Media Developer Relationship Specialty Start Date End Date No, Physician [facility] PCP - General 06/15/24 Team Status: Active Member Role Status Dates Dr. Evelin Rogers MD Primary Care Provider Active Team Status: Inactive Member Role Status Dates Dr. Evelin Rogers MD Primary Care Provider Active Start: August 05, 2024 End: August 05, 2024 Dr. Evelin Rogers MD Referring Provider Active Start: August 05, 2024 End: August 05, 2024 JORGE LUIS Marrufo Attending Provider Active St art: August 05, 2024 End: August 05, 2024 Team Status: Inactive Member Role Status Dates Dr. Evelin Rogers MD Primary Care Provider Active Start: August 05, 2024 End: August 05, 2024 Dr. Evelin Rogres MD Referring Provider Active Start: August 05, 2024 End: August 05, 2024 Sharda Agudelo FORESTRY ADVISER, FORESTRY ADVISER-C Attending Provider Active Start: August 05, 2024 End: August 05, 2024 Team Status: Inactive Member Role Status Dates Dr. Evelin Rogers MD Primary Care Provider Active Start: August 26, 2024 End: August 26, 2024 Dr. Evelin Rogers MD Attending Provider Active Start: August 26, 2024 End: August 26, 2024 Dr. Evelin Rogers MD Referring Provider Active Start: August 26, 2024 End: August 26, 2024 Team Status: Inactive Member Role Status Dates Dr. Evelin Rogers MD Primary Care Provider Active Start: August 26, 2024 End: August 26, 2024 JORGE LUIS Marrufo Attending Provider Active St art: August 26, 2024 End: August 26, 2024 JORGE LUIS Marrufo Referring Provider Active St art: August 26, 2024 End: August 26, 2024 Team Status: Active Member Role Status Dates Dr. Evelin Rogers MD Primary Care Provider Active Start: August 26, 2024 Dr. Tutu Dailey MD Attending Provider Active S tart: August 26, 2024 Willi KANG PA Referring Provider Active St art: August 26, 2024 Team Status: Inactive Member Role Status Dates Dr. Evelin Rogers MD Primary Care Provider Active Start: August 27, 2024 End: August 27, 2024 Dr. Evelin Rogers MD Attending Provider Active Start: August 27, 2024 End: August 27, 2024 Dr. Evelin Rogers MD Referring Provider Active Start: August 27, 2024 End: August 27, 2024 Team Status: Active Member Role Status Dates Dr. Evelin Rogers MD Primary Care Provider Active Start: September 07, 2024 Cristina Robb MA Attending Provider Active Sta rt: September 07, 2024 Team Status: Inactive Member Role Status Dates Dr. Evelin Rogers MD Primary Care Provider Active Start: September 13, 2024 End: September 13, 2024 Dr. Evelin Rogers MD Attending Provider Active Start: September 13, 2024 End: September 13, 2024 Dr. Evelin Rogers MD Referring Provider Active Start: September 13, 2024 End: September 13, 2024 Team Status: Inactive Member Role Status Dates Dr. Evelin Rogers MD Primary Care Provider Active Start: October 05, 2024 End: October 05, 2024 Dr. Evelin Rogers MD Attending Provider Active Start: October 05, 2024 End: October 05, 2024 Dr. Evelin Rogers MD Referring Provider Active Start: October 05, 2024 End: October 05, 2024 JORGE LUIS Marrufo Other Provider Active Start: October 05, 2024 End: October 05, 2024 Team Status: Inactive Member Role Status Dates Dr. Evelin Rogers MD Primary Care Provider Active Start: October 22, 2024 End: November 12, 2024 Dr. Evelin Rogers MD Attending Provider Active Start: October 22, 2024 End: November 12, 2024 Dr. Eevlin Rogers MD Referring Provider Active Start: October 22, 2024 End: November 12, 2024 JORGE LUIS Marrufo Other Provider Active Start: October 22, 2024 End: November 12, 2024 Team Status: Inactive Member Role Status Dates Dr. Evelin Rogers MD Primary Care Provider Active Start: November 23, 2024 End: November 23, 2024 Dr. Evelin Rogers MD Attending Provider Active Start: November 23, 2024 End: November 23, 2024 Dr. Evelin Rogers MD Referring Provider Active Start: November 23, 2024 End: November 23, 2024 Team Status: Active Member Role Status Dates Dr. Evelin Rogers MD Primary Care Provider Active Start: November 23, 2024 Dr. Evelin Rogers MD Referring Provider Active Start: November 23, 2024 Dr. Tutu Dailey MD Attending Provider Active S tart: November 23, 2024 Team Status: Active Member Role Status Dates Dr. Evelin Rogers MD Primary Care Provider Active Start: December 02, 2024 Dr. Evelin Rogers MD Attending Provider Active Start: December 02, 2024 Dr. Evelin Rogers MD Referring Provider Active Start: December 02, 2024 JORGE LUIS Marrufo Other Provider Active Start: December 02, 2024 Team Status: Inactive Member Role Status Dates Dr. Evelin Rogers MD Primary Care Provider Active Start: December 02, 2024 End: December 02, 2024 Dr. Evelin Rogers MD Attending Provider Active Start: December 02, 2024 End: December 02, 2024 Dr. Evelin Rogers MD Referring Provider Active Start: December 02, 2024 End: December 02, 2024 JORGE LUIS Marrufo Other Provider Active Start: December 02, 2024 End: December 02, 2024 Team Status: Inactive Member Role Status Dates Dr. Evelin Rogers MD Primary Care Provider Active Start: March 04, 2025 End: March 04, 2025 Dr. Evelin Rogers MD Referring Provider Active Start: March 04, 2025 End: March 04, 2025 JORGE LUIS Marrufo Attending Provider Active St art: March 04, 2025 End: March 04, 2025 Team Status: Inactive Member Role Status Dates Dr. Evelin Rogers MD Primary Care Provider Active Start: March 10, 2025 End: March 10, 2025 Dr. Evelin Rogers MD Referring Provider Active Start: March 10, 2025 End: March 10, 2025 JORGE LUIS Horvath Attending Provider Active Start: March 10, 2025 End: March 10, 2025 Team Status: Active Member Role/Relationship Status Dates Dr. Evelin Rogers MD Primary Care Provider Active Team Status: Inactive Member Role/Relationship Status Dates Dr. Evelin Rogers MD Primary Care Provider Active Start: November 23, 2024 End: November 23, 2024 Dr. Evelin Rogers MD Attending Provider Active Start: November 23, 2024 End: November 23, 2024 Dr. Evelin Rogers MD Referring Provider Active Start: November 23, 2024 End: November 23, 2024 Team Status: Active Member Role/Relationship Status Dates Dr. Evelin Rogers MD Primary Care Provider Active Start: November 23, 2024 Dr. Evelin Rogers MD Referring Provider Active Start: November 23, 2024 Dr. Tutu Dailey MD Attending Provider Active S tart: November 23, 2024 Team Status: Inactive Member Role/Relationship Status Dates Dr. Evelin Rogers MD Primary Care Provider Active Start: December 02, 2024 End: December 02, 2024 Dr. Evelin Rogers MD Attending Provider Active Start: December 02, 2024 End: December 02, 2024 Dr. Evelin Rogers MD Referring Provider Active Start: December 02, 2024 End: December 02, 2024 JORGE LUIS Marrufo Other Provider Active Start: December 02, 2024 End: December 02, 2024 Team Status: Inactive Member Role/Relationship Status Dates Dr. Evelin Rogers MD Primary Care Provider Active Start: March 04, 2025 End: March 04, 2025 Dr. Evelin Rogers MD Referring Provider Active Start: March 04, 2025 End: March 04, 2025 JORGE LUIS Marrufo Attending Provider Active St art: March 04, 2025 End: March 04, 2025 Team Status: Inactive Member Role/Relationship Status Dates Dr. Evelin Rogers MD Primary Care Provider Active Start: March 10, 2025 End: March 10, 2025 Dr. Evelin Rogers MD Referring Provider Active Start: March 10, 2025 End: March 10, 2025 JORGE LUIS Horvath Attending Provider Active Start: March 10, 2025 End: March 10, 2025 Team Status: Inactive Member Role/Relationship Status Dates Dr. Evelin Rogers MD Primary Care Provider Active Start: March 10, 2025 End: March 10, 2025 Dr. Evelin Rogers MD Attending Provider Active Start: March 10, 2025 End: March 10, 2025 Dr. Evelin Rogers MD Referring Provider Active Start: March 10, 2025 End: March 10, 2025 JORGE LUIS Marrufo Other Provider Active Start: March 10, 2025 End: March 10, 2025 Team Status: Inactive Member Role/Relationship Status Dates Dr. Evelin Rogers MD Primary Care Provider Active Start: December 02, 2024 End: December 02, 2024 Dr. Evelin Rogers MD Attending Provider Active Start: December 02, 2024 End: December 02, 2024 Dr. Evelin Rogers MD Referring Provider Active Start: December 02, 2024 End: December 02, 2024 JORGE LUIS Marrufo Other Provider Active Start: December 02, 2024 End: December 02, 2024 Team Status: Inactive Member Role/Relationship Status Dates Dr. Evelin Rogers MD Primary Care Provider Active Start: March 04, 2025 End: March 04, 2025 Dr. Evelin Rogers MD Referring Provider Active Start: March 04, 2025 End: March 04, 2025 JORGE LUIS Marrufo Attending Provider Active St art: March 04, 2025 End: March 04, 2025 Team Status: Inactive Member Role/Relationship Status Dates Dr. Evelin Rogers MD Primary Care Provider Active Start: March 10, 2025 End: March 10, 2025 Dr. Evelin Rogers MD Referring Provider Active Start: March 10, 2025 End: March 10, 2025 JORGE LUIS Horvath Attending Provider Active Start: March 10, 2025 End: March 10, 2025 Team Status: Inactive Member Role/Relationship Status Dates Dr. Evelin Rogers MD Primary Care Provider Active Start: March 10, 2025 End: March 10, 2025 Dr. Evelin Rogers MD Attending Provider Active Start: March 10, 2025 End: March 10, 2025 Dr. Evelin Rogers MD Referring Provider Active Start: March 10, 2025 End: March 10, 2025 Willi Wayt PA, PA Other Provider Active Start: March 10, 2025 End: March 10, 2025 Team Status: Inactive Member Role/Relationship Status Dates Dr. Evelin Rogers MD Primary Care Provider Active Start: March 17, 2025 End: March 17, 2025 Willi KANG PA Attending Provider Active St art: March 17, 2025 End: March 17, 2025 Willi KANG PA Referring Provider Active St art: March 17, 2025 End: March 17, 2025 Team Status: Active Member Role/Relationship Status Dates Dr. Evelin Rogers MD Primary Care Provider Active Start: March 17, 2025 Dr. Tutu Dailey MD Attending Provider Active S tart: March 17, 2025 Team Status: Inactive Member Role/Relationship Status Dates Dr. Evelin Rogers MD Primary Care Provider Active Start: March 04, 2025 End: March 04, 2025 Dr. Evelin Rogers MD Referring Provider Active Start: March 04, 2025 End: March 04, 2025 JORGE LUIS Marrufo Attending Provider Active St art: March 04, 2025 End: March 04, 2025 Team Status: Inactive Member Role/Relationship Status Dates Dr. Evelin Rogers MD Primary Care Provider Active Start: March 10, 2025 End: March 10, 2025 Dr. Evelin Rogers MD Referring Provider Active Start: March 10, 2025 End: March 10, 2025 JORGE LUIS Horvath Attending Provider Active Start: March 10, 2025 End: March 10, 2025 Team Status: Inactive Member Role/Relationship Status Dates Dr. Evelin Rogers MD Primary Care Provider Active Start: March 10, 2025 End: March 10, 2025 Dr. Evelin Rogers MD Attending Provider Active Start: March 10, 2025 End: March 10, 2025 Dr. Evelin Rogers MD Referring Provider Active Start: March 10, 2025 End: March 10, 2025 Willi KANG PA Other Provider Active Start: March 10, 2025 End: March 10, 2025 Team Status: Inactive Member Role/Relationship Status Dates Dr. Evelin Rogers MD Primary Care Provider Active Start: March 17, 2025 End: March 17, 2025 JORGE LUIS Marrufo Attending Provider Active St art: March 17, 2025 End: March 17, 2025 JORGE LUIS Marrufo Referring Provider Active St art: March 17, 2025 End: March 17, 2025 Team Status: Active Member Role/Relationship Status Dates Dr. Evelin Rogers MD Primary Care Provider Active Start: March 17, 2025 Dr. Tutu Dailey MD Attending Provider Active S tart: March 17, 2025 JORGE LUIS Marrufo Referring Provider Active St art: March 17, 2025 Team Status: Inactive Member Role/Relationship Status Dates Dr. Evelin Rogers MD Primary Care Provider Active Start: March 31, 2025 End: April 14, 2025 Dr. Evelin Rogers MD Attending Provider Active Start: March 31, 2025 End: April 14, 2025 Dr. Evelin Rogers MD Referring Provider Active Start: March 31, 2025 End: April 14, 2025 JORGE LUIS Marrufo Other Provider Active Start: March 31, 2025 End: April 14, 2025 Team Status: Inactive Member Role/Relationship Status Dates Dr. Evelin Rogers MD Primary Care Provider Active Start: May 04, 2025 End: May 04, 2025 Dr. Evelin Rogers MD Referring Provider Active Start: May 04, 2025 End: May 04, 2025 Dr. Jeremy Serrano DO Attending Provider Active Start: May 04, 2025 End: May 04, 2025 Team Status: Active Member Role/Relationship Status Dates Dr. Evelin Rogers MD Primary Care Provider Active Start: May 04, 2025 Dr. Michelle Matthew MD Attending Provider Active Start: May 04, 2025 Dr. Michelle Matthew MD Referring Provider Active Start: May 04, 2025 Team Status: Active Member Role/Relationship Status Dates Dr. Evelin Rogers MD Primary Care Provider Active Start: May 04, 2025 Dr. Evelin Rogers MD Referring Provider Active Start: May 04, 2025 Dr. Jeremy Serrano DO Attending Provider Active Start: May 04, 2025 Dr. Jeremy Serrano DO Other Provider Active St art: May 04, 2025 Team Status: Inactive Member Role/Relationship Status Dates Dr. Evelin Rogers MD Primary Care Provider Active Start: May 05, 2025 End: May 05, 2025 Dr. Evelin Rogers MD Referring Provider Active Start: May 05, 2025 End: May 05, 2025 Dr. Michelle Matthew MD Attending Provider Active Start: May 05, 2025 End: May 05, 2025 Team Status: Active Member Role/Relationship Status Dates Dr. Evelin Rogers MD Primary care physician Active Team Status: Inactive Member Role/Relationship Status Dates Dr. Evelin Rogers MD Primary care physician Active Start: March 04, 2025 End: March 04, 2025 Dr. Evelin Rogers MD Referring Provider Active Start: March 04, 2025 End: March 04, 2025 JORGE LUIS Marrufo Attending physician Active S tart: March 04, 2025 End: March 04, 2025 Team Status: Inactive Member Role/Relationship Status Dates Dr. Evelin Rogers MD Primary care physician Active Start: March 10, 2025 End: March 10, 2025 Dr. Evelin Rogers MD Referring Provider Active Start: March 10, 2025 End: March 10, 2025 JORGE LUSI Horvath Attending physician Active Start: March 10, 2025 End: March 10, 2025 Team Status: Inactive Member Role/Relationship Status Dates Dr. Evelin Rogers MD Primary care physician Active Start: March 10, 2025 End: March 10, 2025 Dr. Evelin Rogers MD Attending physician Active Start: March 10, 2025 End: March 10, 2025 Dr. Evelin Rogers MD Referring Provider Active Start: March 10, 2025 End: March 10, 2025 JORGE LUIS Marrufo Nurse Practitioner Active St art: March 10, 2025 End: March 10, 2025 Team Status: Inactive Member Role/Relationship Status Dates Dr. Evelin Rogers MD Primary care physician Active Start: March 17, 2025 End: March 17, 2025 Willi KANG PA Attending physician Active S tart: March 17, 2025 End: March 17, 2025 JORGE LUIS Marrufo Referring Provider Active St art: March 17, 2025 End: March 17, 2025 Team Status: Active Member Role/Relationship Status Dates Dr. Evelin Rogers MD Primary care physician Active Start: March 17, 2025 Dr. Tutu Dailey MD Attending physician Active Start: March 17, 2025 JORGE LUIS Marrufo Referring Provider Active St art: March 17, 2025 Team Status: Inactive Member Role/Relationship Status Dates Dr. Evelin Rogers MD Primary care physician Active Start: March 31, 2025 End: April 14, 2025 Dr. Evelin Rogers MD Attending physician Active Start: March 31, 2025 End: April 14, 2025 Dr. Evelin Rogers MD Referring Provider Active Start: March 31, 2025 End: April 14, 2025 Willi KANG PA Nurse Practitioner Active St art: March 31, 2025 End: April 14, 2025 Team Status: Inactive Member Role/Relationship Status Dates Dr. Evelin Rogers MD Primary care physician Active Start: May 04, 2025 End: May 04, 2025 Dr. Evelin Rogers MD Referring Provider Active Start: May 04, 2025 End: May 04, 2025 Dr. Jeremy Serrano DO Attending physician Active Start: May 04, 2025 End: May 04, 2025 Team Status: Active Member Role/Relationship Status Dates Dr. Evelin Rogers MD Primary care physician Active Start: May 04, 2025 Dr. Michelle Matthew MD Attending physician Active Start: May 04, 2025 Dr. Michelle Matthew MD Referring Provider Active Start: May 04, 2025 Team Status: Active Member Role/Relationship Status Dates Dr. Evelin Rogers MD Primary care physician Active Start: May 04, 2025 Dr. Evelin Rogers MD Referring Provider Active Start: May 04, 2025 Dr. Jeremy Serrano DO Attending physician Active Start: May 04, 2025 Dr. Jeremy Serrano DO Nurse Practitioner Active Start: May 04, 2025 Team Status: Inactive Member Role/Relationship Status Dates Dr. Evelin Rogers MD Primary care physician Active Start: May 05, 2025 End: May 05, 2025 Dr. Evelin Rogers MD Referring Provider Active Start: May 05, 2025 End: May 05, 2025 Dr. Michelle Matthew MD Attending physician Active Start: May 05, 2025 End: May 05, 2025 Team Status: Inactive Member Role/Relationship Status Dates Dr. Evelin Rogers MD Primary care physician Active Start: May 19, 2025 End: May 19, 2025 Dr. Evelin Rogers MD Attending physician Active Start: May 19, 2025 End: May 19, 2025 Dr. Evelin Rogers MD Referring Provider Active Start: May 19, 2025 End: May 19, 2025 (unrecognized sect ion and content) No Status Records FoundNo Status Records FoundNo Status Records FoundNo Status Records FoundNo Status Records FoundNo Status Records Found INFORMATION SOURCE (unrecogn ized section and content) DATE CREATED AUTHOR 02/09/2022 [facility] DATE CREATED AUTHOR AUTHOR'S ORGANIZ ATION 02/20/2022 [facility] DATE CREATED AUTHOR AUTHOR'S ORGANIZ ATION 10/31/2023 [facility] DATE CREATED AUTHOR AUTHOR'S ORGANIZ ATION 06/25/2024 [facility] DATE CREATED AUTHOR AUTHOR'S ORGANIZ ATION 08/17/2024 [facility] DATE CREATED AUTHOR AUTHOR'S ORGANIZ ATION 07/13/2025 [facility] Scheduled Active and Recently Administ ered Medications (unrecognized section and content) Medication Order 06/13/2024 06/14/2024 06/15/2024 ceFAZolin (ANCEF) IVPB 2 g (premix) (COMPLETED) 2,000 mg, Intravenous, at 100 mL/hr, Once, On Fri06/15/24 at 0830, For 1 dose, Pre-Procedure, Administer within 60 minutes prior to incision., Indication (PRE PROCEDURE): Urology (clean) 0832 (Given - Provid er: Dorota Navarro CRNA) Continuous Medication Order 06/13/2024 06/14/2024 06/15/2024 lactated Ringers infusion 25 mL/hr, Intravenous, Continuous, Starting on Fri06/15/24 at 0830, Pre-Procedure 0832 (New Bag - Prov ider: Dorota Navarro CRNA)0855 (Anesthesia Volume Adjustment - Provider: Dorota Navarro CRNA)0940 (Stopped - Provider: Mackenzie Jansen RN) PRN Medication Order 06/13/2024 06/14/2024 06/15/2024 Bupivacaine-EPINEPHrine PF (MARCAINE-PF w/EPI) 0.5 %-1:200,000 injection (CANCELED) As needed, Starting on Fri06/15/24 at 0847, Intra-Procedure 0847 (Given - Provid er: Willi Roque MD) fentaNYL (SUBLIMAZE) injection 25 mcg 25 mcg, Intravenous, Every 5 min PRN, Pain, Starting on Fri06/15/24 at 0857, For 4 doses, PACU (only), [] Do not give more than 100 mcg while in PACU. hydrALAZINE (APRESOLINE) injection 5 mg 5 mg, Intravenous, Every 15 min PRN, SBP greater than 160 or DBP greater than 90, Starting on Fri06/15/24 at 0857, For 4 doses, PACU (only), [] Do not give more than 20 mg total. [] Hold for HR greater than 100. [] Administer if labetalol or metoprolol ineffective at maximum dose or not ordered. HYDROcodone-acetaminophen (NORCO) 5-325 mg per tablet 1 tablet 1 tablet, Oral, Once as needed, Pain, Starting on Fri06/15/24 at 0857, For 1 dose, PACU (only), While in PACU when tolerating orals. Use oral route first, if tolerated.d. labetaloL (NORMODYNE,TRANDATE) injection 5 mg 5 mg, Intravenous, Every 5 min PRN, SBP greater than 160 or DBP greater than 90, Starting on Fri06/15/24 at 0857, PACU (only), Do not give more than 20 mg total. Hold for HR less than 50. lidocaine 1% (XYLOCAINE) 10 mg/mL (1 %) injection (CANCELED) As needed, Starting on Fri06/15/24 at 0855, Intra-Procedure 0855 (Given - Provid er: Willi Roque MD) meperidine (DEMEROL) injection 12.5 mg 12.5 mg, Intravenous, Every 5 min PRN, shivering, Starting on Fri06/15/24 at 0857, For 2 doses, PACU (only), Do not give more than 25 mg total., RESTRICTED to use in rigors OR pain management in patients with a documented opioid allergy. Please select this medication s indication. Rigors morphine syringe 2 mg 2 mg, Intravenous, Every 5 min PRN, Pain, Starting on Fri06/15/24 at 0857, For 5 doses, PACU (only), Give if fentanyl not effective or not ordered. Do not give more than 10 mg total. naloxone (NARCAN) injection 0.1 mg(Linked Group 1) 0.1 mg, Intravenous, As needed, opioid reversal, Starting on Fri06/15/24 at 0857, PACU (only), [] Mix nalOXone (NARCAN) 0.4 mg (1ml) with 9 mL of Normal Saline to total 10 mL. [] Administer 0.1 mg (2.5ml) IV Push every 2 minutes until respiratory rate is 10 or greater. naloxone (NARCAN) injection 0.4 mg(Linked Group 1) 0.4 mg, Intravenous, As needed, opioid reversal, patient is pulseless, breathless, and unresponsive, Starting on Fri06/15/24 at 0857, PACU (only), Call a code first, then administer naloxone dose undiluted IV Push over 30 seconds. ondansetron (ZOFRAN) injection 4 mg 4 mg, Intravenous, Every 15 min PRN, nausea, vomiting, Starting on Fri06/15/24 at 0857, For 2 doses, PACU (only), Do not give more than 2 doses. Administer first as needed for nausea/vomiting, or as directed by anesthesia oxyCODONE (ROXICODONE) 10 mg/0.5 mL concentrated solution 5 mg 5 mg, Sublingual, Once as needed, moderate to severe pain, Pain, Starting on Fri06/15/24 at 0857, For 1 dose, PACU (only), Use first if unable to tolerate oral route. Linked Groups Order Group 1: Notify Anesthesiologist (CANCELED) STAT, Until discontinued, Starting on Fri06/15/24 at 0858, Until Specified, Notify anesthesiologist immediately if respiratory rate less than or equal to 8 breaths per minute., PACU (only) And naloxone (NARCAN) injection 0.1 mgJump to med 0.1 mg, Intravenous, As needed, opioid reversal, Starting on Fri06/15/24 at 0857, PACU (only), [] Mix nalOXone (NARCAN) 0.4 mg (1ml) with 9 mL of Normal Saline to total 10 mL. [] Administer 0.1 mg (2.5ml) IV Push every 2 minutes until respiratory rate is 10 or greater. And naloxone (NARCAN) injection 0.4 mgJump to med 0.4 mg, Intravenous, As needed, opioid reversal, patient is pulseless, breathless, and unresponsive, Starting on Fri06/15/24 at 0857, PACU (only), Call a code first, then administer naloxone dose undiluted IV Push over 30 seconds. Source Comments (unrecognize d section and content) In the event this informatio n is protected by the Federal Confidentiality of Alcohol and Drug Abuse Patient Records regulations: The Federal rules restrict any use of the information to criminally investigate or prosecute any alcohol or drug abuse patient.[facility] HealthIn the event this information is protected by the Federal Confidentiality of Alcohol and Drug Abuse Patient Records regulations: The Federal rules restrict any use of the information to criminally investigate or prosecute any alcohol or drug abuse patient.[facility] Goals (unrecognized section and content) Goals may be documented in a n alternate sectionGoals may be documented in an alternate sectionGoals may be documented in an alternate sectionGoals may be documented in an alternate sectionGoals may be documented in an alternate sectionGoals may be documented in an alternate sectionGoals may be documented in an alternate section FOR RECORDS PERTAINING TO PATIENTS WHO ARE OR HAVE BEEN ENROLLED IN A CHEMICAL DEPENDENCY/SUBSTANCEABUSE PROGRAM, SOME INFORMATION MAY BE OMITTED. This clinical summary was aggregated from multiple sources. Caution should be exercised in using it in the provision of clinical care. This summary normalizes information from multiple sources, and as a consequence, information in this document may materially change the coding, format and clinical context of patient data. In addition, data may be omitted in some cases. CLINICAL DECISIONS SHOULD BE BASED ON THE PRIMARY CLINICAL RECORDS. [facility] [employer] [facility]. provides no warranty or guarantee of the accuracy or completeness of information in this document.
[2025-07-14 07:11] LABS: INR Fingerstick 1.3
[2025-07-14] MEDS: Lactated Ringers 1,000 ML 15 ML IV (07:28)
--- NOTE | 2025-07-14 08:05 | PCM.PRE.AN2 ---
ASA Classification* ASA Classification ASA Classification: 2 Assessment & Plan Anesthesia* Anesthesia Assessment Anesthesia Assessment: Discussed sedation and/or anesthesia options, risks, benefits, and alternatives with patient/parents/legal guardian/POA. Questions invited. The patient/parents/legal guardian/POA seems to understand and agrees to proceed with anesthesia plan. Reviewed the physical assessment, medical history, allergy history and patient home medications list prior to surgery/procedure/anesthetic and documented any changes. Performed airway and anesthesia risk assessments. Anesthesia Type Anesthesia Type: MAC History Source History Obtained from:: Patient and Chart Anesthesia Focused Assessment* Temperature: 97.8 F Pulse Rate: 68 Blood Pressure: 137/92 Respiratory Rate: 16 Pulse Ox: 97 Oxygen Delivery Method: Room Air Airway Assessment Mouth opens: >3 cm Mallampati Score: IV Teeth Condition: Caps/Crowns (Patient has several crowns. They are all tight.) Neck Range of motion (ROM): Limited ROM (Somewhat Decreased) Labs Anesthesia Preop lab: CBC WBC, (4.4-11.0) 6.4 K/mm3 05/04/25, 08:52 RBC, (4.6-6.2) 5.10 M/mm3 05/04/25, 08:52 Hgb, (13.0-16.5) 16.1 g/dL 05/04/25, 08:52 Hct, (40-54) 44.8 % 05/04/25, 08:52 Plt Count, (150-450) 210 K/mm3 05/04/25, 08:52 CHEMISTRY Potassium, (3.3-5.1) 3.4 mmol/L 03/10/25, 11:17 Sodium, (133-145) 140 mmol/L 03/10/25, 11:17 Magnesium, (1.6-2.6) 2.2 mg/dL 05/21/24, 11:23 BUN, (4-19) 23 mg/dL H 03/10/25, 11:17 Creatinine, (0.70-1.20) 1.46 mg/dL H 03/10/25, 11:17 Glucose, (70-99) 123 mg/dL H 03/10/25, 11:17 TSH, (0.358-3.740) 2.610 uIU/mL 05/21/24, 11:23 COAG PT, (11.7-14.9) 24.4 SECONDS H 05/19/25, 09:38 Pre-Assessment Diagnosis/Proposed Procedure Planned Operative Procedure(s): EGD RFA Anesthesia History Anesthesia History - command post craftsman: Anesthesia History - command post craftsman Hx Hospitalization No 07/12/25 12:08 Any Problems With Anesthesia No 07/12/25 12:08 Cholinesterase deficiency No 07/12/25 12:08 You/Your Family Experience No 07/12/25 12:08 fever (hyperthermia) with Relationship Recent Exposure to Contagious No 07/14/25 07:20 Disease Does patient have nerve No 07/12/25 12:08 stimulator Patient instructed to have device shut off --Does patient have Pacemaker No 07/14/25 07:20 or ICD? When Was Last Pacemaker Check QUESTION #4 FULL TEXT: You/Your Family Experience fever (hyperthermia) with Anesthesia Last Oral Intake Last Oral intake: Last Oral Intake NPO since 00:00 07/14/25 07:20 Meds taken in AM with sips of Yes 07/14/25 07:20 water? Meds patient instructed to PROTONIX 07/14/25 07:20 take am of surgery Any additional information?: Yes Meds taken in AM with sips of water?: Yes PONV PONV - command post craftsman: PONV - command post craftsman Female No 07/12/25 12:08 HX of Motion Sickness No 07/12/25 12:08 HX of N/V After Surgery No 07/12/25 12:08 Non-Smoker Yes 07/12/25 12:08 Duration of Surgery greater No 07/12/25 12:08 than 60 minutes Number of Risk Factors 1 07/12/25 12:08 PONV Score Low Risk 07/12/25 12:08 Height & Weight Height & Weight: Anesthesia: Height & Weight Height 6 ft 4 in 07/14/25 07:20 Weight: 113 kg 07/14/25 07:20 Body Mass Index (BMI) 30.3 07/14/25 07:20 Respiratory Assessment Respiratory Assessment - command post craftsman: Respiratory Tract Infection Hx - command post craftsman Hx Respiratory Tract Infection No 07/12/25 12:08 STOP Sleep Apnea STOP Sleep Apnea - command post craftsman: STOP Sleep Apnea - command post craftsman Hx Hypertension No 07/12/25 12:08 Hx Sleep Apnea No 07/12/25 12:08 CPAP BIPAP Do you snore loudly (louder No 07/12/25 12:08 than talking or can be heard Do you often feel tired/ No 07/12/25 12:08 fatigued/ sleepy during daytime? Has anyone observed you stop No 07/12/25 12:08 breathing during sleep? STOP Results Negative 07/12/25 12:08 QUESTION #5 FULL TEXT : Do you snore loudly (louder than talking or can be heard through closed doors)? Tobacco Use History Tobacco Use History - command post craftsman: Tobacco Use History - command post craftsman Tobacco Use Smoking Status Never smoker 07/12/25 12:08 Hx Tobacco Use No 07/12/25 12:08 Years Smoking Packs Smoked per Day Smoking Cessation Date was within the last 15 years Hx Smoking Cessation Date Hx Smoking Cessation Counseling Hematologic Medial History Hematologic Hx - command post craftsman: Hematologic Medical Hx - destination coordinator Hx of Blood Transfusion No 07/12/25 12:08 Hx of Transfusion in last 3 No 07/12/25 12:08 Months Date of Last Transfusion (if within last 3 months) Ever experience any problems No 07/12/25 12:08 with transfusion(s)? Specify any problems Hx of Preganancy in last 3 N/A 07/12/25 12:08 Months Nurse Filling Out Transfusion DSCHRIBER 07/12/25 12:08 & Questions: Date: 07/12/25 07/12/25 12:08 Time: 12:11 07/12/25 12:08 Patient unable to answer at this time (ie. confused, unrespo /Reproduction History /Reproductive History - command post craftsman: /Reproductive Hx- command post craftsman Hx Now No 07/12/25 12:08 Gestational Age (in weeks): EDC: Hx Hx Para Hx Section SAB No 07/12/25 12:08 Active Medications Active Medications: Current Medications Generic Name Dose Route Start Last Admin Trade Name Freq PRN Reason Stop Dose Admin Lactated Ringer's 1,000 mls @ 15 mls/hr 07/14/25 07:15 07/14/25 07:28 IV 15 mls/hr .Q48H SONIA Administration PFSH Medical History DVT (deep venous thrombosis) Esophagitis History of Cadena esophagus Gastric reflux Low iron Non-smoker Shortness of breath on exertion History of Holter monitoring History of echocardiogram History of stress test Iron deficiency anemia due to chronic blood loss Nocturia Prostate cancer Hypertension Home Medications ?Medication ?Instructions ?Recorded ?Last Taken ?Type sildenafil 100 mg tablet 100 mg PO DAILY PRN sexual 01/13/25 05/04/25 Rx activity #90 tabs ferrous sulfate 325 mg (65 mg 325 mg PO DAILY 03/22/25 05/03/25 History iron) tablet pantoprazole 40 mg tablet,delayed 40 mg PO DAILY #180 tabs 03/22/25 07/14/25 Rx release chlorthalidone 25 mg tablet 25 mg PO QDAY #90 tabs 06/24/25 Unknown Rx warfarin 10 mg tablet 10 mg PO QDAY #90 tabs 06/24/25 07/11/25 Rx Allergy/AdvReac Type Severity Reaction Status Date / Time No Known Allergies Allergy Verified 07/14/25 07:19 Family History Father Cancer, Onset Age: 65 prostate Hypertension Surgical History History of esophagogastroduodenoscopy (EGD) Hx of colonoscopy Hx of prostate biopsy H/O hernia repair Social History household members: spouse housing: house current occupational status: retired and 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
--- NOTE | 2025-07-14 08:30 | PCM.HP.STD ---
HPI - General General Date of Admission: 07/14/25 Date of Service: 07/14/25 HPI Narrative JACEY DODD, is a 69 M who presents [JACEY DODD, is a 69 M who presents Chief Complaint: Barrets esophagus Pt underwent EGD and colonoscopy in Jul 2024 for issues with anemia. EGD 06.29.24 ; Esophageal mucosal changes consistent with long-segment Cadena's esophagus. Biopsied. - Large hiatal hernia. - Gastric erosions with no stigmata of recent bleeding. - Duodenitis. Biopsied. Colonoscopy 06.29.24 - One 8 mm polyp in the cecum, removed with a jumbo cold forceps. Resected and retrieved. - Diverticulosis in the recto-sigmoid colon, in the sigmoid colon and in the descending colon. Pt has been doing well since being on Pantoprazole 40 mg BID. He denies all GI symptoms. He is interested in decreasing/discontinuing this medication. ] [facility] Medical History DVT (deep venous thrombosis) Esophagitis History of Cadena esophagus Gastric reflux Low iron Non-smoker Shortness of breath on exertion History of Holter monitoring History of echocardiogram History of stress test Iron deficiency anemia due to chronic blood loss Nocturia Prostate cancer Hypertension Home Medications ?Medication ?Instructions ?Recorded ?Last Taken ?Type sildenafil 100 mg tablet 100 mg PO DAILY PRN sexual 01/13/25 05/04/25 Rx activity #90 tabs ferrous sulfate 325 mg (65 mg 325 mg PO DAILY 03/22/25 05/03/25 History iron) tablet pantoprazole 40 mg tablet,delayed 40 mg PO DAILY #180 tabs 03/22/25 07/14/25 Rx release chlorthalidone 25 mg tablet 25 mg PO QDAY #90 tabs 06/24/25 Unknown Rx warfarin 10 mg tablet 10 mg PO QDAY #90 tabs 06/24/25 07/11/25 Rx Allergy/AdvReac Type Severity Reaction Status Date / Time No Known Allergies Allergy Verified 07/14/25 07:19 Family History Father Cancer, Onset Age: 65 prostate Hypertension Surgical History History of esophagogastroduodenoscopy (EGD) Hx of colonoscopy Hx of prostate biopsy H/O hernia repair Social History household members: spouse housing: house current occupational status: retired and 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 Smoking Status: Never smoker Electronic Cigarette Use: not used alcohol intake: never substance use type: does not use what type of physical activity do you participate in: walking, bicycling and other details: pickleball cassandra/hoahaoism: Methodist seatbelt use: always do you feel safe at home: Yes ROS Constitutional Constitutional: Denies fatigue, fever(s), poor appetite, weight gain or weight loss Gastrointestinal Gastrointestinal: Denies belching, bloating, change in bowel habits, change in stool character, chewing difficulty, coffee ground emesis, constipation, cramping, diarrhea, dyspepsia, dysphagia, early satiety, excessive flatus, fecal incontinence, heartburn, hematemesis, hematochezia, hemorrhoids, loose stools, melena, nausea, odynophagia, rectal bleeding, tenesmus, vomiting or weight changes Vital Signs Vital Signs Vital Signs: 07/14/25 07:20 07/14/25 07:20 07/14/25 08:11 Temperature 97.8 F 97.8 F Temperature Source Temporal Pulse Rate 68 68 Respiratory Rate 16 16 Respiratory Pattern Normal Blood Pressure 137/92 H 137/92 H Blood Pressure Mean 107 Blood Pressure Source Monitor Blood Pressure Position Sitting Blood Pressure Location Left Arm Pulse Ox 97 97 Oxygen Delivery Method Room Air Room Air Weight Weight: 249 lb 1.957 oz Body Mass Index (BMI) 30.3 Physical Exam Const alert, oriented x3, no apparent distress and healthy appearing General Appearance: cooperative GI normal to inspection, nondistended, normoactive bowel sounds, soft to palpation, non-tender and non-distended Percussion: normal to percussion Rectal Exam: deferred Results Lab / Micro Data Labs: Laboratory Results - last 24 hr 07/14/25 07:07: POC PT 15.1 H, INR 1.3 Assessment & Plan Assessment/Plan (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 Qualified Code(s): 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 (2) GERD (gastroesophageal reflux disease): QUALIFIERS: Esophagitis presence: with esophagitis Esophagitis bleeding: without hemorrhage Qualified Code(s): K21.00 - Gastro-esophageal reflux disease with esophagitis, without bleeding PLAN: Assessment & Plan Assessment/Plan (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 Qualified Code(s): 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 PLAN: Assessment and Plan Assessment and Plan (1) Cadena esophagus: Status: Acute Qualifiers: 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 Qualified Code(s): 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 Plan: Hardy is a 69 yo male pt here today for Barretts esophagus. Pt was diagnosed with Barretts after EGD and colonoscopy back in July 2024 for iron deficiency anemia. He has been on pantoprazole 40 mg twice a day since. He is not having any upper GI symptoms at this time and is interested in discontinuing the PPI. I discussed the need to continue PPI to prevent esophageal cancer. I did give him the option for RFA of the barretts esophagus which he was interested. He will be scheduled for this. In the interim, he will decrease frequency of PPI to once per day. He is agreeable to this plan. -EGD with RFA -Continue pantoprazole 40 mg daily -f/u after procedure (2) GERD (gastroesophageal reflux disease): Status: Acute Qualifiers: Esophagitis presence: with esophagitis Esophagitis bleeding: without hemorrhage Qualified Code(s): K21.00 - Gastro-esophageal reflux disease with esophagitis,
--- NOTE | 2025-07-14 09:07 | PCM.POST.ANE ---
Anesthesia: Postop Eval I Current Vital Signs Temperature: 97.3 F Pulse Rate: 16 Blood Pressure: 113/75 Respiratory Rate: 16 Pulse Ox: 93 Oxygen Delivery Method: Nasal Cannula Oxygen Flow Rate (L/min): 3 Assessment Airway patent: Yes Spontaneous unlabored respirations: Yes Mental status: Asleep nausea: No Vomiting: No Anesthesia Complication: No Fluid Hydration Crystalloid volume administer (ml): 800 Total IV fluid infused: 800 Progress Note Anesthesia document: Postop Eval 1 completed: Yes
--- NOTE | 2025-07-14 09:10 | OP.EGD_ITS ---
Patient Name: Eugenio Aguilera Procedure Date: 07/14/2025 8:36 AM Date of : 1955 Age: 69 Procedure: Upper GI endoscopy Indications: For therapy of Cadena's esophagus Providers: Jeremy Serrano DO Referring MD: Evelin Rogers Md Medicines: Monitored Anesthesia Care Patient Profile: This is a 69 year old male. Refer to note in patient chart for documentation of history and physical. Patient has symptoms of chronic heartburn. Complications: No immediate complications. Procedure: Pre-Anesthesia Assessment: - Prior to the procedure, a History and Physical was performed, and patient medications and allergies were reviewed. The patient is competent. The risks and benefits of the procedure and the sedation options and risks were discussed with the patient. All questions were answered and informed consent was obtained. Patient identification and proposed procedure were verified by the physician in the pre-procedure area. Mental Status Examination: alert and oriented. Airway Examination: normal oropharyngeal airway and neck mobility. Respiratory Examination: clear to auscultation. CV Examination: normal. Prophylactic Antibiotics: The patient does not require prophylactic antibiotics. Prior Anticoagulants: The patient has taken no anticoagulant or antiplatelet agents. ASA Grade Assessment: II - A patient with mild systemic disease. After reviewing the risks and benefits, the patient was deemed in satisfactory condition to undergo the procedure. The anesthesia plan was to use monitored anesthesia care (MAC). Immediately prior to administration of medications, the patient was re-assessed for adequacy to receive sedatives. The heart rate, respiratory rate, oxygen saturations, blood pressure, adequacy of pulmonary ventilation, and response to care were monitored throughout the procedure. The physical status of the patient was re-assessed after the procedure. After obtaining informed consent, the endoscope was passed under direct vision. Throughout the procedure, the patient's blood pressure, pulse, and oxygen saturations were monitored continuously. The gastroscope was introduced through the mouth, and advanced to the second part of duodenum. The upper GI endoscopy was accomplished without difficulty. The patient tolerated the procedure well. Scope In: 8:45:02 AM Scope Out: 8:59:13 AM Total Procedure Duration Time 0 hours 14 minutes 11 seconds Findings: The esophagus and gastroesophageal junction were examined with white light and narrow band imaging (NBI) from a forward view and retroflexed position. There were esophageal mucosal changes secondary to established long-segment Cadena's disease. These changes involved the mucosa at the upper extent of the gastric folds (40 cm from the incisors) extending to the Z-line (33 cm from the incisors). [place]-colored mucosa was present and erosion was present at 35 cm. The maximum longitudinal extent of these esophageal mucosal changes was 7 cm in length. Focal radiofrequency ablation of Cadena's esophagus was performed. With the endoscope in place, the position and extent of the Cadena's mucosa and the anatomic landmarks including top of gastric folds were noted. Endoscopic visualization identified an ablation site including the entire visible Cadena's segment. The Cadena's mucosa was irrigated with water. Gastric contents were suctioned. The endoscope was then removed from the patient. The UFOstart AGx-90 radiofrequency ablation catheter was attached to the tip of the endoscope. The endoscope with the attached radiofrequency ablation catheter was then passed transorally under direct vision into the esophagus and advanced to the areas of Cadena's mucosa. The areas included islands of Cadena's mucosa. The radiofrequency ablation catheter was placed in contact with the surface of the Cadena's mucosa under direct visualization and energy was applied twice at 12 J/cm2. Ablation was repeated in a likewise fashion to treat the entire area of suspected Cadena's mucosa. The ablation zone was cleaned of coagulative debris. The ablation catheter and endoscope were then removed and the catheter was cleaned. The catheter and endoscope were reinserted into the esophagus. A second round of ablation was then performed. Energy was applied twice at 12 J/cm2 to retreat the areas of Cadena's epithelium that had been treated with the first series of ablation. The areas of the esophagus where Cadena's mucosa had been ablated were examined. Areas of visible Cadena's esophagus were completely ablated. Estimated blood loss was minimal. A large hiatal hernia was present. No gross lesions were noted in the entire examined duodenum. Impression: - Esophageal mucosal changes secondary to established long-segment Cadena's disease. Treated with radiofrequency ablation. - Large hiatal hernia. - No gross lesions in the entire examined duodenum. - No specimens collected. Recommendation: - Discharge patient to home. - Resume previous diet. - Continue present medications. Procedure Code(s): --- Professional --- 06877, Esophagogastroduodenoscopy, flexible, transoral; with ablation of tumor(s), polyp(s), or other lesion(s) (includes pre- and post-dilation and guide wire passage, when performed) CPT copyright 2021 [employer]. All rights reserved. The codes documented in this report are preliminary and upon bsw review may be revised to meet current compliance requirements. Jeremy Serrano DO 07/14/2025 9:09:41 AM This report has been signed electronically. Number of Addenda: 0 Note Initiated On: 07/14/2025 8:36 AM
--- NOTE | 2025-07-14 09:10 | OP.PROVAT_ITS ---
07/14/2025 Evelin Rogers Md Re : Upper GI endoscopy procedure for Eugenio Aguilera Dear Sue This procedure was performed on June. My impressions and recommendations are as follows: Impressions : - Esophageal mucosal changes secondary to established long-segment Cadena's disease. Treated with radiofrequency ablation. - Large hiatal hernia. - No gross lesions in the entire examined duodenum. - No specimens collected. Recommendations : - Discharge patient to home. - Resume previous diet. - Continue present medications. My findings are described in the full procedure note, which is enclosed. If I can be of further assistance, please feel free to contact me at . Sincerely, Jeremy Serrano, 07/14/2025 9:09:41 AM This report has been signed electronically.
--- NOTE | 2025-07-14 11:37 | PCM.POSTANE2 ---
Anesthesia Postop Eval I Sum Postop Eval Completion status Anesthesia document: Postop Eval 1 completed: Yes Anesthesia Postop Eval I Summary Anesthesia Postop Eval I Summary: Anesthesia Postop Eval I: Assessment Summary Airway patent Yes 07/14/25 09:08 [email or web address] Spontaneous unlabored Yes 07/14/25 09:08 [email or web address] respirations Mental status Asleep 07/14/25 09:08 [email or web address] nausea No 07/14/25 09:08 [email or web address] Vomiting No 07/14/25 09:08 [email or web address] Anesthesia Postop Eval I: Fluid Summary Crystalloid volume administer 800 07/14/25 09:08 [email or web address] (ml) Colloids volume administered ( ml) Blood Product volume administered (ml) Total IV fluid infused 800 07/14/25 09:08 [email or web address] Anesthesia Postop Eval I: Summary Notes Anesthesia Complication No 07/14/25 09:08 [email or web address] Anesthesia Complication Comment: Post-operative progress note Anesthesia: Postop Eval II Evaluation Mental status: Awake and Calm Pain Level: 0 nausea: No Vomiting: No Complications Anesthesia Complication: No
== END 2025-07-14 10:11 | disposition home or self-care (01) ==
LOC: EN 06:59 → AC 07:00
PROVIDERS: PCP Internal Medicine; Referring Provider Internal Medicine; Visit Provider Internal Medicine Gastroenterology
PROC: (CPT 43257; principal; 2025-07-14 07:55)
DX: K22.70 Barrett's esophagus without dysplasia (principal); K44.9 Diaphragmatic hernia without obstruction or gangrene; I10 Essential (primary) hypertension; K21.00 Gastro-esophageal reflux disease with esophagitis, without bleeding; Z86.718 Personal history of other venous thrombosis and embolism; Z79.899 Other long term (current) drug therapy; Z85.46 Personal history of malignant neoplasm of prostate; Z79.01 Long term (current) use of anticoagulants
CPT/HCPCS: 43270; 36416; 85610; C1889; J2405

== ENCOUNTER 2025-07-27 14:02 | Outpatient (RCR) | payer MEDICARE, OTHER, SELFPAY ==
[2025-07-27 17:48] LABS: Hematocrit 45.7 % (40-54); Hemoglobin 16.3 g/dL (13.0-16.5); Immature Granulocytes Count 0.020 X10^3/uL (0.0-0.0); Immature Reticulocyte Fraction 8.70 % (3.00-15.90); Mean Corp Hgb Conc 35.7 g/dL (32-36); Mean Corpuscular Volume 88.2 fL (80-94); Mean Platelet Vol. 9.6 fl (6.2-12.0); NRBC Flagged by Analyzer 0 % (0-5); Platelet Count 238 K/mm3 (150-450); RBC Distribution Width CV 12.6 % (11.6-14.6); RBC Distribution Width SD 41.1 fl (35.1-43.9); Red Blood Count 5.18 M/mm3 (4.6-6.2); Reticulocyte Count 1.80 % (0.5-1.5); White Blood Count 8.2 K/mm3 (4.4-11.0)
[2025-07-27 18:20] LABS: Ferritin 168 ng/mL (37-417)
[2025-07-27 18:23] LABS: Iron 94 ug/dL (65-175); LDH 197 U/L (87-241)
[2025-07-27 18:37] LABS: Prothrombin Time (Protime)PT. 14.1 SECONDS (11.7-14.9)
[2025-07-29 18:08] LABS: Immunoglobulin A 381 mg/dL (61-437); Transferrin 226 mg/dL (177-329)
== END 2025-08-13 18:00 | disposition home or self-care (01) ==
LOC: MTLAB 14:02
PROVIDERS: Internal Medicine Gastroenterology; PCP Internal Medicine; Referring Provider Internal Medicine; Visit Provider Internal Medicine
DX: D50.9 Iron deficiency anemia, unspecified (principal); Z79.01 Long term (current) use of anticoagulants
CPT/HCPCS: 36415; 82728; 82784; 83516; 83540; 83615; 84466; 85025; 85045; 85610; 86255

== ENCOUNTER → 2025-08-31 | Outpatient (CLI) | payer MEDICARE, OTHER, SELFPAY ==
[2025-08-31 13:13] LABS: Cholesterol 195 mg/dL (<=200); Low Density Lipoprotein Calc. 114 mg/dL; Triglycerides 276 mg/dL; Very Low Density Lipoprotein 55 mg/dL (5-40); cholesterol:hdl ratio screen 5.96
[2025-08-31 13:15] LABS: AST(SGOT) 20 U/L (<=37); Alanine Aminotransfer ALT/SGPT 13 U/L (<=46); Albumin, Serum 4.1 g/dL (3.4-4.8); Alkaline Phosphatase 48 U/L (40-129); Anion Gap 13 (5-15); BUN 22 mg/dL (4-19); BUN/Creat Ratio 16.6 RATIO (10-20); Calcium,Total 9.5 mg/dL (7.6-11.0); Carbon Dioxide 24.1 mmol/L (21.0-32.0); Chloride 99 mmol/L (98-108); Globulin 3.3 g/dL (2.2-4.2); Glucose 134 mg/dL (70-99); Potassium 3.4 mmol/L (3.3-5.1)
== END | disposition home or self-care (01) ==
LOC: LAB 11:14
PROVIDERS: PCP Internal Medicine; Referring Provider Physician Assistant; Visit Provider Physician Assistant
DX: I10 Essential (primary) hypertension (principal); E78.5 Hyperlipidemia, unspecified
CPT/HCPCS: 36415; 80053; 80061; 84443